=== PATIENT | female | born 1955 | race Caucasian/White ===

== ENCOUNTER → 2020-05-17 09:17 | Outpatient (CLI) | payer OTHER, SELFPAY ==
--- NOTE | ~2020-05-17 | XR_ITS ---
EXAMINATION: XR abdomen/kub 1V EXAM DATE: 05/17/2020 10:20 INDICATION: Abnormal urinalysis tests. Kidney stone. TECHNIQUE: Frontal projection(s) of the abdomen for interpretation. Comparison is made to prior exami nation from 05/18/2019. FINDINGS: Bowel gas obscuring the renal contours. There is expected amount of colonic stool and gas. No small bowel dilation, nonobstructive bowel gas pattern. Calcifications in the pelvis are belie he to be phleboliths. There is no organomegaly suspected. The bones are unremarkable. Lung base s are unremarkable. There are cholecystectomy clips. IMPRESSION: Unremarkable abdomen x-ray exam. Reviewed, dictated and finalized at location B. NGTH AND CONDITIONING COACH
== END ==
PROVIDERS: PCP Internal Medicine; Visit Provider Internal Medicine
DX: N20.0 Calculus of kidney (principal)
CPT/HCPCS: 74018

== ENCOUNTER → 2020-07-19 13:45 | Outpatient (CLI) | payer OTHER, SELFPAY ==
--- NOTE | ~2020-07-19 | MM_ITS ---
EXAMINATION: MM screening [facility] BI w gay HISTORY: Screening mammogram TECHNIQUE: Craniocaudal and mediolateral oblique 3-D tomosynthesis images were obtained and synthetic 2-D images were generated. CAD analysis was submitted and interpreted. COMPARISON: 01/07/2019, 11/12/2017, 10/31/2017, 05/28/2016 BREAST PARENCHYMAL COMPOSITION: There are scattered areas of fibroglandular density. FINDINGS: There is no evidence of suspicious mass, calcification, or architectural distortion to sugg est malignancy in either breast. There has been no suspicious interval change. IMPRESSION: 1. No mammographic evidence of malignancy. 2. Recommend routine screening mammography in one year. BI-RADS Category 1: Negative Reviewed, dictated and finalized at location A.
== END ==
PROVIDERS: PCP Internal Medicine; Visit Provider Student in an Organized Health Care Education/Training Program
DX: Z12.31 Encounter for screening mammogram for malignant neoplasm of breast (principal)
CPT/HCPCS: 77063; 77067

== ENCOUNTER 2020-08-26 13:16 | Outpatient (RCR) | payer OTHER, SELFPAY ==
--- NOTE | 2020-08-26 14:44 | PTOPEVAL ---
Thank you for referring Ruth Troncoso to [facility].? The patient is scheduled to be seen for therapy?1 x/week for 4 weeks. Please review, sign, date and return this plan of care MARY. I agree with and certify that the following plan of care is medically necessary. Referring Physician Date Attending Provider: Wesley Leyva MD Diagnosis right knee pain Onset 07/28/20 Additional Evaluation Detail 5 yrs ago left knee torn meniscus, Palma's cyst and fluid- no surgery PT only She has not been seen by an ortho MD yet. Subjective Information She starting having right knee Query Text:As Reported By Patient/ pain after performing the Family piriformis stretch. She has been using heat and ice for the knee. She has been doing chair aerobics or yoga with improved pain. She attempted in class yoga with increased soreness, but no changes in knee pain. Prior to injury was going to yoga or aerobic class and walk 10, 000 steps a day. Pain Assessment Self Report Pain Assessment Right Knee(s) Reported Pain Level 3 Pain Description Aching,Tightness Pain Frequency Acute,Intermittent Lowest Pain Intensity 0 Greatest Pain Intensity 5 Pain Aggravating Factors Stair Climbing,Weight Bearing/ Standing Lower Extremity Range of Motion Gross Lower Extremity Range of Motion right knee 0-133 dg Comments Lower Extremity Muscle Strength Testing Reason Not Measured WNL/Left,WNL/Right Gross Lower Extremity Strength right hip abduction: 3/5, left hip abduction: 4/5 Muscle Length Testing Muscle Length Testing Two-Joint Hip Flexor Shortened Muscles Short (R) Iliopsoas,Short (L) Iliopsoas,Short (R) Rectus Femoris,Short (L) Rectus Femoris,Short (R) Ilial Tib Band,Short (L) Ilial Tib Band Piriformis w/Hip Flexion >90 Degrees (L) Mild Tightness,(R) Moderate Tightness Right Prone Hip Internal Rotator Length 30 (degrees) Left Prone Hip Internal Rotator Length ( 30 degrees) Right Prone Hip External Rotator Length 30 (degrees) Left Prone Hip External Rotator Length ( 30 degrees) Left Hamstring Length -22 Query Text:(90 - 90 Posit
--- NOTE | 2020-09-22 08:09 | PCPTNOTE ---
Admitting Provider: Attending Provider: Wesley Leyva MD Patient:Ruth Troncoso Date of :1955 Discharge Note Patient has not returned for any further treatments since 08/26/2020, therefore she will be discharged at this time. Patient?s initial visit was on 08/26/2020 13:30 and she had a total of 1 visits. The goals have been not me. Thank you for referring this patient to [facility]. Please review, sign, date and return this discharge summary MARY. I have been updated about the patient's current status and I agree with discharge from the above service at this time. Referring Physician Date
== END 2020-09-22 16:47 | disposition home or self-care (01) ==
LOC: ANHPT 13:16
PROVIDERS: PCP Internal Medicine; Visit Provider Internal Medicine
DX: M25.561 Pain in right knee (principal)
CPT/HCPCS: 97110; 97161

== ENCOUNTER 2021-09-13 13:11 | Outpatient (RCR) | payer OTHER, SELFPAY ==
[2021-09-13 14:10] VITALS: BP 126/69; PULSE 58; TEMP 37.2; O2SAT 98
[2021-09-13] MEDS: diphenhydrAMINE HCl CAP 25 MG CAPSULE PO (14:19)
[2021-09-13] MEDS: ACETAMINOPHEN 325 MG TABLET 650 MG PO (14:19)
[2021-09-13] MEDS: FAMOTIDINE 20 MG TABLET PO (14:20)
[2021-09-13] MEDS: BEBTELOVIMAB 175 MG/2 ML VIAL IV PUSH (14:40)
[2021-09-13 15:21] VITALS: BP 128/75; PULSE 58; O2SAT 98
== END 2021-09-13 16:00 ==
LOC: AMCINF 13:11
PROVIDERS: PCP Internal Medicine; Referring Provider Internal Medicine; Visit Provider Internal Medicine Hematology & Oncology
DX: U07.1 COVID-19 (principal)
CPT/HCPCS: A9270; M0222; Q0222

== ENCOUNTER → 2022-04-25 10:16 | Outpatient (CLI) | payer OTHER, SELFPAY ==
--- NOTE | ~2022-04-25 | DEXA_ITS ---
Bone Density Report Name: DC RIVERA Age: 66 Sex: Female Ethnicity: White Date of : 1955 Indication: postmenopausal; screening for osteoporosis; height loss; hysterectomy; Referring Provider: JONNY, JOSEPH [place] Study: Bone densitometry was performed. Exam Date: April 25, 2022 Accession number: [id number] Bone Density: Region BMD T-score Z-score Classification AP Spine (L1-L4) 0.991 -0.5 1.4 Normal Femoral Neck (Left) 0.812 -0.3 1.3 Normal Total Hip (Left) 1.078 1.1 2.4 Normal Femoral Neck (Right) 0.845 0.0 1.6 Normal Total Hip (Right) 1.097 1.3 2.6 Normal Total Hip Mean 1.088 1.2 2.5 Normal World Health Organization criteria for BMD impression classify patients as: Normal (T-score at or above -1.0), Osteopenia (T-score between -1.0 and -2.5), or Osteoporosis (T-score at or below -2.5). 10-year Fracture Risk: FRAX not reported because: All T-scores for Spine Total, Hip Total, Femoral Neck at or above -1.0 Previous Exams: Region Exam Age BMD T-score BMD Change BMD Change Date g/cm2 vs Baseline vs Previous AP Spine(L1-L4) 04/25/2022 66 0.991 -0.5 -0.004 -0.043* 01/07/2019 63 1.034 -0.1 0.040* 0.050* 05/28/2016 60 0.984 -0.6 -0.010 0.024* 04/26/2014 58 0.960 -0.8 -0.034* -0.006 03/19/2012 56 0.967 -0.7 -0.027* -0.045* 03/10/2010 54 1.011 -0.3 0.017 0.017 03/10/2008 52 0.994 -0.5 Total Hip(Left) 04/25/2022 66 1.078 1.1 0.041* 0.057* 01/07/2019 63 1.021 0.6 -0.016 -0.012 05/28/2016 60 1.033 0.7 -0.003 0.017 04/26/2014 58 1.016 0.6 -0.021 0.004 03/19/2012 56 1.012 0.6 -0.025 -0.057* 03/10/2010 54 1.069 1.0 0.032* 0.032* 03/10/2008 52 1.037 0.8 Total Hip(Right) 04/25/2022 66 1.097 1.3 0.056* 0.074* 01/07/2019 63 1.022 0.7 -0.018 -0.039* 05/28/2016 60 1.062 1.0 0.021 0.012 04/26/2014 58 1.050 0.9 0.010 0.059* 03/19/2012 56 0.992 0.4 -0.049* -0.066* 03/10/2010 54 1.058 0.9 0.017 0.017 03/10/2008 52 1.040 0.8 *Denotes significance at 95% confidence level, LSC for AP Spine = 0.022 g/cm2, LSC for Total Hip = 0.027 g/cm2 Clinical Information Provided by Patient:
--- NOTE | ~2022-04-25 | MM_ITS ---
EXAMINATION: MM screening [facility] BI w gay HISTORY: Screening mammogram TECHNIQUE: Craniocaudal and mediolateral oblique 3-D tomosynthesis images were obtained and synthetic 2-D images were generated. CAD analysis was submitted and interpreted. COMPARISON: 07/19/2020, 01/07/2019 bilateral screening mammogram examinations BREAST PARENCHYMAL COMPOSITION: FINDINGS: Right breast: Several new opacities are noted in the lower right breast on screening MLO view particu larly. Diagnostic right mammogram and right breast ultrasound examination are recommended Left breast: There is no evidence of suspicious mass, calcification, or architectural distortion to s uggest malignancy in either breast. There has been no suspicious interval change. IMPRESSION: 1. New mammographic opacities, right breast 2. Diagnostic right mammogram and right breast ultrasound examination are recommended BI-RADS Category 0: Incomplete: Needs additional imaging evaluation. Reviewed, dictated and finalized at location A. TRANSITIONS MANAGER IMPRESSION: 1. New mammographic opacities, right breast 2. Diagnostic right mammogram and right breast ultrasound examination are recom mended BI-RADS Category 0: Incomplete: Needs additional imaging evaluation.
== END ==
PROVIDERS: PCP Internal Medicine; Visit Provider Nurse Practitioner
DX: Z12.31 Encounter for screening mammogram for malignant neoplasm of breast (principal); R92.8 Other abnormal and inconclusive findings on diagnostic imaging of breast; Z78.0 Asymptomatic menopausal state; Z13.820 Encounter for screening for osteoporosis
CPT/HCPCS: 77063; 77067; 77080

== ENCOUNTER → 2022-05-16 07:29 | Outpatient (CLI) | payer OTHER, SELFPAY ==
--- NOTE | ~2022-05-16 | MMUS_ITS ---
EXAMINATION: MM diagnostic [facility] RT w gay, US breast RT limited HISTORY: Possible right breast masses on screening mammogram TECHNIQUE: Additional 3-D tomosynthesis images of the right breast were performed and synthetic 2-D i mages were generated. CAD analysis was submitted and interpreted. High resolution limited right breas t ultrasound was performed. COMPARISON: 04/25/2022, 07/19/2020, 01/08/2019 FINDINGS: MAMMOGRAPHIC FINDINGS: There is a return to baseline fibroglandular appearance with spot compression of the right breast in the area questioned on screening mammogram. Small, obscured masses are seen which appear stable when compared to the prior mammograms. ULTRASOUND: There are small cysts of the right breast, measuring up to 6 mm at the 6:00 location near the nipple. No suspicious cystic or solid mass is identified. IMPRESSION: 1. No mammographic or sonographic evidence of malignancy. 2. Recommend routine screening mammography in one year. BI-RADS Category 2: Benign finding(s). Reviewed, dictated and finalized at location A. STICS SUPERVISOR IMPRESSION: 1. No mammographic or sonographic evidence of malignancy. 2. Recommend routine screening mammography in one year. BI-RADS Category 2: Benign finding(s).
== END ==
PROVIDERS: PCP Internal Medicine; Visit Provider Nurse Practitioner
DX: R92.2 Inconclusive mammogram (principal)
CPT/HCPCS: 76642; 77061; 77065; G0279

== ENCOUNTER 2023-09-20 14:34 | Outpatient (CLI) | payer OTHER, SELFPAY ==
--- NOTE | ~2023-09-20 | MM_ITS ---
EXAMINATION: MM screening [facility] BI w gay HISTORY: Screening TECHNIQUE: Craniocaudal and mediolateral oblique 3-D tomosynthesis images were obtained and synthetic 2-D images were generated. CAD analysis was submitted and interpreted. COMPARISON: No prior mammogram is available for comparison at this institution. Comparison to multipl e prior studies sequentially, with oldest reviewed study dated 10/31/2017. BREAST PARENCHYMAL COMPOSITION: Not dense: There are scattered areas of fibroglandular density. FINDINGS: There is a developing asymmetry in the left breast in the upper outer quadrant anteriorly. The right breast is stable without evidence for malignancy. IMPRESSION: 1. Developing left breast asymmetry. 2. Additional mammographic views and possible breast ultrasound are recommended. BI-RADS Category 0: Incomplete: Needs additional imaging evaluation. Reviewed, dictated and finalized at location B. IMPRESSION: 1. Developing left breast asymmetry. 2. Additional mammographic views and possible breast ultrasound are recommended . BI-RADS Category 0: Incomplete: Needs additional imaging evaluation.
== END 2023-09-20 14:35 ==
PROVIDERS: PCP Family Medicine; Visit Provider Obstetrics & Gynecology
DX: Z12.31 Encounter for screening mammogram for malignant neoplasm of breast (principal); R92.8 Other abnormal and inconclusive findings on diagnostic imaging of breast
CPT/HCPCS: 77063; 77067

== ENCOUNTER 2023-10-22 07:45 | Outpatient (CLI) | payer OTHER, SELFPAY ==
--- NOTE | ~2023-10-22 | MMUS_ITS ---
EXAMINATION: MM diagnostic [facility] LT w gay, US breast LT complete HISTORY: Follow-up developing left breast asymmetry TECHNIQUE: Additional 3-D tomosynthesis images of the left breast were performed and synthetic 2-D im ages were generated. CAD analysis was submitted and interpreted. High resolution complete left breast ultrasound was performed. COMPARISON: Comparison to multiple prior studies sequentially with oldest reviewed study dated 018. BREAST PARENCHYMAL COMPOSITION: Not dense: There are scattered areas of fibroglandular density. FINDINGS: MAMMOGRAPHIC FINDINGS: There are developing nodular asymmetries in the periareolar aspect of the left breast. No discrete ma ss or architectural distortion. There are no suspicious calcifications. ULTRASOUND: Complete bilateral US of all 4 quadrants of the left breast and retroareolar region was reviewed. The re are simple and complicated cysts of the left breast at 1:00 near the areola, 1:00, 1 cm from the n ipple and 2:00, 1 cm from the nipple. No suspicious masses to suggest malignancy. IMPRESSION: 1. No evidence for malignancy in the left breast. Benign findings. 2. Routine yearly screening mammogram and regular clinical breast examination are recommended. BI-RADS Category 2: Benign finding(s). Reviewed, dictated and finalized at location B. IMPRESSION: 1. No evidence for malignancy in the left breast. Benign findings. 2. Routine yearly screening mammogram and regular clinical breast examination a re recommended. BI-RADS Category 2: Benign finding(s).
== END 2023-10-22 07:46 ==
PROVIDERS: PCP Family Medicine; Visit Provider Nurse Practitioner
DX: R92.8 Other abnormal and inconclusive findings on diagnostic imaging of breast (principal)
CPT/HCPCS: 76641; 77061; 77065; G0279

== ENCOUNTER 2023-12-19 07:53 | Outpatient (RCR) | payer OTHER, SELFPAY ==
[2023-12-19 09:00] VITALS: BMI 27.5
== END 2024-03-09 09:31 | disposition home or self-care (01) ==
LOC: ANHDMC 07:53
PROVIDERS: PCP Family Medicine; Visit Provider Family Medicine
DX: E11.9 Type 2 diabetes mellitus without complications (principal); Z71.3 Dietary counseling and surveillance
CPT/HCPCS: 97802

== ENCOUNTER 2024-03-26 07:59 | Outpatient (RCR) | payer OTHER, SELFPAY ==
[2024-03-26 08:01] VITALS: BMI 32.2
[2024-03-26 08:26] VITALS: BMI 32.2
== END 2024-06-15 10:13 | disposition home or self-care (01) ==
LOC: ANHDMC 07:59
PROVIDERS: PCP Family Medicine; Visit Provider Family Medicine
DX: E11.9 Type 2 diabetes mellitus without complications (principal); Z71.3 Dietary counseling and surveillance
CPT/HCPCS: 97803

== ENCOUNTER 2024-06-15 05:55 | Day surgery (SDC) | payer OTHER, SELFPAY ==
[2023-12-16 07:30] VITALS: BMI 35.8
[2023-12-17 14:29] VITALS: BMI 35.3
--- OUTSIDE RECORDS SUMMARY | 2024-06-15 06:29 | XMS_ITS | Clinical Summary ---
Author Organization [facility] [employer] Address [address] [place] [address] Care Team Providers Care Web Pressman Name Role Phone Arnaldo Hurtado MD Unavailable [phone] Arnaldo Hurtado MD Primary Care Provider [phone] Source Comments [facility],non-owned Affiliates and Associated Physician Practices is amultiple site organization consisting of ambulatory clinics and hospital sitesin [place], [place], [place] and [place]. This disclosure is being madepursuant to the Care Everywhere program and may not contain all information available regarding this patient. Last updated 17.[facility] Allergies No known active allergies Medications * Be aware that medications may not be up to date on this document. Alwaysverify current medications with the patient. Medication Sig Dispensed Refills Start Date End Date Status dilTIAZem coated beads 24hr (Cardizem CD) 240 MG capsule Take 1 (one) capsule by mouth once daily 08/17/2022 Active levothyroxine (Synthroid) 50 MCG tablet Take 1 (one) tablet by mouth once daily 08/03/2022 Active hydroCHLOROthiazide (Hydrodiuril) 12.5 MG Take 1 (one) tablet by mouth once daily 06/16/2022 Active losartan (Cozaar) 100 MG tablet Take 1 (one) tablet by mouth once daily 07/13/2022 Active rosuvastatin (Crestor) 10 MG tablet Take 1 (one) tablet by mouth once daily 06/16/2022 Active nystatin (Mycostatin) [id number] UNIT/GM ointmentIndications :Lichen planus Use to affected area with the Triamcinolone ointment 0.1% once a day for one month & then very other day 30 g 2 09/02/2023 Active triamcinolone acetonide (Kenalog) 0.1 % ointmentIndications :Lichen planus Use to affected area with the nystatin ointment once a day for one month & then very other day 30 g 2 09/02/2023 Active Active Problems Problem Noted Date Diagnosed Date Hypertension 08/27/2022 08/27/2022 Hypothyroidism 08/27/2022 08/27/2022 Vaginal atrophy 08/27/2022 08/27/2022 Encounters Date Type Department Care Team Description 04/16/2024 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 Office Visit [facility] - HOTEL SERVICE SUPERVISOR [address] [place] [address] Liv Johnson APRN-FINANCIAL ACCOUNTING MANAGER Lichen planus (Primary Dx); Dyspareunia due to medical condition in female 04/16/2024 Travel from Last 3 Months Family History Medical History Relation Name Comments CAD (Coronary Artery Disease) Father Hypertension Father Cancer - Breast Maternal Aunt None Known Maternal Grandfather Asthma Maternal Grandmother CAD (Coronary Artery Disease) Mother CVA Mother Diabetes - Type 2 Mother Hypertension Mother None Known Paternal Grandfather None Known Paternal Grandmother Relation Name Status Comments Father Maternal Aunt Alive Maternal Grandfather Maternal Grandmother Mother Paternal Grandfather Paternal Grandmother Social History Tobacco Use Types Packs/Day Years Used Date Smoking Tobacco: Former Cigarettes 0.3 5 Smokeless Tobacco: Never Tobacco Cessation:Counseling Given: Not Answered Alcohol Use Standard Drinks/Week Comments Not Currently 0 (1 standard drink = 0.6 oz pur e alcohol) PHQ-2 Answer Date Recorded Patient Health Questionnaire-2 Score 0 04/10/2024 Sex and Gender Information Value Date Recorded Sex Assigned at Not on file Gender Identity Not on file Sexual Orientation Not on file Last Filed Vital Signs Vital Sign Reading Time Taken Comments Blood Pressure 122/80 04/16/2024 10:09 AM STEEL CRANE OPERATOR Pulse - - Temperature - - Respiratory Rate - - Oxygen Saturation - - Inhaled Oxygen Concentration - - Weight 73.5 kg (162 lb) 04/16/2024 10:09 AM STEEL CRANE OPERATOR Height 152.4 cm (5') 04/16/2024 10:09 AM STEEL CRANE OPERATOR Body Mass Index 31.64 04/16/2024 10:09 AM STEEL CRANE OPERATOR Plan of Treatment Upcoming Encounters Date Type Department Care Team (Late st Contact Info) Description 08/25/2024 10:10 AM CDT Office Visit [facility] - HOTEL SERVICE SUPERVISOR [address] [place] [phone] Liv Johnson, CENTRAL STERILE TECHNICIAN-FINANCIAL ACCOUNTING MANAGER [address] [place] [address] Health Maintenance Due Date Last Done Comments BONE DENSITY TESTING 1955 COLOGUARD (AGES 45-75) - COLON CA SCREENING 1955 COLON MONITORING 1955 COLONOSCOPY - COLON CA SCREENING 1955 CT COLONOGRAPHY - COLON CA SCREENING 1955 Colorectal Cancer Screening 1955 FIT - COLON CA SCREENING 1955 FLEX SIG - COLON CA SCREENING 1955 MEDICARE AWV 12 MONTHS 1955 HEPATITIS C SCREENING 06/25/1973 DTAP/TDAP/TD VACCINES (1 - Tdap) 06/29/1974 PNEUMOCOCCAL VACCINE 50+ (1 of 1 - PCV) 06/29/2005 ZOSTER VACCINE (1 of 2) 06/29/2005 SCREENING FOR DIABETES 08/27/2022 COVID-19 VACCINE ( - season) 2023 12/15/2021, 06/12/2021, 12/03/2020, Additional history exists INFLUENZA VACCINE (#1) 2023 , 11/19/2020, 11/13/2019, Additional history exists MEDICARE AWV CALENDAR YEAR 2024 MAMMOGRAM 04/11/2024 04/11/2022 (Done Outside Per Patient) Respiratory Syncytial Virus (RSV) Vaccine Pt: or over 60 yrs (1 - 1-dose 75+ series) 06/29/2030 DEPRESSION SCREENING Completed 04/16/2024, 09/04/2023, 08/27/2022 HEPATITIS B VACCINE Aged Out No longe r eligible based on patient's age to complete this topic HIB VACCINE Aged Out No longer eligi ble based on patient's age to complete this topic HPV VACCINE Aged Out No longer eligi ble based on patient's age to complete this topic MENINGOCOCCAL (Group B) VACCINE SHARED DECISION-MAKING Aged Out No longer eligible based on patient's age to complete this topic MENINGOCOCCAL GROUPS A/C/Y/W VACCINE Aged Out No longer eligible based on patient's age to complete this topic Care Teams Web Pressman Relationship Specialty Start Date End Date Anraldo Hurtado MD [address] [place] [address] [place] [address] PCP - General Family Medicine 08/17/22 Arnaldo Hurtado MD [address] [place] [address] Primary Care Provider Family Medicine 08/15/22
--- OUTSIDE RECORDS SUMMARY | 2024-06-15 06:30 | XMS_ITS | Data Portability ---
Author Organization [facility] [place] Address [address] [place] [address] Care Team Providers Care Die Keeper Name Role Phone JAC JOHNSON Primary Care Provider Assessment No assessment recorded. Plan of Treatment Reminders Order Date Submit Date Provider Last Modified By Organization Details Last Modified Time Details Appointments None recorded. Lab None recorded. Referral gynecologis t referral - Vulval irritationP lease contact this patient to schedule an appointment with a Vulvar Specialist. The patients insurance is [facility] Medicare HMO. Her primary care provider Jac Johnson DO will need to get an insurance authorizati on to refer this patient. PCP phone fax [phone] or .If you have any further questions, please call [phone].Thank you,Hilary, Referral's 2022 023 JUANITO Johnson CHAIRMAN PRESIDENT AND CHIEF EXECUTIVE OFFICER, [address] [facility], [facility] [address], [place], [address], 3 17:28:17 Procedures None recorded. Surgeries None recorded. Imaging None recorded. Medication Orders estradiol 0.01% (0.1 mg/gram) vaginal cream 2022 023 JUANITO [facility] [id number] In [facility], [address] [place], [address], 3 09:55:00 nystatin-tr iamcinolone 100,000 unit/g-0.1 % topical cream 2022 023 JUANITO [facility] [address] In [facility], [address] [place], [address], 09:48:46 Patient TargetsNo targets recorded. Patient InstructionsNo instructions recorded. 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 The patients insurance is [facility] Medicare HMO. Her primary care provider Jac Johnson DO will need to get an insurance authorization to refer this patient. PCP phone [phone] fax [phone] or [phone].If you have any further questions, please call [phone].Thank you,Mayo Richard's Referring Physician: Mag Abbasi, PET CARE TECHNICIAN, Encounter Date: 08/01/2022 Results Created Date Observation Date Name Description Value Unit Range Abnormal Flag Note LastModifiedBy Organization Detail LastModifiedTime 07/06/19 23 07/05/2022 SURGI GIANNI PATHO LOGY surgical pathology SEE RESULT S BELOW CASE REPOR T: Surgi gianni Patho logy Repor t Case: [id number] Autho kathy perera Provi luis angel: Mag Abbasi NP Colle cted: 07/05 1444 Order ing Locat ion: [place] Patho log[facility] Recei he: 07/06 0046 Patho logis t: Alfonso Camara MD Speci men: Vulva FINAL DIAGN OSIS: Vulva , biops y: -Lich enoid derma titis . Elect pawel german by Alfonso Camara MD on 023 at 9:55 AM ----- ----- ----- ----- ----- ----- ----- ----- ----- ----- ----- ----- ----- ----- ----- ----- ----- ---- COMME NT: Trepo nema immun ostai n is negat reggie. PAS-f ungus stain is negat reggie. CLINI GIANNI INFOR MATIO N: n90.8 9 MICRO SCOPI C DESCR IPTIO N: A micro scopi c exami natio n was perfo rmed. This test was devel oped and its perfo rmanc e florence cteri stics deter mined by Ervin contreras rn [facility] elsie. It has not been clear ed or appro he by the U. S. Food and Drug Admin istra tion. The FDA has deter mined that such clear ance or appro giselle is not neces kalee. This test may be used for clini gianni purpo se. It shoul d not be regar ded as inves tigat ional or for resea rch. This labor atory is certi fied under the Clini gianni Labor atory Impro vemen t Amend ments of 1987 (CLIA ) as quali fied to perfo rm high compl exity clini gianni labor atory testi ng. In cases which have decal cifie d tissu es, the resul ts shoul d be inter prete d with cauti on given the possi bilit y of false negat stephanie. The posit reggie contr ols demon strat e appro priat e posit reggie stain ing. The known tissu e negat reggie contr ols are negat reggie. The non-i mmune serum contr ol was non-r eacti ve. GROSS DESCR IPTIO N: A. Vulva . The speci men is label ed with the patie nt's name, demog raphi cs and vulv a . Recei he in forma dilip is a punch of white skin measu ring 0.[address] and is excis ed to a depth of 0.3 cm. It is submi tted all in casse tte A1. Gross ed by Mike Brady on Not Available [facility] (Lab) [address], [place], [address], 07/09/2022 10:57:25 04/25/19 23 04/25/2022 MAMMO , scree randall, digit al, bilat eral No observ ation record ed. [address] [facility] [address], [place], [address], 04/26/2022 09:35:37 04/25/19 23 04/25/2022 MAMMO , scree randall, digit al, bilat eral No observ ation record ed. [address] [facility] [address], [place], [address], 04/26/2022 09:35:37 05/18/19 23 04/25/2022 MAMMO , scree randall, digit al, bilat eral No observ ation record ed. [email or web address] [address], [place], [address], 05/17/2022 12:14:02 05/18/19 23 05/16/2022 US, tree t, unila teral No observ ation record ed. [address], [place], [address], 05/17/2022 12:32:39 09/20/19 24 09/20/2023 MAMMO , scree randall, bilat eral No observ ation record ed. [email or web address] [facility] [address], [place], [address], 10/08/2023 11:56:51 09/23/19 24 09/20/2023 MAMMO , scree randall, digit al, bilat eral No observ ation record ed. JUANITO [place] [facility] [address], [place], [address], 10/08/2023 04:11:35 Result Notes None recorded. Procedures Surgical History Date Name Laterality Status Provider Name and Address Organization Details Recorded Time 07/06/19 23 Vulvar Biopsy completed CAROL Sierra [address], [place], [address], [place] [facility] 07/05/2022 10:05:02 04/23/19 23 Date of Last Mammogram completed [facility] 05/22/2022 09:32:11 04/22/19 23 Most Recent Bone Density completed [facility] 05/22/2022 09:32:11 10/31/19 21 Date of Last Pap Smear completed [facility] 12/20/2021 10:13:37 12/30/19 17 Date of Last Colonoscopy completed [facility] 12/20/2021 10:13:37 Caesarean Section completed [facility] 12/20/2021 10:13:49 hysterectomy completed [facility] 12/20/2021 10:33:15 Imaging Results Imaging Date Name Status LastModified by Organiz ation Details LastModified Time 04/25/2022 MAMMO, screening, digital, bilateral completed [email or web address] [place] [facility] [address], [place], [address], 04/26/2022 09:35:37 04/25/2022 MAMMO, screening, digital, bilateral completed [email or web address] [place] [facility] [address], [place], [address], 04/26/2022 09:35:37 04/25/2022 MAMMO, screening, digital, bilateral completed [facility] [address], [place], [address], 05/17/2022 12:14:02 05/16/2022 US, breast, unilateral completed [email or web address] [place] [facility] [address], [place], [address], 05/17/2022 12:32:39 09/20/2023 MAMMO, screening, bilateral completed [email or web address] [place] [facility] [address], [place], [address], 10/08/2023 11:56:51 09/20/2023 MAMMO, screening, digital, bilateral active JUANITO [place] [facility] [address], [place], [address], 10/08/2023 04:11:35 Procedure Notes None recorded. Medical Equipment None Reported. Allergies No known drug allergies Medications Name Sig Start Date Stop Date Status Note LastModified by Organization Details LastModified Time diltiazem CD 240 mg capsule,ext ended release 24 hr TAKE 1 CAPSULE BY MOUTH EVERY DAY active Not Available Not Available No t Available [facility] Levothyroxi ne Sodium 50 mcg tablet 04/24 completed Not Available Not Available Not Available amoxicillin 875 mg tablet TAKE 1 TABLET BY MOUTH EVERY 12 HOURS 12/20 completed Not Available Not Available Not Available levothyroxi ne 50 mcg tablet TAKE 1 TABLET BY MOUTH EVERY DAY active Not Available Not Available No t Available nystatin-tr iamcinolone 100,000 unit/g-0.1 % topical cream APPLY TO THE AFFECTED AREA(S) BY TOPICAL ROUTE 2 TIMES PER DAY IN THE MORNING AND EVENING FOR 5 DAYS active Not Available Not Available No t Available clobetasol 0.05 % topical ointment APPLY THIN COAT TO AFFECTED AREA TWICE A DAY active Not Available Not Available No t Available estradiol 0.01% (0.1 mg/gram) vaginal cream APPLY 1 GRAM PER VAGINAL AREA THREE TIMES PER WEEK AT BEDTIME active Not Available Not Available No t Available Diltiazem CD 240 mg capsule,ext ended release 04/24 completed Not Available Not Available Not Available losartan 100 mg tablet TAKE 1 TABLET BY MOUTH EVERY DAY active Not Available Not Available No t Available Hydrochloro thiazide Plus 0.125 mg-50 mg tablet 04/24 completed Not Available Not Available Not Available rosuvastati n 10 mg tablet TAKE 1 TABLET BY MOUTH EVERY DAY active Not Available Not Available No t Available nitrofurant oin monohydrate /macrocryst als 100 mg capsule TAKE 1 TABLET BY MOUTH EVERY 12 HOURS FOR 5 DAYS. TAKE WITH A MEAL/FOOD 04/24 completed Not Available Not Available Not Available hydrochloro thiazide 12.5 mg tablet TAKE 1 TABLET BY MOUTH EVERY DAY active Not Available Not Available No t Available losartan potassium (bulk) 04/24 completed Not Available Not Available Not Available Vitals Date Recorded Body height Systolic blood pressure Diastolic blood pressure Provider Name and Address Organization Details Last Updated DateTime 04/24/2022 152.4 cm 133 mm[Hg] 89 mm[Hg] [facility] 04/24/2022 09:30:48 Date Recorded Body height Systolic blood pressure Diastolic blood pressure Provider Name and Address Organization Details Last Updated DateTime 05/22/2022 152.4 cm 112 mm[Hg] 75 mm[Hg] [facility] 05/22/2022 09:32:07 Date Recorded Body height Systolic blood pressure Diastolic blood pressure Provider Name and Address Organization Details Last Updated DateTime 07/03/2022 152.4 cm 130 mm[Hg] 79 mm[Hg] [facility] 07/03/2022 09:28:10 Date Recorded Body height Systolic blood pressure Diastolic blood pressure Provider Name and Address Organization Details Last Updated DateTime 07/05/2022 152.4 cm 125 mm[Hg] 79 mm[Hg] [facility] 07/05/2022 09:48:29 Date Recorded Body height Body mass index (BMI) Body weight Systolic blood pressure Diastolic blood pressure Provider Name and Address Organization Details Last Updated DateTime 08/01/2022 152.4 cm 34.1 kg/m2 96742.23 g 125 mm[Hg] 78 mm[Hg] [facility] 09:29:06 Social History Question Answer Notes LastModified by Organizat ion Details LastModified Time Do You Have An Advance Directive? No Information not available 12/20/2021 What Is Your Level Of Alcohol Consumption? Occasional Information not available 12/20/2021 How Many Years Have You Consumed Alcohol? 40 Information not available 12/20/2021 Are You Blind Or Do You Have Difficulty Seeing? No Information not available 12/20/2021 What Is Your Level Of Caffeine Consumption? Moderate Information not available 12/20/2021 How Much Tobacco Do You Chew? None Information not available 12/20/2021 In The 14 Days Before Symptom Onset, Have You Had Close Contact With A Laboratory-confir med COVID-19 While That Case Was Ill? No Information not available 12/20/2021 In The 14 Days Before Symptom Onset, Have You Had Close Contact With A Person Who Is Under Investigation For COVID-19 While That Person Was Ill? No Information not available 12/20/2021 Have You Been To An Area Known To Be High Risk For COVID-19? No Information not available 12/20/2021 Are You Deaf Or Do You Have Serious Difficulty Hearing? No Information not available 12/20/2021 What Type Of Diet Are You Following? SPECIFIC Information not available 12/20/2021 What Is The Highest Grade Or Level Of School You Have Completed Or The Highest Degree You Have Received? 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 No Information not available 01/22/2022 Do You Use Protection During Sex? No Information not available 12/20/2021 Do You Use Your Seat Belt Or Car Seat Routinely? Yes Information not available 12/20/2021 Do You Have Smoke And Carbon Monoxide Detectors In Your Home? Yes Information not available 12/20/2021 At What Age Did You Start Smoking Tobacco? 48 Information not available 12/20/2021 How Much Tobacco Do You Smoke? No Information not available 12/20/2021 Do You Feel Stressed (tense, Restless, Nervous, Or Anxious, Or Unable To Sleep At Night)? [id number] Information not available 12/20/2021 Do You Use Any Illicit Or Recreational Drugs? No Information not available 12/20/2021 Do You Use Sunscreen Routinely? Yes Information not available 12/20/2021 Have You Used IV Drugs? No Information not available 12/20/2021 Sex: Female Functional Status Question Answer Note LastModified by Organizat ion Details LastModified Time Do you have difficulty walking or climbing stairs? No [email or web address] Information not available 08/01/2022 Are you able to walk? YESWOREST Information not available 12/20/2021 Are you able to care for yourself? Yes [email or web address] Information not available 08/01/2022 Do you have difficulty dressing or bathing? No [email or web address] Information not available 08/01/2022 What is your exercise level? Moderate Information not available 12/20/2021 Mental Status None recorded. Family History Relationship Description Onset Age of this Age Resolved Age Notes LastModified by Organization Details LastModified Time Father Heart disease [email or web address] Not available 12/09 10:13:27 Mother Heart disease [email or web address] Not available 12/09 10:13:27 Medical History Condition Response Allergies (Food, seasonal, environmental ) N Other N Blood Transfusion N Drug/Latex Allergies/Reactions N Breast Cancer N Dermatologic Disorders N Lung Disease N Defects or Inherited Disease N Breast Problem N Gestational Diabetes N Hematologic disorders N Anesthesia Complications N History of STI N Deep Vein Thrombosis N Polycystic ovary syndrome N Anxiety Disorder N Autoimmune disease N Arthritis N Infertility N Polyps N Acid Reflux (GERD) N History of abnormal pap N Cancer N Stroke N Varicosities N Neurologic/Epilepsy N Endometriosis N High Cholesterol Y Headaches N Fibromyalgia N Kidney Disease N Heart Problems N Kidney or Bladder Problems N Thyroid Problems Y GI Problems N Eating Disorder N Anemia N Art (IVF or FET) N Psychiatric Illness N Ovarian Cancer N Diabetes N Pulmonary (TB, Asthma) N Hepatitis/Liver Disease N No Past Medical History N Eczema N Urinary Tract Infection N Abuse/Domestic Violence N Asthma N Trauma/Violence N Depression/ depression N Heart Disease N Pre-Eclampsia N Hypertension Y Osteoporosis N Thrombophilias N Gynecological History Statement/Question Response Date of Last Mammogram 04/23/2022 Date of LMP 10/19/2010 On BCP's at Conception? N Y Was last menstrual period normal N STIs/STDs N HPV Vaccine N Current Control Method Menopause Age at First Child 20 If Post Menopausal, Age at Menopause 55 Date of Last Colonoscopy 12/29/2016 Most Recent Bone Density 04/22/2022 Sexually Active? Y Age of first menstrual cycle 13 Date of Last Pap Smear 10/30/2020 Sexual Problems? Y LMP Approximate N Obstetrics History GPAL:G 2 P 0 0 0 2 Type Value Living 2 Total 2 Past Encounters Encounter ID Performer Location Encounter Start Date Encounter Closed Date Diagnosis/Indication Diagnosis SNOMED-CT Code Diagnosis ICD10 Code Diagnosis Note [id number] CAROL [facility] [place] [address] [address] 12/20/2021 09:44:23 12/20/2021 14:24:17 Atrophic vulva 799565859 N90.5 Significan t vulvar atrophy noted on examWe discussed options to help with thisShe desires trial of estrogen vaginal cream. To apply nightly x 2 weeks, then 3 x per weekR/B of estrogen vaginal cream discussed and accepted by patientPat ient declines hx of DVT or breast cancerTo use crisco twice daily to vulva as well, use crisco as lubricatio n with intercours eRTC in 1 month for f/u appointmen t Time spent in visit is a total of 35 mins with at least 50% of visit consisting of counseling and review of plan of care. Screening for malignant neoplasm of breast 144295955 Z12.39 Screening for osteoporosis 571623418 Z13.820 Gynecologi c examination 53401465 Z01.419 Take Calcium with Vitamin D 12-1500mg daily. Do monthly self breast exams. It is advised to get annual flu shot in the fall and she could obtain at [facility] or [facility] take care clinic. If you haven't received the Tdap vaccine in the last 10 years you should obtain one as well. Have mammogram yearly, bone density every 2-3 years and colonoscop y every 5-10 years depending on findings and history. Engage in daily exercise of low impact aerobic exercise 45-60 minutes 4-5 times weekly. Avoid tobacco and illicit drugs as well as using moderation with alcohol intake less than 1-2 8 oz beverages daily. This lifestyle behavior pattern will lead to less health conditions and longer life span. If BMI greater than 25 weight watchers or dietary consult advised. Questions have been answered. Patient appears to understand instructio ns, but if you have any further questions call or respond to this email WWEMedical hx : HTN controlled with medication , hypothyroi dism, elevated cholestero lS/p TLH, BSO 4 years ago. She had an episode of postmenopa usal bleeding and EMB in office was unsuccessf ul. She went in for D&C and had a hysterecto my, BSO due to perforatio n of the uterus during the procedure. No cancer found per patient. Encouraged patient to obtain these records for our office.No hx of abnormal paps prior to hystPaps D/c'd unless otherwise indicatedM ammogram order givenDexa order givenColon oscopy UTDUTD with PCP [id number] CAROL Sierra [place] [address] [address] 01/22/2022 09:17:29 01/22/2022 12:43:02 Atrophic vulva [id number] N90.5 Vulvar exam improved for Ana continue with vaginal estradiol 3x per weekCrisco twice dailyR/B discussed and accepted by patientRTC for f/u in 3 months Time spent in visit is a total of 20 mins with at least 50% of visit consisting of counseling and review of plan of care. [id number] CAROL Sierra [place] [address] [address] 04/24/2022 09:17:20 04/24/2022 12:09:32 Contact dermatitis 47899659 L25.9 Suspect increased irritation related to using toilet paper to apply estrace cream. Encouraged using clean fingers to apply the cream instead.Rx sent nystatin/t riamcinolo ne ointment for current episode of irritation vulvar care guidelines discussed in-depth : avoid panty liners/pad s, cotton underwear only, sleep with no underwear, avoid vaginal washes/pro ducts, water and fingers to cleanse the vulvaConti nue vaginal estrogen 3 x per weekCrisco twice dailyR/B of medication discussedR TC for vulvar check in 1 month Time spent in visit is a total of 30 mins with at least 50% of visit consisting of counseling and review of plan of care. Atrophic vulva [id number] N90.5 [id number] CAROL Sierra [place] [address],[place] [address] 05/22/2022 09:12:20 05/22/2022 10:36:13 Atrophic vulva 999081357 N90.5 Doing well, symptoms have greatly improvedCo ntinue w/ crisco twice daily - estrace vaginal cream 3 times per weekRTC for f/u in 2 months Time spent in visit is a total of 15 mins with at least 50% of visit consisting of counseling and review of plan of care. [id number] CAROL Sierra [place] [address],[place] [address] 07/03/2022 09:21:52 07/03/2022 15:08:03 Atrophic vaginitis 94204657 N95.2 Some improvemen t, but irritation continues despite twice daily crisco use and estrace vaginal cream 3x per week. Recommend vulvar biopsy for further evaluation . R/B discussed. After biopsy, may need vulvar animal care provider consultRTC for vulvar biopsy, continue current regimen Time spent in visit is a total of 20 mins with at least 50% of visit consisting of counseling and review of plan of care. Vulval irritation 391832 003 N90.89 [id number] CAROL Sierra [place] [address],[place] [address] 07/05/2022 09:23:43 07/05/2022 10:21:17 Atrophic vulva 281564683 N90.5 Vulval irritation 790348 003 N90.89 vulvar biopsy performed without any immediate complicati ons (see procedure note)will reach out to patient with results / f/u plan when availablep recautions discussed [id number] CAROL Sierra [place] [address],[place] [address] 08/01/2022 09:15:46 08/01/2022 09:57:02 Vulval irritation 678539637 N90.89 we reviewed biopsy resultsusi ng crisco twice daily, estradiol cream 2-3 times per week, and clobetasol 1-2 times per dayclobeta dianne has helped some, but irritation continuesw e agreed to vulvar animal care provider consult for further management referral sentexam is improved from last visitshe is going to continue current regimen Time spent in visit is a total of 18 mins with at least 50% of visit consisting of counseling and review of plan of care. Atrophic vulva 563938702 N90.5 Health Concerns Section Related Observation LastModified by Organization Detai ls LastModified Time None Recorded Concern Status LastModified by Organization Details LastModified Time None Recorded Advance Directives Directive N: Payers Encounter Date Sequence Insurance Name Policy Number Policy Chandra Covered Member ID Chandra Member ID Guarantor Name 04/24/2022 1 [employer] (MEDICARE REPLACEMENT HMO) [id number] Ruth L Troncoso [id number] Ruth Troncoso 05/22/2022 1 [employer] (MEDICARE REPLACEMENT HMO) [id number] Ruth L Troncoso [id number] Ruth Troncoso 07/03/2022 1 [employer] (MEDICARE REPLACEMENT HMO) [id number] Ruth L Troncoso [id number] Ruth Troncoso 07/05/2022 1 [employer] (MEDICARE REPLACEMENT HMO) [id number] Ruth L Troncoso [id number] Ruth Troncoso 08/01/2022 1 [employer] (MEDICARE REPLACEMENT HMO) [id number] Ruth L Troncoso [id number] Ruth Troncoso Notes Date Note Type Note Provider Name and Address Organization Details Recorded Time 04/24/2022 text/html 66yoPresents for med check, on vaginal estradiol 3 x per weekUsing crisco twice daily to vulvaFelt improvement in vaginal dryness, irritation and itching up until last week. Symptoms returned, she started using toilet paper to apply the estrace cream. CAROL Sierra [address], [place], [address], [facility] 04/24/2022 11:52:16 05/22/2022 text/html 66yoPresents for f/uUsing crisco twice daily, estrace vaginal cream 3x per weekDoing well, feeling so much better since last visit CAROL Sierra [address], [place], [address], [facility] 05/22/2022 10:28:46 07/03/2022 text/html 67 yo presents f or vulvar check / medication f/ustarted estrace vaginal cream for relief of vaginal atrophy/irritationst arted using 01/22/22. Has been using crisco twice daily, with estrace cream 3x per week since. She has noticed some improvement but irritation continues. Still feels like some raw areas near vaginal opening. IC continues be painful. Itching has mostly resolved. CAROL Sierra [address], [place], [address], [facility] 07/03/2022 13:52:06 07/05/2022 text/html patient presents for vulvar biopsy CAROL Sierra [address], [place], [address], [facility] 07/05/2022 10:06:02 08/01/2022 text/html 67yopresents for vulvar biopsy f/uusing estrace vaginal cream 3 x per weekcrisco twice dailyand clobetasol 1-2 times a dayvulvar biopsy showed Lichenoid dermatitisfeels some improvement but still continues to feel irritation CAROL Sierra [address], [place], [address], [facility] 08/01/2022 09:51:59 OBGyn Episode Ob Episode Information Episode Created Date Number of Fetuses Patient Bloodtype Patient rh Status Prepregnancy Weight lbs Domestic Partner Domestic Partner Phone Father Name Health Care Attorney Status 12/21/19 22 1 CLOSED Fetus Data First Name Last Name Admitted to NICU Weight (g) Sex Living Outcome Pediatric Complications Fetus ID Race Codes Race Delivery Type 4422.52 2 F Full Term [id number] Primary Trevor Calculation Initial Trevor Date Initial Exam Date Initial Exam Provider Initial Ultrasound Date Last Menstrual Period Date Ultra Sound Weeks Gestation 0 Eighteen To Twenty Week Trevor Update Ultra Sound Date Fundal Height At Umbil Quickening Date Ultra Sound Latest Weeks Gestation Final Trevor Confirmed By Final Trevor Confirmed Date Final Trevor Date Ultra Sound Latest Days Gestation 0 0 Menstrual History Last Menstrual Date Menses Monthly On Bcp Conception Prior Menses Frequency Hcg Plus Date Menarche Onset Age Delivery Information Delivery Date Delivery Type Labor Anesthesia Weeks Gestation Incision Type Labor Labor Length Hrs Delivered By Post Complications Tubal Sterilization Discharge Date Comments 7 40 Discharge Information Feeding Method Contraceptive Method Maternal HG B and HCT Levels Ob Episode Information Episode Created Date Number of Fetuses Patient Bloodtype Patient rh Status Prepregnancy Weight lbs Domestic Partner Domestic Partner Phone Father Name Health Care Attorney Status 12/21/19 22 1 CLOSED Fetus Data First Name Last Name Admitted to NICU Weight (g) Sex Living Outcome Pediatric Complications Fetus ID Race Codes Race Delivery Type 3515.33 8 F Full Term [id number] Repeat Trevor Calculation Initial Trevor Date Initial Exam Date Initial Exam Provider Initial Ultrasound Date Last Menstrual Period Date Ultra Sound Weeks Gestation 0 Eighteen To Twenty Week Trevor Update Ultra Sound Date Fundal Height At Umbil Quickening Date Ultra Sound Latest Weeks Gestation Final Trevor Confirmed By Final Trevor Confirmed Date Final Trevor Date Ultra Sound Latest Days Gestation 0 0 Menstrual History Last Menstrual Date Menses Monthly On Bcp Conception Prior Menses Frequency Hcg Plus Date Menarche Onset Age Delivery Information Delivery Date Delivery Type Labor Anesthesia Weeks Gestation Incision Type Labor Labor Length Hrs Delivered By Post Complications Tubal Sterilization Discharge Date Comments 9 Discharge Information Feeding Method Contraceptive Method Maternal HG B and HCT Levels
[2024-06-15 06:56] VITALS: BP 152/93; PULSE 76; RESP 15; TEMP 36.7; O2SAT 99
--- NOTE | 2024-06-15 07:21 | P.PNAN_ITS ---
Anes - Initial Pre Proc Eval Procedure: Operation Date: 06/15/24 08:00 Proposed Procedures p Screening Colonoscopy - Todd Montemayor MD Date/Time: 06/15/24 07:21 Surgeon: Todd Montemayor MD Pre Op Diagnosis: Neoplasm Screening Patient Data Age: 68 Gender: F Height: 1.52 m Weight: 73 kg Last Vital Signs Temp 36.7 C 06/15/24 06:56 Pulse 76 06/15/24 06:56 Resp 15 06/15/24 06:56 BP 152/93 H 06/15/24 06:56 Pulse Ox 99 06/15/24 06:56 O2 Del Method Room Air 06/15/24 06:56 Allergies Allergy/AdvReac Type Severity Reaction Status Date / Time ART Inhibitors AdvReac Mild cough Verified 06/15/24 06:42 Home Medications ?Medication ?Instructions ?Recorded ?Confirmed ?Type melatonin 1 mg tablet 1 mg PO DAILY 02/10/19 06/15/24 History cholecalciferol (vitamin D3) 125 125 mcg PO DAILY 11/15/20 06/15/24 History mcg (5,000 unit) capsule cetirizine 10 mg tablet (Zyrtec) 10 mg PO DAILY PRN allergies 05/09/21 06/15/24 History ascorbate calcium (vitamin C) 500 500 mg PO DAILY 12/03/23 06/15/24 History mg tablet calcium 500 mg tablet 500 mg PO DAILY 12/17/23 06/15/24 History levothyroxine 50 mcg tablet 50 mcg PO DAILY 12/17/23 06/15/24 History blood sugar diagnostic (Contour #100 ea 12/19/23 06/09/24 Rx Next Test Strips) blood-glucose meter (Contour Next #1 kit 01/14/24 06/09/24 Rx Glucose Meter kit) omeprazole 20 mg capsule,delayed 20 mg PO DAILY PRN Indigestion #90 02/11/24 06/15/24 Rx release caps diltiazem HCl 240 mg See Rx Instructions .Route 02/24/24 06/15/24 Rx capsule,extended release 24 hr .COMPLEX #90 caps losartan 100 mg tablet See Rx Instructions .Route 02/24/24 06/15/24 Rx .COMPLEX #90 tabs rosuvastatin 10 mg tablet See Rx Instructions .Route 12/16/24 04/07/25 Rx .COMPLEX #90 tabs hydrochlorothiazide 12.5 mg tablet See Rx Instructions .Route 06/03/24 06/15/24 Rx .COMPLEX #90 tabs Patient hx anesthesia problems: none Family hx anesthesia problems: none Results Review: All pre-operative results and documents have been reviewed as part of the pre- operative evaluation. 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 Hormone replacement therapy (HRT) Adult hypothyroidism Hyperlipidemia Encounter for general medical examination COVID-19 IFG (impaired fasting glucose) Hypercholesteremia Hypertension Surgical History Surgical History S/P cholecystectomy History of carpal tunnel surgery History of cholecystectomy [place] teeth removed H/O: hysterectomy H/O section Family History Family History Father Family history of hepatitis Family history of liver disease Family history of cardiovascular disease Family history of heart disease in male family member before age 55 Sibling Family history of hypothyroidism Diabetes mellitus Hypertension Family history of cardiovascular disease Mother Cerebrovascular accident, Onset Age: 83 Diabetes mellitus Family history of cardiovascular disease Family history of chronic obstructive pulmonary disease Other Family history of coronary artery disease Social History Social History Years smoked: 5 Smoking status: Former smoker Tobacco type: cigarettes Second hand tobacco smoke exposure: No Smoking end date: 03/11/00 Alcohol intake: current Alcohol use details: social Substance use: never Substance use type: does not use Lack of Transportation: No Lack of Food: Never True Current Housing: I Have Housing Concerned About Future Housing: No Difficulty Paying Gas/Electric Bills: No Difficulty Paying for Meds: No Currently Unemployed: No Education: Master's Degree or Higher Difficulty w/ Childcare or Family Care: No Living arrangements: with family Spiritual care concerns: No Anes - Eval Final PreProcedure Day of Procedure 06/15/24 07:21 Patient weight: obese Heart: regular rate and rhythm Lungs: clear to auscultation Airway: Mallampati scale class II Neurological: alert and oriented Last oral intake: >/= 8 hours ASA classification: III Emergent: no Anesthetic plan: proceed Anesthesia type and monitoring: general GIVS and standard monitoring Results Review: All pre-operative results and documents have been reviewed as part of the pre- operative evaluation. Informed Consent: The patient's anesthetic plan and its attendant risks and benefits were discussed with the patient/family/POA. Questions were solicited and answers provided to the satisfaction of the patient/family/POA.
[2024-06-15] MEDS: LACTATED RINGERS 1,000 ML 150 ML IV CONT (07:25)
--- NOTE | 2024-06-15 08:03 | P.HP_ITS ---
H&P: HPI History of Present Illness Date/Time: 06/15/24 08:03 Chief Complaint: Screening colonoscopy Narrative: This is the patient's second colonoscopy, the previous one was in 2009. There are no GI symptoms and there is no family history of colorectal cancer. Review of Systems Review of Systems: All systems reviewed & are unremarkable except as noted in HPI and below PMFSH Past Medical History Medical History Vitamin D deficiency On shelter drug therapy Hormone replacement therapy (HRT) Adult hypothyroidism Hyperlipidemia Encounter for general medical examination COVID-19 IFG (impaired fasting glucose) Hypercholesteremia Hypertension Surgical History Surgical History S/P cholecystectomy History of carpal tunnel surgery History of cholecystectomy [place] teeth removed H/O: hysterectomy H/O section Family History Family History Father Family history of hepatitis Family history of liver disease Family history of cardiovascular disease Family history of heart disease in male family member before age 55 Sibling Family history of hypothyroidism Diabetes mellitus Hypertension Family history of cardiovascular disease Mother Cerebrovascular accident, Onset Age: 83 Diabetes mellitus Family history of cardiovascular disease Family history of chronic obstructive pulmonary disease Other Family history of coronary artery disease Social History Social History Years smoked: 5 Smoking status: Former smoker Tobacco type: cigarettes Second hand tobacco smoke exposure: No Smoking end date: 03/11/00 Alcohol intake: current Alcohol use details: social Substance use: never Substance use type: does not use Lack of Transportation: No Lack of Food: Never True Current Housing: I Have Housing Concerned About Future Housing: No Difficulty Paying Gas/Electric Bills: No Difficulty Paying for Meds: No Currently Unemployed: No Education: Master's Degree or Higher Difficulty w/ Childcare or Family Care: No Living arrangements: with family Spiritual care concerns: No Meds Home Medications and Allergies Home Medications ?Medication ?Instructions ?Recorded ?Confirmed ?Type melatonin 1 mg tablet 1 mg PO DAILY 02/10/19 06/15/24 History cholecalciferol (vitamin D3) 125 125 mcg PO DAILY 11/15/20 06/15/24 History mcg (5,000 unit) capsule cetirizine 10 mg tablet (Zyrtec) 10 mg PO DAILY PRN allergies 05/09/21 06/15/24 History ascorbate calcium (vitamin C) 500 500 mg PO DAILY 12/03/23 06/15/24 History mg tablet calcium 500 mg tablet 500 mg PO DAILY 12/17/23 06/15/24 History levothyroxine 50 mcg tablet 50 mcg PO DAILY 12/17/23 06/15/24 History blood sugar diagnostic (Contour #100 ea 12/19/23 06/09/24 Rx Next Test Strips) blood-glucose meter (Contour Next #1 kit 01/14/24 06/09/24 Rx Glucose Meter kit) omeprazole 20 mg capsule,delayed 20 mg PO DAILY PRN Indigestion #90 02/11/24 06/15/24 Rx release caps diltiazem HCl 240 mg See Rx Instructions .Route 02/24/24 06/15/24 Rx capsule,extended release 24 hr .COMPLEX #90 caps losartan 100 mg tablet See Rx Instructions .Route 02/24/24 06/15/24 Rx .COMPLEX #90 tabs rosuvastatin 10 mg tablet See Rx Instructions .Route 02/24/24 06/15/24 Rx .COMPLEX #90 tabs hydrochlorothiazide 12.5 mg tablet See Rx Instructions .Route 06/03/24 06/15/24 Rx .COMPLEX #90 tabs Allergies Allergy/AdvReac Type Severity Reaction Status Date / Time ART Inhibitors AdvReac Mild cough Verified 06/15/24 06:42 Vital Signs Vital Signs - 24 hr 06/15/24 06:56 Temperature 98.0 F Pulse Rate 76 Respiratory Rate 15 Blood Pressure 152/93 H Pulse Oximetry 99 Oxygen Delivery Room Air Exam Const: General: cooperative and healthy appearing Resp: Effort & Inspection: normal respiratory effort and able to speak in complete sentences Auscultation: clear to auscultation bilaterally Cardio: Rate: regular rate Rhythm: regular rhythm GI: Inspection: normal to inspection GI Palp: No No hepatosplenomegaly present Auscultation: normal bowel sounds Rectal Exam: deferred Skin: General skin exam: normal color Psych: Appearance: grossly normal Mental Status: mental status grossly norm al Assessment and Plan Assessment and plan (1) Encounter for screening colonoscopy: Code(s): Z12.11 - Encounter for screening for malignant neoplasm of colon Status: Acute Assessment and Plan: The patient is deemed a good candidate for the procedure. Consent signed. Will proceed.
[2024-06-15 08:30] VITALS: BP 116/71; PULSE 88; RESP 14; O2SAT 99
--- NOTE | 2024-06-15 08:38 | WPDANESPN ---
Anes - Prog Note Post-Op Date/Time: 06/15/24 08:38 Cardiovascular status: normal Respiratory status: normal Airway patency: baseline Mental status: baseline Post-Op hydration status: normal Vital Signs: Last Vital Signs Temp 36.7 C 06/15/24 06:56 Pulse 88 06/15/24 08:30 Resp 14 06/15/24 08:30 BP 116/71 06/15/24 08:30 Pulse Ox 99 06/15/24 08:30 O2 Del Method Room Air 06/15/24 08:30 Pain Score (VAS): 0 I/O: Intake & Output 06/14/24 06/15/24 06/15/24 23:59 07:59 15:59 Intake Total 550 Balance 550 Patient Feedback: Patient satisfied with anesthetic care.
[2024-06-15 08:40] VITALS: BP 115/78; PULSE 87; RESP 16; O2SAT 98
[2024-06-15 08:50] VITALS: BP 128/86; PULSE 81; RESP 16; O2SAT 98
== END 2024-06-15 09:05 | disposition home or self-care (01) ==
PROVIDERS: PCP Family Medicine; Visit Provider Internal Medicine Gastroenterology
PROC: 0DJD8ZZ Inspection of Lower Intestinal Tract, Via Natural or Artificial Opening Endoscopic (ICD-10-PCS; CPT 45378; principal; 2024-06-15 08:00)
DX: Z12.11 Encounter for screening for malignant neoplasm of colon (principal); D37.5 Neoplasm of uncertain behavior of rectum; K56.609 Unspecified intestinal obstruction, unspecified as to partial versus complete obstruction
CPT/HCPCS: 45331

== ENCOUNTER 2024-06-15 13:09 | Outpatient (NON) | payer OTHER, SELFPAY ==
--- OUTSIDE RECORDS SUMMARY | 2024-06-16 14:31 | XMS_ITS | Clinical Summary ---
Author Organization [facility] [employer] Address [address] [place] [address] Care Team Providers Care Crutcher Helper Name Role Phone Arnaldo Hurtado MD Unavailable [phone] Arnaldo Hurtado MD Primary Care Provider [phone] Source Comments [facility],non-owned Affiliates and Associated Physician Practices is amultiple site organization consisting of ambulatory clinics and hospital sitesin [place], [place], [place] and [place]. This disclosure is being madepursuant to the Care Everywhere program and may not contain all information available regarding this patient. Last updated 17.[facility] [employer] Allergies No known active allergies Medications * [...] mouth once daily 06/16/2022 Active nystatin (Mycostatin) 161908 UNIT/GM ointmentIndications :Lichen planus Use to affected [...] Department Care Team Description 04/16/2024 10:10 AM CROP PICKER Office Visit [facility] - T[facility] DEPARTMENT MANAGER [address] [place] [address] Liv Johnson APRN-PAGE DESIGNER Lichen planus (Primary Dx); Dyspareunia due to [...] Comments Blood Pressure 122/80 04/16/2024 10:09 AM CROP PICKER Pulse - - Temperature - - Respiratory Rate - - Oxygen Saturation - - Inhaled Oxygen Concentration - - Weight 73.5 kg (162 lb) 04/16/2024 10:09 AM CROP PICKER Height 152.4 cm (5') 04/16/2024 10:09 AM CROP PICKER Body Mass Index 31.64 04/16/2024 10:09 AM CROP PICKER Plan of Treatment Upcoming Encounters Date Type Department Care Team (Late st Contact Info) Description 08/25/2024 10:10 AM CDT Office Visit [facility] - [facility] DEPARTMENT MANAGER [address] [place] [id number] Liv Johnson, GRAPHITE GRINDER-PAGE DESIGNER [address] [facility] [address] [place] [address] Health Maintenance Due Date Last [...] SCREENING FOR DIABETES 08/27/2022 COVID-19 VACCINE ( season) 2023 12/15/2021, 06/12/2021, 12/03/2020, Additional history exists MEDICARE AWV CALENDAR YEAR 2024 MAMMOGRAM 04/11/2024 04/11/2022 (Done Outside Per Patient) INFLUENZA VACCINE (Season Ended) 2024 12/15/2021, 11/19/2020, 11/13/2019, Additional history exists Respiratory Syncytial Virus (RSV) Vaccine Pt: or [...] age to complete this topic Care Teams Crutcher Helper Relationship Specialty Start Date End Date Arnaldo Hurtado MD [address] [place] [address] [facility] [address] PCP - General Family Medicine 08/17/22 Arnaldo Hurtado MD [address] [place] [address] Primary Care Provider Family Medicine 08/15/22
--- OUTSIDE RECORDS SUMMARY | 2024-06-16 14:31 | XMS_ITS | Data Portability ---
Author Organization [facility] [place] Address [address] [place] [address] Care Team Providers Care Voip Engineer Name Role Phone JAC JOHNSON Primary Care Provider Assessment No assessment recorded. Plan of Treatment Reminders Order Date Submit Date Provider Last Modified By Organization Details Last Modified Time Details Appointments None recorded. Lab None recorded. Referral gynecologis t referral - Vulval irritationP lease contact this patient to schedule an appointment with a Vulvar Specialist. The patients insurance is [facility] Medicare HMO. Her primary care provider Jac Johnson DO will need to get an insurance authorizati on to refer this patient. PCP phone fax or .If you have any further questions, please call [phone].Thank you,Hilary, Referral's 2022 023 JUANITO Johnson PROJECT DEVELOPMENT LEADER, [address] [facility], [facility] [address], [place], [address], 3 17:28:17 Procedures None recorded. Surgeries None recorded. Imaging None recorded. Medication Orders estradiol 0.01% (0.1 mg/gram) vaginal cream 2022 023 JUANITO [facility] [id number] In [facility], [address] [place], [address], 3 09:55:00 nystatin-tr iamcinolone 100,000 unit/g-0.1 % topical cream 2022 023 JUANITO [facility] [address] In [facility], [address] [place], [address], 09:48:46 Patient TargetsNo targets recorded. Patient InstructionsNo instructions recorded. Reason for Referral Communication Instructor Referral for Vu lval irritation Vulval irritation Vulval irritationPlease contact this patient to schedule an appointment with a Vulvar Specialist. The patients insurance is [facility] Medicare HMO. Her primary care provider Jac Johnson DO will need to get an insurance authorization to refer this patient. PCP phone [phone] fax [phone] or [phone].If you have any further questions, please call [phone].Thank you,Mayo Richard's Referring Physician: Mag Abbasi, TIMBER SIZER, Encounter Date: 08/01/2022 Results Created Date Observation [...] ed by Mike Brady on Not Available [facility] (Lab) [address], [place], [address], 07/09/2022 10:57:25 04/25/19 23 04/25/2022 MAMMO , scree randall, digit al, bilat eral No observ ation record ed. [address] [facility] [address], [place], [address], 04/26/2022 09:35:37 04/25/19 23 04/25/2022 MAMMO , scree randall, digit al, bilat eral No observ ation record ed. [address] [facility] [address], [place], [address], 04/26/2022 09:35:37 05/18/19 23 04/25/2022 MAMMO , scree randall, digit al, bilat eral No observ ation [facility] [address], [place], [address], 05/17/2022 12:14:02 05/18/19 23 05/16/2022 US, tree t, unila teral No observ ation record ed. [address], [place], [address], 05/17/2022 12:32:39 09/20/19 24 09/20/2023 MAMMO , scree randall, bilat eral No observ ation record ed. [facility] [address], [place], [address], 10/08/2023 11:56:51 09/23/19 24 09/20/2023 MAMMO , scree randall, digit al, bilat eral No observ ation record ed. JUANITO [place] [facility] [address], [place], [address], 10/08/2023 04:11:35 Result Notes None recorded. Procedures Surgical History Date Name Laterality Status Provider Name and Address Organization Details Recorded Time 07/06/19 23 Vulvar Biopsy completed CAROL Sierra [address], [place], [address], [facility] 07/05/2022 10:05:02 04/23/19 23 Date of Last Mammogram completed [facility] 05/22/2022 09:32:11 04/22/19 23 Most Recent Bone Density completed [facility] 05/22/2022 09:32:11 10/31/19 21 Date of Last Pap Smear completed [facility] 12/20/2021 10:13:37 12/30/19 17 Date of Last Colonoscopy completed [facility] 12/20/2021 10:13:37 Caesarean Section completed [facility] 12/20/2021 10:13:49 hysterectomy completed [facility] 12/20/2021 10:33:15 Imaging Results Imaging Date Name Status LastModified by Organiz ation Details LastModified Time 04/25/2022 MAMMO, screening, digital, bilateral completed [email or web address] [place] [facility] [address], [place], [address], 04/26/2022 09:35:37 04/25/2022 MAMMO, screening, digital, bilateral completed [email or web address] [place] [facility] [address], [place], [address], 04/26/2022 09:35:37 04/25/2022 MAMMO, screening, digital, bilateral completed [facility] [address], [place], [address], 05/17/2022 12:14:02 05/16/2022 US, breast, unilateral completed [email or web address] [place] [facility] [address], [place], [address], 05/17/2022 12:32:39 09/20/2023 MAMMO, screening, bilateral completed [email or web address] [place] [facility] [address], [place], [address], 10/08/2023 11:56:51 09/20/2023 MAMMO, screening, digital, bilateral active JUANITO [place] [facility] [address], [place], [address], 10/08/2023 04:11:35 Procedure Notes None recorded. Medical Equipment None Reported. Allergies No known drug allergies Medications Name Sig Start Date Stop Date Status Note LastModified by Organization Details LastModified Time diltiazem CD 240 mg capsule,ext ended release 24 hr TAKE 1 CAPSULE BY MOUTH EVERY DAY active Not Available Not Available No t Available [facility] Levothyroxi ne Sodium 50 mcg tablet [...] 04/24/2022 152.4 cm 133 mm[Hg] 89 mm[Hg] [facility] 04/24/2022 09:30:48 Date Recorded Body height Systolic blood pressure Diastolic blood pressure Provider Name and Address Organization Details Last Updated DateTime 05/22/2022 152.4 cm 112 mm[Hg] 75 mm[Hg] [facility] 05/22/2022 09:32:07 Date Recorded Body height Systolic blood pressure Diastolic blood pressure Provider Name and Address Organization Details Last Updated DateTime 07/03/2022 152.4 cm 130 mm[Hg] 79 mm[Hg] [facility] 07/03/2022 09:28:10 Date Recorded Body height Systolic blood pressure Diastolic blood pressure Provider Name and Address Organization Details Last Updated DateTime 07/05/2022 152.4 cm 125 mm[Hg] 79 mm[Hg] [facility] 07/05/2022 09:48:29 Date Recorded Body height Body mass index (BMI) Body weight Systolic blood pressure Diastolic blood pressure Provider Name and Address Organization Details Last Updated DateTime 08/01/2022 152.4 cm 34.1 kg/m2 86576.23 g 125 mm[Hg] 78 mm[Hg] [facility] 09:29:06 Social History Question [...] Or The Highest Degree You Have Received? [id number] Information not available 12/20/2021 What Is Your [...] Anxious, Or Unable To Sleep At Night)? AE9352-8 Information not available 12/20/2021 Do You Use Any Illicit Or Recreational Drugs? No Information not available 12/20/2021 Do You Use Sunscreen Routinely? Yes Information not available 12/20/2021 Have You Used IV Drugs? No Information not available 12/20/2021 Sex: Female Functional Status Question Answer Note LastModified by Organizat ion Details LastModified Time Do you have difficulty walking or climbing stairs? No Information not available 08/01/2022 Are you able to walk? YESWOREST Information not available 12/20/2021 Are you able to care for yourself? Yes Information not available 08/01/2022 Do you have difficulty dressing or bathing? No [email or web address] Information not available 08/01/2022 What is your [...] (Food, seasonal, environmental ) N Other N Breast Cancer N Drug/Latex Allergies/Reactions N Blood Transfusion N Dermatologic Disorders N Lung Disease N [...] SNOMED-CT Code Diagnosis ICD10 Code Diagnosis Note [id number] CAROL Sierra [place] [address] [address] 12/20/2021 09:44:23 12/20/2021 14:24:17 Atrophic vulva 989020643 N90.5 Significan t vulvar atrophy noted on [...] care. Screening for malignant neoplasm of breast 254648485 Z12.39 Screening for osteoporosis [id number] Z13.820 Gynecologi c examination 38328815 Z01.419 Take Calcium with Vitamin D 12-1500mg daily. Do monthly self breast exams. It is advised to get annual flu shot in the fall and she could obtain at [facility] or [facility] take care clinic. If you haven't received [...] givenDexa order givenColon oscopy UTDUTD with PCP [id number] CAROL Sierra [place] [address] [address] 01/22/2022 09:17:29 01/22/2022 12:43:02 Atrophic vulva 769890644 N90.5 Vulvar exam improved for Ana continue with vaginal estradiol 3x per weekCrisco twice dailyR/B discussed and accepted by patientRTC for f/u in 3 months Time spent in visit is a total of 20 mins with at least 50% of visit consisting of counseling and review of plan of care. [id number] CAROL Sierra [place] [address] [address] 04/24/2022 09:17:20 04/24/2022 12:09:32 Contact dermatitis 54904963 L25.9 Suspect increased irritation related to using [...] review of plan of care. Atrophic vulva [id number] N90.5 [id number] CAROL Sierra [place] [address],[place] [address] 05/22/2022 09:12:20 05/22/2022 10:36:13 Atrophic vulva 420993842 N90.5 Doing well, symptoms have greatly improvedCo ntinue w/ crisco twice daily - estrace vaginal cream 3 times per weekRTC for f/u in 2 months Time spent in visit is a total of 15 mins with at least 50% of visit consisting of counseling and review of plan of care. [id number] CAROL Sierra [place] [address],[place] [address] 07/03/2022 09:21:52 07/03/2022 15:08:03 Atrophic vaginitis 23429493 N95.2 Some improvemen t, but irritation continues despite twice daily crisco use and estrace vaginal cream 3x per week. Recommend vulvar biopsy for further evaluation . R/B discussed. After biopsy, may need vulvar resident care technician consultRTC for vulvar biopsy, continue current regimen Time spent in visit is a total of 20 mins with at least 50% of visit consisting of counseling and review of plan of care. Vulval irritation 419003 003 N90.89 [id number] CAROL Sierra [place] [address] [address] 07/05/2022 09:23:43 07/05/2022 10:21:17 Atrophic vulva 691534388 N90.5 Vulval irritation 015863 003 N90.89 vulvar biopsy performed without any immediate complicati ons (see procedure note)will reach out to patient with results / f/u plan when availablep recautions discussed [id number] CAROL Sierra [place] [address],[place] [address] 08/01/2022 09:15:46 08/01/2022 09:57:02 Vulval irritation 104915068 N90.89 we reviewed biopsy resultsusi ng crisco twice daily, estradiol cream 2-3 times per week, and clobetasol 1-2 times per dayclobeta dianne has helped some, but irritation continuesw e agreed to vulvar resident care technician consult for further management referral sentexam is improved from last visitshe is going to continue current regimen Time spent in visit is a total of 18 mins with at least 50% of visit consisting of counseling and review of plan of care. Atrophic vulva 328524776 N90.5 Health Concerns Section Related Observation LastModified by Organization Detai ls LastModified Time None Recorded Concern Status LastModified by Organization Details LastModified Time None Recorded Advance Directives Directive N: Payers Encounter Date Sequence Insurance Name Policy Number Policy Chandra Covered Member ID Chandra Member ID Guarantor Name 04/24/2022 1 [employer] (MEDICARE REPLACEMENT HMO) [id number] Ruth L Troncoso [id number] Ruth Troncoso 05/22/2022 1 [employer] (MEDICARE REPLACEMENT HMO) [id number] Ruth L Troncoso [id number] Ruth Troncoso 07/03/2022 1 [employer] (MEDICARE REPLACEMENT HMO) [id number] Ruth L Troncoso [id number] Ruth Troncoso 07/05/2022 1 [employer] (MEDICARE REPLACEMENT HMO) [id number] Ruth L Troncoso [id number] Ruth Troncoso 08/01/2022 1 [employer] (MEDICARE REPLACEMENT HMO) [id number] Ruth L Troncoso [id number] Ruth Troncoso Notes Date Note Type Note Provider Name and Address Organization Details Recorded Time 04/24/2022 text/html 66yoPresents for med check, on vaginal estradiol 3 x per weekUsing crisco twice daily to vulvaFelt improvement in vaginal dryness, irritation and itching up until last week. Symptoms returned, she started using toilet paper to apply the estrace cream. CAROL Sierra [address], [place], [address], [facility] 04/24/2022 11:52:16 05/22/2022 text/html 66yoPresents for f/uUsing crisco twice daily, estrace vaginal cream 3x per weekDoing well, feeling so much better since last visit CAROL Sierra [address], [place], [address], [facility] 05/22/2022 10:28:46 07/03/2022 text/html 67 [...] mostly resolved. CAROL Sierra [address], [place], [address], [facility] 07/03/2022 13:52:06 07/05/2022 text/html patient presents for vulvar biopsy CAROL Sierra [address], [place], [address], [facility] 07/05/2022 10:06:02 08/01/2022 text/html 67yopresents for vulvar biopsy f/uusing estrace vaginal cream 3 x per weekcrisco twice dailyand clobetasol 1-2 times a dayvulvar biopsy showed Lichenoid dermatitisfeels some improvement but still continues to feel irritation CAROL Sierra [address], [place], [address], [facility] 08/01/2022 09:51:59 OBGyn Episode Ob Episode Information Episode Created Date Number of Fetuses Patient Bloodtype Patient rh Status Prepregnancy Weight lbs Domestic Partner Domestic Partner Phone Father Name Economics Faculty Member Status 12/21/19 22 1 CLOSED Fetus Data First Name Last Name Admitted to NICU Weight (g) Sex Living Outcome Pediatric Complications Fetus ID Race Codes Race Delivery Type 4422.52 2 F Full Term [id number] Primary Trevor Calculation Initial Trevor Date Initial [...] Domestic Partner Domestic Partner Phone Father Name Economics Faculty Member Status 12/21/19 22 1 CLOSED Fetus Data First Name Last Name Admitted to NICU Weight (g) Sex Living Outcome Pediatric Complications Fetus ID Race Codes Race Delivery Type 3515.33 8 F Full Term [id number] Repeat Trevor Calculation Initial Trevor Date Initial [...]
== END 2024-06-15 13:10 | disposition home or self-care (01) ==
PROVIDERS: PCP Family Medicine; Visit Provider Internal Medicine Gastroenterology
DX: Z12.11 Encounter for screening for malignant neoplasm of colon (principal); D12.5 Benign neoplasm of sigmoid colon; K56.699 Other intestinal obstruction unspecified as to partial versus complete obstruction
CPT/HCPCS: 88305; 88342

== ENCOUNTER 2024-06-19 14:15 | Outpatient (CLI) | payer OTHER, SELFPAY ==
--- NOTE | ~2024-06-19 | CT_ITS ---
EXAMINATION: CT chest abdomen pelvis w con DATE: 06/19/2024 14:40 INDICATION: Colon cancer TECHNIQUE: Computed tomography (CT) of the chest, abdomen, and pelvis was performed with 100 mL Omnip aque-350 intravenous contrast. Automated exposure control and iterative reconstruction technique were employed. The dose-length product was 755.14 mGy-cm. COMPARISON: 01/09/2006 FINDINGS: CHEST CT: Lungs are clear with no suspicious pulmonary nodules, pneumonia, pulmonary edema or pleural effusion. Heart size normal. Atherosclerotic coronary artery calcifications. No pericardial or pleural effusio n. Thoracic aorta is normal in caliber with no dissection. No pathologically enlarged thoracic lympha denopathy. Severe thoracic spondylosis. ABDOMEN/PELVIS CT: Cholecystectomy clips the gallbladder fossa. Liver, pancreas, bilateral adrenal glands and left kidne y are normal. 6 mm right renal cyst. Multiple splenic calcifications consistent with old granulomatou s disease. Normal appendix. Subtle region of relative wall thickening in the distal sigmoid colon whi ch may represent the site of reported colon cancer. No bowel obstruction. Bladder is normal. The uter us is not identified and has likely been surgically resected. No free intraperitoneal gas or fluid. N o pathologically enlarged abdominal or pelvic lymphadenopathy. Severe lumbar spondylosis with 4 mm an terolisthesis L3 on L4. IMPRESSION: 1. Small region of mild wall thickening at the distal sigmoid colon which may represent the site of a reported colon cancer. No evident metastatic disease in the chest, abdomen or pelvis. Reviewed, dictated and finalized at location A. IMPRESSION: 1. Small region of mild wall thickening at the distal sigmoid colon which may r epresent the site of a reported colon cancer. No evident metastatic disease in the chest, abdomen or pelvis.
--- OUTSIDE RECORDS SUMMARY | 2024-06-19 14:20 | XMS_ITS | Data Portability ---
Author Organization [facility] [place] Address [address] [place] [address] Care Team Providers Care Heat Treater Name Role Phone JAC JOHNSON Primary Care Provider Assessment No assessment recorded. Plan of Treatment Reminders Order Date Submit Date Provider Last Modified By Organization Details Last Modified Time Details Appointments None recorded. Lab None recorded. Referral gynecologis t referral - Vulval irritationP lease contact this patient to schedule an appointment with a Vulvar Specialist. The patients insurance is [employer] Medicare HMO. Her primary care provider Jac Johnson DO will need to get an insurance authorizati on to refer this patient. PCP phone fax [phone] or .If you have any further questions, please call [phone].Thank you,Hilary, Referral's 2022 023 JUANITO Johnson RECORD PRESS OPERATOR, [address] [facility], [facility] [address], [place], [address], 3 17:28:17 Procedures None recorded. Surgeries None recorded. Imaging None recorded. Medication Orders estradiol 0.01% (0.1 mg/gram) vaginal cream 2022 023 JUANITO [facility] [id number] In [facility], [address] [place], [address], 3 09:55:00 nystatin-tr iamcinolone 100,000 unit/g-0.1 % topical cream 2022 023 JUANITO [facility] [address] In [facility], [address] [place], [address], 09:48:46 Patient TargetsNo targets recorded. Patient InstructionsNo instructions recorded. 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 The patients insurance is [employer] Medicare HMO. Her primary care provider Jac Johnson DO will need to get an insurance authorization to refer this patient. PCP phone [phone] fax [phone] or [phone].If you have any further questions, please call [phone].Thank you,Mayo Richard's Referring Physician: Mag Abbasi, UPPER AND BOTTOM LACER HAND, Encounter Date: 08/01/2022 Results Created Date Observation [...] ed by Mike Brady on Not Available [facility] (Lab) [address], [place], [address], 07/09/2022 10:57:25 04/25/19 23 04/25/2022 MAMMO , scree randall, digit al, bilat eral No observ ation record ed. [address] [facility] [address], [place], [address], 04/26/2022 09:35:37 04/25/19 23 04/25/2022 MAMMO , scree randall, digit al, bilat eral No observ ation record ed. [address] [facility] [address], [place], [address], 04/26/2022 09:35:37 05/18/19 23 04/25/2022 MAMMO , scree randall, digit al, bilat eral No observ ation [facility] [address], [place], [address], 05/17/2022 12:14:02 05/18/19 23 05/16/2022 US, tree t, unila teral No observ ation record ed. [address], [place], [address], 05/17/2022 12:32:39 09/20/19 24 09/20/2023 MAMMO , scree randall, bilat eral No observ ation record ed. [facility] [address], [place], [address], 10/08/2023 11:56:51 09/23/19 24 09/20/2023 MAMMO , scree randall, digit al, bilat eral No observ ation record ed. JUANITO [place] [facility] [address], [place], [address], 10/08/2023 04:11:35 Result Notes None recorded. Procedures Surgical History Date Name Laterality Status Provider Name and Address Organization Details Recorded Time 07/06/19 23 Vulvar Biopsy completed CAROL Sierra [address], [place], [address], [place] [facility] 07/05/2022 10:05:02 04/23/19 23 Date of Last Mammogram completed [facility] 05/22/2022 09:32:11 04/22/19 23 Most Recent Bone Density completed [facility] 05/22/2022 09:32:11 10/31/19 21 Date of Last Pap Smear completed [facility] 12/20/2021 10:13:37 12/30/19 17 Date of Last Colonoscopy completed [facility] 12/20/2021 10:13:37 Caesarean Section completed [facility] 12/20/2021 10:13:49 hysterectomy completed [facility] 12/20/2021 10:33:15 Imaging Results Imaging Date Name Status LastModified by Organiz ation Details LastModified Time 04/25/2022 MAMMO, screening, digital, bilateral completed [email or web address] [place] [facility] [address], [place], [address], 04/26/2022 09:35:37 04/25/2022 MAMMO, screening, digital, bilateral completed [email or web address] [place] [facility] [address], [place], [address], 04/26/2022 09:35:37 04/25/2022 MAMMO, screening, digital, bilateral completed [facility] [address], [place], [address], 05/17/2022 12:14:02 05/16/2022 US, breast, unilateral completed [email or web address] [place] [facility] [address], [place], [address], 05/17/2022 12:32:39 09/20/2023 MAMMO, screening, bilateral completed [email or web address] [place] [facility] [address], [place], [address], 10/08/2023 11:56:51 09/20/2023 MAMMO, screening, digital, bilateral active JUANITO [place] [facility] [address], [place], [address], 10/08/2023 04:11:35 Procedure Notes None recorded. Medical Equipment None Reported. Allergies No known drug allergies Medications Name Sig Start Date Stop Date Status Note LastModified by Organization Details LastModified Time diltiazem CD 240 mg capsule,ext ended release 24 hr TAKE 1 CAPSULE BY MOUTH EVERY DAY active Not Available Not Available No t Available [facility] Levothyroxi ne Sodium 50 mcg tablet [...] 04/24/2022 152.4 cm 133 mm[Hg] 89 mm[Hg] [facility] 04/24/2022 09:30:48 Date Recorded Body height Systolic blood pressure Diastolic blood pressure Provider Name and Address Organization Details Last Updated DateTime 05/22/2022 152.4 cm 112 mm[Hg] 75 mm[Hg] [facility] 05/22/2022 09:32:07 Date Recorded Body height Systolic blood pressure Diastolic blood pressure Provider Name and Address Organization Details Last Updated DateTime 07/03/2022 152.4 cm 130 mm[Hg] 79 mm[Hg] [facility] 07/03/2022 09:28:10 Date Recorded Body height Systolic blood pressure Diastolic blood pressure Provider Name and Address Organization Details Last Updated DateTime 07/05/2022 152.4 cm 125 mm[Hg] 79 mm[Hg] [facility] 07/05/2022 09:48:29 Date Recorded Body height Body mass index (BMI) Body weight Systolic blood pressure Diastolic blood pressure Provider Name and Address Organization Details Last Updated DateTime 08/01/2022 152.4 cm 34.1 kg/m2 81043.23 g 125 mm[Hg] 78 mm[Hg] [facility] 09:29:06 Social History Question Answer Notes [...] Or The Highest Degree You Have Received? [id number] Information not available 12/20/2021 What Is Your [...] Anxious, Or Unable To Sleep At Night)? [id number] Information not available 12/20/2021 Do You Use Any Illicit Or Recreational Drugs? No Information not available 12/20/2021 Do You Use Sunscreen Routinely? Yes Information not available 12/20/2021 Have You Used IV Drugs? No Information not available 12/20/2021 Sex: Female Functional Status Question Answer Note LastModified by Organizat ion Details LastModified Time Do you have difficulty walking or climbing stairs? No [email or web address] Information not available 08/01/2022 Are you able to walk? YESWOREST Information not available 12/20/2021 Are you able to care for yourself? Yes [email or web address] Information not available 08/01/2022 Do you have difficulty dressing or bathing? No Information not available 08/01/2022 What is your [...] SNOMED-CT Code Diagnosis ICD10 Code Diagnosis Note [id number] CAROL Sierra [place] [address] [address] 12/20/2021 09:44:23 12/20/2021 14:24:17 Atrophic vulva 204199974 N90.5 Significan t vulvar atrophy noted on [...] care. Screening for malignant neoplasm of breast 767820255 Z12.39 Screening for osteoporosis 953521757 Z13.820 Gynecologi c examination 75357027 Z01.419 Take Calcium with Vitamin D 12-1500mg daily. Do monthly self breast exams. It is advised to get annual flu shot in the fall and she could obtain at [facility] or [facility] take care clinic. If you haven't received [...] givenDexa order givenColon oscopy UTDUTD with PCP [id number] CAROL Sierra [place] [address] [address] 01/22/2022 09:17:29 01/22/2022 12:43:02 Atrophic vulva 251985208 N90.5 Vulvar exam improved for Ana continue with vaginal estradiol 3x per weekCrisco twice dailyR/B discussed and accepted by patientRTC for f/u in 3 months Time spent in visit is a total of 20 mins with at least 50% of visit consisting of counseling and review of plan of care. [id number] CAROL Sierra [place] [address] [address] 04/24/2022 09:17:20 04/24/2022 12:09:32 Contact dermatitis 27525113 L25.9 Suspect increased irritation related to using [...] review of plan of care. Atrophic vulva 104984482 N90.5 [id number] CAROL Sierra [place] [address],[place] [address] 05/22/2022 09:12:20 05/22/2022 10:36:13 Atrophic vulva 560601277 N90.5 Doing well, symptoms have greatly improvedCo ntinue w/ crisco twice daily - estrace vaginal cream 3 times per weekRTC for f/u in 2 months Time spent in visit is a total of 15 mins with at least 50% of visit consisting of counseling and review of plan of care. [id number] CAROL Sierra [place] [address],[place] [address] 07/03/2022 09:21:52 07/03/2022 15:08:03 Atrophic vaginitis 00240260 N95.2 Some improvemen t, but irritation continues despite twice daily crisco use and estrace vaginal cream 3x per week. Recommend vulvar biopsy for further evaluation . R/B discussed. After biopsy, may need vulvar pet caregiver consultRTC for vulvar biopsy, continue current regimen Time spent in visit is a total of 20 mins with at least 50% of visit consisting of counseling and review of plan of care. Vulval irritation 464871 003 N90.89 [id number] CAROL Sierra [place] [address],[place] [address] 07/05/2022 09:23:43 07/05/2022 10:21:17 Atrophic vulva 220370195 N90.5 Vulval irritation 679541 003 N90.89 vulvar biopsy performed without any immediate complicati ons (see procedure note)will reach out to patient with results / f/u plan when availablep recautions discussed [id number] CAROL Sierra [place] [address],[place] [address] 08/01/2022 09:15:46 08/01/2022 09:57:02 Vulval irritation 953959659 N90.89 we reviewed biopsy resultsusi ng crisco twice daily, estradiol cream 2-3 times per week, and clobetasol 1-2 times per dayclobeta dianne has helped some, but irritation continuesw e agreed to vulvar pet caregiver consult for further management referral sentexam is improved from last visitshe is going to continue current regimen Time spent in visit is a total of 18 mins with at least 50% of visit consisting of counseling and review of plan of care. Atrophic vulva 763988913 N90.5 Health Concerns Section Related Observation LastModified by Organization Detai ls LastModified Time None Recorded Concern Status LastModified by Organization Details LastModified Time None Recorded Advance Directives Directive N: Payers Encounter Date Sequence Insurance Name Policy Number Policy Chandra Covered Member ID Chandra Member ID Guarantor Name 04/24/2022 1 [employer] (MEDICARE REPLACEMENT HMO) [id number] Ruth L Troncoso [id number] Ruth Troncoso 05/22/2022 1 [employer] (MEDICARE REPLACEMENT HMO) [id number] Ruth L Troncoso [id number] Ruth Troncoso 07/03/2022 1 [employer] (MEDICARE REPLACEMENT HMO) [id number] Ruth L Troncoso [id number] Ruth Troncoso 07/05/2022 1 [employer] (MEDICARE REPLACEMENT HMO) [id number] Ruth L Troncoso [id number] Ruth Troncoso 08/01/2022 1 [employer] (MEDICARE REPLACEMENT HMO) [id number] Ruth L Troncoso [id number] Ruth Troncoso Notes Date Note Type Note Provider Name and Address Organization Details Recorded Time 04/24/2022 text/html 66yoPresents for med check, on vaginal estradiol 3 x per weekUsing crisco twice daily to vulvaFelt improvement in vaginal dryness, irritation and itching up until last week. Symptoms returned, she started using toilet paper to apply the estrace cream. CAROL Sierra [address], [place], [address], [facility] 04/24/2022 11:52:16 05/22/2022 text/html 66yoPresents for f/uUsing crisco twice daily, estrace vaginal cream 3x per weekDoing well, feeling so much better since last visit CAROL Sierra [address], [place], [address], [facility] 05/22/2022 10:28:46 07/03/2022 text/html 67 yo [...] mostly resolved. CAROL Sierra [address], [place], [address], [facility] 07/03/2022 13:52:06 07/05/2022 text/html patient presents for vulvar biopsy CAROL Sierra [address], [place], [address], [facility] 07/05/2022 10:06:02 08/01/2022 text/html 67yopresents for vulvar biopsy f/uusing estrace vaginal cream 3 x per weekcrisco twice dailyand clobetasol 1-2 times a dayvulvar biopsy showed Lichenoid dermatitisfeels some improvement but still continues to feel irritation CAROL Sierra [address], [place], [address], [facility] 08/01/2022 09:51:59 OBGyn Episode Ob Episode Information Episode Created Date Number of Fetuses Patient Bloodtype Patient rh Status Prepregnancy Weight lbs Domestic Partner Domestic Partner Phone Father Name Hoop Punch And Coiler Operator Status 12/21/19 22 1 CLOSED Fetus Data First Name Last Name Admitted to NICU Weight (g) Sex Living Outcome Pediatric Complications Fetus ID Race Codes Race Delivery Type 4422.52 2 F Full Term [id number] Primary Trevor Calculation Initial Trevor Date Initial [...] Domestic Partner Domestic Partner Phone Father Name Hoop Punch And Coiler Operator Status 12/21/19 22 1 CLOSED Fetus Data First Name Last Name Admitted to NICU Weight (g) Sex Living Outcome Pediatric Complications Fetus ID Race Codes Race Delivery Type 3515.33 8 F Full Term [id number] Repeat Trevor Calculation Initial Trevor Date Initial [...]
--- OUTSIDE RECORDS SUMMARY | 2024-06-19 14:20 | XMS_ITS | Clinical Summary ---
Author Organization [facility] Address [address] [place] [address] Care Team Providers Care Manager Legal Name Role Phone Arnaldo Hurtado MD Unavailable [phone] Arnaldo Hurtado MD Primary Care Provider [phone] Source Comments [facility],non-owned Affiliates and Associated Physician Practices is amultiple site organization consisting of ambulatory clinics and hospital sitesin [place], [place], [place] and [place]. This disclosure is being madepursuant to the Care Everywhere program and may not contain all information available regarding this patient. Last updated 17.[facility] Allergies No known active allergies Medications * [...] mouth once daily 06/16/2022 Active nystatin (Mycostatin) 233173 UNIT/GM ointmentIndications :Lichen planus Use to affected [...] Department Care Team Description 04/16/2024 10:10 AM FLASH OVEN OPERATOR Office Visit [facility] [address] [place] [address] Liv Johnson APRN-REGIONAL MANAGER Lichen planus (Primary Dx); Dyspareunia due [...] Comments Blood Pressure 122/80 04/16/2024 10:09 AM FLASH OVEN OPERATOR Pulse - - Temperature - - Respiratory Rate - - Oxygen Saturation - - Inhaled Oxygen Concentration - - Weight 73.5 kg (162 lb) 04/16/2024 10:09 AM FLASH OVEN OPERATOR Height 152.4 cm (5') 04/16/2024 10:09 AM FLASH OVEN OPERATOR Body Mass Index 31.64 04/16/2024 10:09 AM FLASH OVEN OPERATOR Plan of Treatment Upcoming Encounters Date Type Department Care Team (Late st Contact Info) Description 08/25/2024 10:10 AM CDT Office Visit [facility] [address] [place] [address] Liv Johnson, MAID CLEANING COOKING-REGIONAL MANAGER [address] [place] [address] Health Maintenance Due Date Last [...] age to complete this topic Care Teams Manager Legal Relationship Specialty Start Date End Date Arnaldo Hurtado MD [address] [place] [address] [place] [address] PCP - General Family Medicine 08/17/22 Arnaldo Hurtado MD [address] [place] [address] Primary Care Provider Family Medicine 08/15/22
--- OUTSIDE RECORDS SUMMARY | 2024-06-19 14:20 | XMS_ITS ---
Author Name TYSON STONE APRN Address [address] [place] [address] Phone [phone] Organization [facility] Care Team Providers Care Mingle Operator Name Role Phone TYSON STONE Unavailable [phone] RICK TAPIA Unavailable [phone] Reason for Referral Not Available Allergies, adverse reactions, alerts No known allergies History of medication use Medication Class Instructions Start Date End Date Ghtjavx-Dkfrjsgof-Tgnr 333.33/133.33/5 mg Tab once a day 2024-06-18 No Data Available Vitamin D3 25 MCG (1000 UT) Cap 1 capsule orally daily 2024-06-18 No Data Available ZyrTEC Allergy 10 mg Tab 1 tab by mouth daily No Data Available Colace 100 mg Cap once a day 2024-06-18 No Data Av ailable Problem List Problem Status Onset Date Resolved Date Hypertension Inactive 2024-06-18 N/A Family history of heart disease Inactive 2024-06-09 0 N/A Hypothyroidism Inactive 2024-06-18 N/A GERD (gastroesophageal reflux disease) Inactive 20 03-07-09 N/A Hyperlipidemia Inactive 2024-06-18 N/A Diabetes Inactive 2024-06-18 N/A Stenosis of colon Active 2024-06-18 N/A Encounters Encounters Type Facility Date of Service Diagnosis/Co mplaint Outpatient visit for evaluation and management of new patient, including medically appropriate examination and low level of medical decision making, total time 30-44 minutes [facility] 06/18/2024 Essential (primary) hypertensionType 2 diabetes mellitus without complicationsOther intestinal obstruction unspecified as to partial versus complete obstructionHyperlipidemia, unspecifiedHypothyroidism, unspecifiedGastro-esophageal reflux disease without esophagitisFamily hx of ischem heart dis and oth dis of the circ sysBody mass index (bmi) 31.0-31.9, adult Vital Signs Date of Collection Vitals 2024-06-18 07:00:00 Height - 152.4 cmWei ght - 72.12 kgBody Mass Index (BMI) - 31.05 kg/m2 Social History Sex Female History of Procedures Procedures Service Procedure code Service date Servicing provider Phone# Outpatient visit for evaluation and management of new patient, including medically appropriate examination and low level of medical decision making, total time 30-44 minutes [id number] 2024-06-18 No Data Available No Data Availa ble Functional Status Functional Category Effective Dates Completely independent 2024-06-18 Mental Status No Information Assessments Date of Service Assessments 2024-06-18 07:00:00 Stenosis of colonHyp ertensionFamily history of heart diseaseHypothyroidismGERD (gastroesophageal reflux disease)HyperlipidemiaDiabetes Plan of Care Not Available Goals Date Goal 2024-06-18 Continue to exercise walking and yoga 2024-06-18 Continue low carb, s ugar, fat diet 2024-06-18 Educated on signs an d symptoms of hypoglycemia and how to treat 2024-06-18 Continue stool softn er for constipation 2024-06-18 Check blood sugars d aily Health Concerns Date Concern 2024-06-18 Healthy House Calls is a service that involves a physician or advanced practice provider conducting comprehensive assessments in your patient s home or virtually to address crucial areas such as chronic conditions, quality gaps, social concerns, fall risk prevention, and various screenings. Please note that your patient will remain attributed to you even though they are participating in this service. If you have any questions, please reach out directly to our team at the phone number above.Ruth Troncoso is a very pleasant 68 y/o (1955) female, was seen today for a Healthy House Call virtual video visit. Patient read rights and responsibilities and consented to treatment. The purpose of this summary is to update you on the patient's current health status and share any relevant findings from the examination. Mrs. Troncoso looks well and shows no signs of acute distress. Does report attempted Colonoscopy on Saturday06/15/24 but was diagnosed with 1 cm stenosis of the colon. Currently on a stool softner and low fiber diet. Awaiting call back from GI for further testing/treatment. Mrs. Troncoso is an excellent historian of her health and reports the below medical, surgical, social histories, and medications are accurate.Pt was concerned about low blood sugar when doing the colonoscopy prep. Educated on signs and symptoms of hypoglycemia and recommended to drink orange juice, drink 7-up, or eat some candy to raise blood sugars if below 60. Continue to check blood sugars daily. 2024-06-18 Recommendations: 2024-06-18 Stenosis of colon 2024-06-18 Hypertension 2024-06-18 Family history of he art disease 2024-06-18 Hypothyroidism 2024-06-18 GERD (gastroesophage al reflux disease) 2024-06-18 Hyperlipidemia 2024-06-18 Diabetes
== END 2024-06-19 14:16 | disposition home or self-care (01) ==
PROVIDERS: PCP Nurse Practitioner Family; Visit Provider Internal Medicine Gastroenterology
DX: C18.9 Malignant neoplasm of colon, unspecified (principal)
CPT/HCPCS: 71260; 74177; Q9967

== ENCOUNTER 2024-07-07 00:26 | Day surgery (SDC) | payer OTHER, SELFPAY ==
[2024-07-03 14:05] VITALS: BMI 30.9
--- NOTE | 2024-07-06 14:37 | P.PNAN_ITS ---
Anes - Initial Pre Proc Eval Procedure: Operation Date: 07/07/24 12:30 Proposed Procedures p Flexible Sigmoidoscopy - Saqib Marquez DO Date/Time: 07/06/24 14:37 Surgeon: Saqib Marquez DO Pre Op Diagnosis: sigmoid stricture Patient Data Age: 69 Gender: F Height: 1.52 m Weight: 72 kg Allergies Allergy/AdvReac Type Severity Reaction Status Date / Time ART Inhibitors AdvReac Mild cough Verified 07/07/24 11:13 Home Medications ?Medication ?Instructions ?Recorded ?Confirmed ?Type melatonin 1 mg tablet 1 mg PO DAILY 02/10/19 07/07/24 History cholecalciferol (vitamin D3) 125 125 mcg PO DAILY 11/15/20 07/07/24 History mcg (5,000 unit) capsule cetirizine 10 mg tablet (Zyrtec) 10 mg PO DAILY PRN allergies 05/09/21 07/07/24 History calcium 500 mg tablet 500 mg PO DAILY 12/17/23 07/07/24 History levothyroxine 50 mcg tablet 50 mcg PO DAILY 12/17/23 07/07/24 History blood-glucose meter (Contour Next #1 kit 01/14/24 07/06/24 Rx Glucose Meter kit) omeprazole 20 mg capsule,delayed 20 mg PO DAILY PRN Indigestion #90 02/11/24 07/07/24 Rx release caps diltiazem HCl 240 mg See Rx Instructions .Route 02/24/24 07/07/24 Rx capsule,extended release 24 hr .COMPLEX #90 caps losartan 100 mg tablet See Rx Instructions .Route 02/24/24 07/07/24 Rx .COMPLEX #90 tabs rosuvastatin 10 mg tablet See Rx Instructions .Route 02/24/24 07/07/24 Rx .COMPLEX #90 tabs hydrochlorothiazide 12.5 mg tablet See Rx Instructions .Route 06/03/24 07/07/24 Rx .COMPLEX #90 tabs blood sugar diagnostic (OneTouch #100 ea 07/02/24 07/06/24 Rx Verio test strips) Patient hx anesthesia problems: none Family hx anesthesia problems: none Results Review: All pre-operative results and documents have been reviewed as part of the pre- operative evaluation. 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 Hormone replacement therapy (HRT) Adult hypothyroidism Hyperlipidemia Encounter for general medical examination COVID-19 IFG (impaired fasting glucose) Hypercholesteremia Hypertension Surgical History Surgical History (Updated 07/02/24 @ 14:39 by Francisca Atwood MA) S/P cholecystectomy History of carpal tunnel surgery History of cholecystectomy 2017 Depue teeth removed H/O: hysterectomy 2019 H/O section 1976,1978 Family History Family History (Updated 07/02/24 @ 14:41 by Francisca Atwood MA) Father Family history of hepatitis Family history of liver disease Family history of cardiovascular disease Family history of heart disease in male family member before age 55 Heart problem Hypertension Sibling Family history of hypothyroidism Diabetes mellitus Hypertension Family history of cardiovascular disease Asthma Mother Cerebrovascular accident, Onset Age: 83 Diabetes mellitus Family history of cardiovascular disease Family history of chronic obstructive pulmonary disease Heart problem Hypertension Sibling Hypertension Other Family history of coronary artery disease Social History Social History Smoking packs per day: 0.5 Smoking cigarettes per day: 10.0 Years smoked: 5 Smoking pack-years: 2.50 Smoking status: Former smoker Tobacco type: cigarettes Second hand tobacco smoke exposure: No Smoking end date: 03/11/00 Alcohol intake: current Alcohol use details: social Substance use: never Substance use type: does not use Lack of Transportation: No Lack of Food: Never True Current Housing: I Have Housing Concerned About Future Housing: No Difficulty Paying Gas/Electric Bills: No Difficulty Paying for Meds: No Currently Unemployed: No Education: Master's Degree or Higher Difficulty w/ Childcare or Family Care: No Living arrangements: with family Additional living arrangements comments: with sp Spiritual care concerns: No Anes - Eval Final PreProcedure Day of Procedure 07/06/24 14:37 Patient weight: obese Heart: regular rate and rhythm Lungs: clear to auscultation Airway: Mallampati scale class II Neurological: alert and oriented Last oral intake: >/= 8 hours ASA classification: III Emergent: no Anesthetic plan: proceed Anesthesia type and monitoring: general GIVS and standard monitoring Results Review: All pre-operative results and documents have been reviewed as part of the pre- operative evaluation. Informed Consent: The patient's anesthetic plan and its attendant risks and benefits were discussed with the patient/family/POA. Questions were solicited and answers provided to the satisfaction of the patient/family/POA.
--- OUTSIDE RECORDS SUMMARY | 2024-07-07 00:28 | XMS_ITS | Clinical Summary ---
Author Organization [facility] Address [address] [address] Care Team Providers Care Edge Inker Uppers Name Role Phone Arnaldo Hurtado MD Unavailable [phone] Arnaldo Hurtado MD Primary Care Provider [phone] Source Comments [facility],non-owned Affiliates and Associated Physician Practices is amultiple site organization consisting of ambulatory clinics and hospital sitesin [place], [place], [place] and [place]. This disclosure is being madepursuant to the Care Everywhere program and may not contain all information available regarding this patient. Last updated 17.[facility] Allergies No known active allergies Medications * Be aware that medications may not be up to date on this document. Alwaysverify current medications with the patient. dilTIAZem coated beads 24hr (Cardizem CD) 240 MG capsule Take 1 (one) capsule by mouth once daily 3 Active levothyroxine (Synthroid) 50 MCG tablet Take 1 (one) tablet by mouth once daily 3 Active hydroCHLOROthi azide (Hydrodiuril) 12.5 MG Take 1 (one) tablet by mouth once daily 3 Active losartan (Cozaar) 100 MG tablet Take 1 (one) tablet by mouth once daily 3 Active rosuvastatin (Crestor) 10 MG tablet Take 1 (one) tablet by mouth once daily 3 Active nystatin (Mycostatin) 331742 UNIT/GM ointmentIndica tions:Lichen planus Use to affected area with the Triamcinolone ointment 0.1% once a day for one month & then very other day 30 g 2 4 Active triamcinolone acetonide (Kenalog) 0.1 % ointmentIndica tions:Lichen planus Use to affected area with the nystatin ointment once a day for one month & then very other day 30 g 2 4 Active Active Problems Problem Noted Date Diagnosed Date Hypertension 08/27/2022 08/27/2022 Hypothyroidism 08/27/2022 08/27/2022 Vaginal atrophy 08/27/2022 08/27/2022 Encounters Date Type Department Care Team Description 04/16/2024 10:10 AM MANAGER FORMS Office Visit [facility] - HVAC REFRIGERATION TECHNICIAN [address] [place] [address] Liv Johnson APRN-RAKAN Lichen planus (Primary Dx); Dyspareunia due to [...] Recorded Patient Health Questionnaire-2 Score 0 04/10/2024 Comments Unknown Sex and Gender Information Value Date Recorded Sex Assigned at Not on file Legal Sex Female 2:49 PM CDT Gender Identity Not on file Sexual Orientation Not on file Last Filed Vital Signs Vital Sign Reading Time Taken Comments Blood Pressure 122/80 04/16/2024 10:09 AM MANAGER FORMS Pulse - - Temperature - - Respiratory Rate - - Oxygen Saturation - - Inhaled Oxygen Concentration - - Weight 73.5 kg (162 lb) 04/16/2024 10:09 AM MANAGER FORMS Height 152.4 cm (5') 04/16/2024 10:09 AM MANAGER FORMS Body Mass Index 31.64 04/16/2024 10:09 AM MANAGER FORMS Plan of Treatment Upcoming Encounters Date Type Department Care Team (Late st Contact Info) Description 08/25/2024 10:10 AM CDT Office Visit [facility] - HVAC REFRIGERATION TECHNICIAN [address] [place] [address] Liv Johnson APRN-PROFESSIONAL SOCCER PLAYER [address] [place] [address] Health Maintenance Due Date Last [...] 2023 12/15/2021, 06/12/2021, 12/03/2020, Additional history exists MAMMOGRAM 04/11/2024 04/11/2022 (Done Outside Per Patient) [...] on patient's age to complete this topic Insurance [facility] Address: [address] [address] SELF PAY NO INSURANCE Member Subscriber Plan / Payer (Ef fective for All Dates) Name:Ruth Rivera Member ID:Not on file Relation to Subscriber:Not on file Name:RUTH RIVERA Subscriber ID:Not on file (Home) Address: [facility] [address] [place] [address] [place] [id number] Payer ID:Not on file Group ID:Not on file Type:Self Pay Address: [place], [place] Care Teams Edge Inker Uppers Relationship Specialty Start Date End Date Arnaldo Hurtado MD [address] [place] [phone] PCP - General Family Medicine 08/17/22 Arnaldo Hurtado MD [address] [place] [address] Primary Care Provider Family Medicine 08/15/22
--- OUTSIDE RECORDS SUMMARY | 2024-07-07 00:29 | XMS_ITS ---
Author Name CHASE CHAPPELLNTYSON Address [address] [place] [address] Phone [phone] Organization [facility] ([facility]) Care Team Providers Care Mental Health Coordinator Name Role Phone TYSON STONE Unavailable [phone] Arnaldo Hurtado Unavailable [phone] Reason for Referral Not Available Allergies, adverse reactions, alerts No known allergies History of medication use Medication Class Instructions Start Date End Date Ekbrtsw-Xnjmiukdz-Bnpq 333.33/133.33/5 mg Tab once a day 2024-06-18 [...] making, total time 30-44 minutes [facility] MD 06/18/2024 Essential (primary) hypertensionType 2 diabetes mellitus [...] medical decision making, total time 30-44 minutes [id number] 2024-06-18 No Data Available No Data Availa [...]
[2024-07-07 11:16] VITALS: BP 120/71; PULSE 60; RESP 16; TEMP 36.1; O2SAT 99
[2024-07-07] MEDS: LACTATED RINGERS 1,000 ML 150 ML IV CONT (11:25)
--- NOTE | 2024-07-07 11:42 | WPDHPUPDATE1 ---
History and Physical Update Update Date/Time: 07/07/24 11:42 History and Physical has been reviewed, including an updated exam of the patient. There are NO changes in the patient's condition. Risks, benefits, and alternatives have been discussed and questions answered. Patient agrees to proceed with procedure.
[2024-07-07 12:03] VITALS: BP 106/65; PULSE 65; RESP 18; O2SAT 95
--- NOTE | 2024-07-07 12:08 | SUR.OPER ---
sigmoidoscope kit (lighted) used lot [id number] exp 12/09/2026 REF [id number]
[2024-07-07 12:13] VITALS: BP 112/71; PULSE 58; RESP 19; O2SAT 97
[2024-07-07 12:23] VITALS: BP 115/70; PULSE 53; RESP 16; O2SAT 98
--- NOTE | 2024-07-07 12:29 | W.PM.PROC2 ---
Procedure Note - Detailed Date of Procedure 07/07/24 Pre-op Diagnosis sigmoid stricture Post-op Diagnosis Same Procedure Performed Rigid proctosigmoidoscope Surgeon Saqib Marquez, DO Anesthesia MAC Indications Sigmoid stricture Findings Sigmoid stricture at 16 cm from anal verge Description of Procedure Procedure as well as risks, benefits, and alternatives discussed with the patient consent was obtained and placed in chart to procedure. Patient was brought back to endoscopy suite. She was placed in left decubitus position the stretcher. Time-out was done to confirm patient and procedure. IV sedation was then administered by the anesthesia department. Digital rectal exam was initially performed. A rigid proctosigmoidoscope was then inserted and air was insufflated as the scope was carefully advanced up the rectum. I was able to identify the location of the distal end of the stricture right at about 16 cm from the anal verge. This appeared to be too narrow to traverse. The rigid proctoscope was then carefully or removed. I then proceeded with flexible sigmoidoscopy. See sigmoidoscopy report for details. Estimated Blood Loss 2 Complications No immediate complications Condition Stable Disposition Same day [facility] Billing Surgery - Charge Forward: Surgery Billing
== END 2024-07-07 12:34 | disposition home or self-care (01) ==
PROVIDERS: PCP Nurse Practitioner Family; Visit Provider Surgery
PROC: 0DJD8ZZ Inspection of Lower Intestinal Tract, Via Natural or Artificial Opening Endoscopic (ICD-10-PCS; CPT 45330; principal; 2024-07-07 12:30)
DX: K56.699 Other intestinal obstruction unspecified as to partial versus complete obstruction (principal); E03.9 Hypothyroidism, unspecified; I10 Essential (primary) hypertension; E55.9 Vitamin D deficiency, unspecified; E78.00 Pure hypercholesterolemia, unspecified; R73.01 Impaired fasting glucose; E66.9 Obesity, unspecified; Z68.30 Body mass index [BMI] 30.0-30.9, adult; Z79.890 Hormone replacement therapy; Z79.899 Other long term (current) drug therapy; Z98.890 Other specified postprocedural states; Z90.49 Acquired absence of other specified parts of digestive tract; Z87.891 Personal history of nicotine dependence; Z82.49 Family history of ischemic heart disease and other diseases of the circulatory system
CPT/HCPCS: 45335; J2704; J7120

== ENCOUNTER 2024-07-15 08:03 | Outpatient (CLI) | payer OTHER, SELFPAY ==
--- OUTSIDE RECORDS SUMMARY | 2024-07-15 08:19 | XMS_ITS | Data Portability ---
Author Organization [facility] [place] Address [address] [place] [address] Care Team Providers Care Market Research Lead Name Role Phone JAC JOHNSON Primary Care Provider Assessment No assessment recorded. Plan of Treatment Reminders Order Date Submit Date Provider Last Modified By Organization Details Last Modified Time Details Appointments None recorded. Lab None recorded. Referral gynecologis t referral - Vulval irritationP lease contact this patient to schedule an appointment with a Vulvar Specialist. The patients insurance is [facility] Medicare HMO. Her primary care provider Jac Johnson DO will need to get an insurance authorizati on to refer this patient. PCP phone [phone] fax or .If you have any further questions, please call [phone].Thank you,Hilary, Referral's 2022 023 JUANITO Johnson PUBLICATIONS WRITER, [address] [facility], [facility] [address], [place], [address], 3 17:28:17 Procedures None recorded. Surgeries None recorded. Imaging None recorded. Medication Orders estradiol 0.01% (0.1 mg/gram) vaginal cream 2022 023 JUANITO [facility] [id number] In [facility], [address] [place], [address], 3 09:55:00 nystatin-tr iamcinolone 100,000 unit/g-0.1 % topical cream 2022 023 JUANITO [facility] [address] In [facility], [address] [place], [address], 09:48:46 Patient TargetsNo targets recorded. Patient InstructionsNo instructions recorded. 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 The patients insurance is [facility] Medicare HMO. Her primary care provider Jac Johnson DO will need to get an insurance authorization to refer this patient. PCP phone [phone] fax [phone] or [phone].If you have any further questions, please call [phone].Thank you,Mayo Richard's Referring Physician: Mag Abbasi, MACHINE MAINTENANCE TECHNICIAN, Encounter Date: 08/01/2022 Results Created Date [...] ed by Mike Brady on Not Available [facility] (Lab) [address], [place], [address], 07/09/2022 10:57:25 04/25/19 23 04/25/2022 MAMMO , scree randall, digit al, bilat eral No observ ation record ed. [address] [facility] [address], [place], [address], 04/26/2022 09:35:37 04/25/19 23 04/25/2022 MAMMO , scree randall, digit al, bilat eral No observ ation record ed. [address] [facility] [address], [place], [address], 04/26/2022 09:35:37 05/18/19 23 04/25/2022 MAMMO , scree randall, digit al, bilat eral No observ ation [facility] ed. [facility] [address], [place], [address], 05/17/2022 12:14:02 05/18/19 23 05/16/2022 US, tree t, unila teral No observ ation record ed. [address], [place], [address], 05/17/2022 12:32:39 09/20/19 24 09/20/2023 MAMMO , scree randall, bilat eral No observ ation record ed. [email or web address] [facility] [address], [place], [address], 10/08/2023 11:56:51 09/23/19 24 09/20/2023 MAMMO , scree randall, digit al, bilat eral No observ ation record ed. JUANITO [place] [facility] [address], [place], [address], 10/08/2023 04:11:35 Result Notes None recorded. Procedures Surgical History Date Name Laterality Status Provider Name and Address Organization Details Recorded Time 07/06/19 23 Vulvar Biopsy completed CAROL Sierra [address], [place], [address], [place] [facility] 07/05/2022 10:05:02 04/23/19 23 Date of Last Mammogram completed [facility] 05/22/2022 09:32:11 04/22/19 23 Most Recent Bone Density completed [facility] 05/22/2022 09:32:11 10/31/19 21 Date of Last Pap Smear completed [facility] 12/20/2021 10:13:37 12/30/19 17 Date of Last Colonoscopy completed [facility] 12/20/2021 10:13:[address] [facility] 12/20/2021 10:13:[address] [facility] 12/20/2021 10:33:15 Imaging Results Imaging Date Name Status LastModified by Organiz ation Details LastModified Time 04/25/2022 MAMMO, screening, digital, bilateral completed [email or web address] [place] [facility] [address], [place], [address], 04/26/2022 09:35:37 04/25/2022 MAMMO, screening, digital, bilateral completed [email or web address] [place] [facility] [address], [place], [address], 04/26/2022 09:35:37 04/25/2022 MAMMO, screening, digital, bilateral completed [facility] [address], [place], [address], 05/17/2022 12:14:02 05/16/2022 US, breast, unilateral completed [email or web address] [place] [facility] [address], [place], [address], 05/17/2022 12:32:39 09/20/2023 MAMMO, screening, bilateral completed [email or web address] [place] [facility] [address], [place], [address], 10/08/2023 11:56:51 09/20/2023 MAMMO, screening, digital, bilateral active JUANITO [place] [facility] [address], [place], [address], 10/08/2023 04:11:35 Procedure Notes None recorded. Medical Equipment None Reported. Allergies No known drug allergies Medications Name Sig Start Date Stop Date Status Note LastModified by Organization Details LastModified Time diltiazem CD 240 mg capsule,ext ended release 24 hr TAKE 1 CAPSULE BY MOUTH EVERY DAY active Not Available Not Available No t Available [facility] Levothyroxi ne Sodium 50 mcg tablet [...] 04/24/2022 152.4 cm 133 mm[Hg] 89 mm[Hg] [facility] 04/24/2022 09:30:48 Date Recorded Body height Systolic blood pressure Diastolic blood pressure Provider Name and Address Organization Details Last Updated DateTime 05/22/2022 152.4 cm 112 mm[Hg] 75 mm[Hg] [facility] 05/22/2022 09:32:07 Date Recorded Body height Systolic blood pressure Diastolic blood pressure Provider Name and Address Organization Details Last Updated DateTime 07/03/2022 152.4 cm 130 mm[Hg] 79 mm[Hg] [facility] 07/03/2022 09:28:10 Date Recorded Body height Systolic blood pressure Diastolic blood pressure Provider Name and Address Organization Details Last Updated DateTime 07/05/2022 152.4 cm 125 mm[Hg] 79 mm[Hg] [facility] 07/05/2022 09:48:29 Date Recorded Body height Body mass index (BMI) Body weight Systolic blood pressure Diastolic blood pressure Provider Name and Address Organization Details Last Updated DateTime 08/01/2022 152.4 cm 34.1 kg/m2 07853.23 g 125 mm[Hg] 78 mm[Hg] [facility] 09:29:06 Social History Question Answer Notes [...] Or The Highest Degree You Have Received? FB42494-2 Information not available 12/20/2021 What Is Your [...] Anxious, Or Unable To Sleep At Night)? IX7992-1 Information not available 12/20/2021 Do You Use [...] you able to care for yourself? Yes [email or web address] Information not available 08/01/2022 Do you have difficulty dressing or bathing? No [email or web address] Information not available 08/01/2022 What is your [...] SNOMED-CT Code Diagnosis ICD10 Code Diagnosis Note [id number] CAROL Sierra [place] [address] [address] 12/20/2021 09:44:23 12/20/2021 14:24:17 Atrophic vulva 393356123 N90.5 Significan t vulvar atrophy noted on [...] care. Screening for malignant neoplasm of breast 398106878 Z12.39 Screening for osteoporosis 391469007 Z13.820 Gynecologi c examination 97412865 Z01.419 Take Calcium with Vitamin D 12-1500mg daily. Do monthly self breast exams. It is advised to get annual flu shot in the fall and she could obtain at [facility] or [facility] take care clinic. If you haven't [...] givenDexa order givenColon oscopy UTDUTD with PCP [id number] CAROL Sierra [place] [address] [address] 01/22/2022 09:17:29 01/22/2022 12:43:02 Atrophic vulva 197544313 N90.5 Vulvar exam improved for Ana continue with vaginal estradiol 3x per weekCrisco twice dailyR/B discussed and accepted by patientRTC for f/u in 3 months Time spent in visit is a total of 20 mins with at least 50% of visit consisting of counseling and review of plan of care. [id number] CAROL Sierra [place] [address] [address] 04/24/2022 09:17:20 04/24/2022 12:09:32 Contact dermatitis 49261256 L25.9 Suspect increased irritation related to using [...] review of plan of care. Atrophic vulva 177543054 N90.5 [id number] CAROL Sierra [place] [address],[place] [address] 05/22/2022 09:12:20 05/22/2022 10:36:13 Atrophic vulva 359003991 N90.5 Doing well, symptoms have greatly improvedCo ntinue w/ crisco twice daily - estrace vaginal cream 3 times per weekRTC for f/u in 2 months Time spent in visit is a total of 15 mins with at least 50% of visit consisting of counseling and review of plan of care. [id number] CAROL Sierra [place] [address],[place] [address] 07/03/2022 09:21:52 07/03/2022 15:08:03 Atrophic vaginitis 71109089 N95.2 Some improvemen t, but irritation continues despite twice daily crisco use and estrace vaginal cream 3x per week. Recommend vulvar biopsy for further evaluation . R/B discussed. After biopsy, may need vulvar healthcare prof consultRTC for vulvar biopsy, continue current regimen Time spent in visit is a total of 20 mins with at least 50% of visit consisting of counseling and review of plan of care. Vulval irritation 713908 003 N90.89 [id number] CAROL Sierra [place] [address],[place] [address] 07/05/2022 09:23:43 07/05/2022 10:21:17 Atrophic vulva 682135504 N90.5 Vulval irritation 755601 003 N90.89 vulvar biopsy performed without any immediate complicati ons (see procedure note)will reach out to patient with results / f/u plan when availablep recautions discussed [id number] CAROL Sierra [place] [address],[place] [address] 08/01/2022 09:15:46 08/01/2022 09:57:02 Vulval irritation 286542346 N90.89 we reviewed biopsy resultsusi ng crisco twice daily, estradiol cream 2-3 times per week, and clobetasol 1-2 times per dayclobeta dianne has helped some, but irritation continuesw e agreed to vulvar healthcare prof consult for further management referral sentexam is improved from last visitshe is going to continue current regimen Time spent in visit is a total of 18 mins with at least 50% of visit consisting of counseling and review of plan of care. Atrophic vulva 841042015 N90.5 Health Concerns Section Related Observation LastModified by Organization Detai ls LastModified Time None Recorded Concern Status LastModified by Organization Details LastModified Time None Recorded Advance Directives Directive N: Payers Encounter Date Sequence Insurance Name Policy Number Policy Chandra Covered Member ID Chandra Member ID Guarantor Name 04/24/2022 1 [employer] (MEDICARE REPLACEMENT HMO) [id number] Ruth L Troncoso [id number] Ruth Troncoso 05/22/2022 1 [employer] (MEDICARE REPLACEMENT HMO) [id number] Ruth L Troncoso [id number] Ruth Troncoso 07/03/2022 1 [employer] (MEDICARE REPLACEMENT HMO) [id number] Ruth L Troncoso [id number] Ruth Troncoso 07/05/2022 1 [employer] (MEDICARE REPLACEMENT HMO) [id number] Ruth L Troncoso [id number] Ruth Troncoso 08/01/2022 1 [employer] (MEDICARE REPLACEMENT HMO) [id number] Ruth L Troncoso [id number] Ruth Troncoso Notes Date Note Type Note Provider Name and Address Organization Details Recorded Time 04/24/2022 text/html 66yoPresents for med check, on vaginal estradiol 3 x per weekUsing crisco twice daily to vulvaFelt improvement in vaginal dryness, irritation and itching up until last week. Symptoms returned, she started using toilet paper to apply the estrace cream. CAROL Sierra [address], [place], [address], [facility] 04/24/2022 11:52:16 05/22/2022 text/html 66yoPresents for f/uUsing crisco twice daily, estrace vaginal cream 3x per weekDoing well, feeling so much better since last visit CAROL iSerra [address], [place], [address], [facility] 05/22/2022 10:28:46 07/03/2022 text/html [...] mostly resolved. CAROL Sierra [address], [place], [address], [facility] 07/03/2022 13:52:06 07/05/2022 text/html patient presents for vulvar biopsy CAROL Sierra [address], [place], [address], [facility] 07/05/2022 10:06:02 08/01/2022 text/html 67yopresents for vulvar biopsy f/uusing estrace vaginal cream 3 x per weekcrisco twice dailyand clobetasol 1-2 times a dayvulvar biopsy showed Lichenoid dermatitisfeels some improvement but still continues to feel irritation CAROL Sierra [address], [place], [address], [facility] 08/01/2022 09:51:59 OBGyn Episode Ob Episode Information Episode Created Date Number of Fetuses Patient Bloodtype Patient rh Status Prepregnancy Weight lbs Domestic Partner Domestic Partner Phone Father Name Nurse Supervisor Status 12/21/19 22 1 CLOSED Fetus Data First Name Last Name Admitted to NICU Weight (g) Sex Living Outcome Pediatric Complications Fetus ID Race Codes Race Delivery Type 4422.52 2 F Full Term [id number] Primary Trevor Calculation Initial Trevor Date Initial [...] Domestic Partner Domestic Partner Phone Father Name Nurse Supervisor Status 12/21/19 22 1 CLOSED Fetus Data First Name Last Name Admitted to NICU Weight (g) Sex Living Outcome Pediatric Complications Fetus ID Race Codes Race Delivery Type 3515.33 8 F Full Term [id number] Repeat Trevor Calculation Initial Trevor Date Initial [...]
--- OUTSIDE RECORDS SUMMARY | 2024-07-15 08:19 | XMS_ITS | Clinical Summary ---
Author Organization [facility] Address [address] [place] [address] Care Team Providers Care Physical Education Aide Name Role Phone Arnaldo Hurtado MD Unavailable [phone] Arnaldo Hurtado MD Primary Care Provider [phone] Source Comments [facility],non-owned Affiliates and Associated Physician Practices is amultiple site organization consisting of ambulatory clinics and hospital sitesin [place], [place] and [place]. This disclosure is being madepursuant to the Care Everywhere program and may not contain all information available regarding this patient. Last updated 17.[facility] [employer] Allergies No known active allergies Medications * [...] mouth once daily 3 Active nystatin (Mycostatin) 701570 UNIT/GM ointmentIndica tions:Lichen planus Use to affected [...] Hypothyroidism 08/27/2022 08/27/2022 Vaginal atrophy 08/27/2022 08/27/2022 Family History Medical History Relation Name Comments [...] Comments Blood Pressure 122/80 04/16/2024 10:09 AM RESEARCH ENVIRONMENTAL SCIENTIST Pulse - - Temperature - - Respiratory Rate - - Oxygen Saturation - - Inhaled Oxygen Concentration - - Weight 73.5 kg (162 lb) 04/16/2024 10:09 AM RESEARCH ENVIRONMENTAL SCIENTIST Height 152.4 cm (5') 04/16/2024 10:09 AM RESEARCH ENVIRONMENTAL SCIENTIST Body Mass Index 31.64 04/16/2024 10:09 AM RESEARCH ENVIRONMENTAL SCIENTIST Plan of Treatment Upcoming Encounters Date Type Department Care Team (Late st Contact Info) Description 08/25/2024 10:10 AM CDT Office Visit [facility] - ENGINEERING PSYCHOLOGIST [address] [place] [phone] Liv Johnson, SECTION HAND-LARD RENDERER [address] [facility] [address] [place] [address] Health Maintenance Due Date Last [...] patient's age to complete this topic Insurance [employer] SELF PAY NO INSURANCE Member Subscriber Plan / Payer (Ef fective for All Dates) Name:RiveraRuth Member ID:Not on file Relation to Subscriber:Not on file Name:RUTH RIVERA Subscriber ID:Not on file (Home) Address: [facility] [address] [place] [phone] Payer ID:Not on file Group ID:Not on file Type:Self Pay Address: [place], [place] Care Teams Physical Education Aide Relationship Specialty Start Date End Date Arnaldo Hurtado MD [address] [place] [phone] PCP - General Family Medicine 08/17/22 Arnaldo Hurtado MD [address] [place] [address] Primary Care Provider Family Medicine 08/15/22
--- OUTSIDE RECORDS SUMMARY | 2024-07-15 08:19 | XMS_ITS ---
Author Name CHASE CHAPPELLNTYSON Address [address] [place] [address] Phone [phone] Organization [facility] ([facility]) Care Team Providers Care Casino Banker Name Role Phone TYSON STONE Unavailable [phone] Arnaldo Hurtado Unavailable [phone] Reason for Referral Not Available Allergies, adverse reactions, alerts No known allergies History of medication use Medication Class Instructions Start Date End Date Xdlujsf-Olktthrie-Bqpb 333.33/133.33/5 mg Tab once a day 2024-06-18 [...] making, total time 30-44 minutes [facility] [place] 06/18/2024 Essential (primary) hypertensionType 2 diabetes mellitus [...] medical decision making, total time 30-44 minutes [id number] 2024-06-18 No Data Available No Data Availa [...]
--- NOTE | 2024-07-15 08:56 | ECG_ITS ---
Test Date: 2024-07-15 09:03:39 Measurements Intervals [place] Rate: 57 P: 46 MN: 152 QRS: 9 QRSD: 102 T: 24 QT: 437 QTc: 427 Interpretive Statements SINUS BRADYCARDIA No previous ECG available for comparison Electronically Signed On 07-15-2024 14:03:57 CDT by Velma Degroot M.D.
== END 2024-07-15 08:04 | disposition home or self-care (01) ==
LOC: ANHSURGERY 08:10
PROVIDERS: PCP Nurse Practitioner Family; Visit Provider Surgery
DX: K56.699 Other intestinal obstruction unspecified as to partial versus complete obstruction (principal); I10 Essential (primary) hypertension; Z01.818 Encounter for other preprocedural examination
CPT/HCPCS: 36415; 86850; 86900; 86901; 93005

== ENCOUNTER 2024-07-20 13:09 | Inpatient (IN) | payer OTHER, SELFPAY ==
--- NOTE | 2024-07-15 07:53 | PC.NURSE ---
Report to the Outpatient Waiting Room, entrance under the green pavilion located off [facility], at time ___6:00AM____ on date ___07/20/24____. Planned Procedure Time: ___7:30AM .? Time changes happen often and if your time is changed the preop area will call you the afternoon before. - You and your visitor will be asked to self-screen and do not enter if you have any COVID symptoms. Please call surgeon if you need to reschedule. - A mask is optional within the hospital at this time. CLEAR LIQUIDS DAY BEFORE SURGERY PER DR VAZQUEZ. Patients may have clear liquids (water, carbonated beverages, clear teas, apple juice) until 3 hours prior to surgery (4:30AM) with a maximum of 20 ounces. From midnight until time of surgery and no smoking, or chewing tobacco (or any form of nicotine). No chewing gum, candy or mints. Take only the following medications with a SIP of water on the morning of surgery: __DILTIAZEM, LEVOTHYROXINE DO NOT STOP ANY OF YOUR OTHER PRESCRIPTION MEDICATIONS PRIOR TO SURGERY EXCEPT THE FOLLOWING Hold all vitamins and supplements for 3 days per anesthesiologist.- -LAST DOSE 07/16/24. Please no make-up, nail luxembourger, hairspray, perfume, deodorant, or body powder the day of surgery.? No jewelry (including any body piercings) or valuables the day of surgery, leave them at home.? Please take a shower or bath the night before, or the morning of, surgery with an antibacterial soap.? - Jewelry must be removed prior to entering the operating room.? Rings and piercings that are not removed may be cut off. - The hospital will not accept responsibility for valuables.? - Please leave all valuables, including medications, at home the day of surgery. If you are going home after surgery, a licensed compactor driver must drive you home.? - NO public transportation without another adult if you receive anesthesia. - We recommend that an adult stay with you for 24 hours following discharge. - We also recommend that you do not drive, make important decision, drink alcoholic beverages, or take any drugs that were not prescribed by your health care provider for at least 24 hours after your discharge time. Follow any additional instructions given to you from your surgeon. 1. ANTIBIOTICS DAY BEFORE SURGERY SCHEDULED. 2. BOWEL PREP PER DR VAZQUEZ. 3. ENSURE BUNDLE DIRECTED. 4. HIBICLENS SHOWER DAY BEFORE SURGERY AND MORNING OF SURGERY PER DR VAZQUEZ. Telephone instructions given to ____PATIENT and asked if any additional questions and then verbalized understanding. Patient advised to call surgeon office or pre surgery nurse liaison [phone] if any additional questions.
[2024-07-15 08:23] VITALS: BP 137/69; PULSE 60; RESP 16; TEMP 36.9; O2SAT 98; BMI 31.7
[2024-07-20] VITALS (15 sets, daily range): BP systolic 104–133; BP diastolic 60–84; PULSE 77–98; RESP 14–18; TEMP 36.3–36.8; O2SAT 94–100
--- OUTSIDE RECORDS SUMMARY | 2024-07-20 00:18 | XMS_ITS | Clinical Summary ---
Author Organization [facility] Address [address] [place] [address] Care Team Providers Care Bureau Chief Name Role Phone Arnaldo Hurtado MD Unavailable [phone] Arnaldo Hurtado MD Primary Care Provider [phone] Source Comments [facility],non-owned Affiliates and Associated Physician Practices is amultiple site organization consisting of ambulatory clinics and hospital sitesin [place], [place]. This disclosure is being madepursuant to the Care Everywhere program and may not contain all information available regarding this patient. Last updated 17.[facility] [employer] Allergies No known active allergies Medications * [...] mouth once daily 3 Active nystatin (Mycostatin) 806351 UNIT/GM ointmentIndica tions:Lichen planus Use to affected [...] Comments Blood Pressure 122/80 04/16/2024 10:09 AM INTERNET NETWORK SPECIALIST Pulse - - Temperature - - Respiratory Rate - - Oxygen Saturation - - Inhaled Oxygen Concentration - - Weight 73.5 kg (162 lb) 04/16/2024 10:09 AM INTERNET NETWORK SPECIALIST Height 152.4 cm (5') 04/16/2024 10:09 AM INTERNET NETWORK SPECIALIST Body Mass Index 31.64 04/16/2024 10:09 AM INTERNET NETWORK SPECIALIST Plan of Treatment Upcoming Encounters Date Type Department Care Team (Late st Contact Info) Description 08/25/2024 10:10 AM CDT Office Visit [facility] - WORLD RENOWNED CHEF AND RESTAURANT OWNER [address] [place] [phone] Liv Johnson, EARLY CHILDHOOD EDUCATION COORDINATOR-PROCUREMENT OFFICER [address] [facility] [address] [place] [address] Health Maintenance Due Date Last [...] to complete this topic Insurance [facility] Address: [address] [address] SELF PAY NO INSURANCE Member Subscriber Plan / Payer (Ef fective for All Dates) Name:RiveraRuth Member ID:Not on file Relation to Subscriber:Not on file Name:RUTH RIVERA Subscriber ID:Not on file (Home) Address: [facility] [address] [place] [phone] Payer ID:Not on file Group ID:Not on file Type:Self Pay Address: [place], [place] Care Teams Bureau Chief Relationship Specialty Start Date End Date Arnaldo Hurtado MD [address] [place] [phone] PCP - General Family Medicine 08/17/22 Arnaldo Hurtado MD [address] [place] [address] Primary Care Provider Family Medicine 08/15/22
--- OUTSIDE RECORDS SUMMARY | 2024-07-20 00:18 | XMS_ITS | Data Portability ---
Author Organization [facility] [place] Address [address] [place] [address] Care Team Providers Care Boom Pump Operator Name Role Phone JAC JOHNSON Primary Care Provider [phone] Assessment No assessment recorded. Plan of Treatment Reminders Order Date Submit Date Provider Last Modified By Organization Details Last Modified Time Details Appointments None recorded. Lab None recorded. Referral gynecologis t referral - Vulval irritationP lease contact this patient to schedule an appointment with a Vulvar Specialist. The patients insurance is [facility] Medicare HMO. Her primary care provider Jac Johnson DO will need to get an insurance authorizati on to refer this patient. PCP phone fax [phone] or [phone].If you have any further questions, please call [phone].Thank you,Hilary, Referral's 2022 023 JUANITO Johnson [employer], [address] [facility] [address], [place], [address], 3 17:28:17 Procedures None recorded. Surgeries None recorded. Imaging None recorded. Medication Orders estradiol 0.01% (0.1 mg/gram) vaginal cream 2022 023 JUANITO [facility] [id number] In [facility], [address] [place], [address], 3 09:55:00 nystatin-tr iamcinolone 100,000 unit/g-0.1 % topical cream 2022 023 JUANITO [facility] [address] In [facility], [address] [place], [address], 09:48:46 Patient TargetsNo targets recorded. Patient InstructionsNo instructions recorded. 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 The patients insurance is [facility] Medicare HMO. Her primary care provider Jac Johnson DO will need to get an insurance authorization to refer this patient. PCP phone [phone] fax [phone] or [phone].If you have any further questions, please call [phone].Thank you,Mayo Richard's Referring Physician: Mag Abbasi, REPLANTING MACHINE OPERATOR, Encounter Date: 08/01/2022 Results Created Date Observation [...] nt's name, demog raphi cs and vulv a. Recei he in forma dilip is a punch of white skin measu ring 0.[address] and is excis ed to a depth of 0.3 cm. It is submi tted all in casse tte A1. Gross ed by Mike Brady on Not Available [facility] (Lab) [address], [place], [address], 07/09/2022 10:57:25 04/25/19 23 04/25/2022 MAMMO , scree randall, digit al, bilat eral No observ ation record ed. [address] [facility] [address], [place], [address], 04/26/2022 09:35:37 04/25/19 23 04/25/2022 MAMMO , scree randall, digit al, bilat eral No observ ation record ed. [address] [facility] [address], [place], [address], 04/26/2022 09:35:37 05/18/19 23 04/25/2022 MAMMO , scree randall, digit al, bilat eral No observ ation record ed. [facility] [address], [place], [address], 05/17/2022 12:14:02 05/18/19 23 05/16/2022 US, tree t, unila teral No observ ation record ed. [address], [place], [address], 05/17/2022 12:32:39 09/20/19 24 09/20/2023 MAMMO , scree randall, bilat eral No observ ation record ed. [email or web address] [facility] [address], [place], [address], 10/08/2023 11:56:51 09/23/19 24 09/20/2023 MAMMO , scree randall, digit al, bilat eral No observ ation record ed. JUANITO [facility] [address], [place], [address], 10/08/2023 04:11:35 Result Notes None recorded. Procedures Surgical History Date Name Laterality Status Provider Name and Address Organization Details Recorded Time 07/06/19 23 Vulvar Biopsy completed CAROL Sierra [address], [place], [address], [place] [facility] 07/05/2022 10:05:02 04/23/19 23 Date of Last Mammogram completed [facility] 05/22/2022 09:32:11 04/22/19 23 Most Recent Bone Density completed [facility] 05/22/2022 09:32:11 10/31/19 21 Date of Last Pap Smear completed [facility] 12/20/2021 10:13:37 12/30/19 17 Date of Last Colonoscopy completed [facility] 12/20/2021 10:13:37 Caesarean Section completed [facility] 12/20/2021 10:13:49 hysterectomy completed [facility] 12/20/2021 10:33:15 Imaging Results Imaging Date Name Status LastModified by Organiz ation Details LastModified Time 04/25/2022 MAMMO, screening, digital, bilateral completed [email or web address] [facility] [address], [place], [address], 04/26/2022 09:35:37 04/25/2022 MAMMO, screening, digital, bilateral completed [email or web address] [facility] [address], [place], [address], 04/26/2022 09:35:37 04/25/2022 MAMMO, screening, digital, bilateral completed [facility] [address], [place], [address], 05/17/2022 12:14:02 05/16/2022 US, breast, unilateral completed [email or web address] [facility] [address], [place], [address], 05/17/2022 12:32:39 09/20/2023 MAMMO, screening, bilateral completed [email or web address] [facility] [address], [place], [address], 10/08/2023 11:56:51 09/20/2023 MAMMO, screening, digital, bilateral active JUANITO [facility] [address], [place], [address], 10/08/2023 04:11:35 Procedure Notes None recorded. Medical Equipment None Reported. Allergies No known drug allergies Medications Name Sig Start Date Stop Date Status Note LastModified by Organization Details LastModified Time diltiazem CD 240 mg capsule,ext ended release 24 hr TAKE 1 CAPSULE BY MOUTH EVERY DAY active Not Available Not Available No t Available [facility] Levothyroxi ne Sodium 50 mcg tablet [...] 04/24/2022 152.4 cm 133 mm[Hg] 89 mm[Hg] [facility] 04/24/2022 09:30:48 Date Recorded Body height Systolic blood pressure Diastolic blood pressure Provider Name and Address Organization Details Last Updated DateTime 05/22/2022 152.4 cm 112 mm[Hg] 75 mm[Hg] [facility] 05/22/2022 09:32:07 Date Recorded Body height Systolic blood pressure Diastolic blood pressure Provider Name and Address Organization Details Last Updated DateTime 07/03/2022 152.4 cm 130 mm[Hg] 79 mm[Hg] [facility] 07/03/2022 09:28:10 Date Recorded Body height Systolic blood pressure Diastolic blood pressure Provider Name and Address Organization Details Last Updated DateTime 07/05/2022 152.4 cm 125 mm[Hg] 79 mm[Hg] [facility] 07/05/2022 09:48:29 Date Recorded Body height Body mass index (BMI) Body weight Systolic blood pressure Diastolic blood pressure Provider Name and Address Organization Details Last Updated DateTime 08/01/2022 152.4 cm 34.1 kg/m2 60984.23 g 125 mm[Hg] 78 mm[Hg] [facility] 09:29:06 Social History Question Answer Notes LastModified by Organizat ion Details LastModified Time Do You Have An Advance Directive? No Information n ot available 12/20/2021 How Many Years Have You [...] Have You Had Close Contact With A Laboratory-confirme d COVID-19 While That Case Was Ill? No Information n ot available 12/20/2021 In The 14 Days Before [...] Of Diet Are You Following? SPECIFIC Information n ot available 12/20/2021 What Is The Highest Grade Or Level Of School You Have Completed Or The Highest Degree You Have Received? [id number] Information not available 12/20/2021 Are There Any [...] Organizat ion Details LastModified Time Do you use any illicit or recreational drugs? No Information not available 12/20/2021 What is your level of alcohol consumption? Occasional Information not available 12/20/2021 Do you have difficulty walking or climbing stairs? No [email or web address] Information not available 08/01/2022 Are you able to walk? YESWOREST Information not available 12/20/2021 Are you able to care for yourself? 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 No Information not available 08/01/2022 What is your exercise level? Moderate Information not available 12/20/2021 Mental Status Question Answer Note LastModified by Organization D etails LastModified Time Do you feel stressed (tense, restless, nervous, or anxious, or unable to sleep at night)? [id number] Information not available 12/20/2021 Family History Relationship Description Onset Age of [...] SNOMED-CT Code Diagnosis ICD10 Code Diagnosis Note [id number] CAROL Sierra [place] [address] [address] 12/20/2021 09:44:23 12/20/2021 14:24:17 Atrophic vulva 157567956 N90.5 Significan t vulvar atrophy noted on [...] care. Screening for malignant neoplasm of breast 728591312 Z12.39 Screening for osteoporosis 366150232 Z13.820 Gynecologi c examination 36264941 Z01.419 Take Calcium with Vitamin D 12-1500mg daily. Do monthly self breast exams. It is advised to get annual flu shot in the fall and she could obtain at [facility] or [facility] take care clinic. If you haven't [...] been answered. Patient appears to understand instructio prema, but if you have any further questions [...] givenDexa order givenColon oscopy UTDUTD with PCP [id number] CAROL Sierra [place] [address] [address] 01/22/2022 09:17:29 01/22/2022 12:43:02 Atrophic vulva 830230658 N90.5 Vulvar exam improved for Ana continue with vaginal estradiol 3x per weekCrisco twice dailyR/B discussed and accepted by patientRTC for f/u in 3 months Time spent in visit is a total of 20 mins with at least 50% of visit consisting of counseling and review of plan of care. [id number] CAROL Sierra [place] [address] [address] 04/24/2022 09:17:20 04/24/2022 12:09:32 Contact dermatitis 17667969 L25.9 Suspect increased irritation related to using [...] review of plan of care. Atrophic vulva 841831616 N90.5 [id number] CAROL Sierra [place] [address],[place] [address] 05/22/2022 09:12:20 05/22/2022 10:36:13 Atrophic vulva 371662607 N90.5 Doing well, symptoms have greatly improvedCo ntinue w/ crisco twice daily - estrace vaginal cream 3 times per weekRTC for f/u in 2 months Time spent in visit is a total of 15 mins with at least 50% of visit consisting of counseling and review of plan of care. [id number] CAROL Sierra [place] [address],[place] [address] 07/03/2022 09:21:52 07/03/2022 15:08:03 Atrophic vaginitis 04175574 N95.2 Some improvemen t, but irritation continues despite twice daily crisco use and estrace vaginal cream 3x per week. Recommend vulvar biopsy for further evaluation . R/B discussed. After biopsy, may need vulvar client care coordinator consultRTC for vulvar biopsy, continue current regimen Time spent in visit is a total of 20 mins with at least 50% of visit consisting of counseling and review of plan of care. Vulval irritation 405924 003 N90.89 [id number] CAROL Sierra [place] [address],[place] [address] 07/05/2022 09:23:43 07/05/2022 10:21:17 Atrophic vulva 314750988 N90.5 Vulval irritation 491865 003 N90.89 vulvar biopsy performed without any immediate complicati ons (see procedure note)will reach out to patient with results / f/u plan when availablep recautions discussed [id number] CAROL Sierra [place] [address],[place] [address] 08/01/2022 09:15:46 08/01/2022 09:57:02 Vulval irritation 314336604 N90.89 we reviewed biopsy resultsusi ng crisco twice daily, estradiol cream 2-3 times per week, and clobetasol 1-2 times per dayclobeta dianne has helped some, but irritation continuesw e agreed to vulvar client care coordinator consult for further management referral sentexam is improved from last visitshe is going to continue current regimen Time spent in visit is a total of 18 mins with at least 50% of visit consisting of counseling and review of plan of care. Atrophic vulva 059139583 N90.5 Health Concerns Section Related Observation LastModified by Organization Detai ls LastModified Time None Recorded Concern Status LastModified by Organization Details LastModified Time None Recorded Advance Directives Directive N: Payers Encounter Date Sequence Insurance Name Policy Number Policy Chandra Covered Member ID Chandra Member ID Guarantor Name 04/24/2022 1 [employer] (MEDICARE REPLACEMENT HMO) [id number] Ruth L Troncoso [id number] Ruth Troncoso 05/22/2022 1 [employer] (MEDICARE REPLACEMENT HMO) [id number] Ruth L Troncoso [id number] Ruth Troncoso 07/03/2022 1 [employer] (MEDICARE REPLACEMENT HMO) [id number] Ruth L Troncoso [id number] Ruth Troncoso 07/05/2022 1 [employer] (MEDICARE REPLACEMENT HMO) [id number] Ruth L Troncoso [id number] Ruth Troncoso 08/01/2022 1 [employer] (MEDICARE REPLACEMENT HMO) [id number] Ruth L Troncoso [id number] Ruth Troncoso Notes Date Note Type Note Provider Name and Address Organization Details Recorded Time 04/24/2022 text/html 66yoPresents for med check, on vaginal estradiol 3 x per weekUsing crisco twice daily to vulvaFelt improvement in vaginal dryness, irritation and itching up until last week. Symptoms returned, she started using toilet paper to apply the estrace cream. CAROL Sierra [address], [place], [address], [facility] 04/24/2022 11:52:16 05/22/2022 text/html 66yoPresents for f/uUsing crisco twice daily, estrace vaginal cream 3x per weekDoing well, feeling so much better since last visit CAROL Sierra [address], [place], [address], [facility] 05/22/2022 10:28:46 07/03/2022 text/html [...] mostly resolved. CAROL Sierra [address], [place], [address], [facility] 07/03/2022 13:52:06 07/05/2022 text/html patient presents for vulvar biopsy CAROL Sierra [address], [place], [address], [facility] 07/05/2022 10:06:02 08/01/2022 text/html 67yopresents for vulvar biopsy f/uusing estrace vaginal cream 3 x per weekcrisco twice dailyand clobetasol 1-2 times a dayvulvar biopsy showed Lichenoid dermatitisfeels some improvement but still continues to feel irritation CAROL Sierra [address], [place], [address], [facility] 08/01/2022 09:51:59 OBGyn Episode Ob Episode Information Episode Created Date Number of Fetuses Patient Bloodtype Patient rh Status Prepregnancy Weight lbs Domestic Partner Domestic Partner Phone Father Name Maintenance Journeyman Status 12/21/19 22 1 CLOSED Fetus Data First Name Last Name Admitted to NICU Weight (g) Sex Living Outcome Pediatric Complications Fetus ID Race Codes Race Delivery Type 4422.52 2 F Full Term [id number] Primary Trevor Calculation Initial Trevor Date Initial [...] Domestic Partner Domestic Partner Phone Father Name Maintenance Journeyman Status 12/21/19 22 1 CLOSED Fetus Data First Name Last Name Admitted to NICU Weight (g) Sex Living Outcome Pediatric Complications Fetus ID Race Codes Race Delivery Type 3515.33 8 F Full Term [id number] Repeat Trevor Calculation Initial Trevor Date Initial [...]
--- OUTSIDE RECORDS SUMMARY | 2024-07-20 00:19 | XMS_ITS ---
Author Name CHASE CHAPPELLNTYSON Address [address] [place] [address] Phone [phone] Organization [facility]) Care Team Providers Care Gear Lapping Machine Operator Name Role Phone TYSON STONE Unavailable [phone] Arnaldo Hurtado Unavailable [phone] Reason for Referral Not Available Allergies, adverse reactions, alerts No known allergies History of medication use Medication Class Instructions Start Date End Date Rtsxcto-Haxppfnvz-Rbdz 333.33/133.33/5 mg Tab once a day 2024-06-18 [...] making, total time 30-44 minutes [facility] [place] 06/18/2024 Essential (primary) hypertensionType 2 diabetes mellitus [...] medical decision making, total time 30-44 minutes [id number] 2024-06-18 No Data Available No Data Availa [...]
--- NOTE | 2024-07-20 08:11 | P.PNAN_ITS ---
Anes - Initial Pre Proc Eval Procedure: Operation Date: 07/20/24 08:45 Proposed Procedures p Laparoscopic Sigmoid Colectomy, Davinci Assisted - Saqib Marquez DO Date/Time: 07/20/24 08:11 Surgeon: Saqib Marquez DO Pre Op Diagnosis: sigmoid stricture Patient Data Age: 69 Gender: F Height: 1.52 m Weight: 73.8 kg Last Vital Signs Temp 36.9 C 07/15/24 08:23 Pulse 60 07/15/24 08:23 Resp 16 07/15/24 08:23 BP 137/69 07/15/24 08:23 Pulse Ox 98 07/15/24 08:23 O2 Del Method Room Air 07/15/24 08:23 Allergies Allergy/AdvReac Type Severity Reaction Status Date / Time ART Inhibitors AdvReac Mild cough Verified 07/15/24 08:14 Home Medications ?Medication ?Instructions ?Recorded ?Confirmed ?Type melatonin 1 mg tablet 1 mg PO DAILY 02/10/19 07/15/24 History cholecalciferol (vitamin D3) 125 125 mcg PO DAILY 11/15/20 07/15/24 History mcg (5,000 unit) capsule cetirizine 10 mg tablet (Zyrtec) 10 mg PO DAILY PRN allergies 05/09/21 07/15/24 History calcium 500 mg tablet 500 mg PO DAILY 12/17/23 07/15/24 History levothyroxine 50 mcg tablet 50 mcg PO DAILY 12/17/23 07/15/24 History blood-glucose meter (Contour Next #1 kit 01/14/24 07/15/24 Rx Glucose Meter kit) omeprazole 20 mg capsule,delayed 20 mg PO DAILY PRN Indigestion #90 02/11/24 07/15/24 Rx release caps diltiazem HCl 240 mg See Rx Instructions .Route 02/24/24 07/15/24 Rx capsule,extended release 24 hr .COMPLEX #90 caps losartan 100 mg tablet See Rx Instructions .Route 02/24/24 07/15/24 Rx .COMPLEX #90 tabs rosuvastatin 10 mg tablet See Rx Instructions .Route 02/24/24 07/15/24 Rx .COMPLEX #90 tabs hydrochlorothiazide 12.5 mg tablet See Rx Instructions .Route 06/03/24 07/15/24 Rx .COMPLEX #90 tabs blood sugar diagnostic (OneTouch #100 ea 07/02/24 07/15/24 Rx Verio test strips) ciprofloxacin HCl 500 mg tablet See Rx Instructions .Route 07/14/24 07/15/24 Rx .COMPLEX #1 tablet metronidazole 500 mg tablet See Rx Instructions .Route 07/14/24 07/15/24 Rx .COMPLEX #3 tabs docusate sodium 100 mg capsule 100 mg PO HS 07/15/24 07/15/24 History (Colace) nystatin 100,000 unit/gram topical 1 applic topical EVERY OTHER DAY 07/15/24 07/15/24 History ointment triamcinolone acetonide 0.1 % 1 applic topical EVERY OTHER DAY 07/15/24 07/15/24 History topical ointment Patient hx anesthesia problems: none Family hx anesthesia problems: none Results Review: All pre-operative results and documents have been reviewed as part of the pre- operative evaluation. 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 Hormone replacement therapy (HRT) Adult hypothyroidism Hyperlipidemia Encounter for general medical examination COVID-19 IFG (impaired fasting glucose) Hypercholesteremia Hypertension Surgical History Surgical History S/P cholecystectomy History of carpal tunnel surgery History of cholecystectomy 2017 [place] teeth removed H/O: hysterectomy 2019 H/O section Family History Family History Father Family history of hepatitis Family history of liver disease Family history of cardiovascular disease Family history of heart disease in male family member before age 55 Heart problem Hypertension Sibling Family history of hypothyroidism Diabetes mellitus Hypertension Family history of cardiovascular disease Asthma Mother Cerebrovascular accident, Onset Age: 83 Diabetes mellitus Family history of cardiovascular disease Family history of chronic obstructive pulmonary disease Heart problem Hypertension Sibling Hypertension Other Family history of coronary artery disease Social History Social History Smoking packs per day: 0.5 Smoking cigarettes per day: 10.0 Years smoked: 5 Smoking pack-years: 2.50 Smoking status: Former smoker Tobacco type: cigarettes Second hand tobacco smoke exposure: No Smoking end date: 03/11/00 Alcohol intake: current Alcohol use details: social Substance use: never Substance use type: does not use Lack of Transportation: No Lack of Food: Never True Current Housing: I Have Housing Concerned About Future Housing: No Difficulty Paying Gas/Electric Bills: No Difficulty Paying for Meds: No Currently Unemployed: No Education: Master's Degree or Higher Difficulty w/ Childcare or Family Care: No Living arrangements: with family Additional living arrangements comments: with sp Spiritual care concerns: No Anes - Eval Final PreProcedure Day of Procedure 07/20/24 08:11 Patient weight: obese Heart: regular rate and rhythm Lungs: clear to auscultation Airway: Mallampati scale class II Neurological: alert and oriented Last oral intake: >/= 8 hours ASA classification: III Emergent: no Anesthetic plan: proceed Anesthesia type and monitoring: general ETT and standard monitoring Results Review: All pre-operative results and documents have been reviewed as part of the pre- operative evaluation. Informed Consent: The patient's anesthetic plan and its attendant risks and benefits were discussed with the patient/family/POA. Questions were solicited and answers provided to the satisfaction of the patient/family/POA.
[2024-07-20 08:15] LABS: Glucose Point of Care 101 mg/dl (65-105)
--- NOTE | 2024-07-20 08:45 | WPDHPUPDATE1 ---
History and Physical Update Update Date/Time: 07/20/24 08:45 History and Physical has been reviewed, including an updated exam of the patient. There are NO changes in the patient's condition. Risks, benefits, and alternatives have been discussed and questions answered. Patient agrees to proceed with procedure.
--- NOTE | 2024-07-20 08:45 | PM.IMHP ---
H&P: HPI History of Present Illness Date/Time: 07/20/24 08:45 Chief Complaint: Sigmoid stricture Narrative: This is a 69-year-old woman who presents for robotic assisted laparoscopic sigmoid colectomy. She had recently undergone colonoscopy which showed evidence of a sigmoid stricture that was unable to be traversed. Biopsies of this area showed concerns for possible malignancy. A repeat sigmoidoscopy with tattooing and rigid proctosigmoidoscopy confirmed location of the stricture at about 16 cm from the anal verge. Preoperative CT showed no evidence of metastatic spread. She now presents for resection. Review of Systems Review of Systems: All systems reviewed & are unremarkable except as noted in HPI and below Constitutional: Constitutional: Denies chills, Denies fever(s), Denies headache(s) and Denies weight loss Eyes: Eyes: Denies change in vision ENT: Denies dizziness, Denies headache(s), Denies neck mass and Denies throat swelling Cardiovascular: Cardiovascular: Denies chest pain, Denies lightheadedness and Denies dyspnea Respiratory: Respiratory: Denies cough, Denies dyspnea and Denies wheezing Gastrointestinal: Gastrointestinal: Denies abdominal pain, Denies change in bowel habits, Denies nausea and Denies vomiting Genitourinary: Genitourinary: Denies hematuria and Denies dysuria Musculoskeletal: Musculoskeletal: Reports as per HPI Integumentary/Breasts: Skin/Breast: Reports as per HPI Neurologic: Denies dizziness and Denies headache(s) Allergic/Immunologic: Allergic/Immunologic: Denies throat swelling and Denies wheezing [facility] Past Medical History Medical History Thyroid disorder Vitamin D deficiency 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 Hormone replacement therapy (HRT) Adult hypothyroidism Hyperlipidemia Encounter for general medical examination COVID-19 IFG (impaired fasting glucose) Hypercholesteremia Hypertension Surgical History Surgical History S/P cholecystectomy History of carpal tunnel surgery History of cholecystectomy 2017 [place] teeth removed H/O: hysterectomy 2019 H/O section 1976,1978 Family History Family History Father Family history of hepatitis Family history of liver disease Family history of cardiovascular disease Family history of heart disease in male family member before age 55 Heart problem Hypertension Sibling Family history of hypothyroidism Diabetes mellitus Hypertension Family history of cardiovascular disease Asthma Mother Cerebrovascular accident, Onset Age: 83 Diabetes mellitus Family history of cardiovascular disease Family history of chronic obstructive pulmonary disease Heart problem Hypertension Sibling Hypertension Other Family history of coronary artery disease Social History Social History Smoking packs per day: 0.5 Smoking cigarettes per day: 10.0 Years smoked: 5 Smoking pack-years: 2.50 Smoking status: Former smoker Tobacco type: cigarettes Second hand tobacco smoke exposure: No Smoking end date: 03/11/00 Alcohol intake: current Alcohol use details: social Substance use: never Substance use type: does not use Lack of Transportation: No Lack of Food: Never True Current Housing: I Have Housing Concerned About Future Housing: No Difficulty Paying Gas/Electric Bills: No Difficulty Paying for Meds: No Currently Unemployed: No Education: Master's Degree or Higher Difficulty w/ Childcare or Family Care: No Living arrangements: with family Additional living arrangements comments: with sp Spiritual care concerns: No Meds Home Medications and Allergies Home Medications ?Medication ?Instructions ?Recorded ?Confirmed ?Type melatonin 1 mg tablet 1 mg PO DAILY 02/10/19 07/15/24 History cholecalciferol (vitamin D3) 125 125 mcg PO DAILY 11/15/20 07/15/24 History mcg (5,000 unit) capsule cetirizine 10 mg tablet (Zyrtec) 10 mg PO DAILY PRN allergies 05/09/21 07/15/24 History calcium 500 mg tablet 500 mg PO DAILY 12/17/23 07/15/24 History levothyroxine 50 mcg tablet 50 mcg PO DAILY 12/17/23 07/15/24 History blood-glucose meter (Contour Next #1 kit 01/14/24 07/15/24 Rx Glucose Meter kit) omeprazole 20 mg capsule,delayed 20 mg PO DAILY PRN Indigestion #90 02/11/24 07/15/24 Rx release caps diltiazem HCl 240 mg See Rx Instructions .Route 02/24/24 07/15/24 Rx capsule,extended release 24 hr .COMPLEX #90 caps losartan 100 mg tablet See Rx Instructions .Route 02/24/24 07/15/24 Rx .COMPLEX #90 tabs rosuvastatin 10 mg tablet See Rx Instructions .Route 02/24/24 07/15/24 Rx .COMPLEX #90 tabs hydrochlorothiazide 12.5 mg tablet See Rx Instructions .Route 06/03/24 07/15/24 Rx .COMPLEX #90 tabs blood sugar diagnostic (OneTouch #100 ea 07/02/24 07/15/24 Rx Verio test strips) ciprofloxacin HCl 500 mg tablet See Rx Instructions .Route 07/14/24 07/15/24 Rx .COMPLEX #1 tablet metronidazole 500 mg tablet See Rx Instructions .Route 07/14/24 07/15/24 Rx .COMPLEX #3 tabs docusate sodium 100 mg capsule 100 mg PO HS 07/15/24 07/15/24 History (Colace) nystatin 100,000 unit/gram topical 1 applic topical EVERY OTHER DAY 07/15/24 07/15/24 History ointment triamcinolone acetonide 0.1 % 1 applic topical EVERY OTHER DAY 07/15/24 07/15/24 History topical ointment Allergies Allergy/AdvReac Type Severity Reaction Status Date / Time ART Inhibitors AdvReac Mild cough Verified 07/15/24 08:14 Exam Const: General: no acute distress and alert Orientation/consciousness: patient oriented x3 HENMT: Head: normocephalic and atraumatic Ears: hearing grossly normal bilaterally Face/Nose/Sinus: Normal nares present Mouth: Yes Normal oral and palatal mucosa present Eyes: Periorbital: periorbital findings normal Sclera: sclerae normal EOM: EOMs intact bilaterally Neck: Neck: normal visual inspection, no lymphadenopathy and trachea midline Chest: Chest palpation & inspection: normal inspection of the chest Resp: Effort & Inspection: normal respiratory effort Auscultation: clear to auscultation bilaterally Cardio: Jugular venous distension: no JVD Rate: regular rate Rhythm: regular rhythm Heart sounds: S1 normal heart sound present and S2 normal heart sound present Peripheral pulses: Peripheral pulses 2+ throughout GI: Inspection: normal to inspection GI Palp: Yes Soft to palpation, No Tenderness to palpation present (GI), No Guarding due to palpation present (GI) and No Rebound tenderness present Percussion: Yes normal to percussion Auscultation: normal bowel sounds : General: Yes no CVA tenderness Back/Spine/Pelvis: Back: no CVA tenderness Neuro: General: patient oriented x3, no focal motor deficits and CN's II-XI intact bilaterally Cognition (Neuro): normal cognition Speech: normal speech Motor exam (neuro): 5/5 motor strength present throughout Extrem: General: capillary refill normal and no clubbing, cyanosis or edema Assessment and Plan Assessment and plan (1) Stenosis colon: Code(s): K56.699 - Other intestinal obstruction unspecified as to partial versus complete obstruction Status: Acute Assessment and Plan: I have recommended laparoscopic sigmoid colectomy, da Ria assisted. I have discussed the procedure, risks, benefits, and alternatives with the patient. All questions answered. No changes since last seen in office.
[2024-07-20] MEDS: LACTATED RINGERS 1,000 ML 30 ML IV CONT ×2 (09:10→12:11)
[2024-07-20] MEDS: ACETAMINOPHEN 500 MG TABLET 1000 MG PO ×2 (09:10→17:26)
[2024-07-20] MEDS: KETOROLAC 15 MG/ML VIAL (*BKC) IV PUSH (09:10)
[2024-07-20] MEDS: ceFAZolin 2 GM/D5W 50 ML 2 GM/50 ML BAG IVPB (09:14)
[2024-07-20] MEDS: metroNIDAZOLE 500 MG/ISO 100ML 500 MG/100 ML BAG 100 MG IVPB (09:25)
[2024-07-20 10:01] LABS: Carcinoembryonic Antigen 0.9 ng/mL (0.0-3.0)
[2024-07-20] MEDS: BUPIVACAINE/EPINEPHRINE 0.5% 50 ML VIAL 60 ML INFILTRATE (10:18)
[2024-07-20] MEDS: INDOCYANINE GREEN 25 MG VIAL WITH DILUENT 3.75 MG IV PUSH (11:02)
--- NOTE | 2024-07-20 11:37 | S_PTH ---
PATIENT: Ruth Troncoso LOC: [id number] #:[id number] AGE/SX: 69/F ROOM: 319 RE07/20/[address]: Rach Eldre APRN : 1955 BED: 01 DIS: 07/22/2024 SPEC #: [id number] RECD: 07/20/24 13:23 STATUS: RICHARD MAHARAJ #: [id number] PUNEET: 07/20/24 11:[address]: Saqib Marquez DEPT: [facility] Surgical RECD BY: Marisol Bennett ENTERED: 07/20/24 13:23 SP TYPE: Surgical OTHR DR: Brittanie Angeles APRN Tissues: A - Colon Segment Tumor Procedures: Hematoxylin and Eosin Stain MSI Gross and Microscopic Level 6
--- NOTE | 2024-07-20 12:10 | P.OP_ITS ---
Procedure Note - Detailed Date of Procedure 07/20/24 Pre-op Diagnosis sigmoid stricture Post-op Diagnosis Same Procedure Performed Laparoscopic sigmoid colectomy with colorectal anastomosis, da Ria assisted Surgeon Saqib Marquez DO Anesthesia General and Local (0.5% bupivacaine with epinephrine) Indications This is a 69-year-old woman who presented with a sigmoid stricture. She had undergone attempted screening colonoscopy on 06/15/2024 but was found to have a rectosigmoid stricture which was unable to be traversed. The stricture appeared benign and biopsies were obtained. The biopsies showed concerns for possible adenocarcinoma. She underwent a CT chest/abdomen/pelvis which showed no evidence of metastatic spread. She then had a repeat sigmoidoscopy and rigid proctosigmoidoscopy to assess the distance from the anal verge and tattoo the region. Discussions were then made with the patient about treatment options and decision was made to proceed with robotic assisted laparoscopic sigmoid colectomy. Findings Robotic assisted laparoscopic sigmoid colectomy was performed. The tattooed region was identified on the distal sigmoid colon. There were a few adhesions in the pelvis from her prior C-sections and hysterectomy, these adhesions came down easily with scissors with electrocautery. A high ligation of the inferior mesenteric artery was performed. The distal transection point was made about 3- 5 cm beyond the tattoo at the upper rectum. The proximal transection was then at the descending colon sigmoid colon junction. Indocyanine green was used to assess adequate perfusion to the proximal and distal resection margins. An end to side colorectal anastomosis was performed using a 28 mm EEA stapler. The anastomotic rings appeared intact. Leak test was then also performed and there was no evidence of air bubbles leaking from the anastomosis. The sigmoid colon was marked with a suture at the distal margin. It was then sent to the lab for pathology. Description of Procedure Procedure as well as risks, benefits, and alternatives were discussed with the patient. Written consent was obtained and placed in chart prior to procedure. Patient was brought back to surgical suite. She was placed supine on operating table. Time-out was done to confirm patient and procedure. She was then intubated by the anesthesia department. She was then repositioned into a modified lithotomy position. Her rectal area was prepped and draped in sterile fashion using Betadine prep and her abdomen was prepped and draped in sterile fashion using chlorhexidine prep. A 4 cm transverse mini Pfannenstiel incision was made using a 15 blade scalpel. Electrocautery was used for hemostasis and for dissection through the subcutaneous tissue. The anterior rectus sheath was identified and incised transversely using electrocautery. The rectus muscle was carefully dissected off of the fascia using blunt dissection and electrocautery. The peritoneum was then incised using electrocautery vertically. A small Vincent wound protector was then placed and a 5 mm port was placed with the wound protector twisted shut around it. Carbon dioxide insufflation was then utilized for pneumoperitoneum. A 8 mm incision was made in the right upper quadrant and a 8 mm AirSeal trocar was advanced through the abdominal layers under direct visualization. Camera was inserted and abdomen was inspected laparoscopically. No immediate abnormalities were identified. The patient was placed in steep Trendelenburg position. A 12 mm incision was made in the right lower quadrant about 2 cm medial to the ASIS, and a 12 mm trocar was inserted under direct visualization. Three more 8 mm incisions were placed and 8 mm ports were placed under direct visualization on an oblique angle going up towards the left upper quadrant. 0.5% bupivacaine with epinephrine was infiltrated locally around each port site. A careful thorough examination of the abdominal cavity was performed. The omentum was reflected cephalad over the stomach. The cecum and small bowel were reflected out of the pelvis. The robotic arms were then brought up to the patient's bedside in secured to the ports. The robotic camera and instruments were then inserted and then I moved over to the robotic console and took control of the camera and instruments. After carefully inspecting the abdominal cavity, I then lifted the rectosigmoid junction anteriorly to tent up the inferior mesenteric artery pedicle. A medial to lateral dissection was performed using scissors with electrocautery. I scored the peritoneum along the undersurface of the superior hemorrhoidal vessel at the sacral promontory and entered into the avascular space. I carefully dissected within the space to dissect the hypogastric nerves posteriorly and dissect laterally until the left ureter was identified. The ureter was identified and protected in its position throughout its course. I continued the dissection proximally on the inferior mesenteric artery using scissors with electrocautery. I carefully encircled the inferior mesenteric artery about 2 cm distal to the origin. I then ensured that the left ureter was still in its proper position and then ligated and divided the inferior mesenteric artery using the vessel sealer. I then continued the medial to lateral dissection until I reached the lateral peritoneal reflection the sigm oid and descending colon. Then also dissected up to the inferior mesenteric vein. The inferior mesenteric vein was dissected back until it was near the inferior edge of the pancreas and then the inferior mesenteric vein was ligated and divided using the vessel sealer. There appeared to be adequate mobilization of the descending colon and I did not require mobilization of the splenic flexure. I then retracted the sigmoid and descending colon medially and took down the lateral peritoneal attachments using scissors with electrocautery. While doing this I entered into the previous plane of dissection from the medial to lateral approach. I ensured that the left ureter was protected in its position throughout its course. I then continued the distal dissection and took down the lateral attachments to the rectosigmoid junction and identified a point on the upper rectum that appeared healthy and viable and a good position for the distal transection. The mesorectum was taken down perpendicular to this point using the vessel sealer. The 60 mm blue load robotic stapler was then advanced across the rectum and then this was clamped and fired. The rectal stump was inspected and appeared healthy and viable. I then identified the descending colon at a point that appeared to come down in the pelvis without any tension. This was chosen as the proximal transection point. The mesocolon was taken down up to this point using the vessel sealer. 3 cc of ICG was then given intravenously and vascular perfusion to the bowel was assessed using near infrared imaging. The site for the proximal transection was clearly visible with adequate perfusion as well as the rectal stump. I then measured about 4 cm proximal to the location for transection and made a small colotomy using the point of the scissors with electrocautery of the anti mesenteric surface of the descending colon. I then made a colotomy along the sigmoid colon wide enough to allow the anvil the past through. The 28 mm EEA anvil was then placed inside the abdominal cavity and advanced through the colotomy up to the exit site on the distal descending colon. The anvil came through to this point without any problems. The 60 mm blue load stapler was then advanced across the distal descending colon at the predetermined transection site and the stapler was clamped and fired. This freed up the specimen completely it was then placed in the right lower quadrant to be extracted at the end of the procedure. A 3 0 V lock pursestring suture was then placed around the base of the anvil. This appeared to secure the descending colon around the anvil in proper position. The anvil was then brought down into the pelvis and appeared to be coming down into the pelvis without any tension. The EEA sizers were then advanced up to the rectal stump followed by the 28 mm EEA stapler. The pin of the stapler was opened just posterior to the staple line along the right corner of the staple line. The anvil was then attached to the stapler and the stapler was carefully closed. I ensured that the descending colon was not twisted along its path and no other tissue was closed within the stapler. Stapler was then fired to create our EEA anastomosis. Stapler and anvil were carefully removed. I then inspected the staple line and it appeared circumferential and the anastomotic rings appeared circumferential on the stapler. The descending colon was then pinched closed with a robotic tip up grasper. The rigid proctoscope was then inserted into the rectum and the pelvis was filled with sterile saline. Air was insufflated through the rigid proctoscope to dilate the anastomosis. No air bubbles were seen leaking from the anastomosis. The rigid proctoscope was then removed. One final inspection was then made around the abdominal cavity and no other abnormalities were identified. A laparoscopic clamp was then placed on the specimen for extraction. The camera and instruments were removed and the robotic arms were disengaged from the ports. The patient was then flattened out in bed. One final inspection was made around the abdominal cavity and no other abnormalities were noted. The 12 mm port was removed and the fascia was then closed using an 0 Vicryl suture with a Thang-Peter cone. The specimen was then advanced to the Pfannenstiel incision and then delivered through the wound protector and removed. I then inspected the abdomen around the Pfannenstiel incision and no other abnormalities were noted. The wound protector was then removed. The peritoneum was closed using 0 Vicryl running suture. The rectus muscle was reapproximated in the midline using 0 Vicryl simple interrupted sutures. The anterior rectus sheath was then reapproximated using 0 PDS running absorbable suture. Bull's fascia was reapproximated using 3-0 Vicryl simple interrupted sutures. The remaining ports were then removed. The skin of the incisions was then reapproximated using 4-0 Monocryl running subcuticular suture. Exofin glue was then applied on top. The patient was then awakened from anesthesia, extubated, and transferred to recovery. Estimated Blood Loss 20 Pathology Yes (Sigmoid colon--suture at distal staple line) Complications No immediate complications Condition Stable Disposition Floor [facility] Billing Surgery - Charge Forward: Surgery Billing
[2024-07-20 12:45] LABS: Glucose Point of Care 148 mg/dl (65-105)
--- NOTE | 2024-07-20 13:48 | ADMGEN ---
This patient, Ruth Troncoso, was admitted to 3 [facility] Surg Room 319-01 at 1330. Patient/family oriented to hospital policies and general routines including ID bracelet, bed and alarms, visiting hours, pain management, procedures, bathroom and other care routines, personal items, smoking policy, room service/diet, and visiting hours. Information on how to activate the Rapid Response Team has been discussed. Patient/Family are encouraged to report perceived risks to care and to ask questions if they do not understand what they are told or what they should do.
[2024-07-20] MEDS: LACTATED RINGERS 1,000 ML 100 ML IV CONT (14:12)
[2024-07-20 17:31] LABS: Glucose Point of Care 219 mg/dl (65-105)
[2024-07-20] MEDS: ROSUVASTATIN 10 MG TABLET PO (20:18)
[2024-07-20] MEDS: MELATONIN 5 MG TABLET 10 MG PO (20:18)
[2024-07-20 20:55] LABS: Glucose Point of Care 124 mg/dl (65-105)
[2024-07-21 01:42] VITALS: BP 102/68; PULSE 72; RESP 18; TEMP 36.9; O2SAT 96
[2024-07-21 05:15] VITALS: BP 115/72; PULSE 73; RESP 18; TEMP 36.9; O2SAT 97
[2024-07-21 05:57] LABS: Hemoglobin 11.7 g/dL (12.0-15.0); Mean Corpuscular HGB Conc 31.6 g/dl (32-36); Mean Corpuscular Hemoglobin 27.1 pg (26-34); Mean Corpuscular Volume 85.6 fl (80-100); Mean Platelet Volume 8.6 fl (7.4-10.4); Platelet Count Result 296 k/mm3 (150-375); Red Blood Count 4.32 M/mm3 (4.2-5.4); Red Cell Distribution Width 12.6 % (11.5-14.5); White Blood Count 22.9 K/mm3 (4.5-10.0)
[2024-07-21] MEDS: ACETAMINOPHEN 500 MG TABLET 1000 MG PO ×4 (05:59→23:15)
[2024-07-21] MEDS: LEVOTHYROXINE SODIUM 50 MCG TABLET PO (05:59)
[2024-07-21 06:17] LABS: Anion Gap 9 mmol/L (4-12); Blood Urea Nitrogen 11 mg/dL (7-17); Calcium 9.8 mg/dL (8.4-10.2); Carbon Dioxide 27 mmol/L (22-30); Chloride 102 mmol/L (98-107); Estimated CRCL calculation 58 ml/min; Estimated Glomerular Filt Rate > 60; Glucose 112 mg/dL (65-110); Potassium 4.3 mmol/L (3.4-5.0); Sodium 138 mmol/L (137-145)
[2024-07-21 07:42] LABS: Glucose Point of Care 132 mg/dl (65-105)
[2024-07-21 07:47] VITALS: BP 137/76; PULSE 61; RESP 16; TEMP 36.7; O2SAT 98
--- NOTE | 2024-07-21 08:04 | WPDANESPN ---
Anes - Prog Note Post-Op Date/Time: 07/21/24 08:04 Cardiovascular status: normal Respiratory status: normal Airway patency: baseline Mental status: baseline Vital Signs: Last Vital Signs Temp 36.7 C 07/21/24 07:47 Pulse 61 07/21/24 07:47 Resp 16 07/21/24 07:47 BP 137/76 07/21/24 07:47 Pulse Ox 98 07/21/24 07:47 O2 Del Method Room Air 07/20/24 20:20 O2 Flow Rate 6 07/20/24 12:25 Pain Score (VAS): 1 I/O: Intake & Output 07/20/24 07/21/24 07/21/24 23:59 07:59 15:59 Intake Total 240 400 Balance 240 400 Laboratory Tests 07/21/24 05:41 07/21/24 05:41 07/20/24 07/20/24 07/20/24 08:11 09:07 12:43 WBC RBC Hgb Hct MCV MCH MCHC RDW Plt Count MPV Sodium Potassium Chloride Carbon Dioxide Anion Gap BUN Creatinine Estim Creat Clear Calc Estimated GFR Glucose POC Capillary Glucose 101 148 H Calcium Carcinoembryonic Ag 0.9 07/20/24 07/20/24 07/21/24 16:44 20:26 05:41 WBC 22.9 H RBC 4.32 Hgb 11.7 L Hct 37.0 MCV 85.6 MCH 27.1 MCHC 31.6 L RDW 12.6 Plt Count 296 MPV 8.6 Sodium 138 Potassium 4.3 Chloride 102 Carbon Dioxide 27 Anion Gap 9 BUN 11 Creatinine 0.69 L Estim Creat Clear Calc 58 Estimated GFR > 60 Glucose 112 H POC Capillary Glucose 219 H 124 H Calcium 9.8 Carcinoembryonic Ag 07/21/24 07:34 WBC RBC Hgb Hct MCV MCH MCHC RDW Plt Count MPV Sodium Potassium Chloride Carbon Dioxide Anion Gap BUN Creatinine Estim Creat Clear Calc Estimated GFR Glucose POC Capillary Glucose 132 H Calcium Carcinoembryonic Ag Patient Feedback: Patient satisfied with anesthetic care.
[2024-07-21] MEDS: ENOXAPARIN 40 MG/0.4 ML SYRINGE SUB-Q (08:45)
[2024-07-21] MEDS: PANTOPRAZOLE 40 MG TABLET PO (08:46)
[2024-07-21] MEDS: dilTIAZem HCL CD 240 MG CAP.24HR PO (08:46)
[2024-07-21] MEDS: LOSARTAN POTASSIUM 100 MG TABLET PO (08:46)
[2024-07-21] MEDS: hydroCHLOROthiazide 12.5 MG CAPSULE PO (08:46)
--- NOTE | 2024-07-21 08:55 | P.PNGS_ITS ---
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 insulin use: without timber estimator use Diabetes mellitus complication status: without complication Qualified Code(s): E11.9 - Type 2 diabetes mellitus without complications Code(s): E11.9 - Type 2 diabetes mellitus without complications Status: Acute Assessment and Plan: * Diet controlled (3) Essential hypertension: Code(s): I10 - Essential (primary) hypertension Status: Acute Assessment and Plan: * Home meds resumed (4) Hypothyroidism: Qualifiers: Hypothyroidism type: acquired Qualified Code(s): E03.9 - Hypothyroidism, unspecified Code(s): E03.9 - Hypothyroidism, unspecified Status: Acute Subjective Subjective Date/Time Seen: 07/21/24 08:55 Interval history: Bowels moving. Tolerating full liquids. Up ambulating. Pain controlled with acetaminophen. Exam GI: Inspection: non-distended and incision (intact with glue) GI Palp: Yes Soft to palpation, Yes Tenderness to palpation present (GI) (incisional) and No Guarding due to palpation present (GI) Percussion: Yes normal to percussion Auscultation: normal bowel sounds Objective Data Vital Signs Vital Signs: Vital Signs - 24 hr 07/20/24 09:45 07/20/24 12:11 07/20/24 12:25 Temperature 98 F 97.4 F L Pulse Rate 81 97 93 Respiratory Rate 14 16 16 Blood Pressure 133/84 123/68 125/67 Pulse Oximetry 98 97 100 Oxygen Delivery Room Air Simple Face Mask Simple Face Mask Oxygen Flow Rate 6 6 07/20/24 12:40 07/20/24 12:55 07/20/24 13:07 Temperature Pulse Rate 98 97 95 Respiratory Rate 18 14 17 Blood Pressure 113/63 117/68 110/80 Pulse Oximetry 99 94 96 Oxygen Delivery Room Air Room Air Room Air Oxygen Flow Rate 07/20/24 13:09 07/20/24 13:24 07/20/24 13:46 Temperature 97.7 F 98.3 F Pulse Rate 94 96 92 Respiratory Rate 18 18 Blood Pressure 105/62 118/73 Pulse Oximetry 100 100 99 Oxygen Delivery Room Air Oxygen Flow Rate 07/20/24 13:54 07/20/24 14:54 07/20/24 16:53 Temperature 97.8 F Pulse Rate 91 77 Respiratory Rate 18 18 Blood Pressure 104/77 122/60 Pulse Oximetry 97 97 97 Oxygen Delivery Room Air Oxygen Flow Rate 07/20/24 18:07 07/20/24 20:20 07/20/24 20:25 Temperature 97.3 F L 98.3 F Pulse Rate 88 88 77 Respiratory Rate 18 18 18 Blood Pressure 120/65 106/63 Pulse Oximetry 96 96 96 Oxygen Delivery Room Air Oxygen Flow Rate 07/21/24 01:42 07/21/24 05:15 07/21/24 07:47 Temperature 98.5 F 98.4 F 98.0 F Pulse Rate 72 73 61 Respiratory Rate 18 18 16 Blood Pressure 102/68 115/72 137/76 Pulse Oximetry 96 97 98 Oxygen Delivery Oxygen Flow Rate Intake/Output Intake/Output: Intake & Output 07/18/24 07/19/24 07/20/24 07/21/24 23:59 23:59 23:59 23:59 Intake Total 890 636 Balance 890 636 Meds/Results Medications: Active Medications Generic Name Dose Route Start Last Admin Trade Name Freq PRN Reason Stop Dose Admin Acetaminophen 1,000 mg 07/20/24 18:00 07/21/24 05:59 Acetaminophen 500 Mg Tablet PO 1,000 mg Q6HR ELVER Administration Diltiazem HCl 240 mg 07/21/24 09:00 07/21/24 08:46 Diltiazem Hcl Cd 240 Mg Cap.24hr PO 240 mg QAM ELVER Administration Enoxaparin Sodium 40 mg 07/21/24 09:00 07/21/24 08:45 Enoxaparin 40 Mg/0.4 Ml Syringe SUB-Q 40 mg DAILY ELVER Administration Hydrochlorothiazide 12.5 mg 07/21/24 09:00 07/21/24 08:46 Hydrochlorothiazide 12.5 Mg Capsule PO 12.5 mg QAM ELVER Administration Levothyroxine Sodium 50 mcg 07/21/24 06:30 07/21/24 05:59 Levothyroxine Sodium 50 Mcg Tablet PO 50 mcg DAILY@0630 ELVER Administration Losartan Potassium 100 mg 07/21/24 09:00 07/21/24 08:46 Losartan Potassium 100 Mg Tablet PO 100 mg DAILY ELVER Administration Melatonin 10 mg 07/20/24 21:00 07/20/24 20:18 Melatonin 5 Mg Tablet PO 08/19/24 20:59 10 mg QHS ELVER Administration Morphine Sulfate 2 mg 07/20/24 13:09 Morphine Sulfate (*Crx) 2 Mg/Ml Inj IV PUSH Q2H PRN Breakthrough Pain Rated 4-6 or NPO Morphine Sulfate 4 mg 07/20/24 13:09 Morphine Sulfate (*Crx) 4 Mg/Ml Inj IV PUSH Q2H PRN Breakthrough Pain Rated 7-10 or NPO Naloxone HCl 0.1 mg 07/20/24 13:09 Naloxone Hcl 0.4 Mg/Ml Vial IV PUSH Q2M PRN Opiate Reversal Ondansetron HCl 4 mg 07/20/24 13:09 Ondansetron Inj 4 Mg/2 Ml Vial IV PUSH Q4H PRN Nausea And Vomiting Oxycodone HCl 2.5 mg 07/20/24 13:09 Oxycodone Hcl (*Crx) 2.5 Mg Tab Ir PO Q4H PRN Pain Rated 4-6 Oxycodone HCl 5 mg 07/20/24 13:09 Oxycodone Hcl (*Crx) 5 Mg Tab Ir PO Q4H PRN Pain Rated 7-10 Pantoprazole Sodium 40 mg 07/21/24 09:00 07/21/24 08:46 Pantoprazole 40 Mg Tablet PO 40 mg QAM ELVER Administration Rosuvastatin Calcium 10 mg 07/20/24 21:00 07/20/24 20:18 Rosuvastatin 10 Mg Tablet PO 10 mg HS ELVER Administration Labs Labs: Laboratory Results - last 24 hr 07/20/24 07/20/24 07/20/24 09:07 12:43 16:44 WBC RBC Hgb Hct MCV MCH MCHC RDW Plt Count MPV Sodium Potassium Chloride Carbon Dioxide Anion Gap BUN Creatinine Estim Creat Clear Calc Estimated GFR Glucose POC Capillary Glucose 148 H 219 H Calcium Carcinoembryonic Ag 0.9 07/20/24 07/21/24 07/21/24 20:26 05:41 07:34 WBC 22.9 H RBC 4.32 Hgb 11.7 L Hct 37.0 MCV 85.6 MCH 27.1 MCHC 31.6 L RDW 12.6 Plt Count 296 MPV 8.6 Sodium 138 Potassium 4.3 Chloride 102 Carbon Dioxide 27 Anion Gap 9 BUN 11 Creatinine 0.69 L Estim Creat Clear Calc 58 Estimated GFR > 60 Glucose 112 H POC Capillary Glucose 124 H 132 H Calcium 9.8 Carcinoembryonic Ag
[2024-07-21 14:54] VITALS: BP 120/68; PULSE 63; RESP 18; TEMP 37.2; O2SAT 98
[2024-07-21 17:38] LABS: Glucose Point of Care 120 mg/dl (65-105)
[2024-07-21 17:39] LABS: Glucose Point of Care 90 mg/dl (65-105)
[2024-07-21 20:00] VITALS: PULSE 64; RESP 16; O2SAT 98
[2024-07-21] MEDS: MELATONIN 5 MG TABLET 10 MG PO (20:11)
[2024-07-21] MEDS: ROSUVASTATIN 10 MG TABLET PO (20:11)
[2024-07-21 20:45] VITALS: BP 131/84; PULSE 64; RESP 16; TEMP 37.1; O2SAT 98
[2024-07-21 20:47] LABS: Glucose Point of Care 97 mg/dl (65-105)
[2024-07-22 00:42] VITALS: O2SAT 98
[2024-07-22 05:37] VITALS: BP 124/77; PULSE 57; RESP 16; TEMP 36.6; O2SAT 98
[2024-07-22 06:04] LABS: Hematocrit 35.5 % (37.0-47.0); Hemoglobin 11.1 g/dL (12.0-15.0); Mean Corpuscular HGB Conc 31.3 g/dl (32-36); Mean Corpuscular Hemoglobin 27.1 pg (26-34); Mean Corpuscular Volume 86.8 fl (80-100); Mean Platelet Volume 8.7 fl (7.4-10.4); Platelet Count Result 291 k/mm3 (150-375); Red Blood Count 4.09 M/mm3 (4.2-5.4); Red Cell Distribution Width 12.9 % (11.5-14.5)
[2024-07-22 06:31] LABS: Anion Gap 10 mmol/L (4-12); Blood Urea Nitrogen 11 mg/dL (7-17); Calcium 9.2 mg/dL (8.4-10.2); Carbon Dioxide 29 mmol/L (22-30); Chloride 102 mmol/L (98-107); Estimated CRCL calculation 59 ml/min; Estimated Glomerular Filt Rate > 60; Glucose 83 mg/dL (65-110); Potassium 3.6 mmol/L (3.4-5.0); Sodium 141 mmol/L (137-145)
[2024-07-22] MEDS: LEVOTHYROXINE SODIUM 50 MCG TABLET PO (07:19)
[2024-07-22] MEDS: ACETAMINOPHEN 500 MG TABLET 1000 MG PO ×2 (07:19→11:57)
[2024-07-22 08:04] LABS: Glucose Point of Care 92 mg/dl (65-105)
[2024-07-22] MEDS: PANTOPRAZOLE 40 MG TABLET PO (08:43)
[2024-07-22] MEDS: ENOXAPARIN 40 MG/0.4 ML SYRINGE SUB-Q (08:43)
[2024-07-22] MEDS: dilTIAZem HCL CD 240 MG CAP.24HR PO (08:43)
[2024-07-22] MEDS: hydroCHLOROthiazide 12.5 MG CAPSULE PO (08:44)
[2024-07-22] MEDS: LOSARTAN POTASSIUM 100 MG TABLET PO (08:44)
[2024-07-22 08:45] VITALS: BP 128/78; PULSE 68; O2SAT 98
[2024-07-22 12:10] LABS: Glucose Point of Care 112 mg/dl (65-105)
--- NOTE | 2024-07-22 12:58 | P.DS_ITS ---
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 She had recently undergone colonoscopy which showed evidence of a sigmoid stricture that was unable to be traversed. Biopsies of this area showed concerns for possible malignancy. A repeat sigmoidoscopy with tattooing and rigid proctosigmoidoscopy confirmed location of the stricture at about 16 cm from the anal verge. Preoperative CT showed no evidence of metastatic spread. She and presented for resection. Hospital Course: Patient underwent laparoscopic sigmoid colectomy with colorectal anastomosis, da Ria assisted, by Dr. Vazquez on 07/20/2024. Surgery was straightforward. Her diet was slowly advanced as tolerated postoperatively. Labs were followed on postop day 1 and 2. White blood cell count initially was up to 22,000 postop day 1, which was likely reactive from surgery. Her white blood cell count was down to 16,000 by postop day 2. She was tolerating a low-fiber diet and bowel function returned by postop day 1. Dietitian was consulted for education and resource is for foods to eat following surgery as she is also a diabetic. Patient is tolerating activity and postoperative incisional soreness has been well controlled with just Tylenol. She is stable for discharge postop day 2 with follow-up in our office in 2 weeks. Pathology pending at discharge and will be discussed with the patient as an outpatient. Status at Discharge Functional status at discharge: independent ambulation Overall status at discharge: patient is progressing back to baseline Time Spent with Patient Time attestation: Total time spent providing and/or coordinating discharge services: Time spent: Less than 30 minutes Exam Const: General: comfortable and no acute distress GI: Inspection: non-distended and incision (incisions dry and intact) GI Palp: Yes Soft to palpation, Yes Tenderness to palpation present (GI) (incisional) and No Guarding due to palpation present (GI) Auscultation: normal bowel sounds Neuro: General: moves all extremities and no focal motor deficits Extrem: General: no calf tenderness and no edema Psych: Mental Status: mental status grossly normal Insight: Good insight present (Psych) DS: Data Data Completed and Pending Pending studies at discharge: Pending at discharge 07/20/24 11:37 Surgical [PTH] Routine Labs on day of discharge: Labs from last 24 hours 07/22/24 07/22/24 07/22/24 12:02 07:57 05:35 WBC 16.0 H RBC 4.09 L Hgb 11.1 L Hct 35.5 L MCV 86.8 MCH 27.1 MCHC 31.3 L RDW 12.9 Plt Count 291 MPV 8.7 Sodium 141 Potassium 3.6 Chloride 102 Carbon Dioxide 29 Anion Gap 10 BUN 11 Creatinine 0.68 L Estim Creat Clear Calc 59 Estimated GFR > 60 Glucose 83 POC Capillary Glucose 112 H 92 Calcium 9.2 07/21/24 07/21/24 07/21/24 19:47 16:44 11:57 WBC RBC Hgb Hct MCV MCH MCHC RDW Plt Count MPV Sodium Potassium Chloride Carbon Dioxide Anion Gap BUN Creatinine Estim Creat Clear Calc Estimated GFR Glucose POC Capillary Glucose 97 90 120 H Calcium Procedures/Treatments: Procedures Operation Date: 07/20/24 08:45 Actual Procedure Side Surgeon p Laparoscopic Sigmoid Colectomy, Davinci Assisted Not Applicable Saqib Vazquez DO Discharge Plan Discharge Attending physician on discharge: Saqib Vazquez Discharging Clinician: Rach Edler Anticipated Discharge Date/Time: 07/22/24 13:03 Patient Disposition: Home Activity: may shower Diet: diabetic and low fiber Wound Care Instructions: incision open to air Discharge Instructions: DISCHARGE INSTRUCTIONS FOR DR. VAZQUEZ 1. May shower, no soaking in bath x 2weeks. 2. Call office for: * Wound increasingly painful or bleeding * Vomiting * Fever of greater than 101 degrees 3. If no bowel movement for three days, take 1 oz. (30 ml) Milk of Magnesia or MiraLax 17g 1 to 2 times daily. 4. No heavy lifting > 10-15 pounds for up to 4 weeks, lifting restrictions will be discussed in follow-up with your surgeon. Stairs are okay. 5. No driving for 1 week 6. Ice to surgical site for 48 hours (30 min on, then 30 min off). 7. Up walking 10-30 minutes three times per day. 8. Resume previous home medications. 9. Follow-up as scheduled with Dr. Vazquez in our office. Call sooner if you have any surgical questions. ([phone]) 10. Take Tylenol 500-1,000mg every 6 hours and Ibuprofen 600mg every 6 hours as needed for pain 11. Continue a diabetic low fiber diet for another week and then this can be advanced as tolerated Patient Instructions: Antibiotic Form Patient Language: Slovak Stand Alone Forms: General Discharge Information Follow-up/Referrals: Saqib Vazquez DO [Physician] - Keep Reg. Scheduled Appt. Discharge Medications: Continued cholecalciferol (vitamin D3) 125 mcg (5,000 unit) capsule 125 mcg PO DAILY cetirizine [Zyrtec] 10 mg tablet 10 mg PO DAILY PRN (Reason: allergies) nystatin 100,000 unit/gram ointment 1 applic TOPICAL EVERY OTHER DAY triamcinolone acetonide 0.1 % ointment 1 applic TOPICAL EVERY OTHER DAY melatonin 1 mg tablet 1 mg PO DAILY (DME) blood-glucose meter [Contour Next Glucose Meter] Kit See Rx Instructions .ROUTE .COMPLEX Qty: 1 0RF Dose Instruction: CHECK BLOOD GLUCOSE THREE TIMES DAILY PRIOR TO MEALS Rx Instructions: CHECK BLOOD GLUCOSE THREE TIMES DAILY PRIOR TO MEALS omeprazole 20 mg capsule,delayed release(DR/EC) 20 mg PO DAILY PRN (Reason: Indigestion) Qty: 90 1RF rosuvastatin 10 mg tablet See Rx Instructions .ROUTE .COMPLEX Qty: 90 1RF Dose Instruction: TAKE 1 TABLET BY MOUTH EVERY DAY Patient Comments: QHS Rx Instructions: TAKE 1 TABLET BY MOUTH EVERY DAY diltiazem HCl 240 mg capsule,extended release 24hr See Rx Instructions .ROUTE .COMPLEX Qty: 90 1RF Dose Instruction: TAKE 1 CAPSULE BY MOUTH EVERY DAY Patient Comments: QAM Rx Instructions: TAKE 1 CAPSULE BY MOUTH EVERY DAY losartan 100 mg tablet See Rx Instructions .ROUTE .COMPLEX Qty: 90 1RF Dose Instruction: TAKE 1 TABLET BY MOUTH EVERY DAY Patient Comments: QAM Rx Instructions: TAKE 1 TABLET BY MOUTH EVERY DAY hydrochlorothiazide 12.5 mg tablet See Rx Instructions .ROUTE .COMPLEX Qty: 90 1RF Dose Instruction: TAKE 1 TABLET BY MOUTH EVERY DAY Patient Comments: QAM Rx Instructions: TAKE 1 TABLET BY MOUTH EVERY DAY (DME) OneTouch Verio test strips Strip See Rx Instructions .Route Qty: 100 0RF Rx Instructions: use 1-3 times per day to check blood glucose calcium 500 mg Tablet 500 mg PO DAILY levothyroxine 50 mcg tablet 50 mcg PO DAILY Patient Comments: QAM Rx Instructions: TAKE 1 TABLET BY MOUTH EVERY DAY Discontinued ciprofloxacin HCl 500 mg tablet See Rx Instructions .Route .COMPLEX Qty: 1 0RF Rx Instructions: Take 1 tablet by mouth at 2:00 PM the day prior to surgery.; metronidazole 500 mg tablet See Rx Instructions .Route .COMPLEX Qty: 3 0RF Rx Instructions: Take 1 tablet by mouth at 1:00PM, 2:00PM, and 11:00PM the day prior to surgery.; docusate sodium [Colace] 100 mg capsule 100 mg PO HS Date of admission: 07/20/24 13:09 Primary Care Provider: Brittanie Angeles Admitting Provider: Saqib Vazquez Attending physician on admission: Saqib Vazquez Condition: Stable Quality VTE Prophylaxis VTE prophylaxis: mechanical ordered and pharmacologic ordered
== END 2024-07-22 13:45 | disposition home or self-care (01) | DRG 330 ==
LOC: ANH3MEDSUR 13:13
PROVIDERS: Admitting Provider Surgery; PCP Nurse Practitioner Family; Visit Provider Nurse Practitioner Family
PROC: 0DTN4ZZ Resection of Sigmoid Colon, Percutaneous Endoscopic Approach (ICD-10-PCS; principal; 2024-07-20 08:45)
DX: C18.7 Malignant neoplasm of sigmoid colon (principal); C77.2 Secondary and unspecified malignant neoplasm of intra-abdominal lymph nodes; K56.699 Other intestinal obstruction unspecified as to partial versus complete obstruction; I10 Essential (primary) hypertension; E55.9 Vitamin D deficiency, unspecified; E03.9 Hypothyroidism, unspecified; E78.5 Hyperlipidemia, unspecified; E78.00 Pure hypercholesterolemia, unspecified; R73.01 Impaired fasting glucose; Z79.899 Other long term (current) drug therapy; Z87.891 Personal history of nicotine dependence
CPT/HCPCS: 36415; 80048; 81301; 82378; 82948; 85027; 88309; 88381; A9270; C1729; J0690; J1100; J1171; J1650; J1836; J1885; J2003; J2250; J2405; J2704; J3010; J7030; J7120

== ENCOUNTER 2024-08-13 07:49 | Outpatient (CLI) | payer OTHER, SELFPAY ==
--- OUTSIDE RECORDS SUMMARY | 2024-08-13 08:00 | XMS_ITS | Clinical Summary ---
Author Organization [facility] Address [address] [place] [address] Care Team Providers Care Shoe Stamper Name Role Phone Arnaldo Hurtado MD Unavailable [phone] Arnaldo Hurtado MD Primary Care Provider [phone] Source Comments [facility],non-owned Affiliates and Associated Physician Practices is amultiple site organization consisting of ambulatory clinics and hospital sitesin [place], [place], [place] and [place]. This disclosure is being madepursuant to the Care Everywhere program and may not contain all information available regarding this patient. Last updated 17.[facility] [employer] Allergies No known active allergies Medications * [...] mouth once daily 3 Active nystatin (Mycostatin) 118501 UNIT/GM ointmentIndica tions:Lichen planus Use to affected [...] Comments Blood Pressure 122/80 04/16/2024 10:09 AM LOG GRADER Pulse - - Temperature - - Respiratory Rate - - Oxygen Saturation - - Inhaled Oxygen Concentration - - Weight 73.5 kg (162 lb) 04/16/2024 10:09 AM LOG GRADER Height 152.4 cm (5') 04/16/2024 10:09 AM LOG GRADER Body Mass Index 31.64 04/16/2024 10:09 AM LOG GRADER Plan of Treatment Upcoming Encounters Date Type Department Care Team (Late st Contact Info) Description 08/25/2024 10:10 AM CDT Office Visit [facility] [address] [place] [id number] Liv Johnson, HOME AID-SOLUTIONS OPERATOR [address] [facility] [address] [place] [address] Health Maintenance Due Date Last [...] to complete this topic Insurance [employer] [facility] Address: [address] [phone] SELF PAY NO INSURANCE Member Subscriber Plan / Payer (Ef fective for All Dates) Name:RiveraRuth Member ID:Not on file Relation to Subscriber:Not on file Name:RUTH RIVERA Subscriber ID:Not on file (Home) Address: [facility] [address] [place] [id number] Payer ID:Not on file Group ID:Not on file Type:Self Pay Address: [place], [place] Care Teams Shoe Stamper Relationship Specialty Start Date End Date Arnaldo Hurtado MD [address] [place] [phone] PCP - General Family Medicine 08/17/22 Arnaldo Hurtado MD [address] [place] [address] Primary Care Provider Family Medicine 08/15/22
--- OUTSIDE RECORDS SUMMARY | 2024-08-13 08:01 | XMS_ITS ---
Author Name TYSON STONE APRN Address [address] [facility] [facility] [place] [address] Phone [phone] Organization [facility]) Care Team Providers Care Oceanographer Assistant Name Role Phone TYSON STONE Unavailable [phone] Arnaldo Hurtado Unavailable [phone] Reason for Referral Not Available Allergies, adverse reactions, alerts No known allergies History of medication use Medication Class Instructions Start Date End Date Gvkahoe-Miqpzspsu-Houu 333.33/133.33/5 mg Tab once a day 2024-06-18 No Data Available Vitamin D3 25 MCG (1000 UT) Cap 1 capsule orally daily 2024-06-18 No Data Available ZyrTEC Allergy 10 mg Tab 1 tab by mouth daily No Data Available Colace 100 mg Cap once a day 2024-06-18 No Data Av ailable Problem List Problem Status Onset Date Resolved Date Synopsis Hypertension Inactive 2024-06-18 N/A Meds and t Family history of heart disease Inactive 2024-06-18 N/A With med Hypothyroidism Inactive 2024-06-18 N/A With med GERD (gastroesophageal reflux disease) Inactive 2024-06-18 N/A Take med every o ther day or as needed Hyperlipidemia Inactive 2024-06-18 N/A With diet and med Diabetes Inactive 2024-06-18 N/A With diet and exercise, A1c 5.7, no medication Stenosis of colon Active 2024-06-18 N/A On stoo l softner now, low fiber diet, Scheduling appt with GI for further testing Encounters Encounters Type Facility Date of Service Diagnosis/Co mplaint Outpatient visit for evaluation and management of new patient, including medically appropriate examination and low level of medical decision making, total time 30-[address] 06/18/2024 Essential (primary) hypertensionType 2 diabetes mellitus [...] medical decision making, total time 30-44 minutes [id number] 2024-06-18 No Data Available No Data Availa [...]
--- OUTSIDE RECORDS SUMMARY | 2024-08-13 08:01 | XMS_ITS | Data Portability ---
Author Organization [facility] [place] Address [address] [place] [address] Care Team Providers Care Water Registrar Name Role Phone JAC JOHNSON Primary Care Provider [phone] Assessment No assessment recorded. Plan of Treatment Reminders Order Date Submit Date Provider Last Modified By Organization Details Last Modified Time Details Appointments None recorded. Lab None recorded. Referral gynecologis t referral - Vulval irritationP lease contact this patient to schedule an appointment with a Vulvar Specialist. The patients insurance is [facility] Medicare HMO. Her primary care provider Jac Johnson DO will need to get an insurance authorizati on to refer this patient. PCP phone fax or [phone].If you have any further questions, please call [phone].Thank you,Hilary, Referral's 2022 023 JUANITO Johnson DELINQUENT ACCOUNT CLERK, [address] [facility], [facility] [address], [place], [address], 3 17:28:17 Procedures None recorded. Surgeries None recorded. Imaging None recorded. Medication Orders estradiol 0.01% (0.1 mg/gram) vaginal cream 2022 023 JUANITO [facility] [id number] In [facility], [address] [place], [address], 3 09:55:00 nystatin-tr iamcinolone 100,000 unit/g-0.1 % topical cream 2022 023 JUANITO [facility] [address] In [facility], [address] [place], [address], 09:48:46 Patient TargetsNo targets recorded. Patient InstructionsNo instructions recorded. 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 The patients insurance is [facility] Medicare HMO. Her primary care provider Jac Johnson DO will need to get an insurance authorization to refer this patient. PCP phone [phone] fax [phone] or [phone].If you have any further questions, please call [phone].Thank you,Mayo Richard's Referring Physician: Mag Abbasi, LEASE OPERATOR, Encounter Date: 08/01/2022 Results Created Date [...] ed by Mike Brady on Not Available [facility] (Lab) [address], [place], [address], 07/09/2022 10:57:25 04/25/19 23 04/25/2022 MAMMO , scree randall, digit al, bilat eral No observ ation record ed. [address] [facility] [address], [place], [address], 04/26/2022 09:35:37 04/25/19 23 04/25/2022 MAMMO , scree randall, digit al, bilat eral No observ ation record ed. [address] [facility] [address], [place], [address], 04/26/2022 09:35:37 05/18/19 23 04/25/2022 MAMMO , scree randall, digit al, bilat eral No observ ation record ed[email or web address] [address], [place], [address], 05/17/2022 12:14:02 05/18/19 23 05/16/2022 US, tree t, unila teral No observ ation record ed. [address], [place], [address], 05/17/2022 12:32:39 09/20/19 24 09/20/2023 MAMMO , scree randall, bilat eral No observ ation record ed. [email or web address] [facility] [address], [place], [address], 10/08/2023 11:56:51 09/23/19 24 09/20/2023 MAMMO , scree randall, digit al, bilat eral No observ ation record ed. JUANITO [place] [facility] [address], [place], [address], 10/08/2023 04:11:35 Result Notes None recorded. Procedures Surgical History Date Name Laterality Status Provider Name and Address Organization Details Recorded Time 07/06/19 23 Vulvar Biopsy completed CAROL Sierra [address], [place], [address], [place] [facility] 07/05/2022 10:05:02 04/23/19 23 Date of Last Mammogram completed [facility] 05/22/2022 09:32:11 04/22/19 23 Most Recent Bone Density completed [facility] 05/22/2022 09:32:11 10/31/19 21 Date of Last Pap Smear completed [facility] 12/20/2021 10:13:37 12/30/19 17 Date of Last Colonoscopy completed [facility] 12/20/2021 10:13:37 Caesarean Section completed [facility] 12/20/2021 10:13:49 hysterectomy completed [facility] 12/20/2021 10:33:15 Imaging Results None recorded. Procedure Notes None recorded. Medical Equipment None [...] 04/24/2022 152.4 cm 133 mm[Hg] 89 mm[Hg] [facility] 04/24/2022 09:30:48 Date Recorded Body height Systolic blood pressure Diastolic blood pressure Provider Name and Address Organization Details Last Updated DateTime 05/22/2022 152.4 cm 112 mm[Hg] 75 mm[Hg] [facility] 05/22/2022 09:32:07 Date Recorded Body height Systolic blood pressure Diastolic blood pressure Provider Name and Address Organization Details Last Updated DateTime 07/03/2022 152.4 cm 130 mm[Hg] 79 mm[Hg] [facility] 07/03/2022 09:28:10 Date Recorded Body height Systolic blood pressure Diastolic blood pressure Provider Name and Address Organization Details Last Updated DateTime 07/05/2022 152.4 cm 125 mm[Hg] 79 mm[Hg] [facility] 07/05/2022 09:48:29 Date Recorded Body height Body mass index (BMI) Body weight Systolic blood pressure Diastolic blood pressure Provider Name and Address Organization Details Last Updated DateTime 08/01/2022 152.4 cm 34.1 kg/m2 46186.23 g 125 mm[Hg] 78 mm[Hg] Kamini Amos [facility] 3 09:29:06 Social History Question Answer Notes LastModified [...] Or The Highest Degree You Have Received? AB36922-9 Information not available 12/20/2021 Are There Any [...] IV Drugs? No Information not available 12/20/2021 Do You Have Difficulty Walking Or Climbing Stairs? No Information not available 08/01/2022 Sex: Female Functional Status Question Answer Note LastModified by Organizat ion Details LastModified Time Do you use any illicit or recreational drugs? No Information not available 12/20/2021 What is your level of alcohol consumption? Occasional Information not available 12/20/2021 Are you able to walk? YESWOREST Information not available 12/20/2021 Are you able to care for yourself? 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 No [email or web address] Information not available 08/01/2022 What is your exercise level? Moderate Information not available 12/20/2021 Mental Status Question Answer Note LastModified by Organization D etails LastModified Time Do you feel stressed (tense, restless, nervous, or anxious, or unable to sleep at night)? [id number] Information not available 12/20/2021 Family History Relationship [...] SNOMED-CT Code Diagnosis ICD10 Code Diagnosis Note [id number] CAROL Sierra [place] [address] [address] 12/20/2021 09:44:23 12/20/2021 14:24:17 Atrophic vulva 544254342 N90.5 Significan t vulvar atrophy noted on [...] care. Screening for malignant neoplasm of breast 878028389 Z12.39 Screening for osteoporosis 091438723 Z13.820 Gynecologi c examination 27801582 Z01.419 Take Calcium with Vitamin D 12-1500mg daily. Do monthly self breast exams. It is advised to get annual flu shot in the fall and she could obtain at [facility] or [facility] take care clinic. If you haven't [...] givenDexa order givenColon oscopy UTDUTD with PCP [id number] CAROL Sierra [place] [address] [address] 01/22/2022 09:17:29 01/22/2022 12:43:02 Atrophic vulva 793562011 N90.5 Vulvar exam improved for MIGUEL ÁNGELWichantell continue with vaginal estradiol 3x per weekCrisco twice dailyR/B discussed and accepted by patientRTC for f/u in 3 months Time spent in visit is a total of 20 mins with at least 50% of visit consisting of counseling and review of plan of care. [id number] CAROL Sierra [place] [address] [address] 04/24/2022 09:17:20 04/24/2022 12:09:32 Contact dermatitis 11608079 L25.9 Suspect increased irritation related to using [...] review of plan of care. Atrophic vulva 075207628 N90.5 [id number] CAROL Sierra [place] [address],[place] [address] 05/22/2022 09:12:20 05/22/2022 10:36:13 Atrophic vulva 726018627 N90.5 Doing well, symptoms have greatly improvedCo ntinue w/ crisco twice daily - estrace vaginal cream 3 times per weekRTC for f/u in 2 months Time spent in visit is a total of 15 mins with at least 50% of visit consisting of counseling and review of plan of care. [id number] CAROL Sierra [place] [address],[facility] [place] [address] 07/03/2022 09:21:52 07/03/2022 15:08:03 Atrophic vaginitis 39734196 N95.2 Some improvemen t, but irritation continues despite twice daily crisco use and estrace vaginal cream 3x per week. Recommend vulvar biopsy for further evaluation . R/B discussed. After biopsy, may need vulvar director of career resources consultRTC for vulvar biopsy, continue current regimen Time spent in visit is a total of 20 mins with at least 50% of visit consisting of counseling and review of plan of care. Vulval irritation 266568 003 N90.89 [id number] CAROL Sierra [place] [address] [address] 07/05/2022 09:23:43 07/05/2022 10:21:17 Atrophic vulva 266930699 N90.5 Vulval irritation 520425 003 N90.89 vulvar biopsy performed without any immediate complicati ons (see procedure note)will reach out to patient with results / f/u plan when availablep recautions discussed [id number] CAROL Sierra [place] [address] [address] 08/01/2022 09:15:46 08/01/2022 09:57:02 Vulval irritation 267793670 N90.89 we reviewed biopsy resultsusi ng crisco twice daily, estradiol cream 2-3 times per week, and clobetasol 1-2 times per dayclobeta dianne has helped some, but irritation continuesw e agreed to vulvar director of career resources consult for further management referral sentexam is improved from last visitshe is going to continue current regimen Time spent in visit is a total of 18 mins with at least 50% of visit consisting of counseling and review of plan of care. Atrophic vulva 694823293 N90.5 Health Concerns Section Related Observation LastModified by Organization Detai ls LastModified Time None Recorded Concern Status LastModified by Organization Details LastModified Time None Recorded Advance Directives Directive N: Payers Encounter Date Sequence Insurance Name Policy Number Policy Chandra Covered Member ID Chandra Member ID Guarantor Name 04/24/2022 1 [employer] (MEDICARE REPLACEMENT HMO) [id number] Ruth Zamoranoran [id number] Ruth Troncoso 05/22/2022 1 [employer] (MEDICARE REPLACEMENT HMO) [id number] Ruth L Troncoso [id number] Ruth Troncoso 07/03/2022 1 [employer] (MEDICARE REPLACEMENT HMO) [id number] Ruth L Troncoso [id number] Ruth Troncoso 07/05/2022 1 [employer] (MEDICARE REPLACEMENT HMO) [id number] Ruth L Troncoso [id number] Ruth Troncoso 08/01/2022 1 [employer] (MEDICARE REPLACEMENT HMO) [id number] Ruth L Troncoso [id number] Ruth Aba Notes Date Note Type Note Provider Name and Address Organization Details Recorded Time 04/24/2022 text/html 66yoPresents for med check, on vaginal estradiol 3 x per weekUsing crisco twice daily to vulvaFelt improvement in vaginal dryness, irritation and itching up until last week. Symptoms returned, she started using toilet paper to apply the estrace cream. [address], [place], [address], , P[facility] 04/24/2022 11:52:16 05/22/2022 text/html 66yoPresents for f/uUsing crisco twice daily, estrace vaginal cream 3x per weekDoing well, feeling so much better since last visit [address], [place], [address], , P[facility] 05/22/2022 10:28:46 07/03/2022 text/html 67 yo [...] painful. Itching has mostly resolved. [address], [place], [address], , P[facility] 07/03/2022 13:52:06 07/05/2022 text/html patient presents for vulvar biopsy [address], [place], [address], , P[facility] 07/05/2022 10:06:02 08/01/2022 text/html 67yopresents for vulvar biopsy f/uusing estrace vaginal cream 3 x per weekcrisco twice dailyand clobetasol 1-2 times a dayvulvar biopsy showed Lichenoid dermatitisfeels some improvement but still continues to feel irritation [address], [place], [address], , P[facility] 08/01/2022 09:51:59 OBGyn Episode Ob Episode Information Episode Created Date Number of Fetuses Patient Bloodtype Patient rh Status Prepregnancy Weight lbs Domestic Partner Domestic Partner Phone Father Name Field Cane Scaler Status 12/21/19 22 1 CLOSED Fetus Data First Name Last Name Admitted to NICU Weight (g) Sex Living Outcome Pediatric Complications Fetus ID Race Codes Race Delivery Type 4422.52 2 F Full Term [id number] Primary Trevor Calculation Initial Trevor Date Initial [...] Domestic Partner Domestic Partner Phone Father Name Field Cane Scaler Status 12/21/19 22 1 CLOSED Fetus Data First Name Last Name Admitted to NICU Weight (g) Sex Living Outcome Pediatric Complications Fetus ID Race Codes Race Delivery Type 3515.33 8 F Full Term [id number] Repeat Trevor Calculation Initial Trevor Date Initial [...]
[2024-08-13 09:00] LABS: Basophils Absolute Auto 0.1 K/mm3 (0.0-0.1); Basophils Percent Auto 1.1 % (0.2-1.2); Eosinophils Absolute Auto 0.5 K/mm3 (0-0.3); Eosinophils Percent Auto 6.1 % (0-4.4); Hemoglobin 11.8 g/dL (12.0-15.0); Immature Granulocyte Absolute 0.03 K/mm3 (0.00-0.031); Immature Granulocyte Percent A 0.4 % (0-0.5); Lymphocytes Absolute Auto 2.17 K/mm3 (0.9-3.2); Lymphocytes Percent Auto 27.5 % (18.3-44.2); Mean Corpuscular HGB Conc 31.1 g/dl (32-36); Mean Corpuscular Hemoglobin 26.6 pg (26-34); Mean Corpuscular Volume 85.6 fl (80-100); Mean Platelet Volume 8.9 fl (7.4-10.4); Monocytes Absolute Auto 0.8 K/mm3 (0.1-0.6); Monocytes Percent Auto 10.7 % (2.6-8.5); Neutrophils Absolute Auto 4.3 K/mm3 (1.3-6.7); Neutrophils Percent Auto 54.2 % (45.5-73.1); Platelet Count Result 306 k/mm3 (150-375); Red Blood Count 4.44 M/mm3 (4.2-5.4); Red Cell Distribution Width 13.1 % (11.5-14.5); White Blood Count 7.9 K/mm3 (4.5-10.0)
[2024-08-13 09:31] LABS: Prothrombin Time 13.4 Seconds (11.1-14.7)
[2024-08-13 09:32] LABS: Partial Thromboplastin Time 27.6 Seconds (22.3-36.8)
== END 2024-08-13 07:50 | disposition home or self-care (01) ==
LOC: ANHSURGERY 07:54
PROVIDERS: PCP Nurse Practitioner Family; Visit Provider Surgery
DX: C18.7 Malignant neoplasm of sigmoid colon (principal); D64.9 Anemia, unspecified; E11.9 Type 2 diabetes mellitus without complications
CPT/HCPCS: 36415; 85025; 85610; 85730

== ENCOUNTER 2024-08-21 00:56 | Day surgery (SDC) | payer OTHER, SELFPAY ==
[2024-08-07 10:36] VITALS: BMI 30.5
--- NOTE | 2024-08-07 10:40 | PC.NURSE ---
Addendum entered by Caitie Toure RN 08/07/24 10:43: Telephone instructions given to ___Patient and asked if any additional questions and then verbalized understanding. MAHOGANY Transferred to Front End Developer to set up Preop Testing prior Original Note: Report to the Outpatient Waiting Room, entrance under the green pavilion located off [facility], at time _12:30pm on date _08/21/24 . Planned Procedure Time: _2:30pm .? Time changes happen often and if your time is changed the preop area will call you the afternoon before. - You and your visitor will be asked to self-screen and do not enter if you have any COVID symptoms. Please call surgeon if you need to reschedule. - A mask is optional within the hospital at this time. Patients may have clear liquids (water, carbonated beverages, clear teas, apple juice) until 3 hours prior to surgery with a maximum of 20 ounces. - No food from midnight until time of surgery and no smoking, or chewing tobacco (or any form of nicotine). No chewing gum, candy or mints. (1130am) Take only the following medications with a SIP of water on the morning of surgery: ____Diltiazem, Levothyroxine DO NOT STOP ANY OF YOUR OTHER PRESCRIPTION MEDICATIONS PRIOR TO SURGERY EXCEPT THE FOLLOWING Hold all vitamins and supplements for 3 days per anesthesiologist. date to take last dose is 08/17/24 Medications to discontinue per physician None Date to take last dose None Please no make-up, nail togolese, hairspray, perfume, deodorant, or body powder the day of surgery.? No jewelry (including any body piercings) or valuables the day of surgery, leave them at home.? Please take a shower or bath the night before, or the morning of, surgery with an antibacterial soap.? Wear comfortable, loose fitting clothing.? - Jewelry must be removed prior to entering the operating room.? Rings and piercings that are not removed may be cut off. - The hospital will not accept responsibility for valuables.? - Please leave all valuables, including medications, at home the day of surgery. If you are going home after surgery, a licensed steam train driver must drive you home.? - NO public transportation without another adult if you receive anesthesia. - We recommend that an adult stay with you for 24 hours following discharge. - We also recommend that you do not drive, make important decision, drink alcoholic beverages, or take any drugs that were not prescribed by your health care provider for at least 24 hours after your discharge time. For Pediatric surgeries, we recommend two adults accompany the child home. Follow any additional instructions given to you from your surgeon. Telephone instructions given to and asked if any additional questions and then verbalized understanding. Patient advised to call surgeon office or pre surgery nurse liaison [phone] if any additional questions.
--- NOTE | ~2024-08-21 | XR_ITS ---
XR chest port-a-cath/central Ordering provider: Saqib Marquez DO History: 69 years Female with . ALEXIA CATH INSERTION . Comparison: None. FINDINGS/impression: Right Port-A-Cath with the tip overlying superior vena cava. MEDIASTINUM: The cardiac silhouette is not enlarged. LUNGS: No infiltrates, effusions or pneumothorax. OTHER: No free air under the diaphragm. Fluoroscopy time is 19.2 seconds. Radiation dose is 8.3271 mGY. Reviewed, dictated and finalized at location A.
--- NOTE | ~2024-08-21 | XR_ITS ---
Please see chest x-ray report dated 08/21/2024 for details. Reviewed, dictated and finalized at location B.
--- OUTSIDE RECORDS SUMMARY | 2024-08-21 00:59 | XMS_ITS | Clinical Summary ---
Author Organization [address] Address [address] [place] [phone] Care Team Providers Care [employer] Insurance Sales Name Role Phone Arnaldo Hurtado MD Primary Care Provider [phone] María Sanderson MD PhD Unavailable [phone] Allergies Active Allergy Reactions Criticality Noted Date Comments Lisinopril Cough Low 08/17/2024 Medications No known medications Active Problems Problem Noted Date Diagnosed Date Colon cancer 08/17/2024 Cancer Staging:Clinical stage from 07/20/2024:Stage IIIB(cT3, cN1c, cM0) - Unsigned Encounters Date Type Department Care Team Description 08/18/2024 Telephone [facility] Oncology [address] [place] [phone] Kate Hussein, CHEMA Scheduling Appointments 08/18/2024 Orders Only [facility] Oncology [address] [place] [phone] María Sanderson MD PhD 08/17/2024 3:45 PM CDT Lab [facility] - Lab Collection [address] [place] [address] Malignant neoplasm of colon, unspecified part of colon (HCC) 08/17/2024 1:00 PM CDT Office Visit [facility] Oncology [address] [place] [phone] María Sanderson MD PhD Malignant neoplasm of colon, unspecified part of colon (HCC) (Primary Dx) 08/10/2024 Orders Only [facility] [address] [place] [address] María Sanderson MD PhD Malignant neoplasm of colon, unspecified part of colon (HCC) 08/07/2024 Orders Only [facility] Oncology [address] [facility] Floor [address] [place] [id number] María Sanderson MD PhD Malignant neoplasm of colon, unspecified part of colon (HCC) (Primary Dx) from Last 3 Months Family History Medical History Relation Name Comments Liver disease Father Stroke Mother Relation Name Status Comments Father Mother Social History Tobacco Use Types Packs/Day Years Used Date Smoking Tobacco: Former Cigarettes 0 03/1999 - 03/1996 Smokeless Tobacco: Never Tobacco Cessation:Counseling Given: No Comments Unknown Sex and Gender Information Value Date Recorded Sex Assigned at Not on file Legal Sex Female 6:37 AM [employer] Gender Identity Not on file Sexual Orientation Not on file Obstetrics History Last Filed Vital Signs Vital Sign Reading Time Taken Comments Blood Pressure - - Pulse 64 08/17/2024 12:48 PM CDT Temperature - - Respiratory Rate 16 08/17/2024 12:48 PM CDT Oxygen Saturation - - Inhaled Oxygen Concentration - - Weight 71.8 kg (158 lb 6.4 oz) 08/17/2024 12:48 PM CDT Height 150.1 cm (4' 11.09) 08/17/2024 12:48 PM CDT Body Mass Index 31.89 08/17/2024 12:48 PM CDT Plan of Treatment Health Maintenance Due Date Last Done Comments Breast Cancer Screening-Mammogram 1955 Colon Cancer Screening-Colonoscopy 1955 Depression Screening 1955 Fall Risk Assessment 1955 Hepatitis C Screening 1955 Osteoporosis Screening-Bone Density Scan 1955 Hepatitis B Screening 06/29/1973 Well Visit 65+ 06/29/2020 Pneumococcal vaccine 65+ (2 of 2 - PCV) 11/19/2021 11/19/2020 DTaP/Tdap/Td Vaccine (2 - Td or Tdap) 12/10/2027 12/09/2017 Zoster Vaccine Completed 07/21/2018, 04/08/2018 Influenza Vaccine Completed 11/25/2023, , 12/15/2021, Additional history exists Covid-19 Vaccine Completed 08/01/2024, , 12/21/2022, Additional history exists Procedures Procedure Name Priority Date/Time Associated Diagnosis Comments EGFR Routine 08/17/2024 3:48 PM CDT Malignant neoplasm of colon, unspecified part of colon (HCC) DIFFERENTIAL AUTO Routine 08/17/2024 3:4 8 PM CDT Malignant neoplasm of colon, unspecified part of colon (HCC) CBC WITH AUTO DIFFERENTIAL Routine 08/17/2024 3:48 PM CDT Malignant neoplasm of colon, unspecified part of colon (HCC) CEA Routine 08/17/2024 3:48 PM CDT Malignant neoplasm of colon, unspecified part of colon (HCC) COMPREHENSIVE METABOLIC PANEL Routine 08/17/2024 3:48 PM CDT Malignant neoplasm of colon, unspecified part of colon (HCC) APTT Routine 08/17/2024 3:48 PM CDT Malignant neoplasm of colon, unspecified part of colon (HCC) PROTIME-INR Routine 08/17/2024 3:48 PM CDT Malignant neoplasm of colon, unspecified part of colon (HCC) SURGICAL PATHOLOGY Routine 08/10/2024 9: 18 AM CDT Malignant neoplasm of colon, unspecified part of colon (HCC) from Last 3 Months Results * eGFR (08/17/2024 3:48 PM CDT) eGFR 89 >=60 mL/min/1. 73 m2 Comment: Interpretive Data Reference Interval Normal >/= 90 mL/min/1.73m2 Mildly decreased* 60 - 89 mL/min/1.73m2 Mildly to moderately decreased 45 - 59 mL/min/1.73m2 Moderately to severely decreased 30 - 44 mL/min/1.73m2 Severely decreased 15 - 29 mL/min/1.73m2 Kidney Failure < 15 mL/min/1.73m2 *Relative to young adult level Estimated glomerular filtration rate is determined by the 2020 CKD-EPI equation recommended by the National Kidney Foundation (A Unifying Approach to GFR Estimation: Recommendations of the NKF-ASK Task Force on Reassessing the Inclusion of Race in Diagnosing Kidney Disease, JASN 2020). The CKD-EPI equation should not be used for patients with unstable renal function and has not been validated in children and those over 70. Current interpretive data was last reviewed 2021. Blood 08/17/2024 3:48 PM CDT 08/17/2024 4:27 PM CDT us María Sanderson MD PhD LAB BLOOD ORDERABLES Final Result [facility] Department [place] [address] * (ABNORMAL) Differential, auto (08/17/2024 3:48 PM CDT) Neutrophil abs 8.26(H) 1.50 - 6.50 K/cumm Comment:Testing performed by : [facility], [address] [place], [place] [phone] Lymphocyte abs 2.69 0.80 - 3.30 K/cumm [facility] Comment:Testing performed by : [facility], [address] [place] [address] Monocyte abs 1.09(H) 0.20 - 0.80 K/cumm [facility] Comment:Testing performed by : [facility], [address] [place] [phone] Eosinophil abs 0.38 0.00 - 0.50 K/cumm [facility] Comment:Testing performed by : [facility], [address] [place] [address] Basophil abs 0.08 0.00 - 0.10 K/cumm [facility] Comment:Testing performed by : [facility], [address] [place] [phone] Neutrophil pct 66.1 % [facility]J Comment: Interpretive Data Percent cell count reference ranges are not reported, since discordance with absolute values may lead to misinterpretation of CBC data. Current Interpretive Data was last revised on 2017. Testing performed by: [facility], [address] [place] [phone] Lymphocyte pct 21.6 % [facility] BJ Comment: Interpretive Data Percent cell count reference ranges are not reported, since discordance with absolute values may lead to misinterpretation of CBC data. Current Interpretive Data was last revised on 2017. Testing performed by: [facility], [address] [place] [phone] Monocyte pct 8.7 % [facility]J Comment: Interpretive Data Percent cell count reference ranges are not reported, since discordance with absolute values may lead to misinterpretation of CBC data. Current Interpretive Data was last revised on 2017. Testing performed by: [facility], [address] [place] [phone] Eosinophil pct 3.0 % [facility] BJ Comment: Interpretive Data Percent cell count reference ranges are not reported, since discordance with absolute values may lead to misinterpretation of CBC data. Current Interpretive Data was last revised on 2017. Testing performed by: [facility], [address] [place] [phone] Basophil pct 0.6 % [facility] BJ Comment: Interpretive Data Percent cell count reference ranges are not reported, since discordance with absolute values may lead to misinterpretation of CBC data. Current Interpretive Data was last revised on 2017. Testing performed by: [facility], [address] [place] [phone] Blood 08/17/2024 3:48 PM CDT 08/17/2024 3:52 PM CDT us María Sanderson MD PhD LAB BLOOD ORDERABLES Final Result [facility] Department of Laboratories [place] [phone] * (ABNORMAL) CBC with auto differential (08/17/2024 3:48 PM CDT) WBC 12.48(H) 3.80 - 9.90 K/cumm Comment:Testing performed by : [facility], [address] [place] [address] Hgb 13.2 11.9 - 15.5 g/dL CERNER BJ Comment:Testing performed by : [facility], [address] [place] [address] Hct 40.2 35.6 - 45.5 % C[facility]ER BJ Comment:Testing performed by : [facility], [address] [place] [address] Plt 327 150 - 400 K/cumm [facility] BJ Comment:Testing performed by : [facility], [address] [place] [address] MPV 6.4(L) 6.8 - 10.4 fL [facility] BJ Comment:Testing performed by : [facility], [address] [place] [address] RBC 4.94 3.90 - 5.20 M/cumm CERN[facility] BJ Comment:Testing performed by : [facility], [address] [place] [address] MCV 81.5 81.3 - 96.4 fL [facility]ERN[facility] BJ Comment:Testing performed by : [facility], [address] [place] [address] MCH 26.7(L) 27.1 - 33.3 pg CERNER BJ Comment:Testing performed by : [facility], [address] [place] [address] MCHC 32.8 32.3 - 35.7 g/dL CERN[facility] BJ Comment:Testing performed by : [facility], [address] [place] [address] RDW CV 13.9 11.1 - 14.9 % CERNER BJ Comment:Testing performed by : [facility], [address] [place] [phone] NRBC abs 0.00 0.00 - 0.01 K/cumm [facility] Comment:Testing performed by : [facility], [address] [place] [address] Blood 08/17/2024 3:48 PM CDT 08/17/2024 3:52 PM CDT Result [facility] María Sanderson MD PhD LAB BLOOD ORDERABLES Final Result Performing Organization Address [facility] de Phone Number [facility] [place] [address] * aPTT (08/17/2024 3:48 PM CDT) aPTT 33 28 - 38 sec Comment: Interpretive Data Heparin therapeutic range: 66.0 - 100.0 seconds. Range based on correlation with therapeutic heparin activity range of 0.3 - 0.7 Units/mL. Current interpretive data was last revised on 2022. Blood 08/17/2024 3:48 PM CDT 08/17/2024 4:11 PM CDT Result [facility] María Sanderson MD PhD LAB BLOOD ORDERABLES Final Result Performing Organization Address [facility] de Phone Number [facility] [place] [address] * Protime-INR (08/17/2024 3:48 PM CDT) PT 12.0 9.7 - 13.0 sec INR 1.11 0.90 - 1.20 [facility] Comment: Interpretive data Oral anticoagulant therapeutic ranges: Venous thromboembolism prophylaxis or treatment: 2.0-3.0 CARDIOLOGY Standard range: 2.0-3.0 High-intensity range: 2.5-3.5 Refer to indication-specific guidelines for appropriate target ranges for prosthetic heart valve replacement. Current interpretive data was last revised on 2019. Blood 08/17/2024 3:48 PM CDT 08/17/2024 4:11 PM CDT María Sanderson MD PhD LAB BLOOD ORDERABLES Final Result Performing Organization Address [facility] de Phone Number [facility] Department [place] [address] * CEA (08/17/2024 3:48 PM CDT) Pathologist [facility] CEA 1.3 <=5.0 ng/mL Comment: Interpretive Data: Reference Range: Non-Smokers: 0.0 5.0 ng/mL Smokers: 0.0 6.5 ng/mL The Kamila CEA assay procedure was used. Results from different manufacturers or methods may not be comparable. Serial testing should be performed using the same method. Current interpretive data was last revised 2021. Blood 08/17/2024 3:48 PM CDT 08/17/2024 4:11 PM CDT María Sanderson MD PhD LAB BLOOD ORDERABLES Final Result Performing Organization Address [facility] de Phone Number [facility] [place] [address] * Comprehensive metabolic panel (08/17/2024 3:48 PM CDT) Pathologist [facility] Sodium 142 135 - 145 mmol/L Potassium, pl 4.7 3.3 - 4.9 mmol/L [facility] Chloride 104 97 - 110 mmol/L [facility] CO2 29 22 - 32 mmol/L [facility] Anion gap 9 2 - 15 mmol/L [facility] BUN 11 6 - 25 mg/dL [facility] Creatinine 0.73 0.60 - 1.10 mg/dL [facility] Glucose 89 70 - 199 mg/dL [facility] Comment: Interpretive Data Fasting glucose >/= 126 mg/dl is diagnostic for diabetes. Fasting is defined as no caloric intake for at least 8 hours. Fasting glucose between 100 mg/dl to 125 mg/dl is diagnostic of prediabetes. In a patient with classic symptoms of hyperglycemia or hyperglycemic crisis, a random glucose >/= 200 mg/dl is diagnostic for diabetes. In the absence of unequivocal hyperglycemia, results should be confirmed by repeat testing. The classification and Diagnosis of Diabetes Diabetes Care 202; 46: S19-S40. Current interpretive data was last revised 2022. Calcium 9.8 8.5 - 10.3 mg/dL [facility] Bilirubin, total 0.9 0.1 - 1.2 mg/dL [facility] Protein, pl 8.1 6.5 - 8.5 g/dL [facility] Albumin 4.5 3.5 - 5.0 g/dL [facility] Alk phos 93 40 - 130 Units/L [facility] ALT 28 7 - 45 Units/L [facility] AST 31 10 - 45 Units/L [facility] Blood 08/17/2024 3:48 PM CDT 08/17/2024 4:11 PM CDT María Sanderson MD PhD LAB BLOOD ORDERABLES Final Result [facility] Department [place] [address] * Surgical pathology (08/10/2024 9:18 AM CDT) Tissue (Miscellaneous) 08/10/2024 9:18 AM CDT 08/10/2024 9:18 AM CDT Narrative [facility] - 08/11/2024 12:22 PM CDT EPIC results best viewed via link to PDF [facility] Pathology Consult Service [address], [address], [place] [address] Note to Patients: This report may contain a detailed description of human tissue sent by a health care provider to the laboratory for pathologic evaluation. The content of this report is essential for diagnosis and may provide important critical findings. This information may be unfamiliar to patients to review without a medical professional present. It is advised that the patient review this report in the presence of a health care provider who can answer questions and explain the details. SURGICAL PATHOLOGY REPORT * Consult Report * [facility] is providing an additional review of previously collected tissue. FINAL Patient Name: RUTH RIVERA Address: [address] [place] [id number] Gender: F : 1955 (Age: 69) Hospital #: [id number] Patient Type: WUIO Location: UNKNOWN Taken: 08/10/2024 Received: 08/10/2024 Accessioned: 08/10/2024 Reported: 08/11/2024 Physician(s): María Sanderson M.D. [facility] Department of Pathology [address] [place] [address] P: [phone] F: [phone] Diagnosis: Consult material received from [place], [place] (OSC: [id number]; 06/15/2024). A. Large bowel, distal rectosigmoid colon stricture, biopsy - High-grade dysplasia in a tubular adenoma with features concerning for invasive adenocarcinoma Consult material received from [place], [place] (OSC: [id number]; 07/20/2024). A. Large bowel, sigmoid colon, sigmoidectomy - Moderately differentiated adenocarcinoma infiltrating through the muscularis propria into the pericolonic soft tissue (pT3) - Tumor measures 2.7 cm in greatest dimension, per report - Margins negative for tumor - Positive for lymphovascular invasion (small and large extramural invasion) - Negative for perineural invasion - Single soft tissue tumor deposit (pN1c) - Twelve lymph nodes; negative for malignancy (0/12) kxb/08/11/2024 12:22 By this signature, I attest that the above diagnosis is based upon my personal examination of the slides(and/or other material indicated in the diagnosis). Bri Beal MD Report Electronically Reviewed and Signed Out By Bri Beal MD 08/11/2024 12:22:38 Microscopic Description and Comment: The provided stains were reviewed for OSC [id number]. OSC: [id number] The results of MMR IHC are as follows: PMS2: retained hMLH1: retained hMSH2: retained hMSH6: retained Immunohistochemical (IHC) stains for the DNA mismatch repair (MMR) enzymes MLH1, MSH2, MSH6, and PMS2 have been performed and provided for our review. These show retained nuclear expression in the tuor cells equivalent to that seen in lymphocytes and smooth muscle in the adjacent normal tissue, a staining pattern that is usually not associated with a defect in mismatch repair function. Normal expression of all four proteins suggests this particular cancer is unlikely to be due to a hereditary germline mutation in the genes known to be associated with Silva Syndrome. Clinical correlation is required. IHC is a reliable measure of DNA mismatch repair status but is neither completely sensitive nor specific and has limitations. History: The patient is a 69-year-old woman with history of malignant neoplasm of colon, unspecified part of colon. Materials Received: Received for review are six slides labeled [id number] and fifteen slides labeled [id number], accompanied by a corresponding pathology report. The material originates from [place], [place] . Selected slide(s) may be digitally scanned for our files, and all materials are returned to the referring institution, along with a copy of our final report. Any testing required for diagnostic purposes was performed in the Department of Pathology and Immunology at [facility], [address] [place] [address] CLIA # [id number] The performance characteristics of the testing cited in this report (if any) were determined by the [facility] Department of Pathology and Immunology [facility], as part of an ongoing design quality engineer program and in compliance with federally mandated regulations drawn from the Clinical Laboratory Improvement Act of 1988 (CLIA '88). Some of these tests rely on the use of analyte specific reagents (ASR) and are subject to specific labeling requirements by the US Food and Drug Administration. Such diagnostic tests may only be performed in a facility that is certified by the Department of Health and Human Services as a high complexity laboratory under CLIA '88. The FDA has determined that such clearance or approval is not necessary. ASRs should not be regarded as investigational or for research. ASRs were developed and the performance characteristics determined by the [facility], [facility] Department of Pathology and Immunology. It has not been cleared or approved by the U.S. Food and Drug Administration. Any test designated as LDT was developed and its performance characteristics determined by [facility]. It has not been cleared or approved by the FDA. This test is used for clinical purposes and should not be regarded as investigational or for research. Report images and/or scanned reports, if included, only viewable in PDF version of report. us María Sanderson MD PhD LAB PATHOLOGY ORDERABLES [facility] Result [facility] [address] [place] [address] from Last 3 Months Insurance [facility] Care Teams Life Insurance Sales Relationship Specialty Start Date End Date Arnaldo Hurtado MD [address] [place] [address] PCP - General Family Practice 5/21/25 María Sanderson MD PhD [address] [place] [address] Medical Oncologist/Pass Worker Medical Oncology 07/29/24
--- OUTSIDE RECORDS SUMMARY | 2024-08-21 00:59 | XMS_ITS ---
Author Organization [address] Address [address] [place] [phone] Care Team Providers Care Ssds Mk 2 Advanced Operator Name Role Phone Arnaldo Hurtado MD Primary Care Provider [phone] María Sanderson MD PhD Unavailable [phone] Active Problems Problem Noted Date Diagnosed Date Colon cancer 08/17/2024 Cancer Staging:Clinical stage from 07/20/2024:Stage IIIB(cT3, cN1c, cM0) - Unsigned Current Treatment and Therapy Plans [id number]: (Fluorouracil / Leucovorin / Oxaliplatin) 14 Day Cycles - GI* Plan Start Date:08/30/2024 Plan Provider:María Sanderson MD PhD Linked Problems Malignant neoplasm of colon, unspecified part of colon (HCC) Treatment Medications Current Day (Prepa ration - Planned for 08/30/2024) Next Day (Day 1, Cycle 1 - Planned for 08/31/2024) fluorouracil (ADRUCIL)leucovorinoxalipl atin (ELOXATIN) No medications scheduled. fluorouraciL (ADRUCIL) 4,150 mg in cadd cassette 83 mL infusion - for home infusionfluorouracil (ADRUCIL) IV syringe 700 mg 14 mLleucovorin 700 mg in dextrose 5% 250 mL IVPBoxaliplatin (ELOXATIN) 147.5 mg in dextrose 5% 250 mL IVPB Past Treatment and Therapy Plans No past plan information found.
--- OUTSIDE RECORDS SUMMARY | 2024-08-21 00:59 | XMS_ITS | Data Portability ---
Author Organization [facility] [place] Address [address] [place] [address] Care Team Providers Care Fabric Designer Name Role Phone JAC JOHNSON Primary Care Provider Assessment No assessment recorded. Plan of Treatment Reminders Order Date Submit Date Provider Last Modified By Organization Details Last Modified Time Details Appointments None recorded. Lab None recorded. Referral gynecologis t referral - Vulval irritationP lease contact this patient to schedule an appointment with a Vulvar Specialist. The patients insurance is [facility] Medicare HMO. Her primary care provider Jac Johnson DO will need to get an insurance authorizati on to refer this patient. PCP phone fax [phone] or .If you have any further questions, please call [phone].Thank you,Hilary, Referral's 2022 023 JUANITO Johnson PRINCIPAL NETWORK ARCHITECT, [address] [facility] [address], [place], [address], 3 17:28:17 Procedures None recorded. Surgeries None recorded. Imaging None recorded. Medication Orders estradiol 0.01% (0.1 mg/gram) vaginal cream 2022 023 JUANITO [facility] [address] In [facility], [address] [place], [address], 3 09:55:00 nystatin-tr iamcinolone 100,000 unit/g-0.1 % topical cream 2022 023 JUANITO [facility] [address] In [facility], [address] [place], [address], 09:48:46 Patient TargetsNo targets recorded. Patient InstructionsNo instructions recorded. Reason for Referral Film Or Tape Librarian Referral for Vu lval irritation Vulval irritation Vulval irritationPlease contact this patient to schedule an appointment with a Vulvar Specialist. The patients insurance is [facility] [facility] Medicare HMO. Her primary care provider Jac Johnson DO will need to get an insurance authorization to refer this patient. PCP phone [phone] fax [phone] or [phone].If you have any further questions, please call [phone].Thank you,Mayo Richard's Referring Physician: Mag Abbasi, CAR TRACER, Encounter Date: 08/01/2022 Results Created Date Observation [...] ed by Mike Brady on Not Available [facility] (Lab) [address], [place], [address], 07/09/2022 10:57:25 04/25/19 23 04/25/2022 MAMMO , scree randall, digit al, bilat eral No observ ation record ed. [address] [facility] [address], [place], [address], 04/26/2022 09:35:37 04/25/19 23 04/25/2022 MAMMO , scree randall, digit al, bilat eral No observ ation record ed. [address] [facility] [address], [place], [address], 04/26/2022 09:35:37 05/18/19 23 04/25/2022 MAMMO , scree randall, digit al, bilat eral No observ ation [facility] ed[facility] [address], [place], [address], 05/17/2022 12:14:02 05/18/19 23 05/16/2022 US, tree t, unila teral No observ ation record ed. [address], [place], [address], 05/17/2022 12:32:39 09/20/19 24 09/20/2023 MAMMO , scree randall, bilat eral No observ ation record ed. [facility] [address], [place], [address], 10/08/2023 11:56:51 09/23/19 24 09/20/2023 MAMMO , scree randall, digit al, bilat eral No observ ation record ed. JUANITO [facility] [address], [place], [address], 10/08/2023 04:11:35 Result Notes None recorded. Procedures Surgical History Date Name Laterality Status Provider Name and Address Organization Details Recorded Time 07/06/19 23 Vulvar Biopsy completed CAROL Sierra [address], [place], [address], [place] [facility] 07/05/2022 10:05:02 04/23/19 23 Date of Last Mammogram completed [facility] 05/22/2022 09:32:11 04/22/19 23 Most Recent Bone Density completed [facility] 05/22/2022 09:32:11 10/31/19 21 Date of Last Pap Smear completed [facility] 12/20/2021 10:13:37 12/30/19 17 Date of Last Colonoscopy completed [facility] 12/20/2021 10:13:37 Caesarean Section completed [facility] 12/20/2021 10:13:[address] [facility] 12/20/2021 10:33:15 Imaging Results None recorded. [...] 04/24/2022 152.4 cm 133 mm[Hg] 89 mm[Hg] [facility] 04/24/2022 09:30:48 Date Recorded Body height Systolic blood pressure Diastolic blood pressure Provider Name and Address Organization Details Last Updated DateTime 05/22/2022 152.4 cm 112 mm[Hg] 75 mm[Hg] [facility] 05/22/2022 09:32:07 Date Recorded Body height Systolic blood pressure Diastolic blood pressure Provider Name and Address Organization Details Last Updated DateTime 07/03/2022 152.4 cm 130 mm[Hg] 79 mm[Hg] [facility] 07/03/2022 09:28:10 Date Recorded Body height Systolic blood pressure Diastolic blood pressure Provider Name and Address Organization Details Last Updated DateTime 07/05/2022 152.4 cm 125 mm[Hg] 79 mm[Hg] [facility] 07/05/2022 09:48:29 Date Recorded Body height Body mass index (BMI) Body weight Systolic blood pressure Diastolic blood pressure Provider Name and Address Organization Details Last Updated DateTime 08/01/2022 152.4 cm 34.1 kg/m2 81133.23 g 125 mm[Hg] 78 mm[Hg] Kamini Amos [facility] 3 09:29:06 Social History Question [...] Or The Highest Degree You Have Received? [id number] Information not available 12/20/2021 Are There Any [...] Have Difficulty Walking Or Climbing Stairs? No [email or web address] Information not available 08/01/2022 Sex: Female Functional Status Question Answer Note LastModified by Organizat ion Details LastModified Time Do you use any illicit or recreational drugs? No Information not available 12/20/2021 What is your level of alcohol consumption? Occasional Information not available 12/20/2021 Are you able to walk? YESWOREST Information not available 12/20/2021 Are you able to care for yourself? 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 No [email or web address] Information not available 08/01/2022 What is your exercise level? Moderate Information not available 12/20/2021 Mental Status Question Answer Note LastModified by Organization D etails LastModified Time Do you feel stressed (tense, restless, nervous, or anxious, or unable to sleep at night)? [id number] Information not available 12/20/2021 Family History Relationship [...] SNOMED-CT Code Diagnosis ICD10 Code Diagnosis Note [id number] CAROL Sierra [place] [address] [address] 12/20/2021 09:44:23 12/20/2021 14:24:17 Atrophic vulva 607461003 N90.5 Significan t vulvar atrophy noted on [...] care. Screening for malignant neoplasm of breast 038164945 Z12.39 Screening for osteoporosis 631509086 Z13.820 Gynecologi c examination 39858239 Z01.419 Take Calcium with Vitamin D 12-1500mg daily. Do monthly self breast exams. It is advised to get annual flu shot in the fall and she could obtain at [facility] or [facility] take care clinic. If you [...] givenDexa order givenColon oscopy UTDUTD with PCP [id number] CAROL Sierra [place] [address] [address] 01/22/2022 09:17:29 01/22/2022 12:43:02 Atrophic vulva 800946617 N90.5 Vulvar exam improved for MIGUEL ÁNGELWichantell continue with vaginal estradiol 3x per weekCrisco twice dailyR/B discussed and accepted by patientRTC for f/u in 3 months Time spent in visit is a total of 20 mins with at least 50% of visit consisting of counseling and review of plan of care. [id number] CAROL Sierra [place] [address] [address] 04/24/2022 09:17:20 04/24/2022 12:09:32 Contact dermatitis 47634742 L25.9 Suspect increased irritation related to using [...] review of plan of care. Atrophic vulva 795001240 N90.5 [id number] CAROL Sierra [place] [address],[place] [address] 05/22/2022 09:12:20 05/22/2022 10:36:13 Atrophic vulva 248439816 N90.5 Doing well, symptoms have greatly improvedCo ntinue w/ crisco twice daily - estrace vaginal cream 3 times per weekRTC for f/u in 2 months Time spent in visit is a total of 15 mins with at least 50% of visit consisting of counseling and review of plan of care. [id number] CAROL Sierra [place] [address],[facility] [place] [address] 07/03/2022 09:21:52 07/03/2022 15:08:03 Atrophic vaginitis 11229520 N95.2 Some improvemen t, but irritation continues despite twice daily crisco use and estrace vaginal cream 3x per week. Recommend vulvar biopsy for further evaluation . R/B discussed. After biopsy, may need vulvar healthcare analyst consultRTC for vulvar biopsy, continue current regimen Time spent in visit is a total of 20 mins with at least 50% of visit consisting of counseling and review of plan of care. Vulval irritation 723083 003 N90.89 [id number] CAROL Sierra [place] [address] [address] 07/05/2022 09:23:43 07/05/2022 10:21:17 Atrophic vulva 600103397 N90.5 Vulval irritation 641334 003 N90.89 vulvar biopsy performed without any immediate complicati ons (see procedure note)will reach out to patient with results / f/u plan when availablep recautions discussed [id number] CAROL Sierra [place] [address] [address] 08/01/2022 09:15:46 08/01/2022 09:57:02 Vulval irritation 947614132 N90.89 we reviewed biopsy resultsusi ng crisco twice daily, estradiol cream 2-3 times per week, and clobetasol 1-2 times per dayclobeta dianne has helped some, but irritation continuesw e agreed to vulvar healthcare analyst consult for further management referral sentexam is improved from last visitshe is going to continue current regimen Time spent in visit is a total of 18 mins with at least 50% of visit consisting of counseling and review of plan of care. Atrophic vulva 870925301 N90.5 Health Concerns Section Related Observation LastModified by Organization Detai ls LastModified Time None Recorded Concern Status LastModified by Organization Details LastModified Time None Recorded Advance Directives Directive N: Payers Insurance Date Sequence Insurance Name Policy Number Policy Chandra Covered Member ID Chandra Member ID Guarantor Name 08/01/2022 1 [employer] (MEDICARE REPLACEMENT HMO) [id number] Ruth Troncoso [id number] Ruth Troncoso Notes Date Note Type Note Provider Name and Address Organization Details Recorded Time 04/24/2022 text/html 66yoPresents for med check, on vaginal estradiol 3 x per weekUsing crisco twice daily to vulvaFelt improvement in vaginal dryness, irritation and itching up until last week. Symptoms returned, she started using toilet paper to apply the estrace cream. CAROL Sierra [address], [place], [address], [facility] 04/24/2022 11:52:16 05/22/2022 text/html 66yoPresents for f/uUsing crisco twice daily, estrace vaginal cream 3x per weekDoing well, feeling so much better since last visit CAROL Sierra [address], [place], [address], , [facility] 05/22/2022 10:28:46 07/03/2022 text/html 67 [...] mostly resolved. CAROL Sierra [address], [place], [address], , [facility] 07/03/2022 13:52:06 07/05/2022 text/html patient presents for vulvar biopsy CAROL Sierra [address], [place], [address], , [facility] 07/05/2022 10:06:02 08/01/2022 text/html 67yopresents for vulvar biopsy f/uusing estrace vaginal cream 3 x per weekcrisco twice dailyand clobetasol 1-2 times a dayvulvar biopsy showed Lichenoid dermatitisfeels some improvement but still continues to feel irritation [address], [place], [address], , [facility] 08/01/2022 09:51:59 OBGyn Episode Ob Episode Information Episode Created Date Number of Fetuses Patient Bloodtype Patient rh Status Prepregnancy Weight lbs Domestic Partner Domestic Partner Phone Father Name Manager Commission Status 12/21/19 22 1 CLOSED Fetus Data First Name Last Name Admitted to NICU Weight (g) Sex Living Outcome Pediatric Complications Fetus ID Race Codes Race Delivery Type 4422.52 2 F Full Term [id number] Primary Trevor Calculation Initial Trevor Date Initial [...] Domestic Partner Domestic Partner Phone Father Name Manager Commission Status 12/21/19 22 1 CLOSED Fetus Data First Name Last Name Admitted to NICU Weight (g) Sex Living Outcome Pediatric Complications Fetus ID Race Codes Race Delivery Type 3515.33 8 F Full Term [id number] Repeat Trevor Calculation Initial Trevor Date Initial [...]
--- OUTSIDE RECORDS SUMMARY | 2024-08-21 00:59 | XMS_ITS ---
Author Name TYSON STONE APRN Address [address] [place] [address] Phone [phone] Organization [facility] ([facility]) Care Team Providers Care Carbon Grinder Name Role Phone TYSON STONE Unavailable [phone] Arnaldo Hurtado Unavailable [phone] Reason for Referral Not Available Allergies, adverse reactions, alerts No known allergies History of medication use Medication Class Instructions Start Date End Date Mblzghm-Sugfzsfwl-Kynv 333.33/133.33/5 mg Tab once a day 2024-06-18 [...] making, total time 30-44 minutes [facility] [place] 06/18/2024 Essential (primary) hypertensionType 2 diabetes mellitus [...] medical decision making, total time 30-44 minutes [id number] 2024-06-18 No Data Available No Data Availa [...]
--- OUTSIDE RECORDS SUMMARY | 2024-08-21 00:59 | XMS_ITS | Clinical Summary ---
Author Organization [facility] Address [address] [facility] [place] [address] Care Team Providers Care Biology Lecturer Name Role Phone Arnaldo Hurtado MD Unavailable Arnaldo Hurtado MD Primary Care Provider [phone] Source Comments [facility],non-owned Affiliates and Associated Physician Practices is amultiple site organization consisting of ambulatory clinics and hospital sitesin [place], [place], [place] and [place]. This disclosure is being madepursuant to the Care Everywhere program and may not contain all information available regarding this patient. Last updated 17.[facility] Allergies No known active allergies Medications * [...] mouth once daily 3 Active nystatin (Mycostatin) 077119 UNIT/GM ointmentIndica tions:Lichen planus Use to affected [...] Encounters Date Type Department Care Team Description 08/19/2024 Telephone [facility] - SALES DEVELOPMENT SPECIALIST [address] [facility] [address] [place] [address] Liv Johnson, EXCAVATING CONTRACTOR-FABRICATOR ASSEMBLER [employer] Question; Appointment from Last 3 Months Family History Medical [...] Comments Blood Pressure 122/80 04/16/2024 10:09 AM MUSIC COORDINATOR Pulse - - Temperature - - Respiratory Rate - - Oxygen Saturation - - Inhaled Oxygen Concentration - - Weight 73.5 kg (162 lb) 04/16/2024 10:09 AM MUSIC COORDINATOR Height 152.4 cm (5') 04/16/2024 10:09 AM MUSIC COORDINATOR Body Mass Index 31.64 04/16/2024 10:09 AM MUSIC COORDINATOR Plan of Treatment Upcoming Encounters Date Type Department Care Team (Late st Contact Info) Description 12/09/2024 2:00 PM CDT Office Visit [facility] - SALES DEVELOPMENT SPECIALIST [address] [place] [address] Liv Johnson, EXCAVATING CONTRACTOR-FABRICATOR ASSEMBLER [employer] [address] [facility] [address] [place] [address] Health Maintenance Due Date Last [...] patient's age to complete this topic Insurance [facility] MEDICARE SELF PAY NO INSURANCE Member Subscriber Plan / Payer (Ef fective for All Dates) Name:Ruth Rivera Member ID:Not on file Relation to Subscriber:Not on file Name:RUTH RIVERA Subscriber ID:Not on file (Home) Address: [facility] [address] AIKEN [address] [place] [id number] Payer ID:Not on file Group ID:Not on file Type:Self Pay Address: [place], [place] Care Teams Biology Lecturer Relationship Specialty Start Date End Date Arnaldo Hurtado MD [address] [place] [address] PCP - General Family Medicine 08/17/22 Arnaldo Hurtado MD [address] [place] [address] Primary Care Provider Family Medicine 08/15/22
--- OUTSIDE RECORDS SUMMARY | 2024-08-21 01:00 | XMS_ITS | Encounter Summary ---
Author Organization [facility] Address [address] [place] [address] Phone Care Team Providers Care Imaging Scheduler Name Role Phone Arnaldo Hurtado MD Primary Care Provider [phone] Luis Allen MD PhD Unavailable [phone] Reason for Visit * Consultation (Routine) - Authorized Specialty Diagnoses / Procedures Referred By Contac t Referred To Contact Oncology Diagnoses Malignant neoplasm of colon, unspecified part of colon (HCC) Referral, Self Isabelle Garza MD [address] [facility] [address] [place] [address] Phone: tel: fax: Referral ID Status Reason Start Date Expiration Date Visits Requested Visits Authorized [id number] Authorized Specialty Services Required 07/22/2024 07/29/2025 20 20 Encounter Details Date Type Department Care Team (Late st Contact Info) Description 08/17/2024 1:00 PM CDT Office Visit [facility] Oncology [address] [facility] Floor 5 [place] [address] Luis Allen MD PhD [address] [facility] [address] [place] [address] Malignant neoplasm of colon, unspecified part of colon (HCC) (Primary Dx) Social History Tobacco Use Types Packs/Day Years Used Date Smoking Tobacco: Former Cigarettes 0 03/1999 - 03/1996 Smokeless Tobacco: Never Tobacco Cessation:Counseling Given: No Comments Unknown Sex and Gender Information Value Date Recorded Sex Assigned at Not on file 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 Oncology Medicine Consult Reason for Consult: Colon cancer Requesting Provider: Dr. Isabelle Garza Date of Visit: 08/17/24 Chief Complaint: Patient is a 69 y.o. female with chief complaint of colon cancer . Subjective HPI: Ruth is companied by her daughter and today. She was in her usual state of health 8 monthsago when she noticed changes in her bowel habits and intermittent fresh blood in her stool but attributed this to dietary changes she made after learning about her new diagnosis of diabetes with A1C of 6.5. Ultimately, she scheduled a routine screening colonoscopy which was done on 06/15/2024 which showedcolonic stenosis in the the sigmoid junction. Biopsies were taken during this endoscopy which showed dysplastic glands suggestive of well-differentiated adenocarcinoma. She was then referred to obtain a CT chest abdomen pelvis done at OSH on 06/18/24 which showed mild wall thickening of the distal sigmoid colon concerning for colonic mass. No evidence of metastatic disease in the chest abdomen or pelvis was noted on the imaging . She was referred to general surgery and on 07/20/2024 underwent laparoscopic sigmoid colectomy with colorectal anastomosis with Dr. Saqib Marquez at [facility]. Since her surgery, she has been recovering well with improvement in her appetite, no constipation, diarrhea, blood or abdominal pain.She has good energy levels and infact is doing brisk walking for 5miles everyday and participating in yoga twice a week. She is here to discuss need for adjuvant chemotherapy following Oncology History Colon cancer (HCC) 06/15/2024 Initial Diagnosis 07/20/2024 Surgery Sigmoid colectomy with colorectal anastomosis with Dr. Saqib Marquez at [facility]. 08/17/2024 Initial Diagnosis Colon cancer (HCC) Cancer Staging Colon cancer (HCC) Staging form: Colon and Rectum, AJCC 8th Edition - Clinical stage from 07/20/2024: Stage IIIB (cT3, cN1c, cM0) - Unsigned Active Treatment Plans for Ruth Troncoso Oncology Chemotherapy Treatment: mFOLFOX6: (Fluorouracil / Leucovorin / Oxaliplatin) 14 Day Cycles - GI Current day: Preparation (Planned for 08/30/2024) Following planned day: Day 1, Cycle 1 (Planned for 08/31/2024) PMH HTN Hypothyroidism DM2- Diet controlled HLD PSH 2018 hysterectomy 2016 cholecystectomy for cholecystitis Right hand Carpal tunnel surgery in the early 200 x2 in 1976 and 1978 Allergies Allergen Reactions Lisinopril Cough No outpatient encounter medications on file as of 08/17/2024. 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 Live in [place], [place] about 30 minutes from here. Lives with her and dog. Review of Systems: Review of systems per HPI and otherwise all other systems are negative ECO- walks five miles per day and does yoga two days a week. Objective Vitals: Most Recent : Pulse: 64 Resp: 16 Height: 150.1 cm (4' 11.09) Weight: 71.8 kg (158 lb 6.4 oz) Physical Exam: In no acute distress HEENT: sclera anicteric, no palor, mucous membranes moist, oropharynx clear Lymphatics: no cervical or supraclavicular adenopathy Chest: clear to auscultation bilaterally Heart: regular rate and rhythm Abdomen: soft, non-tender Extremities: no edema Neurologic: Alert, speech normal, no gross motor or sensory deficits noted Psychiatric exam: Appropriate affect Skin: no rashes or bruises Lab/Radiology/Diagnostic Review: CBC: Lab Results Component Value Date/Time WBC 12.48 (H) 08/17/2024 03:48 PM HGB 13.2 08/17/2024 03:48 PM HCT 40.2 08/17/2024 03:48 PM MCV 81.5 08/17/2024 03:48 PM NEUTROABS 8.26 (H) 08/17/2024 03:48 PM CMP: Lab Results Component Value Date/Time SODIUM 142 08/17/2024 03:48 PM POTASSIUM 4.7 08/17/2024 03:48 PM CO2 29 08/17/2024 03:48 PM BUNSER 11 08/17/2024 03:48 PM GLUCOSE 89 08/17/2024 03:48 PM CREATININE 0.73 08/17/2024 03:48 PM CALCIUM 9.8 08/17/2024 03:48 PM CHLORIDE 104 08/17/2024 03:48 PM ALBUMIN 4.5 08/17/2024 03:48 PM AST 31 08/17/2024 03:48 PM ALT 28 08/17/2024 03:48 PM ALKPHOS 93 08/17/2024 03:48 PM BILITOT 0.9 08/17/2024 03:48 PM PROT 8.1 08/17/2024 03:48 PM ANIONGAP 9 08/17/2024 03:48 PM Radiology: OSH imaging CTCAP06/18/24 without evidence of distant metastasis in CAP Pathology: Biopsies were taken during this endoscopy which showed dysplastic glands suggestive of well-differentiated adenocarcinoma. Immunoperoxidase stain was positive for CDX2 and negative for CK5 P 63 and PAX8 Pathology from [facility] was reviewed at [facility] 1. Large bowel distal rectosigmoid colonic stricture showed high-grade dysplasia in a tubular adenoma with features concerning for invasive adenocarcinoma 2. Large bore bowel sigmoid colon, sigmoidectomy showed moderately differentiated adenocarcinoma infiltrating through the muscularis propria into the pericolonic soft tissue (pT3) Tumor measures 2.7 cm in greatest dimension with negative margins but positive for lymphovascular invasion (small and large intramural invasion.. 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 -Pathology did show evidence of lymphovascular and single soft tissue tumor deposit and retained MMR by IHC -CT CAP from 06/18/24 (source images not avsailable) without evidence of metastatic disease Will check postoperative CEA Tissue and Liquid tempus to look for identifying actionable mutations--such as KRAS, NRAS, BRAF, MSI/MMR status, and HER2--that guide targeted therapy, particularly in the future if concern for advanced or metastatic disease. -Discussed stage of disease and role of adjuvant chemotherapy significantly improves both overall survival (OS) and disease-free survival (DFS) compared to surgery alone in, with median OS extended by over 3 years and median DFS by nearly 4 years in pooled analyses -We would start patient on FOLFOX for 6 cycles and repeat imaging thereafter -Side effects of FOLFOX reviewed and commonly include peripheral sensory neuropathy, which is cumulative and can be persistent or even permanent in a subset of patients. Other frequent side effects include neutropenia, diarrhea, nausea, vomiting, stomatitis, fatigue, and thrombocytopenia. We discussed supportive medications, frequent toxicity checks to curtail these effects. -Patient is planned for port placement with her general surgeon at [facility]. Port placement scheduled for this Saturday at [facility] Giovany Kenney MD Hematology Oncology Fellow PGY4 [facility] [place] Cosigned by Luis Allen MD PhD at 08/20/2024 4:27 PM CDT Associated attestation - Luis Allen MD PhD - 08/20/2024 4:27 PM CDT I have seen and examined the patient on 08/17/24. I agree with the findings and plan of care as documented in the resident/fellow's note. documented in this encounter Miscellaneous Notes * Addendum Note - Luis Allen MD PhD - 08/17/2024 1:00 PM CDTAddended by: LUIS ALLEN on: 08/20/2024 04:28 PM Modules accepted: Orders documented in this encounter Plan of Treatment Pending Results Name Type Priority Associated Diagnoses Date /Time Tempus xF Lab Routine Malignant neoplasm of colon, unspecified part of colon (HCC) 08/17/2024 3:27 PM CDT Scheduled Orders Name Type Priority Associated Diagnoses Orde r Schedule Tempus xF Lab Routine Malignant neoplasm of colon, unspecified part of colon (HCC) Expected: 08/17/2024, Expires: 08/17/2025 CBC with auto differential Lab Routine Malignant neoplasm of colon, unspecified part of colon (HCC) Expected: 08/31/2024, Expires: 08/31/2025 Comprehensive metabolic panel Lab STAT Malignant neoplasm of colon, unspecified part of colon (HCC) Expected: 08/31/2024, Expires: 08/31/2025 documented as of this encounter Results * Protime-INR (08/17/2024 3:48 PM CDT) PT 12.0 9.7 - 13.0 sec INR 1.11 0.90 - 1.20 [facility] Comment: Interpretive data Oral anticoagulant therapeutic ranges: Venous thromboembolism prophylaxis or treatment: 2.0-3.0 CARDIOLOGY Standard range: 2.0-3.0 High-intensity range: 2.5-3.5 Refer to indication-specific guidelines for appropriate target ranges for prosthetic heart valve replacement. Current interpretive data was last revised on 2019. Blood 08/17/2024 3:48 PM CDT 08/17/2024 4:11 PM CDT us Luis Allen MD PhD LAB BLOOD ORDERABLES Final Result [facility] [address] [place] [address] * aPTT (08/17/2024 3:48 PM CDT) aPTT 33 28 - 38 sec Comment: Interpretive Data Heparin therapeutic range: 66.0 - 100.0 seconds. Range based on correlation with therapeutic heparin activity range of 0.3 - 0.7 Units/mL. Current interpretive data was last revised on 2022. Blood 08/17/2024 3:48 PM CDT 08/17/2024 4:11 PM CDT us Luis Allen MD PhD LAB BLOOD ORDERABLES Final Result [facility] [address] Department [place] [address] * Comprehensive metabolic panel (08/17/2024 3:48 PM CDT) Sodium 142 135 - 145 mmol/L Potassium, pl 4.7 3.3 - 4.9 mmol/L [facility] Chloride 104 97 - 110 mmol/L [facility] CO2 29 22 - 32 mmol/L [facility] Anion gap 9 2 - 15 mmol/L [facility] BUN 11 6 - 25 mg/dL [facility] Creatinine 0.73 0.60 - 1.10 mg/dL [facility] Glucose 89 70 - 199 mg/dL [facility] Comment: Interpretive Data Fasting glucose >/= 126 [...] 2022. Calcium 9.8 8.5 - 10.3 mg/dL [facility] Bilirubin, total 0.9 0.1 - 1.2 mg/dL [facility] Protein, pl 8.1 6.5 - 8.5 g/dL [facility] Albumin 4.5 3.5 - 5.0 g/dL [facility] Alk phos 93 40 - 130 Units/L [facility] ALT 28 7 - 45 Units/L [facility] AST 31 10 - 45 Units/L [facility] Blood 08/17/2024 3:48 PM CDT 08/17/2024 4:11 PM CDT Luis Allen MD PhD LAB BLOOD ORDERABLES Final Result Performing Organization Address [facility] de Phone Number [facility] Department [place] [address] * CEA (08/17/2024 3:48 PM CDT) Pathologist [facility] CEA 1.3 <=5.0 ng/mL Comment: Interpretive Data: Reference Range: Non-Smokers: 0.0 5.0 ng/mL Smokers: 0.0 6.5 ng/mL The Kamila CEA assay procedure was used. Results from different manufacturers or methods may not be comparable. Serial testing should be performed using the same method. Current interpretive data was last revised 2021. Blood 08/17/2024 3:48 PM CDT 08/17/2024 4:11 PM CDT Luis Allen MD PhD LAB BLOOD ORDERABLES Final Result Performing Organization Address [facility] Co de Phone Number [facility] Department [place] [address] * (ABNORMAL) CBC with auto differential (08/17/2024 3:48 PM CDT) Pathologist [facility] WBC 12.48(H) 3.80 - 9.90 K/cumm Comment:Testing performed by : [facility], [address] [place] [phone] Hgb 13.2 11.9 - 15.5 g/dL [facility] Comment:Testing performed by : [facility], [address] [place], [place] [phone] Hct 40.2 35.6 - 45.5 % C[facility]ER [facility]J Comment:Testing performed by : [facility], [address] [place], [place] [id number] Plt 327 150 - 400 K/cumm [facility]J Comment:Testing performed by : [facility], [address] [place], [place] [id number] MPV 6.4(L) 6.8 - 10.4 fL [facility] Comment:Testing performed by : [facility], [address] [place], [place] [phone] RBC 4.94 3.90 - 5.20 M/cumm [facility]J Comment:Testing performed by : [facility], [address] [place], [place] [phone] MCV 81.5 81.3 - 96.4 fL [facility] Comment:Testing performed by : [facility], [address] [place], [place] [phone] MCH 26.7(L) 27.1 - 33.3 pg [facility]J Comment:Testing performed by : [facility], [address] [place], [place] [phone] MCHC 32.8 32.3 - 35.7 g/dL [facility] Comment:Testing performed by : [facility], [address] [place], [place] [phone] RDW CV 13.9 11.1 - 14.9 % [facility]J Comment:Testing performed by : [facility], [address] [place], [place] [phone] NRBC abs 0.00 0.00 - 0.01 K/cumm [facility] BJ Comment:Testing performed by : [facility], [address] [place], [place] [phone] Blood 08/17/2024 3:48 PM CDT 08/17/2024 3:52 PM CDT us Luis Allen MD PhD LAB BLOOD ORDERABLES Final Result [facility] [address] [place] [address] documented in this encounter Visit Diagnoses Diagnosis Malignant neoplasm of colon, unspecified part of colon (HCC)- Primary documented in this encounter Orders Lab Orders Without Results Count Last Ordered D ate First Ordered Date TEMPUS XT DNA AND RNA SOLID TUMOR 1 025 TEMPUS XT/XE NORMAL BLOOD 1 08/17/2024 Appointment Requests Count Last Ordered Date Fi rst Ordered Date ONCBCN CLINIC APPOINTMENT REQUEST 1 025 ONCBCN LAB APPOINTMENT 2 08/17/2024 ONCBCN RETURN CHEMO 4HRS 1 08/17/2024 documented in this encounter Care Teams Imaging Scheduler Relationship Specialty Start Date End Date Arnaldo Hurtado MD [address] [facility] [place] [address] PCP - General Family Practice 07/29/24 Luis Allen MD PhD [id number] [place] [address] Medical Oncologist/Toaster Operator Medical Oncology 07/29/24 documented as of this encounter
--- OUTSIDE RECORDS SUMMARY | 2024-08-21 01:00 | XMS_ITS | Encounter Summary ---
Author Organization [facility] Address [address] [place] [address] Phone Care Team Providers Care Staker Surveying Name Role Phone Arnaldo Hurtado MD Primary Care Provider [phone] María Sanderson MD PhD Unavailable [phone] Encounter Details Date Type Department Care Team (Late st Contact Info) Description 08/18/2024 Orders Only [facility] Oncology [address] [facility] [address] 5 [place] [address] María Sanderson MD PhD [address] [facility] [address] [place], [place] [id number] Social History Tobacco Use Types Packs/Day Years Used Date Smoking Tobacco: Former Cigarettes 0 03/1999 - 03/1996 Smokeless Tobacco: Never Comments Unknown Sex and Gender Information Value Date Recorded Sex Assigned at Not on file 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
--- OUTSIDE RECORDS SUMMARY | 2024-08-21 01:00 | XMS_ITS | Referral Summary ---
Author Organization [address] Address [address] [place] [id number] Care Team Providers Care Order Caller Name Role Phone Arnaldo Hurtado MD Primary Care Provider [phone] María Sanderson MD PhD Unavailable [phone] Encounters Date Type Department Care Team Description 08/18/2024 Telephone [facility] Oncology [address] [place] [id number] Kate Hussein RN Scheduling Appointments 08/18/2024 Orders Only [facility] [address] [place] [phone] María Sanderson MD PhD 08/17/2024 3:45 PM CDT Lab [facility] [place] - Lab Collection [address] [place] [address] Malignant neoplasm of colon, unspecified part of colon (HCC) 08/17/2024 1:00 PM CDT Office Visit [facility]cology [address] [place] [phone] María Sanderson MD PhD Malignant neoplasm of colon, unspecified part of colon (HCC) (Primary Dx) 08/10/2024 Orders Only [facility] [address] [address] María Sanderson MD PhD Malignant neoplasm of colon, unspecified part of colon (HCC) 08/07/2024 Orders Only [facility] Oncology [address] [place] [address] [place] [address] María Sanderson MD PhD Malignant neoplasm of colon, unspecified part of colon (HCC) (Primary Dx) from Last 3 Months Allergies Active Allergy Reactions Criticality Noted Date Comments Lisinopril Cough Low 08/17/2024 Medications No known medications Active Problems Problem Noted Date Diagnosed Date Colon cancer 08/17/2024 Cancer Staging:Clinical stage from 07/20/2024:Stage IIIB(cT3, cN1c, cM0) - Unsigned Social History Tobacco Use Types Packs/Day Years Used Date Smoking Tobacco: Former Cigarettes 0 03/1999 - 03/1996 Smokeless Tobacco: Never Tobacco Cessation:Counseling Given: No Comments Unknown Sex and Gender Information Value Date Recorded Sex Assigned at Not on file Legal Sex Female 6:37 AM [employer] Gender Identity Not on file Sexual Orientation [...] 08/17/2024 12:48 PM CDT Plan of Treatment Not on file Procedures Procedure Name Priority Date/Time Associated Diagnosis [...] PhD LAB BLOOD ORDERABLES Final Result [facility] Department [place] [address] * (ABNORMAL) Differential, auto (08/17/2024 3:48 PM CDT) Neutrophil abs 8.26(H) 1.50 - 6.50 K/cumm Comment:Testing performed by : [facility], [address] [place] [address] Lymphocyte abs 2.69 0.80 - 3.30 K/cumm [facility] Comment:Testing performed by : [facility], [address] [place] [address] Monocyte abs 1.09(H) 0.20 - 0.80 K/cumm [facility] Comment:Testing performed by : [facility], [address] [place] [address] Eosinophil abs 0.38 0.00 - 0.50 K/cumm [facility] Comment:Testing performed by : [facility], [address] [place] [address] Basophil abs 0.08 0.00 - 0.10 K/cumm [facility] Comment:Testing performed by : [facility], [address] [place] [address] Neutrophil pct 66.1 % [facility] Comment: Interpretive Data Percent cell count reference ranges are not reported, since discordance with absolute values may lead to misinterpretation of CBC data. Current Interpretive Data was last revised on 2017. Testing performed by: [facility], [address] [place] [address] Lymphocyte pct 21.6 % [facility] Comment: Interpretive Data Percent cell count reference ranges are not reported, since discordance with absolute values may lead to misinterpretation of CBC data. Current Interpretive Data was last revised on 2017. Testing performed by: [facility], [address] [place] [address] Monocyte pct 8.7 % [facility] Comment: Interpretive Data Percent cell count reference ranges are not reported, since discordance with absolute values may lead to misinterpretation of CBC data. Current Interpretive Data was last revised on 2017. Testing performed by: [facility], [address] [place] [phone] Eosinophil pct 3.0 % [facility] Comment: Interpretive Data Percent cell count reference ranges are not reported, since discordance with absolute values may lead to misinterpretation of CBC data. Current Interpretive Data was last revised on 2017. Testing performed by: [facility], [address] [place] [address] Basophil pct 0.6 % [facility] Comment: Interpretive Data Percent cell count reference ranges are not reported, since discordance with absolute values may lead to misinterpretation of CBC data. Current Interpretive Data was last revised on 2017. Testing performed by: [facility], [address] [place] [address] Blood 08/17/2024 3:48 PM CDT 08/17/2024 3:52 PM CDT María Sanderson MD PhD LAB BLOOD ORDERABLES Final Result [facility] Department [place] [address] * (ABNORMAL) CBC with auto differential (08/17/2024 3:48 PM CDT) WBC 12.48(H) 3.80 - 9.90 K/cumm Comment:Testing performed by : [facility], [address] [place] [address] Hgb 13.2 11.9 - 15.5 g/dL [facility] Comment:Testing performed by : [facility], [address] [place] [address] Hct 40.2 35.6 - 45.5 % [facility] Comment:Testing performed by : [facility], [address] [place] [address] Plt 327 150 - 400 K/cumm [facility] Comment:Testing performed by : [facility], [address] [place] [address] MPV 6.4(L) 6.8 - 10.4 fL [facility] Comment:Testing performed by : [facility], [address] [place] [address] RBC 4.94 3.90 - 5.20 M/cumm [facility] Comment:Testing performed by : [facility], [address] [place] [address] MCV 81.5 81.3 - 96.4 fL [facility] Comment:Testing performed by : [facility], [address] [place] [address] MCH 26.7(L) 27.1 - 33.3 pg [facility] Comment:Testing performed by : [facility], [address] [place] [address] MCHC 32.8 32.3 - 35.7 g/dL [facility] Comment:Testing performed by : [facility], [address] [place] [address] RDW CV 13.9 11.1 - 14.9 % [facility] Comment:Testing performed by : [facility], [address] [place] [address] NRBC abs 0.00 0.00 - 0.01 K/cumm [facility] Comment:Testing performed by : [facility], [address] [place] [address] Blood 08/17/2024 3:48 PM CDT 08/17/2024 3:52 PM CDT us María Sanderosn MD PhD LAB BLOOD ORDERABLES Final Result [facility] Department of Laboratories [place], [place] [id number] * aPTT (08/17/2024 3:48 PM CDT) aPTT 33 28 - 38 sec Comment: Interpretive Data Heparin therapeutic range: 66.0 - 100.0 seconds. Range based on correlation with therapeutic heparin activity range of 0.3 - 0.7 Units/mL. Current interpretive data was last revised on 2022. Blood 08/17/2024 3:48 PM CDT 08/17/2024 4:11 PM CDT Result [facility] María Sanderson MD PhD LAB BLOOD ORDERABLES Final Result Performing Organization Address [facility] Phone Number [facility] [place] [address] * Protime-INR (08/17/2024 3:48 PM CDT) PT 12.0 9.7 - 13.0 sec INR 1.11 0.90 - 1.20 [facility] Comment: Interpretive data Oral anticoagulant therapeutic ranges: Venous thromboembolism prophylaxis or treatment: 2.0-3.0 CARDIOLOGY Standard range: 2.0-3.0 High-intensity range: 2.5-3.5 Refer to indication-specific guidelines for appropriate target ranges for prosthetic heart valve replacement. Current interpretive data was last revised on 2019. Blood 08/17/2024 3:48 PM CDT 08/17/2024 4:11 PM CDT María Sanderson MD PhD LAB BLOOD ORDERABLES Final Result Performing Organization Address [facility] [place] [address] * CEA (08/17/2024 3:48 PM CDT) CEA 1.3 <=5.0 ng/mL Comment: Interpretive Data: [...] MD PhD LAB BLOOD ORDERABLES Final Result [facility] Department [place] [address] * Comprehensive metabolic panel (08/17/2024 3:48 PM CDT) Sodium 142 135 - 145 mmol/L Potassium, pl 4.7 3.3 - 4.9 mmol/L [facility] Chloride 104 97 - 110 mmol/L [facility] CO2 29 22 - 32 mmol/L [facility] Anion gap 9 2 - 15 mmol/L [facility] BUN 11 6 - 25 mg/dL [facility] Creatinine 0.73 0.60 - 1.10 mg/dL [facility] Glucose 89 70 - 199 mg/dL [facility] Comment: Interpretive Data Fasting glucose >/= 126 [...] classification and Diagnosis of Diabetes Diabetes Care 2021; 46: S19-S40. Current interpretive data was last revised 2022. Calcium 9.8 8.5 - 10.3 mg/dL [facility] Bilirubin, total 0.9 0.1 - 1.2 mg/dL [facility] Protein, pl 8.1 6.5 - 8.5 g/dL [facility] Albumin 4.5 3.5 - 5.0 g/dL [facility] Alk phos 93 40 - 130 Units/L [facility] ALT 28 7 - 45 Units/L [facility] AST 31 10 - 45 Units/L [facility] Blood 08/17/2024 3:48 PM CDT 08/17/2024 4:11 PM CDT us María Sanderson MD PhD LAB BLOOD ORDERABLES Final Result [facility] Department [place] [address] * Surgical pathology (08/10/2024 9:18 AM CDT) Tissue (Miscellaneous) 08/10/2024 9:18 AM CDT 08/10/2024 9:18 AM CDT Narrative [facility] - 08/11/2024 12:22 PM CDT EPIC results best viewed via link to PDF [facility] Pathology Consult Service Laura EubanksAlan, [address], [place] [address] Note to Patients: This report [...] SURGICAL PATHOLOGY REPORT * Consult Report * [facility] is providing an additional review of previously collected tissue. FINAL Patient Name: RUTH RIVERA Address: [address] [place] [address] Gender: F : 1955 (Age: 69) Hospital #: [id number] Patient Type: ALE Location: UNKNOWN Taken: 08/10/2024 Received: 08/10/2024 Accessioned: 08/10/2024 Reported: 08/11/2024 Physician(s): María Sanderson M.D. [facility] Department of Pathology [address] [place] [address] P: [phone] F: [phone] Diagnosis: Consult material received from [place], [place] (OSC: [id number]; 06/15/2024). A. Large bowel, distal rectosigmoid colon stricture, biopsy - High-grade dysplasia in a tubular adenoma with features concerning for invasive adenocarcinoma Consult material received from [place], [place] (OSC: [id number]; 07/20/2024). A. Large bowel, sigmoid colon, sigmoidectomy [...] - Twelve lymph nodes; negative for malignancy (0/) kxb/08/11/2024 12:22 By this signature, I attest that the above diagnosis is based upon my personal examination of the slides(and/or other material indicated in the diagnosis). Bri Beal MD Report Electronically Reviewed and Signed Out By Bri Beal MD 08/11/2024 12:22:38 Microscopic Description and Comment: The provided stains were reviewed for OSC [id number]. OSC: [id number] The results of MMR IHC are as [...] Received for review are six slides labeled [id number] and fifteen slides labeled [id number], accompanied by a corresponding pathology report. The material originates from [place], [place] . Selected slide(s) may be digitally scanned for our files, and all materials are returned to the referring institution, along with a copy of our final report. Any testing required for diagnostic purposes was performed in the Department of Pathology and Immunology at [facility], [address] [place] [id number] CLIA # [id number] The performance characteristics of the testing cited in this report (if any) were determined by the [facility] Department of Pathology and Immunology [facility], as part of an ongoing quality review specialist program and in compliance with federally mandated [...] characteristics determined by the [facility], [facility] Department of Pathology and Immunology. It has not been cleared or approved by the U.S. Food and Drug Administration. Any test designated as LDT was developed and its performance characteristics determined by [facility]. It has not been cleared or approved by the FDA. This test is used for clinical purposes and should not be regarded as investigational or for research. Report images and/or scanned reports, if included, only viewable in PDF version of report. María Sanderson MD PhD LAB PATHOLOGY ORDERABLES Fi nal Result [facility] [address] [address] from Last 3 Months Insurance [facility] Care Teams Order Caller Relationship Specialty Start Date End Date Arnaldo Hurtado MD [address] [place], [place] [id number] PCP - General Family Practice 07/29/24 María Sanderson MD PhD [id number] [place] [address] Medical Oncologist/[facility] 07/29/24
[2024-08-21 13:00] VITALS: BP 135/75; PULSE 64; RESP 16; TEMP 37.6; O2SAT 100; BMI 31.1
[2024-08-21] MEDS: LACTATED RINGERS 1,000 ML 30 ML IV CONT (13:35)
[2024-08-21] MEDS: KETOROLAC 15 MG/ML VIAL (*BKC) IV PUSH (13:38)
--- NOTE | 2024-08-21 13:53 | P.PNAN_ITS ---
Anes - Initial Pre Proc Eval Procedure: Operation Date: 08/21/24 14:30 Proposed Procedures p Insertion Ligia Cath - Saqib Marquez DO Date/Time: 08/21/24 13:53 Surgeon: Saqib Marquez DO Pre Op Diagnosis: Sigmoid Colon Ca Patient Data Age: 69 Gender: F Height: 1.52 m Weight: 72.3 kg Last Vital Signs Temp 37.6 C 08/21/24 13:00 Pulse 64 08/21/24 13:00 Resp 16 08/21/24 13:00 BP 135/75 08/21/24 13:00 Pulse Ox 100 08/21/24 13:00 O2 Del Method Room Air 08/21/24 13:00 Allergies Allergy/AdvReac Type Severity Reaction Status Date / Time ART Inhibitors AdvReac Mild cough Verified 08/21/24 13:15 Home Medications ?Medication ?Instructions ?Recorded ?Confirmed ?Type melatonin 1 mg tablet 1 mg PO DAILY 02/10/19 08/21/24 History cholecalciferol (vitamin D3) 125 125 mcg PO DAILY 11/15/20 08/21/24 History mcg (5,000 unit) capsule cetirizine 10 mg tablet (Zyrtec) 10 mg PO DAILY PRN allergies 05/09/21 08/07/24 History calcium 500 mg tablet 500 mg PO DAILY 12/17/23 08/21/24 History blood-glucose meter (Contour Next #1 kit 01/14/24 08/07/24 Rx Glucose Meter kit) losartan 100 mg tablet See Rx Instructions .Route 02/24/24 08/21/24 Rx .COMPLEX #90 tabs hydrochlorothiazide 12.5 mg tablet See Rx Instructions .Route 06/03/24 08/21/24 Rx .COMPLEX #90 tabs nystatin 100,000 unit/gram topical 1 applic topical EVERY OTHER DAY 07/15/24 08/07/24 History ointment triamcinolone acetonide 0.1 % 1 applic topical EVERY OTHER DAY 07/15/24 08/07/24 History topical ointment levothyroxine 50 mcg tablet See Rx Instructions .Route 07/27/24 08/21/24 Rx .COMPLEX #90 tabs blood sugar diagnostic (OneTouch #100 strips 08/04/24 08/07/24 Rx Verio test strips) diltiazem HCl 240 mg See Rx Instructions .Route 08/14/24 08/21/24 Rx capsule,extended release 24 hr .COMPLEX #90 caps rosuvastatin 10 mg tablet See Rx Instructions .Route 08/19/24 08/21/24 Rx .COMPLEX #90 tabs omeprazole 20 mg capsule,delayed See Rx Instructions .Route 08/20/24 Rx release .COMPLEX #90 caps Patient hx anesthesia problems: none Family hx anesthesia problems: other (mother difficulty intub) Results Review: All pre-operative results and documents have been reviewed as part of the pre- operative evaluation. [facility] Past Medical History Medical History Thyroid disorder Vitamin D deficiency On long-term drug therapy Hormone replacement therapy (HRT) Adult hypothyroidism Hyperlipidemia Encounter for general medical examination COVID-19 IFG (impaired fasting glucose) Hypercholesteremia Hypertension Surgical History Surgical History Hx of colectomy 07/20/24 Laparoscopic sigmoid colectomy with colorectal anastomosis, da Ria assisted Dr. Marquez S/P cholecystectomy History of carpal tunnel surgery History of cholecystectomy 2017 [place] teeth removed H/O: hysterectomy 2019 H/O section 1976,1978 Family History Family History Father Family history of hepatitis Family history of liver disease Family history of cardiovascular disease Family history of heart disease in male family member before age 55 Heart problem Hypertension Sibling Family history of hypothyroidism Diabetes mellitus Hypertension Family history of cardiovascular disease Asthma Mother Cerebrovascular accident, Onset Age: 83 Diabetes mellitus Family history of cardiovascular disease Family history of chronic obstructive pulmonary disease Heart problem Hypertension Sibling Hypertension Other Family history of coronary artery disease Social History Social History Smoking packs per day: 0.2 Smoking cigarettes per day: 4.0 Years smoked: 5 Smoking pack-years: 1.00 Smoking status: Former smoker Tobacco type: cigarettes Second hand tobacco smoke exposure: No Smoking end date: 09/08/01 Alcohol intake: current Alcohol use details: 1 per year Substance use: never Substance use type: does not use Do You Feel Safe in your Home?: Yes Lack of Transportation: No Lack of Food: Never True Current Housing: I Have Housing Concerned About Future Housing: No Difficulty Paying Gas/Electric Bills: No Difficulty Paying for Meds: No Currently Unemployed: No Education: Master's Degree or Higher Difficulty w/ Childcare or Family Care: No Living arrangements: with family Additional living arrangements comments: Spiritual care concerns: No Anes - Eval Final PreProcedure Day of Procedure 08/21/24 13:53 Patient weight: obese Heart: regular rate and rhythm Lungs: clear to auscultation Airway: Mallampati scale class II Neurological: alert and oriented Last oral intake: >/= 8 hours ASA classification: III Emergent: no Anesthetic plan: proceed Anesthesia type and monitoring: general GIVS and standard monitoring Results Review: All pre-operative results and documents have been reviewed as part of the pre- operative evaluation. Informed Consent: The patient's anesthetic plan and its attendant risks and benefits were discussed with the patient/family/POA. Questions were solicited and answers provided to the satisfaction of the patient/family/POA.
--- NOTE | 2024-08-21 14:18 | WPDHPUPDATE1 ---
History and Physical Update Update Date/Time: 08/21/24 14:18 History and Physical has been reviewed, including an updated exam of the patient. There are NO changes in the patient's condition. Risks, benefits, and alternatives have been discussed and questions answered. Patient agrees to proceed with procedure.
[2024-08-21] MEDS: ceFAZolin 2 GM/D5W 50 ML 2 GM/50 ML BAG IVPB (14:37)
[2024-08-21] MEDS: LIDO 1%/EPINEPHRINE 1:100,000 50 ML VIAL 20 ML INFILTRATE (14:37)
[2024-08-21] MEDS: HEPARIN SODIUM, PORCINE 10,000 UNITS/10 ML VIAL 3000 UNITS IRRIGATION (14:58)
[2024-08-21] MEDS: HEPARIN SODIUM 5,000 UNITS/ML VIAL 5000 UNITS IRRIGATION (15:00)
--- NOTE | 2024-08-21 15:22 | W.PM.PROC2 ---
Procedure Note - Detailed Date of Procedure 08/21/24 Pre-op Diagnosis Sigmoid Colon Cancer Post-op Diagnosis Same Procedure Performed Right Internal Jugular tunneled Port-a-Cath placement using ultrasound and fluoroscopic guidance Surgeon Saqib Marquez, DO Anesthesia MAC and Local (0.5% bupivicaine with epinephrine) Indications This is a 69-year-old woman who presents with sigmoid colon cancer. She recently underwent robotic assisted laparoscopic sigmoid colectomy. She was found to have stage III colon cancer and was referred for oncology evaluation. Chemotherapy has been recommended and she is in need of port placement to start chemotherapy. Findings SonoSite ultrasound was used to identify the right internal jugular vein. This was visualized as a compressible vessel just lateral to the pulsatile carotid artery. An 18 gauge introducer needle was advanced under ultrasound guidance. Fluoroscopy was then used to guide the advancement of the guidewire followed by the dilator and sheath. The final fluoroscopic images demonstrated the catheter tip in the distal SVC and no kinks along its path. Description of Procedure Procedure as well as risks, benefits, and alternatives were discussed with patient. Written consent was obtained and placed in chart prior to procedure. Patient was brought back to surgical suite. Was placed supine on operating table. Time-out was done confirm patient procedure. IV sedation was then administered by the Anesthesia Department. The chest and neck area was prepped and draped in sterile fashion using chlorhexidine prep. Patient was placed in Trendelenburg position. SonoSite ultrasound was used to identify the right internal jugular vein. It was visualized as a compressible vessel just lateral to the carotid artery. 1% lidocaine with epinephrine was infiltrated directly over the vessel under ultrasound guidance. An 18 gauge introducer needle was then advanced under ultrasound guidance directly into the right internal jugular vein. Dark nonpulsatile blood was aspirated. A 0.035 in guidewire was then advanced through the needle under fluoroscopic guidance. The guidewire was visualized advancing all the way down into the superior vena cava. 1% lidocaine with epinephrine was then infiltrated on the right anterior chest and along the tract up to the guidewire insertion site. A 3 cm incision was made with a 15 blade scalpel, and electrocautery was then used for dissection down through the subcutaneous tissue to the pectoral fascia. A pocket was created just inferior to the incision using blunt dissection. A small teagan incision was then also made at the insertion site at the neck. The tunneler was then advanced from the chest incision up to the neck incision and the catheter tubing was brought up through this tract. The dilator and sheath were then advanced over the guidewire under fluoroscopic visualization. The dilator and guidewire were then removed leaving the sheath in place. The catheter tubing was then advanced through the sheath under fluoroscopic guidance. The sheath was unsnapped and carefully peeled away. The catheter tubing was released underneath the neck incision. Fluoroscopy was used to confirm proper placement of the catheter tubing and no kinks along its path. The catheter was then cut to proper length and secured to the port. The port was then accessed with a Parson needle and aspirated and flushed with heparinized saline. The port function with ease. The port was then hep-locked with Hep-Lock solution. The port was then placed within the pocket that was created, and was secured to the fascia using 3 0 Prolene simple interrupted sutures. The patient was flattened out in bed. Bull's fascia was reapproximated using 3 0 Vicryl simple interrupted sutures. The skin of the incisions was then approximated using 4-0 Monocryl subcuticular suture. Exofin glue was then applied on top. The patient was then awakened from anesthesia and transferred to recovery. Implants Smart Port CT Port-A-Cath Estimated Blood Loss 20 Complications No immediate complications Condition Stable Disposition Same day [facility] Billing Surgery - Charge Forward: Surgery Billing
[2024-08-21 15:25] VITALS: BP 116/62; PULSE 88; RESP 16
[2024-08-21 15:55] VITALS: BP 129/68; PULSE 90; RESP 16
== END 2024-08-21 16:20 | disposition home or self-care (01) ==
PROVIDERS: PCP Nurse Practitioner Family; Visit Provider Surgery
PROC: (CPT 36561; principal; 2024-08-21 14:30)
DX: C18.7 Malignant neoplasm of sigmoid colon (principal); E03.9 Hypothyroidism, unspecified; E55.9 Vitamin D deficiency, unspecified; I10 Essential (primary) hypertension; E78.00 Pure hypercholesterolemia, unspecified; R73.01 Impaired fasting glucose; E66.9 Obesity, unspecified; Z68.31 Body mass index [BMI] 31.0-31.9, adult; Z79.899 Other long term (current) drug therapy; Z79.890 Hormone replacement therapy; Z98.890 Other specified postprocedural states; Z90.49 Acquired absence of other specified parts of digestive tract; Z87.891 Personal history of nicotine dependence; Z82.49 Family history of ischemic heart disease and other diseases of the circulatory system
CPT/HCPCS: 36561; 77001; C1788; J0690; J1644; J1885; J2003; J2004; J2250; J2704; J3010; J7120

== ENCOUNTER 2024-10-21 17:19 | Emergency (ER) | payer OTHER, SELFPAY ==
--- NOTE | ~2024-10-21 | XR_ITS ---
CHEST RADIOGRAPH, PA AND LATERAL CLINICAL HISTORY: concern for displacement of port catheter . COMPARISON: 08/21/2024 TECHNIQUE: PA and lateral views of the chest. FINDINGS Right internal jugular central venous port catheter identified with its tip projecting over the super ior vena cava. The remainder of the cardiomediastinal silhouette is otherwise unremarkable. The lungs are clear. IMPRESSION: No focal infiltrate or effusion. Right internal jugular central venous power port catheter with its tip projecting over the superior v tasia cava. This catheter is unchanged in position since placement evaluation dated 08/21/2024. However, if the concern is for the lack of blood return, or inability to flush, outpatient evaluation (fluoroscopically guided port study) may be performed. Reviewed, dictated and finalized at location A. IMPRESSION: No focal infiltrate or effusion. Right internal jugular central venous power port catheter with its tip projecti ng over the superior vena cava. This catheter is unchanged in position since pl acement evaluation dated 08/21/2024. However, if the concern is for the lack of blood return, or inability to flush, outpatient evaluation (fluoroscopically guided port study) may be performed.
--- OUTSIDE RECORDS SUMMARY | 2024-10-21 17:21 | XMS_ITS ---
Author Organization [address] Address [address] [place] [id number] Care Team Providers Care Tankman Name Role Phone Arnaldo Hurtado MD Primary Care Provider [phone] María Sanderson MD PhD Unavailable [phone] Active Problems Problem Noted Date Diagnosed Date Colon cancer 08/17/2024 Cancer Staging:Clinical stage from 07/20/2024:Stage IIIB(cT3, cN1c, cM0) - Unsigned Current Treatment and Therapy Plans [id number]: (Fluorouracil / Leucovorin / Oxaliplatin) 14 Day Cycles - GI* Plan Start Date:08/30/2024 Plan Provider:María Sanderson MD PhD Linked Problems Malignant neoplasm of colon, unspecified part of colon (HCC) Treatment Medications Current Day (Day 1 , Cycle 5 - Planned for 11/02/2024) Next Day (Day 1, Cycle 6 - Planned for 11/16/2024) dexAMETHasone (DECADRON)fluorouracil (ADRUCIL)fluorouracil (ADRUCIL) infusion - for home infusion (ADRUCIL)leucovorin IVPB in 250 mLoxaliplatin (ELOXATIN)oxaliplatin (ELOXATIN) IVPB fluorouraciL (ADRUCIL) 4,150 mg in cadd cassette 83 mL infusion - for home infusionoxaliplatin (ELOXATIN) 147.5 mg in dextrose 5% 250 mL IVPB fluorouraciL (ADRUCIL) 4,150 mg in cadd cassette 83 mL infusion - for home infusionoxaliplatin (ELOXATIN) 147.5 mg in dextrose 5% 250 mL IVPB Past Treatment and Therapy Plans No past plan information found.
--- OUTSIDE RECORDS SUMMARY | 2024-10-21 17:21 | XMS_ITS | Encounter Summary ---
Author Organization [facility] Address [address] [place] [address] Care Team Providers Care Forging Roll Operator Name Role Phone Unavailable Primary Care Provider Unavailabl e Reason for Referral * Diagnostic Imaging (Routine) - Pending Review Specialty Diagnoses / Procedures Referred By Contac t Referred To Contact Procedures Breast Imaging Screening Outside Reference Transcribed Order, Provider Referral ID Status Reason Start Date Expiration Date V isits Requested Visits Authorized [id number] Pending Review 10/15/2024 11/14/2025 1 1 Reason for Visit * Diagnostic Imaging (Routine) - Pending Review Specialty Diagnoses / Procedures Referred By Contac t Referred To Contact Procedures Breast Imaging Screening Outside Reference Transcribed Order, Provider Referral ID Status Reason Start Date Expiration Date V isits Requested Visits Authorized [id number] Pending Review 10/15/2024 11/14/2025 1 1 Encounter Details Date Type Department Care Team (Late st Contact Info) Description 07/19/2020 Hospital Encounter [facility] [address] [place] [id number] Social History Tobacco Use Types Packs/Day Years Used Date Smoking Tobacco: Former Cigarettes 0 03/1999 - 03/1996 Smokeless Tobacco: Never Comments Unknown Sex and Gender Information Value Date Recorded Sex Assigned at Not on file 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 Gender Identity Female 10/06/2024 5:10 AM CDT Sexual Orientation Straight 10/06/2024 5: 10 AM CDT documented as of this encounter Plan of Treatment Not on file documented as of this encounter Procedures Procedure Name Priority Date/Time Associated Diagnosis Comments BREAST IMAGING MG SCREENING OUTSIDE REFERENCE Routine 07/19/2020 12:00 AM CDT documented in this encounter Results * Breast Imaging Screening Outside Reference (07/19/2020 12:00 AM CDT) Impressions [facility] - 10/15/2024 2:36 PM CDT These images are for Reference purposes only and have not been reviewed by [facility] Radiology. There will be no report generated by a [facility] Radiologist. Narrative [facility] - 10/15/2024 2:36 PM CDT EXAMINATION: Images For Reference Purposes Only us Provider Transcribed Order IMG MAMMO PROCEDURES Final Result [facility] documented in this encounter Visit Diagnoses Not on filedocumented in this encounter
--- OUTSIDE RECORDS SUMMARY | 2024-10-21 17:21 | XMS_ITS | Clinical Summary ---
Author Organization [facility] Address [address] [place] [address] Care Team Providers Care Retail Coverage Merchandiser Lead Name Role Phone Arnaldo Hurtado MD Unavailable [phone] Arnaldo Hurtado MD Primary Care Provider [phone] Source Comments [facility],non-owned Affiliates and Associated Physician Practices is amultiple site organization consisting of ambulatory clinics and hospital sitesin [place], [place], [place] and [place]. This disclosure is being madepursuant to the Care Everywhere program and may not contain all information available regarding this patient. Last updated 17.[facility] [employer] Allergies No known active allergies Medications * [...] mouth once daily 3 Active nystatin (Mycostatin) 235625 UNIT/GM ointmentIndica tions:Lichen planus Use to affected [...] Description 08/19/2024 Telephone [facility] - MOISTURE METER OPERATOR [address] [place] [address] Liv Johnson, NURSE ORTHO-SANITATION DIRECTOR Question; Appointment from Last 3 Months Family [...] Comments Blood Pressure 122/80 04/16/2024 10:09 AM BLOWER INSTALLER Pulse - - Temperature - - Respiratory Rate - - Oxygen Saturation - - Inhaled Oxygen Concentration - - Weight 73.5 kg (162 lb) 04/16/2024 10:09 AM BLOWER INSTALLER Height 152.4 cm (5') 04/16/2024 10:09 AM BLOWER INSTALLER Body Mass Index 31.64 04/16/2024 10:09 AM BLOWER INSTALLER Plan of Treatment Upcoming Encounters Date Type Department Care Team (Late st Contact Info) Description 12/09/2024 2:00 PM CDT Office Visit [facility] - MOISTURE METER OPERATOR [address] [place] [id number] Liv Johnson, NURSE ORTHO-SANITATION DIRECTOR [address] [facility] [address] [place] [address] Health Maintenance Due Date Last [...] 04/11/2022 (Done Outside Per Patient) INFLUENZA VACCINE (#1) 2024 2, 11/19/2020, 11/13/2019, Additional history exists Respiratory Syncytial [...] patient's age to complete this topic Insurance [facility] MEDICARE SELF PAY NO INSURANCE Member Subscriber Plan / Payer (Ef fective for All Dates) Name:Ruth Rivera Member ID:Not on file Relation to Subscriber:Not on file Name:RUTH RIVERA Subscriber ID:Not on file (Home) Address: [facility] [address]KEN [address] [place] [id number] Payer ID:Not on file Group ID:Not on file Type:Self Pay Address: [place], [place] Care Teams Retail Coverage Merchandiser Lead Relationship Specialty Start Date End Date Arnaldo Hurtado MD [address] [place] [phone] PCP - General Family Medicine 08/17/22 Arnaldo Hurtado MD [address] [place] [address] Primary Care Provider Family Medicine 08/15/22
--- OUTSIDE RECORDS SUMMARY | 2024-10-21 17:21 | XMS_ITS | Clinical Summary ---
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 Name Role Phone Arnaldo Hurtado MD Primary Care Provider [phone] María Sanderson MD PhD Unavailable [phone] Allergies Active Allergy Reactions Criticality Noted Date Comments Lisinopril Cough Low 08/17/2024 Medications OneTouch Verio test strips strip USE 1-3 TIMES PER DAY TO CHECK BLOOD GLUCOSE 025 Active hydroCHLOROthi azide 12.5 mg tablet Take 1 tablet (12.5 mg total) by mouth daily Active levothyroxine (SYNTHROID) 50 mcg tablet Take 1 tablet (50 mcg total) by mouth daily 023 Active losartan (COZAAR) 100 mg tablet Take 1 tablet (100 mg total) by mouth daily 023 Active dilTIAZem CD 240 mg 24 hr capsule Take by mouth daily Active rosuvastatin (CRESTOR) 10 mg tablet Take 1 tablet (10 mg total) by mouth daily Active triamcinolone (KENALOG) 0.1 % ointment Use to affected area with the nystatin ointment once a day for one month & then very other day 024 Active omeprazole (PriLOSEC) 20 mg capsule TAKE 1 CAPSULE BY MOUTH EVERY DAY NEEDED FOR INDIGESTION 025 Active nystatin ointment Use to affected area with the Triamcinolone ointment 0.1% once a day for one month & then very other day 024 Active lidocaine-pril ocaine (EMLA) creamIndicatio ns:Administrat ion of Local Anesthesia Apply to port site one hour prior to appointment and cover 30 g 3 025 Active dexAMETHasone (DECADRON) 4 mg tabletIndicati ons:Malignant neoplasm of colon, unspecified part of colon (HCC) Take 2 tablets (8 mg) by mouth once daily on Days 2 and 3 of each treatment cycle. 8 tablet 5 025 Active prochlorperazi ne (Compazine) 10 mg tabletIndicati ons:Malignant neoplasm of colon, unspecified part of colon (HCC) Take 1 tablet (10 mg total) by mouth every 6 (six) hours as needed for nausea or vomiting Use first for nausea 60 tablet 3 025 Active ondansetron (ZOFRAN) 8 mg tabletIndicati ons:Malignant neoplasm of colon, unspecified part of colon (HCC) Take 1 tablet (8 mg total) by mouth every 8 (eight) hours as needed for nausea or vomiting Use if prochlorperazine does not stop nausea. 24 tablet 3 025 Active traZODone (DESYREL) 50 mg tabletIndicati ons:insomnia associated with depression Take 0.5 tablets (25 mg total) by mouth nightly 15 tablet 025 2024 Active estradioL (ESTRACE) 0.01 % (0.1 mg/gram) vaginal cream APPLY 1 GRAM PER VAGINAL AREA THREE TIMES PER WEEK AT BEDTIME 2024 Discontinued Active Problems Problem Noted Date Diagnosed Date Colon cancer 08/17/2024 Cancer Staging:Clinical stage from 07/20/2024:Stage IIIB(cT3, cN1c, cM0) - Unsigned Encounters Date Type Department Care Team Description 10/21/2024 Telephone [facility] Oncology [facility] 5 [place] [address] Kate Hussein RN Facial Swelling 10/19/2024 8:00 AM CDT Infusion [facility] - Infusion [address] [facility] 5 [place] [address] Malignant neoplasm of colon, unspecified part of colon (HCC) (Primary Dx) 10/19/2024 7:15 AM CDT Clinical Support [facility] - Lab Collection [address] [facility] Floor 5 [place] [address] Malignant neoplasm of colon, unspecified part of colon (HCC) 10/15/2024 1:30 PM CDT - 10/15/2024 11:59 PM CDT Hospital Encounter [facility] - Breast Imaging [address] [facility] Floor 8 [place] [address] Screening mammogram, encounter for Discharge Disposition: Discharge to home or self care 10/15/2024 Orders Only [facility] Breast [facility] [address] [place] [address] Earlene Guardado MD 10/08/2024 Telephone [facility] Cardiology [address] [facility] Advanced Medicine 8th [place] [address] [place] [address] Emily Noel 10/05/2024 9:30 AM CDT Infusion [facility] - Infusion [address] [facility] Floor 5 [place] [address] Malignant neoplasm of colon, unspecified part of colon (HCC) (Primary Dx) 10/05/2024 8:20 AM CDT Office Visit [facility] Oncology [facility] Floor 5 [place] [address] María Sanderson MD PhD Malignant neoplasm of colon, unspecified part of colon (HCC) (Primary Dx); Bradycardia 10/05/2024 7:30 AM CDT Clinical Support [facility] - Lab Collection [facility] Floor 5 [place] [address] Malignant neoplasm of colon, unspecified part of colon (HCC) 10/05/[address] [facility] 1 [facility] [place] [address] 10/05/2024 Orders Only [facility] Oncology [facility] Floor 5 [place] [address] María Sanderson MD PhD 09/14/2024 11:00 AM CDT Infusion [facility] - Infusion [address] [facility] Floor 6 [place] [address] Malignant neoplasm of colon, unspecified part of colon (HCC) (Primary Dx) 09/14/2024 10:00 AM CDT Office Visit [facility] Oncology [address] [place] [address] Floor 5 [place] [address] María Sanderson MD PhD Malignant neoplasm of colon, unspecified part of colon (HCC) (Primary Dx) 09/14/2024 9:00 AM CDT Clinical Support [facility] Oncology Lab [address] [place] [address] Floor 5 [place] [address] Malignant neoplasm of colon, unspecified part of colon (HCC) 09/14/2024 8:45 AM CDT Clinical Support [facility] - Lab Collection [address] [place] [address] Floor 5 [place] [address] Malignant neoplasm of colon, unspecified part of colon (HCC) 09/14/[address] [facility] 1 [place] [address] Magui Morgan, WILLIAM 09/01/2024 Telephone [facility] Oncology [address] [place] [address] Floor 5 [place] [address] Kate Hussein RN Follow-up 08/31/2024 2:00 PM CDT Infusion [facility] - Infusion [address] [place] [address] Floor 6 [place] [address] Malignant neoplasm of colon, unspecified part of colon (HCC) (Primary Dx) 08/31/2024 1:00 PM CDT Office Visit [facility] Oncology [address] [place] [address] Floor 5 [place] [address] María Sanderson MD PhD Malignant neoplasm of colon, unspecified part of colon (HCC) (Primary Dx) 08/31/2024 12:00 PM CDT Clinical Support [facility] - Lab Collection [address] [place] [address] Floor 5 [place] [address] Malignant neoplasm of colon, unspecified part of colon (HCC) 08/24/2024 10:12 AM CDT - 08/24/2024 11:59 PM CDT Hospital Encounter [facility] Rad[facility] [address] [place] [address] Discharge Disposition: Discharge to home or self care 08/18/2024 Telephone [facility] Oncology [address] [place] [address] Floor 5 [place] [address] Kate Hussein RN Scheduling Appointments 08/18/2024 Orders Only [facility] Oncology [address] [place] [address] 5 [place] [address] María Sanderson MD PhD 08/17/2024 3:45 PM CDT Lab [facility] - Lab Collection [facility] Floor 5 [place] [address] Malignant neoplasm of colon, unspecified part of colon (HCC) 08/17/2024 1:00 PM CDT Office Visit [facility] Oncology [address] [place] [address] 5 [place] [address] María Sanderson MD PhD Malignant neoplasm of colon, unspecified part of colon (HCC) (Primary Dx) 08/10/2024 Orders Only [facility] [address] [place] [address] María Sanderson MD PhD Malignant neoplasm of colon, unspecified part of colon (HCC) 08/07/2024 Orders Only [facility] Oncology [address] [place] [address] María Sanderson MD PhD Malignant neoplasm of colon, unspecified part of colon (HCC) (Primary Dx) from Last 3 Months Immunizations Immunization Administration Dates Next Due Hep A, Adult 06/21/1999,12/16/1998 Influenza, Quad, Adjuvantated, Intramuscular 01/2021 Influenza, Quadrivalent, Daniella l Culture-based MDCK, Preservative Free, Antibiotic Free, Intramuscular 12/15/2021 Influenza, Quadrivalent, Hig h Dose, Preservative Free, Intrr 10/31/2022 Influenza, Quadrivalent, Spl it, Preservative Free, Intramuscular 11/13/2019 Influenza, Trivalent, High D ose, Split, Preservative Free, Intramuscular 11/25/2023 Influenza, Trivalent, IM (MDV) 11/09/2017,2013 Influenza, Trivalent, Preservative Free, Intramu scular 01/03/2017,02/02/2013 Influenza, Unspecified 12/21/2011 Pneumococcal Polysaccharide PPV23 11/19/2020 RSV Vaccine, Pref, Recombina nt, Subunit, Adjuvanted, PF, IM (Arexvy) 10/31/2022 Tdap 12/09/2017 ZOSTER Recombinant 07/21/2018,04/08/2018 Family History Medical History Relation Name Comments Liver disease Father Stroke Mother Relation Name Status Comments Father Mother Social History Tobacco Use Types Packs/Day Years Used Date Smoking Tobacco: Former Cigarettes 0 03/1999 - 03/1996 Smokeless Tobacco: Never Tobacco Cessation:Counseling Given: No Comments Unknown Sex and Gender Information Value Date Recorded Sex Assigned at Not on file Legal Sex Female 6:37 AM [employer]ATE [employer]ER Gender Identity Female 10/06/2024 5:10 AM CDT Sexual Orientation Straight 10/06/2024 5: 10 AM CDT Obstetrics History Para Term AB IAB SAB Ectopic Multiple Livin g Live Births 2 1 Date Outcome GA Total Labor Labor/2nd/3rd Weight Sex Type Anes PTL Purnima A1 A5 Name Clin Last Filed Vital Signs Vital Sign Reading Time Taken Comments Blood Pressure 127/83 10/19/2024 8:01 AM CDT Pulse 67 10/19/2024 8:01 AM CDT Temperature 36.4 C (97.6 F) 10/19/2024 8:01 AM CDT Respiratory Rate 16 10/19/2024 8:01 AM CDT Oxygen Saturation 98% 10/19/2024 8:01 AM CDT Inhaled Oxygen Concentration - - Weight 73.4 kg (161 lb 13.1 oz) 10/19/2024 8:01 AM CDT Height 151 cm (4' 11.45) 10/15/2024 1:46 PM CDT Body Mass Index 32.19 10/15/2024 1:46 PM CDT Plan of Treatment Health Maintenance Due Date Last Done Comments Colon Cancer Screening-Colonoscopy 1955 Depression Screening 1955 Fall Risk Assessment 1955 Hepatitis C Screening 1955 Osteoporosis Screening-Bone Density Scan 1955 Hepatitis B Screening 06/29/1973 Well Visit 65+ 06/29/2020 Pneumococcal vaccine 65+ (2 of 2 - PCV) 11/19/2021 11/19/2020 Covid-19 Vaccine (2023-2 5 season) 2024 08/01/2024, 11/25/2023, 12/21/2022, Additional history exists Influenza Vaccine (#1) 2024 , 10/31/2022, 12/15/2021, Additional history exists Breast Cancer Screening-Mammogram 10/15/2025 10/15/2024, 10/22/2023, 09/20/2023, Additional history exists DTaP/Tdap/Td Vaccine (2 - Td or Tdap) 12/10/2027 12/09/2017 Zoster Vaccine Completed 07/21/2018, 04/08/2018 Procedures Procedure Name Priority Date/Time Associated Diagnosis Comments EGFR STAT 10/19/2024 7:30 AM CDT Malignant neoplasm of colon, unspecified part of colon (HCC) DIFFERENTIAL AUTO Routine 10/19/2024 7:3 0 AM CDT Malignant neoplasm of colon, unspecified part of colon (HCC) CBC WITH AUTO DIFFERENTIAL Routine 10/19/2024 7:30 AM CDT Malignant neoplasm of colon, unspecified part of colon (HCC) COMPREHENSIVE METABOLIC PANEL STAT 10/19/2024 7:30 AM CDT Malignant neoplasm of colon, unspecified part of colon (HCC) SCREENING MAMMOGRAM BILATERAL W ROBSON Schedule Routine, Read Routine (OP Routine) 10/15/2024 1:49 PM CDT Screening mammogram, encounter for EGFR STAT 10/05/2024 7:58 AM CDT Malignant neoplasm of colon, unspecified part of colon (HCC) MANUAL DIFFERENTIAL Routine 10/05/2024 7 :58 AM CDT Malignant neoplasm of colon, unspecified part of colon (HCC) CBC WITH AUTO DIFFERENTIAL Routine 10/05/2024 7:58 AM CDT Malignant neoplasm of colon, unspecified part of colon (HCC) COMPREHENSIVE METABOLIC PANEL STAT 10/05/2024 7:58 AM CDT Malignant neoplasm of colon, unspecified part of colon (HCC) EGFR STAT 09/14/2024 8:59 AM CDT Malignant neoplasm of colon, unspecified part of colon (HCC) DIFFERENTIAL AUTO Routine 09/14/2024 8:5 9 AM CDT Malignant neoplasm of colon, unspecified part of colon (HCC) CBC WITH AUTO DIFFERENTIAL Routine 09/14/2024 8:59 AM CDT Malignant neoplasm of colon, unspecified part of colon (HCC) COMPREHENSIVE METABOLIC PANEL STAT 09/14/2024 8:59 AM CDT Malignant neoplasm of colon, unspecified part of colon (HCC) EGFR STAT 08/31/2024 12:05 PM CDT Malignant neoplasm of colon, unspecified part of colon (HCC) DIFFERENTIAL AUTO Routine 08/31/2024 12: 05 PM CDT Malignant neoplasm of colon, unspecified part of colon (HCC) COMPREHENSIVE METABOLIC PANEL STAT 08/31/2024 12:05 PM CDT Malignant neoplasm of colon, unspecified part of colon (HCC) CBC WITH AUTO DIFFERENTIAL Routine 08/31/2024 12:05 PM CDT Malignant neoplasm of colon, unspecified part of colon (HCC) CT BODY OUTSIDE REFERENCE Routine 08/24/2024 10:12 AM CDT EGFR Routine 08/17/2024 3:48 PM CDT Malignant [...] of colon, unspecified part of colon (HCC) TEMPUS XF Routine 08/17/2024 3:27 PM CDT Malignant neoplasm of colon, unspecified part of colon (HCC) TEMPUS XT DNA AND RNA SOLID TUMOR Routine 08/17/2024 3:27 PM CDT Malignant neoplasm of colon, unspecified part of colon (HCC) SURGICAL PATHOLOGY Routine 08/10/2024 9: 18 AM CDT Malignant neoplasm of colon, unspecified part of colon (HCC) from Last 3 Months Results * eGFR (10/19/2024 7:30 AM CDT) eGFR >90 >=60 mL/min/1. 73 m2 Comment: Interpretive Data [...] of Race in Diagnosing Kidney Disease, JASN 202). The CKD-EPI equation should not be used for patients with unstable renal function and has not been validated in children and those over 70. Current interpretive data was last reviewed 2021. Blood 10/19/2024 7:30 AM CDT 10/19/2024 7:35 AM CDT us María Sanderson MD PhD LAB BLOOD ORDERABLES Final Result [facility] Department [place] [address] * Differential, auto (10/19/2024 7:30 AM CDT) Neutrophil abs 3.21 1.50 - 6.50 K/cumm Comment:Testing performed by : [facility], [address] [place], [place] [id number] Lymphocyte abs 1.35 0.80 - 3.30 K/cumm [facility] Comment:Testing performed by : [facility], [address] [place] [address] Monocyte abs 0.63 0.20 - 0.80 K/cumm [facility] Comment:Testing performed by : [facility], [address] [place], [place] [id number] Eosinophil abs 0.47 0.00 - 0.50 K/cumm [facility] Comment:Testing performed by : [facility], [address] [place] [address] Basophil abs 0.07 0.00 - 0.10 K/cumm [facility] Comment:Testing performed by : [facility], [address] [place], [place] [id number] Neutrophil pct 56.0 % [facility] Comment: Interpretive Data Percent cell count reference ranges are not reported, since discordance with absolute values may lead to misinterpretation of CBC data. Current Interpretive Data was last revised on 2017. Testing performed by: [facility], [address] [place] [phone] Lymphocyte pct 23.7 % [facility] Comment: Interpretive Data Percent cell count reference ranges are not reported, since discordance with absolute values may lead to misinterpretation of CBC data. Current Interpretive Data was last revised on 2017. Testing performed by: [facility], [address] [place] [phone] Monocyte pct 11.0 % [facility] Comment: Interpretive Data Percent cell count reference ranges are not reported, since discordance with absolute values may lead to misinterpretation of CBC data. Current Interpretive Data was last revised on 2017. Testing performed by: [facility], [address] [place] [phone] Eosinophil pct 8.1 % [facility] Comment: Interpretive Data Percent cell count reference ranges are not reported, since discordance with absolute values may lead to misinterpretation of CBC data. Current Interpretive Data was last revised on 2017. Testing performed by: [facility], [address] [place] [phone] Basophil pct 1.2 % [facility] Comment: Interpretive Data Percent cell count reference ranges are not reported, since discordance with absolute values may lead to misinterpretation of CBC data. Current Interpretive Data was last revised on 2017. Testing performed by: [facility], [address] [place] [phone] Blood 10/19/2024 7:30 AM CDT 10/19/2024 7:33 AM CDT us María Sanderson MD PhD LAB BLOOD ORDERABLES Final Result [facility] Department [place] [address] * (ABNORMAL) CBC with auto differential (10/19/2024 7:30 AM CDT) WBC 5.73 3.80 - 9.90 K/cumm Comment:Testing performed by : [facility], [address] [place] [address] Hgb 11.7(L) 11.9 - 15.5 g/dL [facility] Comment:Testing performed by : [facility], [address] [place] [address] Hct 34.7(L) 35.6 - 45.5 % [facility] Comment:Testing performed by : [facility], [address] [place] [address] Plt 182 150 - 400 K/cumm [facility] Comment:Testing performed by : [facility], [address] [place] [address] MPV 6.2(L) 6.8 - 10.4 fL [facility] Comment:Testing performed by : [facility], [address] [place] [address] RBC 4.34 3.90 - 5.20 M/cumm [facility] Comment:Testing performed by : [facility], [address] [place] [address] MCV 79.8(L) 81.3 - 96.4 fL [facility] Comment:Testing performed by : [facility], [address] [place] [address] MCH 26.9(L) 27.1 - 33.3 pg [facility] Comment:Testing performed by : [facility], [address] [place] [address] MCHC 33.7 32.3 - 35.7 g/dL [facility] Comment:Testing performed by : [facility], [address] [place] [address] RDW CV 16.2(H) 11.1 - 14.9 % [facility] Comment:Testing performed by : [facility], [address] [place] [address] NRBC abs 0.00 0.00 - 0.01 K/cumm [facility] Comment:Testing performed by : [facility], [address] [place] [phone] Blood 10/19/2024 7:30 AM CDT 10/19/2024 7:33 AM CDT María Sanderson MD PhD LAB BLOOD ORDERABLES Final Result [facility] Department [place] [address] * Comprehensive metabolic panel (10/19/2024 7:30 AM CDT) Sodium 139 135 - 145 mmol/L Potassium, pl 3.7 3.3 - 4.9 mmol/L [facility] Chloride 103 97 - 110 mmol/L [facility] CO2 25 22 - 32 mmol/L [facility] Anion gap 11 2 - 15 mmol/L [facility] BUN 11 6 - 25 mg/dL [facility] Creatinine 0.60 0.60 - 1.10 mg/dL [facility] Glucose 190 70 - 199 mg/dL [facility] Comment: Interpretive Data Fasting glucose >/= 126 [...] interpretive data was last revised 2022. Calcium 9.2 8.5 - 10.3 mg/dL [facility] Bilirubin, total 0.5 0.1 - 1.2 mg/dL [facility] Protein, pl 6.8 6.5 - 8.5 g/dL [facility] Albumin 4.0 3.5 - 5.0 g/dL [facility] Alk phos 91 40 - 130 Units/L [facility] ALT 39 7 - 45 Units/L [facility] AST 40 10 - 45 Units/L [facility] Blood 10/19/2024 7:30 AM CDT 10/19/2024 7:35 AM CDT María Sanderson MD PhD LAB BLOOD ORDERABLES Final Result [facility] Department [place] [address] * (ABNORMAL) Screening Mammogram Bilateral W Robson (10/15/2024 1:49 PM CDT) Anatomical Region Laterality Modality Breast Bilateral Mammography Impressions 10/16/2024 2:26 PM CDT Left 1) Asymmetry: Left breast asymmetry in the central region in the middle depth. Assessment: 0 - Incomplete. Diagnostic mammogram with possible ultrasound is recommended. Right No evidence of malignancy. OVERALL BI-RADS FINAL ASSESSMENT: 0 - Incomplete: Needs Additional Imaging Evaluation RECOMMENDATIONS: Recommend left breast diagnostic mammogram with possible ultrasound. Narrative 10/16/2024 2:26 PM CDT EXAMINATION: Screening Mammogram Bilateral W Robson: 10/15/2024 COMPARISON: Relevant prior studies available at the time of interpretation were reviewed, including the most recent mammogram on: 10/22/2023. TECHNIQUE: Mammography was performed with 2D and digital breast tomosynthesis (DBT) images. CAD was utilized. BREAST PARENCHYMAL COMPOSITION: There are scattered areas of fibroglandular density. FINDINGS: Left 1) Asymmetry: There is an asymmetry seen in the central region of the left breast in the middle depth. This finding needs additional imaging evaluation. Right There is no suspicious mass, calcification, or architectural distortion. us Self Screening Mammogram IMG MAMMO PROCEDURES Fi nal Result * eGFR (10/05/2024 7:58 AM CDT) eGFR >90 >=60 mL/min/1. 73 m2 Comment: Interpretive Data [...] interpretive data was last reviewed 2021. Blood 10/05/2024 7:58 AM CDT 10/05/2024 8:04 AM CDT us María Sanderson MD PhD LAB BLOOD ORDERABLES Final Result [facility] Department [place] [address] * (ABNORMAL) CBC with auto differential (10/05/2024 7:58 AM CDT) WBC 5.76 3.80 - 9.90 K/cumm Comment:Testing performed by : [facility], [address] [place] [address] Hgb 12.0 11.9 - 15.5 g/dL [facility] Comment:Testing performed by : [facility], [address] [place] [address] Hct 36.2 35.6 - 45.5 % [facility] Comment:Testing performed by : [facility], [address] [place] [address] Plt 257 150 - 400 K/cumm [facility] Comment:Testing performed by : [facility], [address] [place] [address] MPV 6.2(L) 6.8 - 10.4 fL [facility] Comment:Testing performed by : [facility], [address] [place] [phone] RBC 4.52 3.90 - 5.20 M/cumm [facility] Comment:Testing performed by : [facility], [address] [place] [address] MCV 80.1(L) 81.3 - 96.4 fL [facility] Comment:Testing performed by : [facility], [address] [place] [address] MCH 26.6(L) 27.1 - 33.3 pg [facility] Comment:Testing performed by : [facility], [address] [place] [address] MCHC 33.2 32.3 - 35.7 g/dL [facility] Comment:Testing performed by : [facility], [address] [place] [address] RDW CV 15.2(H) 11.1 - 14.9 % [facility] Comment:Testing performed by : [facility], [address] [place] [address] NRBC abs 0.00 0.00 - 0.01 K/cumm [facility] Comment:Testing performed by : [facility], [address] [place] [address] Blood 10/05/2024 7:58 AM CDT 10/05/2024 8:03 AM CDT us María Sanderson MD PhD LAB BLOOD ORDERABLES Edited Result - Final [facility]ADRIANA [facility] Department [place] [address] * (ABNORMAL) Manual Differential (10/05/2024 7:58 AM CDT) Cells Counted 200 Comment:Testing performed by : [facility], [address] [place] [address] Neutrophil abs 1.90 1.50 - 6.50 K/cumm JERSON CASTLE Comment:Testing performed by : [facility], [address] [place] [phone] Lymphocyte abs 2.36 0.80 - 3.30 K/cumm [facility] Comment:Testing performed by : [facility], [address] [place] [address] Monocyte abs 0.63 0.20 - 0.80 K/cumm [facility] Comment:Testing performed by : [facility], [address] [place], [place] [id number] Eosinophil abs 0.46 0.00 - 0.50 K/cumm [facility] Comment:Testing performed by : [facility], [address] [place] [address] Basophil abs 0.23(H) 0.00 - 0.10 K/cumm [facility] Comment:Testing performed by : [facility], [address] [place], [place] [id number] Neutrophil pct 33.0 % [facility] Comment: Interpretive Data Percent cell count reference ranges are not reported, since discordance with absolute values may lead to misinterpretation of CBC data. Current Interpretive Data was last revised on 2017. Testing performed by: [facility], [address] [place] [address] Lymphocyte pct 41.0 % [facility] Comment: Interpretive Data Percent cell count reference ranges are not reported, since discordance with absolute values may lead to misinterpretation of CBC data. Current Interpretive Data was last revised on 2017. Testing performed by: [facility], [address] [place] [address] Monocyte pct 11.0 % [facility] Comment: Interpretive Data Percent cell count reference ranges are not reported, since discordance with absolute values may lead to misinterpretation of CBC data. Current Interpretive Data was last revised on 2017. Testing performed by: [facility], [address] [place] [phone] Eosinophil pct 8.0 % [facility] Comment: Interpretive Data Percent cell count reference ranges are not reported, since discordance with absolute values may lead to misinterpretation of CBC data. Current Interpretive Data was last revised on 2017. Testing performed by: [facility], [address] [place] [address] Basophil pct 4.0 % CERNER [facility] Comment: Interpretive Data Percent cell count reference ranges are not reported, since discordance with absolute values may lead to misinterpretation of CBC data. Current Interpretive Data was last revised on 2017. Testing performed by: [facility], [address] [place], [place] [id number] Metamyelocyte pct 3.0(H) 0.0 - 0.0 % CERNER [facility]J Comment:Testing performed by : [facility], [address] [place], [place] [phone] Myelocyte pct 1.0(H) 0.0 - 0.0 % CERNER BJ Comment:Testing performed by : [facility], [address] [place], [place] [phone] Variant lymph pct 1.0(H) 0.0 - 0.0 % CERNER BJ Comment:Testing performed by : [facility], [address] [place], [place] [phone] Smudge cells, qual Present(A) CERNER BJ Comment:Testing performed by : [facility], [address] [place], [place] [phone] RBC morphology NRBCs present(A) CERNER BJ Comment:Testing performed by : [facility], [address] [place], [place] [phone] Hypochromasia 1+(A) CERNER BJ Comment:Testing performed by : [facility], [address] [place], [place] [phone] Poikilocytosis 1+(A) CERNER BJ Comment:Testing performed by : [facility], [address] [place], [place] [phone] Elliptocytes 1+(A) CERNER BJ Comment:Testing performed by : [facility], [address] [place], [place] [phone] Platelet estimate Adequate CERNER BJ Comment:Testing performed by : [facility], [address] [place], [place] [phone] Blood 10/05/2024 7:58 AM CDT 10/05/2024 8:03 AM CDT us María Sanderson MD PhD LAB BLOOD ORDERABLES Final Result [facility] Department [place] [address] * (ABNORMAL) Comprehensive metabolic panel (10/05/2024 7:58 AM CDT) Sodium 140 135 - 145 mmol/L Potassium, pl 3.7 3.3 - 4.9 mmol/L CERNER [facility] Chloride 103 97 - 110 mmol/L CERNER [facility] CO2 27 22 - 32 mmol/L CERNER [facility] Anion gap 10 2 - 15 mmol/L [facility]NER [facility] BUN 10 6 - 25 mg/dL [facility]NER [facility] Creatinine 0.58(L) 0.60 - 1.10 mg/dL [facility]NER [facility] Glucose 136 70 - 199 mg/dL [facility] Comment: Interpretive Data Fasting glucose >/= 126 [...] interpretive data was last revised 2022. Calcium 9.3 8.5 - 10.3 mg/dL CERNER [facility] Bilirubin, total 0.4 0.1 - 1.2 mg/dL CERNER [facility] Protein, pl 6.9 6.5 - 8.5 g/dL CERNER BJ Albumin 4.1 3.5 - 5.0 g/dL [facility]NER [facility] Alk phos 99 40 - 130 Units/L CERNER BJ ALT 42 7 - 45 Units/L CERNER BJ AST 34 10 - 45 Units/L [facility]NER [facility] Blood 10/05/2024 7:58 AM CDT 10/05/2024 8:04 AM CDT María Sanderson MD PhD LAB BLOOD ORDERABLES Final Result JERSON [facility] Department [place] [address] * eGFR (09/14/2024 8:59 AM CDT) eGFR >90 >=60 mL/min/1. 73 m2 Comment: Interpretive Data [...] interpretive data was last reviewed 2021. Blood 09/14/2024 8:59 AM CDT 09/14/2024 9:01 AM CDT us María Sanderson MD PhD LAB BLOOD ORDERABLES Final Result [facility] [place] [address] * (ABNORMAL) Differential, auto (09/14/2024 8:59 AM CDT) Neutrophil abs 2.44 1.50 - 6.50 K/cumm Comment:Testing performed by : [facility], [address] [place] [phone] Lymphocyte abs 1.49 0.80 - 3.30 K/cumm [facility] Comment:Testing performed by : [facility], [address] [place] [phone] Monocyte abs 0.65 0.20 - 0.80 K/cumm [facility] Comment:Testing performed by : [facility], [address] [place], [place] [id number] Eosinophil abs 0.23 0.00 - 0.50 K/cumm [facility] Comment:Testing performed by : [facility], [address] [place] [address] Basophil abs 0.20(H) 0.00 - 0.10 K/cumm [facility] Comment:Testing performed by : [facility], [address] [place], [place] [phone] Neutrophil pct 48.7 % [facility] Comment: Interpretive Data Percent cell count reference ranges are not reported, since discordance with absolute values may lead to misinterpretation of CBC data. Current Interpretive Data was last revised on 2017. Testing performed by: [facility], [address] [place] [phone] Lymphocyte pct 29.8 % [facility] Comment: Interpretive Data Percent cell count reference ranges are not reported, since discordance with absolute values may lead to misinterpretation of CBC data. Current Interpretive Data was last revised on 2017. Testing performed by: [facility], [address] [place] [phone] Monocyte pct 13.0 % [facility] Comment: Interpretive Data Percent cell count reference ranges are not reported, since discordance with absolute values may lead to misinterpretation of CBC data. Current Interpretive Data was last revised on 2017. Testing performed by: [facility], [address] [place] [phone] Eosinophil pct 4.5 % [facility] Comment: Interpretive Data Percent cell count reference ranges are not reported, since discordance with absolute values may lead to misinterpretation of CBC data. Current Interpretive Data was last revised on 2017. Testing performed by: [facility], [address] [place] [address] Basophil pct 4.0 % JERSON CASTLE Comment: Interpretive Data Percent cell count reference ranges are not reported, since discordance with absolute values may lead to misinterpretation of CBC data. Current Interpretive Data was last revised on 2017. Testing performed by: [facility], [address] [place] [address] Blood 09/14/2024 8:59 AM CDT 09/14/2024 9:01 AM CDT María Sanderson MD PhD LAB BLOOD ORDERABLES Final Result JERSON CASTLE [facility] Department [place] [address] * (ABNORMAL) CBC with auto differential (09/14/2024 8:59 AM CDT) WBC 5.01 3.80 - 9.90 K/cumm Comment:Testing performed by : [facility], [address] [place] [address] Hgb 11.6(L) 11.9 - 15.5 g/dL JERSON CASTLE Comment:Testing performed by : [facility], [address] [place] [address] Hct 34.6(L) 35.6 - 45.5 % JERSON CASTLE Comment:Testing performed by : [facility], [address] [place] [address] Plt 232 150 - 400 K/cumm JERSON CASTLE Comment:Testing performed by : [facility], [address] [place] [address] MPV 6.0(L) 6.8 - 10.4 fL JERSON CASTLE Comment:Testing performed by : [facility], [address] [place] [address] RBC 4.30 3.90 - 5.20 M/cumm JERSON CASTLE Comment:Testing performed by : [facility], [address] [place], [place] [phone] MCV 80.4(L) 81.3 - 96.4 fL JERSON CASTLE Comment:Testing performed by : [facility], [address] [place], [place] [phone] MCH 26.9(L) 27.1 - 33.3 pg JERSON CASTLE Comment:Testing performed by : [facility], [address] [place], [place] [phone] MCHC 33.5 32.3 - 35.7 g/dL JERSON CASTLE Comment:Testing performed by : [facility], [address] [place], [place] [phone] RDW CV 14.4 11.1 - 14.9 % JERSON CASTLE Comment:Testing performed by : [facility], [address] [place], [place] [phone] NRBC abs 0.00 0.00 - 0.01 K/cumm JERSON [facility] Comment:Testing performed by : [facility], [address] [place], [place] [phone] Blood 09/14/2024 8:59 AM CDT 09/14/2024 9:01 AM CDT us María Sanderson MD PhD LAB BLOOD ORDERABLES Final Result [facility]AD[facility]ANA [facility] Department [place] [address] * Comprehensive metabolic panel (09/14/2024 8:59 AM CDT) Sodium 141 135 - 145 mmol/L Potassium, pl 3.9 3.3 - 4.9 mmol/L [facility] Chloride 105 97 - 110 mmol/L [facility] CO2 27 22 - 32 mmol/L [facility] Anion gap 9 2 - 15 mmol/L [facility] BUN 13 6 - 25 mg/dL [facility] Creatinine 0.61 0.60 - 1.10 mg/dL [facility] Glucose 108 70 - 199 mg/dL [facility] Comment: Interpretive Data Fasting glucose >/= 126 [...] interpretive data was last revised 2022. Calcium 9.2 8.5 - 10.3 mg/dL [facility] Bilirubin, total 0.3 0.1 - 1.2 mg/dL [facility] Protein, pl 7.0 6.5 - 8.5 g/dL [facility] Albumin 4.1 3.5 - 5.0 g/dL [facility] Alk phos 92 40 - 130 Units/L [facility] ALT 24 7 - 45 Units/L [facility] AST 23 10 - 45 Units/L [facility] Blood 09/14/2024 8:59 AM CDT 09/14/2024 9:01 AM CDT María Sanderson MD PhD LAB BLOOD ORDERABLES Final Result [facility] Department [place] [address] * eGFR (08/31/2024 12:05 PM CDT) eGFR >90 >=60 mL/min/1. 73 m2 Comment: Interpretive Data [...] interpretive data was last reviewed 2021. Blood 08/31/2024 12:0 5 PM CDT 08/31/2024 12:11 PM CDT us María Sanderson MD PhD LAB BLOOD ORDERABLES Final Result JERSON CASTLE [facility] Department [place] [address] * (ABNORMAL) Differential, auto (08/31/2024 12:05 PM CDT) Neutrophil abs 6.55(H) 1.50 - 6.50 K/cumm Comment:Testing performed by : [facility], [address] [place] [phone] Lymphocyte abs 2.28 0.80 - 3.30 K/cumm JERSON CASTLE Comment:Testing performed by : [facility], [address] [place] [phone] Monocyte abs 0.99(H) 0.20 - 0.80 K/cumm JERSON CASTLE Comment:Testing performed by : [facility], [address] [place] [phone] Eosinophil abs 0.17 0.00 - 0.50 K/cumm JERSON CASTLE Comment:Testing performed by : [facility], [address] [place] [phone] Basophil abs 0.09 0.00 - 0.10 K/cumm CERADRIANA BJ Comment:Testing performed by : [facility], [address] [place] [phone] Neutrophil pct 65.0 % JERSON CASTLE Comment: Interpretive Data Percent cell count reference ranges are not reported, since discordance with absolute values may lead to misinterpretation of CBC data. Current Interpretive Data was last revised on 2017. Testing performed by: [facility], [address] [place] [phone] Lymphocyte pct 22.6 % CERNER BJ Comment: Interpretive Data Percent cell count reference ranges are not reported, since discordance with absolute values may lead to misinterpretation of CBC data. Current Interpretive Data was last revised on 2017. Testing performed by: [facility], [address] [place] [phone] Monocyte pct 9.9 % CERNER [facility] Comment: Interpretive Data Percent cell count reference ranges are not reported, since discordance with absolute values may lead to misinterpretation of CBC data. Current Interpretive Data was last revised on 2017. Testing performed by: [facility], [address] [place] [address] Eosinophil pct 1.7 % [facility] Comment: Interpretive Data Percent cell count reference ranges are not reported, since discordance with absolute values may lead to misinterpretation of CBC data. Current Interpretive Data was last revised on 2017. Testing performed by: [facility], [address] [place] [phone] Basophil pct 0.9 % [facility] Comment: Interpretive Data Percent cell count reference ranges are not reported, since discordance with absolute values may lead to misinterpretation of CBC data. Current Interpretive Data was last revised on 2017. Testing performed by: [facility], [address] [place] [phone] Blood 08/31/2024 12:0 5 PM CDT 08/31/2024 12:06 PM CDT us María Sanderson MD PhD LAB BLOOD ORDERABLES Final Result [facility] Department [place] [address] * (ABNORMAL) CBC with auto differential (08/31/2024 12:05 PM CDT) WBC 10.08(H) 3.80 - 9.90 K/cumm Comment:Testing performed by : [facility], [address] [place] [address] Hgb 12.4 11.9 - 15.5 g/dL CERNER BJ Comment:Testing performed by : [facility], [address] [place] [address] Hct 36.4 35.6 - 45.5 % CERNER BJ Comment:Testing performed by : [facility], [address] [place] [address] Plt 348 150 - 400 K/cumm CERNER BJ Comment:Testing performed by : [facility], [address] [place] [address] MPV 6.1(L) 6.8 - 10.4 fL CERNER BJ Comment:Testing performed by : [facility], [address] [place] [address] RBC 4.60 3.90 - 5.20 M/cumm CERNER BJ Comment:Testing performed by : [facility], [address] [place] [address] MCV 79.1(L) 81.3 - 96.4 fL CERNER BJ Comment:Testing performed by : [facility], [address] [place] [address] MCH 26.9(L) 27.1 - 33.3 pg CERNER BJ Comment:Testing performed by : [facility], [address] [place] [address] MCHC 34.0 32.3 - 35.7 g/dL CERNER BJ Comment:Testing performed by : [facility], [address] [place] [address] RDW CV 13.8 11.1 - 14.9 % CERNER BJ Comment:Testing performed by : [facility], [address] [place] [address] NRBC abs 0.00 0.00 - 0.01 K/cumm [facility] Comment:Testing performed by : [facility], [address] [place] [address] Blood 08/31/2024 12:0 5 PM CDT 08/31/2024 12:06 PM CDT us María Sanderson MD PhD LAB BLOOD ORDERABLES Final Result [facility] Department [place] [address] * Comprehensive metabolic panel (08/31/2024 12:05 PM CDT) Sodium 139 135 - 145 mmol/L Potassium, pl 4.1 3.3 - 4.9 mmol/L [facility] Chloride 102 97 - 110 mmol/L [facility] CO2 27 22 - 32 mmol/L [facility] Anion gap 10 2 - 15 mmol/L [facility] BUN 10 6 - 25 mg/dL [facility] Creatinine 0.61 0.60 - 1.10 mg/dL [facility] Glucose 105 70 - 199 mg/dL [facility] Comment: Interpretive Data Fasting glucose >/= 126 [...] 2022. Calcium 9.8 8.5 - 10.3 mg/dL [facility] Bilirubin, total 0.6 0.1 - 1.2 mg/dL [facility] Protein, pl 7.9 6.5 - 8.5 g/dL [facility] Albumin 4.5 3.5 - 5.0 g/dL [facility] Alk phos 92 40 - 130 Units/L [facility] ALT 22 7 - 45 Units/L [facility] AST 30 10 - 45 Units/L [facility] Blood 08/31/2024 12:0 5 PM CDT 08/31/2024 12:11 PM CDT María Sanderson MD PhD LAB BLOOD ORDERABLES Final Result Performing Organization Address City/[facility]/ZIP Co de Phone Number JERSON CASTLE [facility] Department [place] [address] * CT Body Outside Reference (08/24/2024 10:12 AM CDT) Impressions RAD_[facility] - 08/24/2024 10:12 AM CDT These images are for Reference purposes only and have not been reviewed by [facility]. There will be no report generated by a [facility] Radiologist. Narrative [facility] - 08/24/2024 10:12 AM CDT EXAMINATION: Images For Reference Purposes Only María Sanderosn MD PhD IMG CT PROCEDURES Final Res ult Performing Organization Address [facility] Co de Phone Number [email or web address] * eGFR (08/17/2024 3:48 PM CDT) eGFR [...] 3:48 PM CDT 08/17/2024 4:27 PM CDT María Sanderson MD PhD LAB BLOOD ORDERABLES Final Result [facility] Department [place] [address] * (ABNORMAL) Differential, auto (08/17/2024 3:48 PM CDT) Neutrophil abs 8.26(H) 1.50 - 6.50 K/cumm Comment:Testing performed by : [facility], [address] [place] [address] Lymphocyte abs 2.69 0.80 - 3.30 K/cumm CERNER [facility] Comment:Testing performed by : [facility], [address] [place] [phone] Monocyte abs 1.09(H) 0.20 - 0.80 K/cumm CERNER BJ Comment:Testing performed by : [facility], [address] [place], [place] [phone] Eosinophil abs 0.38 0.00 - 0.50 K/cumm CERNER BJ Comment:Testing performed by : [facility], [address] [place] [phone] Basophil abs 0.08 0.00 - 0.10 K/cumm CERNER BJ Comment:Testing performed by : [facility], [address] [place] [phone] Neutrophil pct 66.1 % CERNER BJ Comment: Interpretive Data Percent cell count reference ranges are not reported, since discordance with absolute values may lead to misinterpretation of CBC data. Current Interpretive Data was last revised on 2017. Testing performed by: [facility], [address] [place] [phone] Lymphocyte pct 21.6 % CERNER [facility] Comment: Interpretive Data Percent cell count reference ranges are not reported, since discordance with absolute values may lead to misinterpretation of CBC data. Current Interpretive Data was last revised on 2017. Testing performed by: [facility], [address] [place] [phone] Monocyte pct 8.7 % JERSON [facility] Comment: Interpretive Data Percent cell count reference ranges are not reported, since discordance with absolute values may lead to misinterpretation of CBC data. Current Interpretive Data was last revised on 2017. Testing performed by: [facility], [address] [place] [phone] Eosinophil pct 3.0 % JERSON [facility] Comment: Interpretive Data Percent cell count reference ranges are not reported, since discordance with absolute values may lead to misinterpretation of CBC data. Current Interpretive Data was last revised on 2017. Testing performed by: [facility], [address] [place] [phone] Basophil pct 0.6 % JERSON [facility] Comment: Interpretive Data Percent cell count reference ranges are not reported, since discordance with absolute values may lead to misinterpretation of CBC data. Current Interpretive Data was last revised on 2017. Testing performed by: [facility], [address] [place] [phone] Blood 08/17/2024 3:48 PM CDT 08/17/2024 3:52 PM CDT us María Sanderson MD PhD LAB BLOOD ORDERABLES Final Result [facility] Department [place] [address] * (ABNORMAL) CBC with auto differential (08/17/2024 3:48 PM CDT) WBC 12.48(H) 3.80 - 9.90 K/cumm Comment:Testing performed by : [facility], [address] [place] [address] Hgb 13.2 11.9 - 15.5 g/dL CERNER BJ Comment:Testing performed by : [facility], [address] [place] [address] Hct 40.2 35.6 - 45.5 % CERNER BJ Comment:Testing performed by : [facility], [address] [place] [address] Plt 327 150 - 400 K/cumm CERNER [facility] Comment:Testing performed by : [facility], [address] [place] [address] MPV 6.4(L) 6.8 - 10.4 fL CERNER BJ Comment:Testing performed by : [facility], [address] [place] [address] RBC 4.94 3.90 - 5.20 M/cumm CERNER BJ Comment:Testing performed by : [facility], [address] [place] [address] MCV 81.5 81.3 - 96.4 fL CERNER BJ Comment:Testing performed by : [facility], [address] [place] [address] MCH 26.7(L) 27.1 - 33.3 pg CERNER BJ Comment:Testing performed by : [facility], [address] [place] [address] MCHC 32.8 32.3 - 35.7 g/dL CERNER BJ Comment:Testing performed by : [facility], [address] [place] [address] RDW CV 13.9 11.1 - 14.9 % CERNER BJ Comment:Testing performed by : [facility], [address] [place] [address] NRBC abs 0.00 0.00 - 0.01 K/cumm CERNER BJ Comment:Testing performed by : [facility], [address] [place] [address] Blood 08/17/2024 3:48 PM CDT 08/17/2024 3:52 PM CDT María Sanderson MD PhD LAB BLOOD ORDERABLES Final Result Performing Organization Address [facility] Co de Phone Number [facility] [place] [address] * aPTT (08/17/2024 3:48 PM CDT) aPTT [...] BLOOD ORDERABLES Final Result Performing Organization Address [facility] Co de Phone Number [facility] [place] [address] * Protime-INR (08/17/2024 3:48 PM CDT) PT 12.0 9.7 - 13.0 sec INR 1.11 0.90 - 1.20 [facility] Comment: Interpretive data Oral anticoagulant therapeutic ranges: Venous thromboembolism prophylaxis or treatment: 2.0-3.0 CARDIOLOGY Standard range: 2.0-3.0 High-intensity range: 2.5-3.5 Refer to indication-specific guidelines for appropriate target ranges for prosthetic heart valve replacement. Current interpretive data was last revised on 2019. Blood 08/17/2024 3:48 PM CDT 08/17/2024 4:11 PM CDT us María Sanderson MD PhD LAB BLOOD ORDERABLES Final Result Performing Organization Address [facility] Co de Phone Number [facility] [place] [address] * CEA (08/17/2024 3:48 PM CDT) Pathologist [facility] CEA 1.3 <=5.0 ng/mL Comment: Interpretive Data: [...] MD PhD LAB BLOOD ORDERABLES Final Result [facility] Department [place] [address] * Comprehensive metabolic panel (08/17/2024 3:48 PM CDT) Pathologist [facility] Sodium 142 135 - 145 mmol/L Potassium, pl 4.7 3.3 - 4.9 mmol/L [facility] Chloride 104 97 - 110 mmol/L [facility] CO2 29 22 - 32 mmol/L [facility] Anion gap 9 2 - 15 mmol/L [facility] BUN 11 6 - 25 mg/dL [facility] Creatinine 0.73 0.60 - 1.10 mg/dL [facility] Glucose 89 70 - 199 mg/dL [facility] Comment: Interpretive Data Fasting glucose >/= 126 [...] 2022. Calcium 9.8 8.5 - 10.3 mg/dL [facility] Bilirubin, total 0.9 0.1 - 1.2 mg/dL [facility] Protein, pl 8.1 6.5 - 8.5 g/dL CERNER [facility] Albumin 4.5 3.5 - 5.0 g/dL CERNER [facility] Alk phos 93 40 - 130 Units/L CERNER [facility] ALT 28 7 - 45 Units/L [facility] AST 31 10 - 45 Units/L [facility] Blood 08/17/2024 3:48 PM CDT 08/17/2024 4:11 PM CDT us María Sanderson MD PhD LAB BLOOD ORDERABLES Final Result [facility] Department [place] [address] * [facility]us xT DNA and RNA (08/17/2024 3:27 PM CDT) Reason for Study To identify somatic and germline mutations relevant to patient's cancer. 09/03/2024 9:07 AM CDT [facility] Genetic Diseases Assessed Cancer 09/03/2024 9:07 AM CDT [facility] Description of Ranges of DNA Sequences Examined 648 gene panel 09/03/2024 9:07 AM CDT [facility] Overall Interpretation positive 09/03/2024 9:07 AM CDT [facility] MSI Stable 09/03/2024 9:07 AM CDT [facility] TMB 3.2 m/MB 09/03/2024 9:07 AM CDT [facility] Portal [email or web address] [email or web address]. [id number] [id number] 09/03/2024 9:07 AM CDT [facility] Comment:[facility] link MMR Overall Result normal 09/03/2024 9:07 AM CDT [facility] MLH1 Presence or Absence present 09/03/2024 9:07 AM CDT [facility] PMS2 Presence or Absence present 09/03/2024 9:07 AM CDT [facility] MSH2 Presence or Absence present 09/03/2024 9:07 AM CDT [facility] MSH6 Presence or Absence present 09/03/2024 9:07 AM CDT [facility] PD-L1 Interpretation by 22C3 negative 09/03/2024 9:07 AM CDT [facility] PD-L1 (22C3) Combined Positive Score <1 09/03/2024 9:07 AM CDT [facility] PD-L1 (22C3) Tumor Proportion Score <1 % 09/03/2024 9:07 AM CDT [facility] HRD Interpretation Not Detected 09/03/2024 9:07 AM CDT [facility] HRD Analysis Type RNA 9:07 AM CDT [facility] HRD RNA Score 0.4 09/03/2024 9:07 AM CDT [facility] HRD RNA Threshold 50 025 9:07 AM CDT [facility] Pertinent Negatives KRAS, BRAF, NRAS 09/03/2024 9:07 AM CDT [facility] Low Coverage Regions KDM5D, PMS2 09/03/2024 9:07 AM CDT [facility] Therapy Count 1 09/03/2024 9:07 AM CDT [facility] Tempus: Potential Therapy 1 Gene: N/A Variant: Wild type: KRAS, NRAS Match Type: wildType Match Type Description: Wild type: KRAS, NRAS Agent: Cetuximab or Panitumumab Drug Class: Anti-EGFR MAb Tissue: Colorectal Cancer Association: Response Evidence Status: Consensus Evidence ID: NCCN NCCN Associated Evidence: Consensus, Colorectal Cancer MSK Associated Evidence: MSK OncoKB, Level 1 Label: FDA On Label FDA Approved?: Yes On label?: Yes 09/03/2024 9:07 AM CDT [facility] Trial Count 3 09/03/2024 9:07 AM CDT [facility] Tempus: Clinical Trial Match 1 Clinical Trial NCT ID: [id number] Clinical Trial Title: FOG-001 in Locally Advanced or Metastatic Solid Tumors Clinical Trial URL: https://clinicaltri als.gov/ct2/show/NC G70656523 Clinical Phase: Phase 1/Phase 2 Clinical Trial Matches: APC p.Q223* mutation, APC p.R213* mutation Clinical Trial Distance and Location: [address] [place], [place] 09/03/2024 9:07 AM CDT [facility] Tempus: Clinical Trial Match 2 Clinical Trial NCT ID: [id number] Clinical Trial Title: Study Of ATRN-119 In Patients With Advanced Solid Tumors Clinical Trial URL: https://clinicaltri als.gov/ct2/show/NC C10726476 Clinical Phase: Phase 1/Phase 2 Clinical Trial Matches: TP53 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 Clinical Trial Distance and Location: [address] [place], [place] 09/03/2024 9:07 AM CDT [facility] Tempus: Clinical Trial Match 3 Clinical Trial NCT ID: [id number] Clinical Trial Title: Trifluridine/Tipira cil and Talazoparib for the Treatment of Patients With Locally Advanced or Metastatic Colorectal or Gastroesophageal Cancer Clinical Trial URL: https://clinicaltri als.gov/ct2/show/NC J75638927 Clinical Phase: Phase 1 Clinical Trial Matches: TP53 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 No gene rearrangements nor reportable altered splicing events were identified from RNA sequencing. 09/03/2024 9:07 AM CDT [facility] Germline Variant Note No potential germline variants were found in the limited set of genes on which we report. 09/03/2024 9:07 AM CDT [facility] HLA-A Typing A*01:01,A*11:01 9:07 AM CDT [facility] HLA-B Typing B*08:01,B*57:01 9:07 AM CDT [facility] HLA-C Typing C*06:02,C*07:01 9:07 AM CDT [facility] HLA-A Ambiguous Alleles Yes 09/03/2024 9:07 AM CDT [facility] HLA-B Ambiguous Alleles Yes 09/03/2024 9:07 AM CDT [facility] HLA-C Ambiguous Alleles Yes 09/03/2024 9:07 AM CDT [facility] HLA-A Sample Type Normal Only 2024 9:07 AM CDT [facility] HLA-B Sample Type Normal Only 2024 9:07 AM CDT [facility] HLA-C Sample Type Normal Only 2024 9:07 AM CDT [facility] Tissue specimen (specimen) 08/17/2024 3:27 PM CDT 08/21/2024 12:31 PM CDT Narrative This result has genomic variants that were not included in this document. María Sanderson MD PhD LAB GENETIC TESTING Edited Result - Final [facility] [address] [facility], [address] [phone] [facility] [address] [facility] [address], [address] [place] [address] * [facility] xF (08/17/2024 3:27 PM CDT) Reason for Study To identify mutations relevant to patient's cancer. 08/26/2024 10:00 AM CDT [facility] Genetic Diseases Assessed Cancer 08/26/2024 10:00 AM CDT [facility] Description of Ranges of DNA Sequences Examined 523 gene liquid biopsy 08/26/2024 10:00 AM CDT [facility] Overall Interpretation positive 08/26/2024 10:00 AM CDT [facility] Portal [email or web address] [email or web address]. om/[id number] 08/26/2024 10:00 AM CDT [facility] Comment:[facility] link Low Coverage Regions ATRX, WBL52Y5, DNMT1, FANCC, GNA11, HDAC2, KDM5D, NOTCH1, NOTCH2, PPP6C, RAD51C, RHOA, RXRA, SDHAF2, TGFBR1, TP63 08/26/2024 10:00 AM CDT [facility] Trial Count 2 08/26/2024 10:00 AM CDT [facility] Tempus: Clinical Trial Match 1 Clinical Trial NCT ID: [id number] Clinical Trial Title: Study Of ATRN-119 In Patients With Advanced Solid Tumors Clinical Trial URL: https://clinicaltri als.gov/ct2/show/NC J22836083 Clinical Phase: Phase 1/Phase 2 Clinical Trial Matches: TP53 p.H214R mutation Clinical Trial Distance and Location: [address] [place], [place] 08/26/2024 10:00 AM CDT [facility] Tempus: Clinical Trial Match 2 Clinical Trial NCT ID: [id number] Clinical Trial Title: Trifluridine/Tipira cil and Talazoparib for the Treatment of Patients With Locally Advanced or Metastatic Colorectal or Gastroesophageal Cancer Clinical Trial URL: https://clinicaltri als.gov/ct2/show/NC Z02366174 Clinical Phase: Phase 1 Clinical Trial Matches: TP53 p.H214R mutation Clinical Trial Distance and Location: [address] [place], [place] 08/26/2024 10:00 AM CDT [facility] Tumor Mutational Badin 2.2 m/MB 08/26/2024 10:00 AM CDT [facility] Microsatellite Instability Note MSI-High not detected 08/26/2024 10:00 AM CDT [facility] Treatment Implications Note No reportable treatment options found. 08/26/2024 10:00 AM CDT [facility] Blood specimen (specimen) 08/17/2024 3:27 PM CDT 08/19/2024 12:15 AM CDT Narrative This result has genomic variants that were not included in this document. us María Sanderson MD PhD LAB GENETIC TESTING Final R esult [facility] [address] [facility], [address] [place], [place] [address]RUST [phone] [facility] [address], [address] [place] [address] * Surgical pathology (08/10/2024 9:18 AM CDT) Tissue (Miscellaneous) 08/10/2024 9:18 AM CDT 08/10/2024 9:18 AM CDT Narrative [facility] - 08/11/2024 12:22 PM CDT EPIC results best viewed via link to PDF [facility] Pathology Consult Service [address], [place] [address] Note to Patients: This report [...] SURGICAL PATHOLOGY REPORT * Consult Report * [facility] is providing an additional review of previously collected tissue. FINAL Patient Name: RUTH RIVERA Address: [address] [place] [address] Gender: F : 1955 (Age: 69) Hospital #: [id number] Patient Type: [facility] Location: UNKNOWN Taken: 08/10/2024 Received: 08/10/2024 Accessioned: 08/10/2024 Reported: 08/11/2024 Physician(s): María Sanderson M.D. [facility] Department of Pathology [facility] [place] [address] P: [phone] F: [phone] Diagnosis: Consult material received from [place], [place] (OSC: [id number]; 06/15/2024). A. 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 A. Large bowel, sigmoid colon, sigmoidectomy [...] The provided stains were reviewed for OSC [id number]. OSC: [id number] The results of MMR IHC are as [...] Received for review are six slides labeled [id number] and fifteen slides labeled [id number], accompanied by a corresponding pathology report. The material originates from [place], [place] . Selected slide(s) may be digitally scanned for our files, and all materials are returned to the referring institution, along with a copy of our final report. Any testing required for diagnostic purposes was performed in the Department of Pathology and Immunology at [facility] [address] [address] [place] # [id number] The performance characteristics of the testing cited in this report (if any) were determined by the [facility] Department of Pathology and Immunology [facility], as part of an ongoing quality manager program and in compliance with federally mandated [...] and the performance characteristics determined by the [facility], [facility] Department of Pathology and Immunology. It has not been cleared or approved by the U.S. Food and Drug Administration. Any test designated as LDT was developed and its performance characteristics determined by [facility]. It has not been cleared or approved by the FDA. This test is used for clinical purposes and should not be regarded as investigational or for research. Report images and/or scanned reports, if included, only viewable in PDF version of report. María Sanderson MD PhD LAB PATHOLOGY ORDERABLES [facility] Result [facility] [address] [address] from Last 3 Months Insurance [facility] [place] [id number] Care Teams Furniture Crater Relationship Specialty Start Date End Date Arnaldo Hurtado MD [address] [place] [address] PCP - General Family Practice 07/29/24 María Sanderson MD PhD [address] [place] [address] Medical Oncologist/Screen Printing Loader Unloader Medical Oncology 07/29/24
--- OUTSIDE RECORDS SUMMARY | 2024-10-21 17:21 | XMS_ITS ---
Author Name TYSNO STONE APRN Address [address] [facility] [place] [address] Phone [phone] Organization [facility] ([facility]) Care Team Providers Care Talent Buyer Name Role Phone TYSON STONE Unavailable [phone] Arnaldo Hurtado Unavailable [phone] Reason for Referral Not Available Allergies, adverse reactions, alerts No known allergies History of medication use Medication Class Instructions Start Date End Date Apixoaw-Xvfnhjsox-Mrsr 333.33/133.33/5 mg Tab once a day 2024-06-18 [...] making, total time 30-44 minutes [facility] [place] 06/18/2024 Essential (primary) hypertensionType 2 diabetes mellitus [...] medical decision making, total time 30-44 minutes [address] 2024-06-18 No Data Available No Data Availa [...]
--- OUTSIDE RECORDS SUMMARY | 2024-10-21 17:21 | XMS_ITS | Encounter Summary ---
Author Organization [facility] Address [address] [place] [address] Phone Care Team Providers Care Mechanic General Operational Test Name Role Phone Arnaldo Hurtado MD Primary Care Provider [phone] María Sanderson MD PhD Unavailable [phone] Reason for Visit * Reason Onset Date Comments Facial Swelling 10/21/2024 Encounter Details Date Type Department Care Team (Late st Contact Info) Description 10/21/2024 Telephone [facility] Oncology [address] [facility] [address] [place] [address] Kate Hussein RN Facial Swelling Social History Tobacco Use Types Packs/Day Years Used Date Smoking Tobacco: Former Cigarettes 0 03/1999 - 03/1996 Smokeless Tobacco: Never Comments Unknown Sex and Gender Information Value Date Recorded Sex Assigned at Not on file Legal Sex Female 6:37 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 Shereported that she disconnected her 5FU pump as she normally does, ran errands, took a nap, and wokeup with the swelling. The swelling is on the same side as her port-a-cath. As of now - she denied all other symptoms (shortness of breath, trouble swallowing, dizziness, pain, etc) related to the swelling. Discussed with Dr Sanderson who recommended pt be evaluated as it is unclear what the cause of the swelling is and we do not want it to get worse. Reviewed case with [facility] who recommend ER given location of swelling and concerns for the development of angioedema. Called pt again who is in agreement to proceed to the ER. She plans to go locally to get treatment as soon as possible and will update me as she can. Will send a reminder to follow up with patient as well. documented in this encounter Plan of Treatment Not on file documented as of this encounter Visit Diagnoses Not on filedocumented in this encounter Care Teams Mechanic General Operational Test Relationship Specialty Start Date End Date Arnaldo Hurtado MD [address] [address] PCP - General Family Practice 07/29/24 María Sanderson MD PhD [address] [place] [address] Medical Oncologist/Head Mixer Medical Oncology 07/29/24 documented as of this encounter
--- OUTSIDE RECORDS SUMMARY | 2024-10-21 17:21 | XMS_ITS | Encounter Summary ---
Author Organization [facility] Address [address] [place] [address] Phone Care Team Providers Care Beeswax Bleacher Name Role Phone Arnaldo Hurtado MD Primary Care Provider [phone] Luis Allen MD PhD Unavailable [phone] Encounter Details Date Type Department Care Team (Late st Contact Info) Description 10/08/2024 Telephone [facility] Cardiology [address] [facility] 8th [place] [address] [place] [address] Emily Noel Social History Tobacco Use Types Packs/Day Years Used Date Smoking Tobacco: Former Cigarettes 0 03/1999 - 03/1996 Smokeless Tobacco: Never Comments Unknown Sex and Gender Information Value Date Recorded Sex Assigned at Not on file Legal Sex Female 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 Requested records from PCP * Telephone Encounter - Emily Noel - 10/08/2024 11:46 AM CDT Diagnosis/Reason for Appointment: C18.9 (ICD-10-CM) - Malignant neoplasm of colon, unspecified part of colon (HCC) low heart rate, shortness of breath heart disease in family Referring Physician: LUIS ALLEN Ref Ph: If Referring MD is not PCP, list specialty: Oncologist Triage Questions Yes No Who/Where/When/Notes Have you ever been diagnosed with cancer, or undergone cancer treatments? [x] [] If 'Yes', Schedulefirst available with Cardio-Oncology If yes where were you treated? [facility] Have you ever seen a Media Consultant Outside Sales in an office setting? [] [x] Is this a heart condition that has existed since (congenital)? [] [x] IF SCHEDULING PATIENT WITH MATERNAL Have you had a baby in the last year or are you ? (If yes send to Dr. Gonzalez for review) [] [] Have you had heart or blood pressure problems during a previous ? (If yes send to Dr. Gonzalez for review) [] [] Dr. Lynne Mederos Patients only: Are you a hemodialysis or peritoneal dialysis patient? (If yes then patient must be referred from another MD, DO NOT SCHEDULE) [] [] Are you a child care group leader? (If yes schedule in Sports Medicine clinic [] [x] Patient History Questions Yes No Where/When/Notes Have you EVER been hospitalized for ANY cardiac issue? [] [x] Have you ever had any cardiac testing, imaging, or procedures? (Testing - echo, EKG, stress) (Imaging - Cardiac MRI, CT or calcium scoring) (Procedure - Ablation, Cardioversion, CABG, Cath) [] [x] Have you ever had a sleep study? [] [x] Do you have a device? If yes what type? (Pacemaker, Defibrillator, Implanted Loop Recorder) [] [x] If yes, where and when was device put in? Security Controls Assessor? ([employer], [employer], [employer]) Appointment Date: 11-12-2024 Provider: Jose Location: [facility] [x] Confirm appt date, time, provider and location. [x] Advise pt to arrive 15- 20 min early. [x] Advise patient to bring medications/list, photo ID and insurance card [x] Advise of New PatientPacket being mailed to them. documented in this encounter Plan of Treatment Not on file documented as of this encounter Visit Diagnoses Not on filedocumented in this encounter Care Teams Beeswax Bleacher Relationship Specialty Start Date End Date Arnaldo Hurtado MD [address] [place] [address] PCP - General Family Practice 07/29/24 Luis Allen MD PhD [address] [place] [address] Medical Oncologist/Parts Sales Associate Medical Oncology 07/29/24 documented as of this encounter
[2024-10-21 17:27] VITALS: BP 134/68; PULSE 65; RESP 16; TEMP 36.4; O2SAT 98
--- NOTE | 2024-10-21 17:31 | ED_ITS ---
HPI - General Adult General Chief complaint: Unspecified <Kellie Can CLAMP TRUCK DRIVER - Last Filed: 10/21/24 17:35> Stated complaint: jaw swelling on port-a-cath side <Kellie Can CLAMP TRUCK DRIVER - Last Filed: 10/21/24 17:35> Time Seen by Provider: 10/21/24 17:25 <Kellie aCn CLAMP TRUCK DRIVER - Last Filed: 10/21/24 17:35> Focused HPI: Patient is a 69-year-old female who presents to the ER with a right swollen neck. She reports she has a port placed in her right chest. Patient received chemotherapy today without incident. She reports after she left [place] her neck started swelling. Patient denies any shortness a breath, difficulty swallowing, or extreme pain. She endorses a history of colon cancer, diabetes, and thyroid disorder. GENERAL: Well-appearing, well-nourished, and in no acute distress. HEAD: Normocephalic, atraumatic. + edema R neck CHEST: Clear to auscultation. ?No respiratory distress. HEART: Regular rate and rhythm.? NEURO: ?Alert and oriented x3. Patient screened in triage and initial orders placed.? ?Additional care and disposition to be based upon?diagnostic testing and treatment. <Kellie Can, CLAMP TRUCK DRIVER - Last Filed: 10/21/24 17:35> Focused HPI: Patient is a 69-year-old female who [facility] ER with a right swollen neck. She reports she has a port placed in her right chest. Patient received chemotherapy today without incident. She reports after she left [place] her neck started swelling. Patient denies any shortness a breath, difficulty swallowing, or extreme pain. She endorses a history of colon cancer, diabetes, and thyroid disorder. GENERAL: Well-appearing, well-nourished, and in no acute distress. HEAD: Normocephalic, atraumatic. + jaw swelling right sided, localized, mild, no significant TTP or fluctuance, no edema in the neck or chest. CHEST: Clear to auscultation. ?No respiratory distress. port site CDI, no overlying erythema or swelling, no crepitus or masses with palpation. HEART: Regular rate and rhythm.? NEURO: ?Alert and oriented x3. Patient screened in triage and initial orders placed.? ?Additional care and disposition to be based upon?diagnostic testing and treatment. <Ayden Bailey MD - Last Filed: 10/22/24 06:45> History of Present Illness HPI narrative: Agree with the HPI above <Ayden Bailey MD - Last Filed: 10/22/24 06:45> Related Data Home medications: Home Medications ?Medication ?Instructions ?Recorded ?Confirmed ?Last Taken ?Type melatonin 1 mg tablet 1 mg PO DAILY 02/10/19 08/31/24 08/20/24 History cholecalciferol (vitamin D3) 125 125 mcg PO DAILY 11/15/20 08/31/24 08/16/24 History mcg (5,000 unit) capsule cetirizine 10 mg tablet (Zyrtec) 10 mg PO DAILY PRN allergies 05/09/21 08/31/24 07/19/24 History calcium 500 mg tablet 500 mg PO DAILY 12/17/23 08/31/24 08/16/24 History nystatin 100,000 unit/gram topical 1 applic topical EVERY OTHER DAY 07/15/24 08/31/24 Unknown History ointment triamcinolone acetonide 0.1 % 1 applic topical EVERY OTHER DAY 07/15/24 08/31/24 Unknown History topical ointment <Kellie Can APRN - Last Filed: 10/21/24 17:35> Allergies/adverse reactions: Allergies Allergy/AdvReac Type Severity Reaction Status Date / Time ART Inhibitors AdvReac Mild cough Verified 10/21/24 17:29 <Kellie Can APRN - Last Filed: 10/21/24 17:35> [facility] Past Medical History Medical History: Medical History Thyroid disorder Vitamin D deficiency 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 Marquez S/P cholecystectomy History of carpal tunnel surgery History of cholecystectomy 2017 [place] teeth removed H/O: hysterectomy 2019 H/O section <Kellie Can, CLAMP TRUCK DRIVER - Last Filed: 10/21/24 17:35> Family History Family History: Family History Father Family history of hepatitis Family history of liver disease Family history of cardiovascular disease Family history of heart disease in male family member before age 55 Heart problem Hypertension Sibling Family history of hypothyroidism Diabetes mellitus Hypertension Family history of cardiovascular disease Asthma Mother Cerebrovascular accident, Onset Age: 83 Diabetes mellitus Family history of cardiovascular disease Family history of chronic obstructive pulmonary disease Heart problem Hypertension Sibling Hypertension Other Family history of coronary artery disease <Kellie Can, CLAMP TRUCK DRIVER - Last Filed: 10/21/24 17:35> Social History Social History: Social History Smoking packs per day: 0.2 Smoking cigarettes per day: 4.0 Years smoked: 5 Smoking pack-years: 1.00 Smoking status: Former smoker Tobacco type: cigarettes Second hand tobacco smoke exposure: No Smoking end date: 09/08/01 Alcohol intake: current Alcohol use details: 1 per year Substance use: never Substance use type: does not use Do You Feel Safe in your Home?: Yes Lack of Transportation: No Lack of Food: Never True Current Housing: I Have Housing Concerned About Future Housing: No Difficulty Paying Gas/Electric Bills: No Difficulty Paying for Meds: No Currently Unemployed: No Education: Master's Degree or Higher Difficulty w/ Childcare or Family Care: No Living arrangements: with family Additional living arrangements comments: Spiritual care concerns: No <Kellie Can, KIMBERLEE - Last Filed: 10/21/24 17:35> Exam Narrative: GENERAL: Well-appearing, well-nourished, and in no acute distress. HEAD: Normocephalic, atraumatic. + jaw swelling right sided, localized, mild, no significant TTP or fluctuance, no edema in the neck or chest. CHEST: Clear to auscultation. ?No respiratory distress. port site CDI, no overlying erythema or swelling, no crepitus or masses with palpation. HEART: Regular rate and rhythm.? NEURO: ?Alert and oriented x3. <Ayden Bailey MD - Last Filed: 10/22/24 06:45> Course Vital Signs Vital signs: Vital Signs Temperature 36.4 C 10/21/24 17:27 Pulse Rate 65 10/21/24 17:27 Respiratory Rate 16 10/21/24 17:27 Blood Pressure 134/68 10/21/24 17:27 Pulse Oximetry 98 10/21/24 17:27 Temperature 36.4 C 10/21/24 17:27 Pulse Rate 65 10/21/24 17:27 Respiratory Rate 16 10/21/24 17:27 Blood Pressure 134/68 10/21/24 17:27 Pulse Oximetry 98 10/21/24 17:27 <Kellie Can APRN - Last Filed: 10/21/24 17:35> Vital Signs Temperature 36.4 C 10/21/24 17:27 Pulse Rate 65 10/21/24 17:27 Respiratory Rate 16 10/21/24 17:27 Blood Pressure 134/68 10/21/24 17:27 Pulse Oximetry 98 10/21/24 17:27 Temperature 36.4 C 10/21/24 17:27 Pulse Rate 65 10/21/24 17:27 Respiratory Rate 16 10/21/24 17:27 Blood Pressure 134/68 10/21/24 17:27 Pulse Oximetry 98 10/21/24 17:27 <Ayden Bailey MD - Last Filed: 10/22/24 06:45> Medical Decision Making MDM Narrative Medical decision making narrative: Patient is a 69-year-old female who presents to the ER with a right swollen neck. She reports she has a port placed in her right chest. Patient received chemotherapy today without incident. She reports after she left [place] her neck started swelling. Patient denies any shortness a breath, difficulty swallowing, or extreme pain. She endorses a history of colon cancer, diabetes, and thyroid disorder. Examination is reassuring and she has a normocephalic, atraumatic head and neck exam. + jaw swelling right sided, localized, mild, no significant TTP or fluctuance, no edema in the neck or chest. Clear to auscultation. ?No respiratory distress. port site CDI, no overlying erythema or swelling, no crepitus or masses with palpation. Symptoms seem isolated and secondary to either obstructed salivary gland, lymphadenopathy or less likely infectious process such as a bug bite. She has some dry mouth symptoms of this is likely an obstructive gland and she was given symptomatic treatment such as antihistamine recommendations and sialagogues. Chest x-ray obtained and shows no complications with the Port-A-Cath and appears unchanged from prior. Patient comfortable with discharge with outpatient follow-up and given return precautions. <Ayden Bailey MD - Last Filed: 10/22/24 06:45> Medical Records Medical records reviewed: Yes I reviewed the external patient's medical records. <Ayden Bailey MD - Last Filed: 10/22/24 06:45> Vital Signs Vital Signs: Vital Signs Temperature 36.4 C 10/21/24 17:27 Pulse Rate 65 10/21/24 17:27 Respiratory Rate 16 10/21/24 17:27 Blood Pressure 134/68 10/21/24 17:27 Pulse Oximetry 98 10/21/24 17:27 Temperature 36.4 C 10/21/24 17:27 Pulse Rate 65 10/21/24 17:27 Respiratory Rate 16 10/21/24 17:27 Blood Pressure 134/68 10/21/24 17:27 Pulse Oximetry 98 10/21/24 17:27 <Kellie Can APRN - Last Filed: 10/21/24 17:35> Vital Signs Temperature 36.4 C 10/21/24 17:27 Pulse Rate 65 10/21/24 17:27 Respiratory Rate 16 10/21/24 17:27 Blood Pressure 134/68 10/21/24 17:27 Pulse Oximetry 98 10/21/24 17:27 Temperature 36.4 C 10/21/24 17:27 Pulse Rate 65 10/21/24 17:27 Respiratory Rate 16 10/21/24 17:27 Blood Pressure 134/68 10/21/24 17:27 Pulse Oximetry 98 10/21/24 17:27 <Ayden Bailey MD - Last Filed: 10/22/24 06:45> Imaging Data Attestation: I personally reviewed and interpreted this imaging study as follows: <Ayden Bailey MD - Last Filed: 10/22/24 06:45> My impression: Impressions Chest X-Ray 10/21/24 18:20 IMPRESSION: No focal infiltrate or effusion. Right internal jugular central venous power port catheter with its tip projecting over the superior vena cava. This catheter is unchanged in position since placement evaluation dated 08/21/2024. However, if the concern is for the lack of blood return, or inability to flush, outpatient evaluation (fluoroscopically guided port study) may be performed. <Ayden Bailey MD - Last Filed: 10/22/24 06:45> Discharge Plan Discharge Clinical Impression: Mandibular swelling <Kellie Can APRN - Last Filed: 10/21/24 17:35> Patient Disposition: Home <Kellie Can APRN - Last Filed: 10/21/24 17:35> Condition: Stable <Kellie Can APRN - Last Filed: 10/21/24 17:35> Instructions: Antibiotic Form, Parotid Duct Obstruction (ED), Sialoadenitis (ED) <Kellie Can APRN - Last Filed: 10/21/24 17:35> Additional Instructions: No signs of any concern regarding your port site and seems like the isolated jaw swelling on the right side is unrelated to the port entirely. Based on her symptomatology and location of the swelling this is likely a block salivary duct verses inflammation from some reactive process causing lymph node enlargement. Follow-up with your regular care team and you can take Benadryl 25 mg every 8 hours in addition to Pepcid 20 mg twice daily. Recommendations for sour candies to help stimulate the salivary glands. Warm compresses to the area of the swelling. Follow-up with your regular doctors and return if he started having worsening swelling, developing worsening pain, fevers or inability to swallow, neck swelling or any difficulty breathing. <Kellie Can APRN - Last Filed: 10/21/24 17:35> Patient Language: Bhutanese <Kellie Can APRN - Last Filed: 10/21/24 17:35> Prescriptions: New famotidine [Pepcid] 20 mg tablet 20 mg PO BID Qty: 20 0RF No Action cholecalciferol (vitamin D3) 125 mcg (5,000 unit) capsule 125 mcg PO DAILY cetirizine [Zyrtec] 10 mg tablet 10 mg PO DAILY PRN (Reason: allergies) nystatin 100,000 unit/gram ointment 1 applic TOPICAL EVERY OTHER DAY triamcinolone acetonide 0.1 % ointment 1 applic TOPICAL EVERY OTHER DAY melatonin 1 mg tablet 1 mg PO DAILY (DME) blood-glucose meter [Contour Next Glucose Meter] Kit See Rx Instructions .ROUTE .COMPLEX Qty: 1 0RF Dose Instruction: CHECK BLOOD GLUCOSE THREE TIMES DAILY PRIOR TO MEALS Rx Instructions: CHECK BLOOD GLUCOSE THREE TIMES DAILY PRIOR TO MEALS losartan 100 mg tablet See Rx Instructions .ROUTE .COMPLEX Qty: 90 1RF Dose Instruction: TAKE 1 TABLET BY MOUTH EVERY DAY Patient Comments: QAM Rx Instructions: TAKE 1 TABLET BY MOUTH EVERY DAY hydrochlorothiazide 12.5 mg tablet See Rx Instructions .ROUTE .COMPLEX Qty: 90 1RF Dose Instruction: TAKE 1 TABLET BY MOUTH EVERY DAY Patient Comments: QAM Rx Instructions: TAKE 1 TABLET BY MOUTH EVERY DAY levothyroxine 50 mcg tablet See Rx Instructions .ROUTE .COMPLEX Qty: 90 1RF Dose Instruction: TAKE 1 TABLET BY MOUTH EVERY DAY Rx Instructions: TAKE 1 TABLET BY MOUTH EVERY DAY diltiazem HCl 240 mg capsule,extended release 24hr See Rx Instructions .ROUTE .COMPLEX Qty: 90 1RF Dose Instruction: TAKE 1 CAPSULE BY MOUTH EVERY DAY Rx Instructions: TAKE 1 CAPSULE BY MOUTH EVERY DAY rosuvastatin 10 mg tablet See Rx Instructions .ROUTE .COMPLEX Qty: 90 1RF Dose Instruction: TAKE 1 TABLET BY MOUTH EVERY DAY Rx Instructions: TAKE 1 TABLET BY MOUTH EVERY DAY omeprazole 20 mg capsule,delayed release(DR/EC) See Rx Instructions .ROUTE .COMPLEX Qty: 90 1RF Dose Instruction: TAKE 1 CAPSULE BY MOUTH EVERY DAY NEEDED FOR INDIGESTION Rx Instructions: TAKE 1 CAPSULE BY MOUTH EVERY DAY NEEDED FOR INDIGESTION (DME) OneTouch Verio test strips Strip See Rx Instructions .ROUTE .COMPLEX Qty: 100 11RF Dose Instruction: USE 1-3 TIMES PER DAY TO CHECK BLOOD GLUCOSE Rx Instructions: USE 1-3 TIMES PER DAY TO CHECK BLOOD GLUCOSE calcium 500 mg Tablet 500 mg PO DAILY <Kellie Can APRN - Last Filed: 10/21/24 17:35> Follow-up/Referrals: Brittanie Angeles APRN [Primary Care Provider] - <Kellie Can APRN - Last Filed: 10/21/24 17:35> Time of Disposition: 23:17 <Kellie Can APRN - Last Filed: 10/21/24 17:35> 23:17 <Ayden Bailey MD - Last Filed: 10/22/24 06:45>
--- OUTSIDE RECORDS SUMMARY | 2024-10-21 22:50 | XMS_ITS | Clinical Summary ---
Author Organization [facility] Address [address] [place] [address] Care Team Providers Care X Ray Nurse Name Role Phone Arnaldo Hurtado MD Unavailable [phone] Arnaldo Hurtado MD Primary Care Provider [phone] Source Comments [facility],non-owned Affiliates and Associated Physician Practices is amultiple site organization consisting of ambulatory clinics and hospital sitesin [place], [place], [place] and [place]. This disclosure is being madepursuant to the Care Everywhere program and may not contain all information available regarding this patient. Last updated 17.[facility] [employer] Allergies No known active allergies Medications * [...] mouth once daily 3 Active nystatin (Mycostatin) 156756 UNIT/GM ointmentIndica tions:Lichen planus Use to affected [...] Description 08/19/2024 Telephone [facility] - ELECTRIC ORGAN ASSEMBLER [address] [facility] [address] [place] [address] Liv Johnson, [employer] INSURANCE CLAIMS ADJUSTER-FORENSIC SCIENCE TECHNICIAN Question; Appointment from Last 3 Months Family [...] Comments Blood Pressure 122/80 04/16/2024 10:09 AM RAILCAR MECHANIC Pulse - - Temperature - - Respiratory Rate - - Oxygen Saturation - - Inhaled Oxygen Concentration - - Weight 73.5 kg (162 lb) 04/16/2024 10:09 AM RAILCAR MECHANIC Height 152.4 cm (5') 04/16/2024 10:09 AM RAILCAR MECHANIC Body Mass Index 31.64 04/16/2024 10:09 AM RAILCAR MECHANIC Plan of Treatment Upcoming Encounters Date Type Department Care Team (Late st Contact Info) Description 12/09/2024 2:00 PM CDT Office Visit [facility] - ELECTRIC ORGAN ASSEMBLER [address] [place] [phone] Liv Johnson, [employer] INSURANCE CLAIMS ADJUSTER-FORENSIC SCIENCE TECHNICIAN [address] [facility] [address] [place] [address] Health Maintenance Due Date Last [...] age to complete this topic Insurance [facility] MEDICARE SELF PAY NO INSURANCE Member Subscriber Plan / Payer (Ef fective for All Dates) Name:Ruth Rivera Member ID:Not on file Relation to Subscriber:Not on file Name:RUTH RIVERA Subscriber ID:Not on file (Home) Address: [facility] [place] [place] [address] [place] [id number] Payer ID:Not on file Group ID:Not on file Type:Self Pay Address: [place], [place] Care Teams X Ray Nurse Relationship Specialty Start Date End Date Arnaldo Hurtado MD [address] [place] [id number] PCP - General Family Medicine 08/17/22 Arnaldo Hurtado MD [address] [place] [address] Primary Care Provider Family Medicine 08/15/22
--- OUTSIDE RECORDS SUMMARY | 2024-10-21 22:50 | XMS_ITS | Encounter Summary ---
Author Organization [facility] Address [address] [place] [address] Phone Care Team Providers Care Software Firmware Engineer Name Role Phone Arnaldo Hurtado MD Primary Care Provider [phone] Luis Allen MD PhD Unavailable [phone] Encounter Details Date Type Department Care Team (Late st Contact Info) Description 10/08/2024 Telephone [facility] Cardiology [address] [facility] 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 Requested records from PCP * Telephone Encounter [...] Cardio-Oncology If yes where were you treated? [facility] Have you ever seen a Compositor Apprentice in an office setting? 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) Appointment Date: 11-12-2024 Provider: Jose Location: [facility] [x] Confirm appt date, time, provider and location. [x] Advise pt to arrive 15- 20 min early. [x] Advise patient to bring medications/list, photo ID and insurance card [x] Advise of New PatientPacket being mailed to them. documented in this encounter Plan of Treatment Not on file documented as of this encounter Visit Diagnoses Not on filedocumented in this encounter Care Teams Software Firmware Engineer Relationship Specialty Start Date End Date Arnaldo Hurtado MD [address] [place] [address] PCP - General Family Practice 07/29/24 Luis Allen MD PhD [address] [place] [address] Medical Oncologist/Business Practices Supervisor Medical Oncology 07/29/24 documented as of this encounter
--- OUTSIDE RECORDS SUMMARY | 2024-10-21 22:50 | XMS_ITS ---
Author Name TYSON STONE APRN Address [address] [place] [place] [address] Phone [phone] Organization [facility] Care Team Providers Care Rn Lpn Lvn Name Role Phone TYSON STONE Unavailable [phone] Arnaldo Hrutado Unavailable [phone] Reason for Referral Not Available Allergies, adverse reactions, alerts No known allergies History of medication use Medication Class Instructions Start Date End Date Adljozn-Zpwmfhmye-Fokz 333.33/133.33/5 mg Tab once a day 2024-06-18 [...] making, total time 30-44 minutes [facility] 06/18/2024 Essential (primary) hypertensionType 2 diabetes mellitus [...] medical decision making, total time 30-44 minutes [id number] 2024-06-18 No Data Available No Data Availa [...]
--- OUTSIDE RECORDS SUMMARY | 2024-10-21 22:50 | XMS_ITS ---
Author Organization [address] Address [address] [place] [address] Care Team Providers Care Compressor Station Engineer Chief Name Role Phone Arnaldo Hurtado MD Primary Care Provider [phone] María Sanderson MD PhD Unavailable [phone] Active Problems Problem Noted Date Diagnosed Date [...]
--- OUTSIDE RECORDS SUMMARY | 2024-10-21 22:51 | XMS_ITS | Encounter Summary ---
Author Organization [facility] Address [address] [place] [address] Care Team Providers Care Microbiology Laboratory Manager Name Role Phone Unavailable Primary Care Provider Unavailabl e Reason for Referral * Diagnostic Imaging (Routine) - Pending Review Specialty Diagnoses / Procedures Referred By Contac t Referred To Contact Procedures Breast Imaging Screening Outside Reference Transcribed Order, Provider Referral ID Status Reason Start Date Expiration Date V isits Requested Visits Authorized [id number] Pending Review 10/15/2024 11/14/2025 1 1 Reason for Visit * Diagnostic Imaging (Routine) - Pending Review Specialty Diagnoses / Procedures Referred By Contac t Referred To Contact Procedures Breast Imaging Screening Outside Reference Transcribed Order, Provider Referral ID Status Reason Start Date Expiration Date V isits Requested Visits Authorized [id number] Pending Review 10/15/2024 11/14/2025 1 1 Encounter Details Date Type Department Care Team (Late st Contact Info) Description 07/19/2020 Hospital Encounter [facility] [address] [place] [id number] Social History Tobacco Use Types Packs/Day Years Used Date Smoking Tobacco: Former Cigarettes 0 03/1999 - 03/1996 Smokeless Tobacco: Never Comments Unknown Sex and Gender Information Value Date Recorded Sex Assigned at Not on file 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 There will be no report generated by a [facility] Radiologist. Narrative [facility] - 10/15/2024 2:36 PM CDT EXAMINATION: Images For Reference Purposes Only us Provider Transcribed Order IMG MAMMO PROCEDURES Final Result [facility] documented in this encounter Visit Diagnoses Not on filedocumented in this encounter
--- OUTSIDE RECORDS SUMMARY | 2024-10-21 22:51 | XMS_ITS | Encounter Summary ---
Author Organization [facility] Address [address] [place] [address] Phone Care Team Providers Care Aircraft Ordnance Systems Mechanic Name Role Phone Arnaldo Hurtado MD Primary Care Provider [phone] María Sanderson MD PhD Unavailable Reason for Visit * Reason Onset Date Comments Facial Swelling 10/21/2024 Encounter Details Date Type Department Care Team (Late st Contact Info) Description 10/21/2024 Telephone [facility] Oncology [address] [place] [address] Kate Hussein RN Facial Swelling Social History Tobacco Use Types Packs/Day Years Used Date Smoking Tobacco: Former Cigarettes 0 03/1999 - 03/1996 Smokeless Tobacco: Never Comments Unknown Sex and Gender Information Value Date Recorded Sex Assigned at Not on file 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 Reviewed case with [facility] who recommend ER given location of swelling [...] on filedocumented in this encounter Care Teams Aircraft Ordnance Systems Mechanic Relationship Specialty Start Date End Date Arnaldo Hurtado MD [address] [place] [address] PCP - General Family Practice 07/29/24 María Sanderson MD PhD [address] [place] [address] Medical Oncologist/Layout Worker Medical Oncology 07/29/24 documented as of this encounter
--- OUTSIDE RECORDS SUMMARY | 2024-10-21 22:51 | XMS_ITS | Clinical Summary ---
Author Organization [address] Address [address] [place] [id number] Care Team Providers Care Supervisor Sewing Room Name Role Phone Arnaldo Hurtado MD Primary Care Provider [phone] María Sanderson MD PhD Unavailable [phone] Allergies Active Allergy Reactions Criticality Noted Date [...] Type Department Care Team Description 10/21/2024 Telephone [facility] Oncology [facility]0 [facility] 5 [place] [address] Kate Hussein RN Facial Swelling 10/19/2024 8:[address] [facility] - Infusion [address] [facility] 5 [place] [address] Malignant neoplasm of colon, unspecified part of colon (HCC) (Primary Dx) 10/19/2024 7:15 AM CDT Clinical Support [facility] - Lab Collection [address] [facility] Floor 5 [place] [address] Malignant neoplasm of colon, unspecified part of colon (HCC) 10/15/2024 1:30 PM CDT - 10/15/2024 11:59 PM CDT Hospital Encounter [facility] - Breast Imaging [address] [facility] Floor 8 [place] [address] Screening mammogram, encounter for Discharge Disposition: Discharge to home or self care 10/15/2024 Orders Only [facility] [address] [place] [address] Earlene Guardado MD 10/08/2024 Telephone [facility] Cardiology [address] [facility] 8th [place] [address] [place] [address] Emily Noel 10/05/2024 9:[address] [facility] - Infusion [address] [facility] Floor 5 [place] [address] Malignant neoplasm of colon, unspecified part of colon (HCC) (Primary Dx) 10/05/2024 8:20 AM CDT Office Visit [facility] Oncology [facility]0 [facility] Floor 5 [place] [address] María Sanderson MD PhD Malignant neoplasm of colon, unspecified part of colon (HCC) (Primary Dx); Bradycardia 10/05/2024 7:30 AM CDT Clinical Support [facility] - Lab Collection [facility] Floor 5 [place] [address] Malignant neoplasm of colon, unspecified part of colon (HCC) 10/05/2024 Documentation [facility] Nutrition Counseling 1 [facility] [place] [address] 10/05/2024 Orders Only [facility] Oncology [facility]0 [facility] Floor 5 [place] [address] María Sanderson MD PhD 09/14/2024 11:00 AM CDT Infusion [facility] [place] [facility] Infusion [address] [facility] Floor 6 [place] [address] Malignant neoplasm of colon, unspecified part of colon (HCC) (Primary Dx) 09/14/2024 10:00 AM CDT Office Visit [facility] Oncology [address] [place] [address] Floor 5 [place] [address] María Sanderson MD PhD Malignant neoplasm of colon, unspecified part of colon (HCC) (Primary Dx) 09/14/2024 9:00 AM CDT Clinical Support [facility] Oncology Lab [address] [place] [address] Floor 5 [place] [address] Malignant neoplasm of colon, unspecified part of colon (HCC) 09/14/2024 8:45 AM CDT Clinical Support [facility] - [facility] Collection [address] [place] [address] Floor 5 [place] [address] Malignant neoplasm of colon, unspecified part of colon (HCC) 09/14/2024 Documentation [facility] Nutrition Counseling 1 [place] [address] Magui Morgan, WILLIAM 09/01/2024 Telephone [facility] Oncology [address] [place] [address] Floor 5 [place] [address] Kate Hussein RN Follow-up 08/31/2024 2:00 PM CDT Infusion [facility] [place] [facility] Infusion [address] [place] [address] Floor 6 [place] [address] Malignant neoplasm of colon, unspecified part of colon (HCC) (Primary Dx) 08/31/2024 1:00 PM CDT Office Visit [facility] Oncology [address] [place] [address] Floor 5 [place] [address] María Sanderson MD PhD Malignant neoplasm of colon, unspecified part of colon (HCC) (Primary Dx) 08/31/2024 12:[address] PM [address]T Clinical Support [facility] Collection [address] [place] [address] Floor 5 [place] [address] Malignant neoplasm of colon, unspecified part of colon (HCC) 08/24/2024 10:12 AM CDT - 08/24/2024 11:59 PM CDT Hospital Encounter [facility] Radiology [facility] [address] [place] [address] Discharge Disposition: Discharge to home or self care 08/18/2024 Telephone [facility] Oncology [address] [place] [address] Floor 5 [place] [address] Kate Hussein RN Scheduling Appointments 08/18/2024 Orders Only [facility] Oncology [address] [place] [address] 5 [place] [address] María Sanderson MD PhD 08/17/2024 3:45 PM CDT Lab [facility] [place] - Lab Collection [facility] Floor 5 [place] [address] Malignant neoplasm of colon, unspecified part of colon (HCC) 08/17/2024 1:00 PM CDT Office Visit [facility] Oncology [address] [place] [address] 5 [place] [address] María Sanderson MD PhD Malignant neoplasm of colon, unspecified part of colon (HCC) (Primary Dx) 08/10/2024 Orders Only [facility] [place] [address] [place] [address] María Sanderson MD PhD Malignant neoplasm of colon, unspecified part of colon (HCC) 08/07/2024 Orders Only [facility] Oncology [address] [place] [address] María Sanderson MD PhD Malignant neoplasm [...] on file Legal 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 Gender Identity Female 10/06/2024 5:10 AM [...] MD PhD LAB BLOOD ORDERABLES Final Result [facility] Department [place] [address] * Differential, auto (10/19/2024 7:30 AM CDT) Neutrophil abs 3.21 1.50 - 6.50 K/cumm Comment:Testing performed by : [facility], [address] [place], [place] [id number] Lymphocyte abs 1.35 0.80 - 3.30 K/cumm [facility] Comment:Testing performed by : [facility], [address] [place] [address] Monocyte abs 0.63 0.20 - 0.80 K/cumm [facility]ER [facility] Comment:Testing performed by : [facility], [address] [place], [place] [id number] Eosinophil abs 0.47 0.00 - 0.50 K/cumm C[facility]ER [facility]J Comment:Testing performed by : [facility], [address] [place] [address] Basophil abs 0.07 0.00 - 0.10 K/cumm C[facility] Comment:Testing performed by : [facility], [address] [place], [place] [id number] Neutrophil pct 56.0 % [facility] Comment: Interpretive Data Percent cell count reference ranges are not reported, since discordance with absolute values may lead to misinterpretation of CBC data. Current Interpretive Data was last revised on 2017. Testing performed by: [facility], [address] [place] [phone] Lymphocyte pct 23.7 % [facility] Comment: Interpretive Data Percent cell count reference ranges are not reported, since discordance with absolute values may lead to misinterpretation of CBC data. Current Interpretive Data was last revised on 2017. Testing performed by: [facility], [address] [place] [phone] Monocyte pct 11.0 % [facility] Comment: Interpretive Data Percent cell count reference ranges are not reported, since discordance with absolute values may lead to misinterpretation of CBC data. Current Interpretive Data was last revised on 2017. Testing performed by: [facility], [address] [place] [phone] Eosinophil pct 8.1 % [facility] Comment: Interpretive Data Percent cell count reference ranges are not reported, since discordance with absolute values may lead to misinterpretation of CBC data. Current Interpretive Data was last revised on 2017. Testing performed by: [facility], [address] [place] [phone] Basophil pct 1.2 % [facility] Comment: Interpretive Data Percent cell count reference ranges are not reported, since discordance with absolute values may lead to misinterpretation of CBC data. Current Interpretive Data was last revised on 2017. Testing performed by: [facility] Lab, [address] [place] [phone] Blood 10/19/2024 7:30 AM CDT 10/19/2024 7:33 AM CDT us María Sanderson MD PhD LAB BLOOD ORDERABLES Final Result [facility] Department [place] [address] * (ABNORMAL) CBC with auto differential (10/19/2024 7:30 AM CDT) WBC 5.73 3.80 - 9.90 K/cumm Comment:Testing performed by : [facility], [address] [place] [address] Hgb 11.7(L) 11.9 - 15.5 g/dL [facility] Comment:Testing performed by : [facility], [address] [place] [address] Hct 34.7(L) 35.6 - 45.5 % [facility] Comment:Testing performed by : [facility], [address] [place] [address] Plt 182 150 - 400 K/cumm [facility] Comment:Testing performed by : [facility], [address] [place] [address] MPV 6.2(L) 6.8 - 10.4 fL [facility] Comment:Testing performed by : [facility], [address] [place] [address] RBC 4.34 3.90 - 5.20 M/cumm [facility] Comment:Testing performed by : [facility], [address] [place] [address] MCV 79.8(L) 81.3 - 96.4 fL [facility] Comment:Testing performed by : [facility], [address] [place] [address] MCH 26.9(L) 27.1 - 33.3 pg [facility] Comment:Testing performed by : [facility], [address] [place] [address] MCHC 33.7 32.3 - 35.7 g/dL [facility] Comment:Testing performed by : [facility], [address] [place] [address] RDW CV 16.2(H) 11.1 - 14.9 % [facility] Comment:Testing performed by : [facility], [address] [place] [address] NRBC abs 0.00 0.00 - 0.01 K/cumm [facility] Comment:Testing performed by : [facility], [address] [place] [phone] Blood 10/19/2024 7:30 AM CDT 10/19/2024 7:33 AM CDT María Sanderson MD PhD LAB BLOOD ORDERABLES Final Result [facility] Department [place] [address] * Comprehensive metabolic panel (10/19/2024 7:30 AM CDT) Sodium 139 135 - 145 mmol/L Potassium, pl 3.7 3.3 - 4.9 mmol/L [facility] Chloride 103 97 - 110 mmol/L [facility] CO2 25 22 - 32 mmol/L [facility] Anion gap 11 2 - 15 mmol/L [facility] BUN 11 6 - 25 mg/dL [facility] Creatinine 0.60 0.60 - 1.10 mg/dL [facility] Glucose 190 70 - 199 mg/dL [facility] Comment: Interpretive Data Fasting glucose >/= [...] Calcium 9.2 8.5 - 10.3 mg/dL [facility] Bilirubin, total 0.5 0.1 - 1.2 mg/dL [facility] Protein, pl 6.8 6.5 - 8.5 g/dL [facility] Albumin 4.0 3.5 - 5.0 g/dL [facility] Alk phos 91 40 - 130 Units/L [facility] ALT 39 7 - 45 Units/L [facility] AST 40 10 - 45 Units/L [facility] Blood 10/19/2024 7:30 AM CDT 10/19/2024 7:35 AM CDT María Sanderson MD PhD LAB BLOOD ORDERABLES Final Result [facility] Department [place] [address] * (ABNORMAL) Screening Mammogram Bilateral W Robson [...] MD PhD LAB BLOOD ORDERABLES Final Result [facility] Department [place] [address] * (ABNORMAL) CBC with auto differential (10/05/2024 7:58 AM CDT) WBC 5.76 3.80 - 9.90 K/cumm Comment:Testing performed by : [facility], [address] [place] [address] Hgb 12.0 11.9 - 15.5 g/dL [facility] Comment:Testing performed by : [facility], [address] [place] [address] Hct 36.2 35.6 - 45.5 % [facility] Comment:Testing performed by : [facility], [address] [place] [address] Plt 257 150 - 400 K/cumm [facility] Comment:Testing performed by : [facility], [address] [place] [address] MPV 6.2(L) 6.8 - 10.4 fL [facility] Comment:Testing performed by : [facility], [address] [place] [phone] RBC 4.52 3.90 - 5.20 M/cumm [facility] Comment:Testing performed by : [facility], [address] [place] [address] MCV 80.1(L) 81.3 - 96.4 fL [facility] Comment:Testing performed by : [facility], [address] [place] [address] MCH 26.6(L) 27.1 - 33.3 pg [facility] Comment:Testing performed by : [facility], [address] [place] [address] MCHC 33.2 32.3 - 35.7 g/dL [facility] Comment:Testing performed by : [facility], [address] [place] [address] RDW CV 15.2(H) 11.1 - 14.9 % [facility] Comment:Testing performed by : [facility], [address] [place] [address] NRBC abs 0.00 0.00 - 0.01 K/cumm [facility] Comment:Testing performed by : [facility], [address] [place] [address] Blood 10/05/2024 7:58 AM CDT 10/05/2024 8:03 AM CDT us María Sanderson MD PhD LAB BLOOD ORDERABLES Edited Result - Final [facility] Department [place] [address] * (ABNORMAL) Manual Differential (10/05/2024 7:58 AM CDT) Cells Counted 200 Comment:Testing performed by : [facility], [address] [place] [address] Neutrophil abs 1.90 1.50 - 6.50 K/cumm [facility] Comment:Testing performed by : [facility], [address] [place] [phone] Lymphocyte abs 2.36 0.80 - 3.30 K/cumm [facility] Comment:Testing performed by : [facility], [address] [place] [address] Monocyte abs 0.63 0.20 - 0.80 K/cumm [facility] Comment:Testing performed by : [facility], [address] [place], [place] [id number] Eosinophil abs 0.46 0.00 - 0.50 K/cumm [facility] Comment:Testing performed by : [facility], [address] [place] [address] Basophil abs 0.23(H) 0.00 - 0.10 K/cumm [facility] Comment:Testing performed by : [facility], [address] [place], [place] [id number] Neutrophil pct 33.0 % [facility] Comment: Interpretive Data Percent cell count reference ranges are not reported, since discordance with absolute values may lead to misinterpretation of CBC data. Current Interpretive Data was last revised on 2017. Testing performed by: [facility], [address] [place] [address] Lymphocyte pct 41.0 % [facility] Comment: Interpretive Data Percent cell count reference ranges are not reported, since discordance with absolute values may lead to misinterpretation of CBC data. Current Interpretive Data was last revised on 2017. Testing performed by: [facility], [address] [place] [address] Monocyte pct 11.0 % [facility] Comment: Interpretive Data Percent cell count reference ranges are not reported, since discordance with absolute values may lead to misinterpretation of CBC data. Current Interpretive Data was last revised on 2017. Testing performed by: [facility], [address] [place] [phone] Eosinophil pct 8.0 % [facility] Comment: Interpretive Data Percent cell count reference ranges are not reported, since discordance with absolute values may lead to misinterpretation of CBC data. Current Interpretive Data was last revised on 2017. Testing performed by: [facility], [address] [place] [address] Basophil pct 4.0 % [facility] Comment: Interpretive Data Percent cell count reference ranges are not reported, since discordance with absolute values may lead to misinterpretation of CBC data. Current Interpretive Data was last revised on 2017. Testing performed by: [facility], [address] [place], [place] [id number] Metamyelocyte pct 3.0(H) 0.0 - 0.0 % [facility] Comment:Testing performed by : [facility], [address] [place], [place] [phone] Myelocyte pct 1.0(H) 0.0 - 0.0 % [facility] Comment:Testing performed by : [facility], [address] [place], [place] [phone] Variant lymph pct 1.0(H) 0.0 - 0.0 % [facility] Comment:Testing performed by : [facility], [address] [place], [place] [phone] Smudge cells, qual Present(A) [facility] Comment:Testing performed by : [facility], [address] [place], [place] [phone] RBC morphology NRBCs present(A) [facility] Comment:Testing performed by : [facility], [address] [place], [place] [phone] Hypochromasia 1+(A) [facility] Comment:Testing performed by : [facility], [address] [place], [place] [phone] Poikilocytosis 1+(A) [facility] Comment:Testing performed by : [facility], [address] [place], [place] [phone] Elliptocytes 1+(A) [facility] Comment:Testing performed by : [facility], [address] [place], [place] [phone] Platelet estimate Adequate [facility] Comment:Testing performed by : [facility], [address] [place], [place] [phone] Blood 10/05/2024 7:58 AM CDT 10/05/2024 8:03 AM CDT us María Sanderson MD PhD LAB BLOOD ORDERABLES Final Result [facility] Department [place] [address] * (ABNORMAL) Comprehensive metabolic panel (10/05/2024 7:58 AM CDT) Sodium 140 135 - 145 mmol/L Potassium, pl 3.7 3.3 - 4.9 mmol/L [facility] Chloride 103 97 - 110 mmol/L [facility] CO2 27 22 - 32 mmol/L [facility] Anion gap 10 2 - 15 mmol/L [facility] BUN 10 6 - 25 mg/dL [facility] Creatinine 0.58(L) 0.60 - 1.10 mg/dL [facility] Glucose 136 70 - 199 mg/dL [facility] Comment: Interpretive Data Fasting glucose >/= [...] Calcium 9.3 8.5 - 10.3 mg/dL [facility] Bilirubin, total 0.4 0.1 - 1.2 mg/dL [facility] Protein, pl 6.9 6.5 - 8.5 g/dL [facility] Albumin 4.1 3.5 - 5.0 g/dL [facility] Alk phos 99 40 - 130 Units/L [facility] ALT 42 7 - 45 Units/L [facility] AST 34 10 - 45 Units/L [facility] Blood 10/05/2024 7:58 AM CDT 10/05/2024 8:04 AM CDT María Sanderson MD PhD LAB BLOOD ORDERABLES Final Result [facility] Department [place] [address] * eGFR (09/14/2024 8:59 AM CDT) eGFR [...] PhD LAB BLOOD ORDERABLES Final [facility] [place] [address] * (ABNORMAL) Differential, auto (09/14/2024 8:59 AM CDT) Neutrophil abs 2.44 1.50 - 6.50 K/cumm Comment:Testing performed by : [facility], [address] [place] [phone] Lymphocyte abs 1.49 0.80 - 3.30 K/cumm [facility] Comment:Testing performed by : [facility], [address] [place] [phone] Monocyte abs 0.65 0.20 - 0.80 K/cumm [facility] Comment:Testing performed by : [facility], [address] [place], [place] [id number] Eosinophil abs 0.23 0.00 - 0.50 K/cumm [facility] Comment:Testing performed by : [facility], [address] [place] [address] Basophil abs 0.20(H) 0.00 - 0.10 K/cumm [facility] Comment:Testing performed by : [facility], [address] [place], [place] [id number] Neutrophil pct 48.7 % [facility] Comment: Interpretive Data Percent cell count reference ranges are not reported, since discordance with absolute values may lead to misinterpretation of CBC data. Current Interpretive Data was last revised on 2017. Testing performed by: [facility], [address] [place] [phone] Lymphocyte pct 29.8 % [facility] Comment: Interpretive Data Percent cell count reference ranges are not reported, since discordance with absolute values may lead to misinterpretation of CBC data. Current Interpretive Data was last revised on 2017. Testing performed by: [facility], [address] [place] [phone] Monocyte pct 13.0 % [facility] Comment: Interpretive Data Percent cell count reference ranges are not reported, since discordance with absolute values may lead to misinterpretation of CBC data. Current Interpretive Data was last revised on 2017. Testing performed by: [facility], [address] [place] [phone] Eosinophil pct 4.5 % [facility] Comment: Interpretive Data Percent cell count reference ranges are not reported, since discordance with absolute values may lead to misinterpretation of CBC data. Current Interpretive Data was last revised on 2017. Testing performed by: [facility], [address] [place] [address] Basophil pct 4.0 % [facility] Comment: Interpretive Data Percent cell count reference ranges are not reported, since discordance with absolute values may lead to misinterpretation of CBC data. Current Interpretive Data was last revised on 2017. Testing performed by: [facility], [address] [place] [address] Blood 09/14/2024 8:59 AM CDT 09/14/2024 9:01 AM CDT María Sanderson MD PhD LAB BLOOD ORDERABLES Final Result [facility] Department [place] [address] * (ABNORMAL) CBC with auto differential (09/14/2024 8:59 AM CDT) WBC 5.01 3.80 - 9.90 K/cumm Comment:Testing performed by : [facility], [address] [place] [address] Hgb 11.6(L) 11.9 - 15.5 g/dL [facility] Comment:Testing performed by : [facility], [address] [place] [address] Hct 34.6(L) 35.6 - 45.5 % [facility] Comment:Testing performed by : [facility], [address] [place] [address] Plt 232 150 - 400 K/cumm [facility] Comment:Testing performed by : [facility], [address] [place] [address] MPV 6.0(L) 6.8 - 10.4 fL [facility] Comment:Testing performed by : [facility], [address] [place] [address] RBC 4.30 3.90 - 5.20 M/cumm [facility] Comment:Testing performed by : [facility], [address] [place], [place] [phone] MCV 80.4(L) 81.3 - 96.4 fL [facility] Comment:Testing performed by : [facility] [facility], [address] [place], [place] [phone] MCH 26.9(L) 27.1 - 33.3 pg JERSON CASTLE Comment:Testing performed by : [facility], [address] [place], [place] [phone] MCHC 33.5 32.3 - 35.7 g/dL JERSON CASTLE Comment:Testing performed by : [facility], [address] [place], [place] [phone] RDW CV 14.4 11.1 - 14.9 % JERSON CASTLE Comment:Testing performed by : [facility], [address] [place], [place] [phone] NRBC abs 0.00 0.00 - 0.01 K/cumm JERSON [facility] Comment:Testing performed by : [facility], [address] [place], [place] [phone] Blood 09/14/2024 8:59 AM CDT 09/14/2024 9:01 AM CDT us María Sanderson MD PhD LAB BLOOD ORDERABLES Final Result [facility] Department [place] [address] * Comprehensive metabolic panel (09/14/2024 8:59 AM CDT) Sodium 141 135 - 145 mmol/L Potassium, pl 3.9 3.3 - 4.9 mmol/L [facility] Chloride 105 97 - 110 mmol/L [facility] CO2 27 22 - 32 mmol/L [facility] Anion gap 9 2 - 15 mmol/L [facility] BUN 13 6 - 25 mg/dL [facility] Creatinine 0.61 0.60 - 1.10 mg/dL [facility] Glucose 108 70 - 199 mg/dL [facility] Comment: Interpretive Data Fasting glucose >/= [...] 2022. Calcium 9.2 8.5 - 10.3 mg/dL [facility] Bilirubin, total 0.3 0.1 - 1.2 mg/dL [facility] Protein, pl 7.0 6.5 - 8.5 g/dL [facility] Albumin 4.1 3.5 - 5.0 g/dL [facility] Alk phos 92 40 - 130 Units/L [facility] ALT 24 7 - 45 Units/L [facility] AST 23 10 - 45 Units/L [facility] Blood 09/14/2024 8:59 AM CDT 09/14/2024 9:01 AM CDT María Sanderson MD PhD LAB BLOOD ORDERABLES Final Result [facility] [place] [address] * eGFR (08/31/2024 12:05 PM CDT) eGFR [...] [facility] [place] [address] * (ABNORMAL) Differential, auto (08/31/2024 12:05 PM CDT) Neutrophil abs 6.55(H) 1.50 - 6.50 K/cumm Comment:Testing performed by : [facility], [address] [place] [phone] Lymphocyte abs 2.28 0.80 - 3.30 K/cumm JERSON CASTLE Comment:Testing performed by : [facility], [address] [place] [phone] Monocyte abs 0.99(H) 0.20 - 0.80 K/cumm JERSON CASTLE Comment:Testing performed by : [facility], [address] [place] [phone] Eosinophil abs 0.17 0.00 - 0.50 K/cumm JERSON CASTLE Comment:Testing performed by : [facility], [address] [place] [phone] Basophil abs 0.09 0.00 - 0.10 K/cumm CERADRIANA BJ Comment:Testing performed by : [facility], [address] [place] [phone] Neutrophil pct 65.0 % JERSON CASTLE Comment: Interpretive Data Percent cell count reference ranges are not reported, since discordance with absolute values may lead to misinterpretation of CBC data. Current Interpretive Data was last revised on 2017. Testing performed by: [facility], [address] [place] [phone] Lymphocyte pct 22.6 % CERNER BJ Comment: Interpretive Data Percent cell count reference ranges are not reported, since discordance with absolute values may lead to misinterpretation of CBC data. Current Interpretive Data was last revised on 2017. Testing performed by: [facility], [address] [place] [phone] Monocyte pct 9.9 % CERNER [facility] Comment: Interpretive Data Percent cell count reference ranges are not reported, since discordance with absolute values may lead to misinterpretation of CBC data. Current Interpretive Data was last revised on 2017. Testing performed by: [facility], [address] [place] [address] Eosinophil pct 1.7 % [facility] Comment: Interpretive Data Percent cell count reference ranges are not reported, since discordance with absolute values may lead to misinterpretation of CBC data. Current Interpretive Data was last revised on 2017. Testing performed by: [facility], [address] [place] [phone] Basophil pct 0.9 % [facility] Comment: Interpretive Data Percent cell count reference ranges are not reported, since discordance with absolute values may lead to misinterpretation of CBC data. Current Interpretive Data was last revised on 2017. Testing performed by: [facility], [address] [place] [phone] Blood 08/31/2024 12:0 5 PM CDT 08/31/2024 12:06 PM CDT us María Sanderson MD PhD LAB BLOOD ORDERABLES Final Result [facility] Department [place] [address] * (ABNORMAL) CBC with auto differential (08/31/2024 12:05 PM CDT) WBC 10.08(H) 3.80 - 9.90 K/cumm Comment:Testing performed by : [facility], [address] [place] [address] Hgb 12.4 11.9 - 15.5 g/dL CERNER BJ Comment:Testing performed by : [facility], [address] [place] [address] Hct 36.4 35.6 - 45.5 % CERNER BJ Comment:Testing performed by : [facility], [address] [place] [address] Plt 348 150 - 400 K/cumm CERNER BJ Comment:Testing performed by : [facility], [address] [place] [address] MPV 6.1(L) 6.8 - 10.4 fL CERNER BJ Comment:Testing performed by : [facility], [address] [place] [address] RBC 4.60 3.90 - 5.20 M/cumm CERNER BJ Comment:Testing performed by : [facility], [address] [place] [address] MCV 79.1(L) 81.3 - 96.4 fL CERNER BJ Comment:Testing performed by : [facility], [address] [place] [address] MCH 26.9(L) 27.1 - 33.3 pg CERNER BJ Comment:Testing performed by : [facility], [address] [place] [address] MCHC 34.0 32.3 - 35.7 g/dL CERNER BJ Comment:Testing performed by : [facility], [address] [place] [address] RDW CV 13.8 11.1 - 14.9 % CERNER BJ Comment:Testing performed by : [facility], [address] [place] [address] NRBC abs 0.00 0.00 - 0.01 K/cumm [facility] Comment:Testing performed by : [facility], [address] [place] [address] Blood 08/31/2024 12:0 5 PM CDT 08/31/2024 12:06 PM CDT us María Sanderson MD PhD LAB BLOOD ORDERABLES Final Result [facility] Department [place] [address] * Comprehensive metabolic panel (08/31/2024 12:05 PM CDT) Sodium 139 135 - 145 mmol/L Potassium, pl 4.1 3.3 - 4.9 mmol/L [facility] Chloride 102 97 - 110 mmol/L [facility] CO2 27 22 - 32 mmol/L [facility] Anion gap 10 2 - 15 mmol/L [facility] BUN 10 6 - 25 mg/dL [facility] Creatinine 0.61 0.60 - 1.10 mg/dL [facility] Glucose 105 70 - 199 mg/dL [facility] Comment: Interpretive Data Fasting glucose >/= [...] 2022. Calcium 9.8 8.5 - 10.3 mg/dL [facility] Bilirubin, total 0.6 0.1 - 1.2 mg/dL [facility] Protein, pl 7.9 6.5 - 8.5 g/dL [facility] Albumin 4.5 3.5 - 5.0 g/dL [facility] Alk phos 92 40 - 130 Units/L [facility] ALT 22 7 - 45 Units/L [facility] AST 30 10 - 45 Units/L [facility] Blood 08/31/2024 12:0 5 PM CDT 08/31/2024 12:11 PM CDT María Sanderson MD PhD LAB BLOOD ORDERABLES Final Result Performing Organization Address City/[facility]/ZIP Co de Phone Number JERSON CASTLE [facility] [place] [address] * CT Body Outside Reference (08/24/2024 10:12 AM CDT) Impressions [facility] - 08/24/2024 10:12 AM CDT These images are for Reference purposes only and have not been reviewed by [facility]. There will be no report generated by a [facility] Radiologist. Narrative [facility] - 08/24/2024 10:12 AM CDT EXAMINATION: Images For Reference Purposes Only María Sanderson MD PhD IMG CT PROCEDURES Final Res ult Performing Organization Address [facility] Co de Phone Number RAD_[facility] * eGFR [...] MD PhD LAB BLOOD ORDERABLES Final Result [facility] Department [place] [address] * (ABNORMAL) Differential, auto (08/17/2024 3:48 PM CDT) Neutrophil abs 8.26(H) 1.50 - 6.50 K/cumm Comment:Testing performed by : [facility], [address] [place] [address] Lymphocyte abs 2.69 0.80 - 3.30 K/cumm CERNER [facility] Comment:Testing performed by : [facility], [address] [place] [phone] Monocyte abs 1.09(H) 0.20 - 0.80 K/cumm CERNER BJ Comment:Testing performed by : [facility], [address] [place], [place] [phone] Eosinophil abs 0.38 0.00 - 0.50 K/cumm CERNER BJ Comment:Testing performed by : [facility], [address] [place] [phone] Basophil abs 0.08 0.00 - 0.10 K/cumm CERNER BJ Comment:Testing performed by : [facility], [address] [place] [phone] Neutrophil pct 66.1 % CERNER BJ Comment: Interpretive Data Percent cell count reference ranges are not reported, since discordance with absolute values may lead to misinterpretation of CBC data. Current Interpretive Data was last revised on 2017. Testing performed by: [facility], [address] [place] [phone] Lymphocyte pct 21.6 % C[facility]ER [facility] Comment: Interpretive Data Percent cell count reference ranges are not reported, since discordance with absolute values may lead to misinterpretation of CBC data. Current Interpretive Data was last revised on 2017. Testing performed by: [facility], [address] [place] [phone] Monocyte pct 8.7 % JERSON [facility] Comment: Interpretive Data Percent cell count reference ranges are not reported, since discordance with absolute values may lead to misinterpretation of CBC data. Current Interpretive Data was last revised on 2017. Testing performed by: [facility], [address] [place] [phone] Eosinophil pct 3.0 % JERSON [facility] Comment: Interpretive Data Percent cell count reference ranges are not reported, since discordance with absolute values may lead to misinterpretation of CBC data. Current Interpretive Data was last revised on 2017. Testing performed by: [facility], [address] [place] [phone] Basophil pct 0.6 % JERSON [facility] Comment: Interpretive Data Percent cell count reference ranges are not reported, since discordance with absolute values may lead to misinterpretation of CBC data. Current Interpretive Data was last revised on 2017. Testing performed by: [facility], [address] [place] [phone] Blood 08/17/2024 3:48 PM CDT 08/17/2024 3:52 PM CDT us María Sanderson MD PhD LAB BLOOD ORDERABLES Final Result [facility] Department [place] [address] * (ABNORMAL) CBC with auto differential (08/17/2024 3:48 PM CDT) WBC 12.48(H) 3.80 - 9.90 K/cumm Comment:Testing performed by : [facility], [address] [place] [address] Hgb 13.2 11.9 - 15.5 g/dL CERNER BJ Comment:Testing performed by : [facility], [address] [place] [address] Hct 40.2 35.6 - 45.5 % CERNER BJ Comment:Testing performed by : [facility], [address] [place] [address] Plt 327 150 - 400 K/cumm CERNER BJ Comment:Testing performed by : [facility], [address] [place] [address] MPV 6.4(L) 6.8 - 10.4 fL CERNER BJ Comment:Testing performed by : [facility], [address] [place] [address] RBC 4.94 3.90 - 5.20 M/cumm CERNER BJ Comment:Testing performed by : [facility], [address] [place] [address] MCV 81.5 81.3 - 96.4 fL CERNER BJ Comment:Testing performed by : [facility], [address] [place] [address] MCH 26.7(L) 27.1 - 33.3 pg CERNER BJ Comment:Testing performed by : [facility], [address] [place] [address] MCHC 32.8 32.3 - 35.7 g/dL CERNER BJ Comment:Testing performed by : [facility], [address] [place] [address] RDW CV 13.9 11.1 - 14.9 % CERNER BJ Comment:Testing performed by : [facility], [address] [place] [address] NRBC abs 0.00 0.00 - 0.01 K/cumm CERNER BJ Comment:Testing performed by : [facility], [address] [place] [address] Blood 08/17/2024 3:48 PM CDT 08/17/2024 3:52 PM CDT María Sanderson MD PhD LAB BLOOD ORDERABLES Final Result Performing Organization Address City/[facility] Co de Phone Number [facility] [place] [place] [address] * aPTT (08/17/2024 3:48 PM CDT) aPTT [...] Final Result Performing Organization Address [facility] Co de Phone Number [facility] [place] [address] * Protime-INR (08/17/2024 3:48 PM CDT) PT 12.0 9.7 - 13.0 sec INR 1.11 0.90 - 1.20 [facility] Comment: Interpretive data Oral anticoagulant therapeutic [...] Performing Organization Address [facility] Co de Phone Number [facility] [place] [address] * CEA (08/17/2024 3:48 PM CDT) Pathologist [facility] CEA 1.3 <=5.0 ng/mL Comment: Interpretive Data: [...] MD PhD LAB BLOOD ORDERABLES Final Result [facility] [place] [address] * Comprehensive metabolic panel (08/17/2024 3:48 PM CDT) Pathologist [facility] Sodium 142 135 - 145 mmol/L Potassium, pl 4.7 3.3 - 4.9 mmol/L [facility] Chloride 104 97 - 110 mmol/L [facility] CO2 29 22 - 32 mmol/L [facility] Anion gap 9 2 - 15 mmol/L [facility] BUN 11 6 - 25 mg/dL [facility] Creatinine 0.73 0.60 - 1.10 mg/dL [facility] Glucose 89 70 - 199 mg/dL [facility] Comment: Interpretive Data Fasting glucose >/= [...] 2022. Calcium 9.8 8.5 - 10.3 mg/dL [facility] Bilirubin, total 0.9 0.1 - 1.2 mg/dL CERNER [facility] Protein, pl 8.1 6.5 - 8.5 g/dL CERNER [facility] Albumin 4.5 3.5 - 5.0 g/dL CERNER [facility] Alk phos 93 40 - 130 Units/L CERNER [facility] ALT 28 7 - 45 Units/L CERNER [facility] AST 31 10 - 45 Units/L [facility] Blood 08/17/2024 3:48 PM CDT 08/17/2024 4:11 PM CDT us María Sanderson MD PhD LAB BLOOD ORDERABLES Final Result [facility] [place] [address] * Tempus xT DNA and RNA (08/17/2024 [...] AM CDT [facility] [email or web address] [id number] [id number] 09/03/2024 9:07 AM CDT [facility] Comment:[facility] [...] Trial Match 1 Clinical Trial NCT ID: [id number] Clinical Trial Title: FOG-001 in Locally Advanced or Metastatic Solid Tumors Clinical Trial URL: https://clinicaltri als.gov/ct2/show/NC H26337938 Clinical Phase: Phase 1/Phase 2 Clinical Trial Matches: APC p.Q223* mutation, APC p.R213* mutation Clinical Trial Distance and Location: [address] [place], [place] 09/03/2024 9:07 AM CDT [facility] Tempus: Clinical Trial Match 2 Clinical Trial NCT ID: [id number] Clinical Trial Title: Study Of ATRN-119 In Patients With Advanced Solid Tumors Clinical Trial URL: https://clinicaltri als.gov/ct2/show/NC W15275710 Clinical Phase: Phase 1/Phase 2 Clinical Trial Matches: TP53 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 Clinical Trial Distance and Location: [address] [place], [place] 09/03/2024 9:07 AM CDT [facility]: Clinical Trial Match 3 Clinical Trial NCT ID: [id number] Clinical Trial Title: Trifluridine/Tipira cil and Talazoparib for the Treatment of Patients With Locally Advanced or Metastatic Colorectal or Gastroesophageal Cancer Clinical Trial URL: https://clinicaltri als.gov/ct2/show/NC H91858024 Clinical Phase: Phase 1 Clinical Trial Matches: TP53 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 Clinical Trial Distance and Location: [address] [place], [place] 09/03/2024 9:07 AM CDT [facility] [...] Edited Result - Final [facility] [address], [address] [phone] [facility] [address], [address] [place] [address] * [facility] xF (08/17/2024 3:27 PM CDT) Reason for Study To identify mutations relevant to patient's cancer. 08/26/2024 10:00 AM CDT [facility] Genetic Diseases Assessed Cancer 08/26/2024 10:00 AM CDT [facility] Description of Ranges of DNA Sequences Examined 523 gene liquid biopsy 08/26/2024 10:00 AM CDT [facility] Overall Interpretation positive 08/26/2024 10:00 AM CDT [facility] [email or web address] [id number] [email or web address] [id number] 08/26/2024 10:00 AM CDT [facility] Comment:[facility] link Low Coverage Regions ATRX, AAD23X8, DNMT1, FANCC, GNA11, HDAC2, KDM5D, NOTCH1, NOTCH2, PPP6C, RAD51C, RHOA, RXRA, SDHAF2, TGFBR1, TP63 08/26/2024 10:00 AM CDT [facility] Trial Count 2 08/26/2024 10:00 AM CDT [facility]: Clinical Trial Match 1 Clinical Trial NCT ID: [id number] Clinical Trial Title: Study Of ATRN-119 In Patients With Advanced Solid Tumors Clinical Trial URL: https://clinicaltri als.gov/ct2/show/NC I03360157 Clinical Phase: Phase 1/Phase 2 Clinical Trial Matches: TP53 p.H214R mutation Clinical Trial Distance and Location: [address] [place], [place] 08/26/2024 10:00 AM CDT [facility]: Clinical Trial Match 2 Clinical Trial NCT ID: [id number] Clinical Trial Title: Trifluridine/Tipira cil and Talazoparib for the Treatment of Patients With Locally Advanced or Metastatic Colorectal or Gastroesophageal Cancer Clinical Trial URL: https://clinicaltri als.gov/ct2/show/NC H14191358 Clinical Phase: Phase 1 Clinical Trial Matches: TP53 p.H214R mutation Clinical Trial Distance and Location: [address] [place], [place] 08/26/2024 10:00 AM CDT [facility] Tumor Mutational Odonnell 2.2 m/MB 08/26/2024 10:00 AM CDT [facility] [...] PhD LAB GENETIC TESTING Final R [facility]ult [facility] [address], [address] [place], [place] [address] [phone] [facility] [address], [address] [place] [address] * Surgical pathology (08/10/2024 9:18 AM CDT) Tissue (Miscellaneous) 08/10/2024 9:18 AM CDT 08/10/2024 9:18 AM CDT Narrative [facility] - 08/11/2024 12:22 PM CDT EPIC results best viewed via link to PDF [facility] Pathology Consult Service [address], [place] [address] Note to Patients: This report [...] SURGICAL PATHOLOGY REPORT * Consult Report * [facility] is providing an additional review of previously collected tissue. FINAL Patient Name: RUTH RIVERA Address: [address] [place] [address] Gender: F : 1955 (Age: 69) Hospital #: [id number] Patient Type: [facility] Location: UNKNOWN Taken: 08/10/2024 Received: 08/10/2024 Accessioned: 08/10/2024 Reported: 08/11/2024 Physician(s): María Sanderson M.D. [facility] Department of Pathology [facility] [place] [id number] P: [phone] F: [phone] Diagnosis: Consult material received from [place], [place] (OSC: [id number]; 06/15/2024). A. 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 A. Large bowel, sigmoid colon, sigmoidectomy [...] The provided stains were reviewed for OSC [id number]. OSC: [id number] The results of MMR IHC are as [...] Received for review are six slides labeled [id number] and fifteen slides labeled [id number], accompanied by a corresponding pathology report. The material originates from [place], [place] . Selected slide(s) may be digitally scanned for our files, and all materials are returned to the referring institution, along with a copy of our final report. Any testing required for diagnostic purposes was performed in the Department of Pathology and Immunology at [employer] [address] [address] [place] # [id number] The performance characteristics of the testing cited in this report (if any) were determined by the [facility] Department of Pathology and Immunology [facility], as part of an ongoing quality control projectionist program and in compliance with federally mandated [...] and the performance characteristics determined by the [facility], [facility] Department of Pathology and Immunology. It has not been cleared or approved by the U.S. Food and Drug Administration. Any test designated as LDT was developed and its performance characteristics determined by [facility]. It has not been cleared or approved by the FDA. This test is used for clinical purposes and should not be regarded as investigational or for research. Report images and/or scanned reports, if included, only viewable in PDF version of report. María Sanderson MD PhD LAB PATHOLOGY ORDERABLES [facility] Result [facility] [address] [address] from Last 3 Months Insurance [facility] [place] [address] Care Teams Supervisor Sewing Room Relationship Specialty Start Date End Date Arnaldo Hurtado MD [address] [place] [address] PCP - General Family Practice 07/29/24 María Sanderson MD PhD [id number] [place] [address] Medical Oncologist/Manager Of Customer Billing Medical Oncology 07/29/24
[2024-10-21] MEDS: FAMOTIDINE 20 MG TABLET PO (23:24)
[2024-10-21] MEDS: diphenhydrAMINE HCl CAP 25 MG CAPSULE PO (23:25)
== END 2024-10-21 23:35 | disposition home or self-care (01) ==
PROVIDERS: Emergency Provider Student in an Organized Health Care Education/Training Program; PCP Nurse Practitioner Family
DX: R22.1 Localized swelling, mass and lump, neck (principal); Z79.899 Other long term (current) drug therapy; E11.9 Type 2 diabetes mellitus without complications; Z85.038 Personal history of other malignant neoplasm of large intestine; E55.9 Vitamin D deficiency, unspecified; E07.9 Disorder of thyroid, unspecified; E03.9 Hypothyroidism, unspecified; I10 Essential (primary) hypertension; E78.00 Pure hypercholesterolemia, unspecified; Z87.891 Personal history of nicotine dependence
CPT/HCPCS: 71046; 99283; A9270